=== PATIENT | female | born 1955 | race Caucasian/White ===

== ENCOUNTER 2016-06-02 20:03 | Inpatient (IN) | payer MEDICAID ==
[~2016-06-02] VITALS: Ht 160 cm; Wt 51.6 kg
[~2016-06-02 20:03] MED LIST: CHLO25 PO; EFFE75CA PO; LISI-363 PO; LISI20 PO; LORTA5 PO; LURA40 PO; OXCA300 PO; PRAZ1 PO; REME45TA PO; TRAZ300T2 PO; VENL75XR PO
[2016-06-02 20:05] VITALS: BP 149/87; PULSE 86; RESP 14; TEMP 98; O2SAT 98
[2016-06-02 20:13] VITALS: PULSE 84; RESP 16
[2016-06-02] MEDS ORDERED: NORC5TAB PO (20:18)
[2016-06-02] MEDS ORDERED: LISI-515 PO (20:18)
[2016-06-02] MEDS ORDERED: LURA40 PO (20:19)
[2016-06-02] MEDS ORDERED: VENL75TA PO (20:20)
[2016-06-02] MEDS ORDERED: TRAZ300T2 PO (20:20)
[2016-06-02] MEDS ORDERED: TRIL300T PO (20:21)
[2016-06-02] MEDS ORDERED: SODIUM CHLOR 0.9% 1000 ML INJ 1,000 ML IV ONE (20:21)
[2016-06-02] MEDS ORDERED: REME45TA PO (20:24)
[2016-06-02] MEDS ORDERED: PRAZ1 PO (20:26)
[2016-06-02] MEDS ORDERED: MORP1TAB24 PO (20:26)
[2016-06-02] MEDS ORDERED: SODIUM CHLORIDE 0.9% FLUSH 5 ML FLUSH IVF PRN (20:30)
--- NOTE | 2016-06-02 20:31 | PD ---
HPI Chief Complaint: Altered Mental Status Time Seen by Provider: 20:23 Travel History International Travel<30 days: No Contact w/Intl Traveler<30days: No Traveled to known affect area: No History of Present Illness HPI 60-year-old female brought in by son after being found obtunded. Patient's son states it's been taking pain medication for her ongoing left hip pain. 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 Patient is scheduled to have hip replacement repaired in [facility] in the next 2 weeks. Patient's son states he found the patient with decreased responsiveness in her home and brought her to the emergency department as he is concerned. Patient is arousable to voice, but is obviously obtunded. O2 sat without supplementation is high 80s. Patient is allergic to nickel, morphine, latex, and Cerebyx. PFSH Past Medical History Hx Anticoagulant Therapy: No Arthritis: Yes Autoimmune Disease: No Blood Disorders: No Bipolar Disorder: Yes Anxiety: Yes Depression: Yes Chemotherapy: No Cerebrovascular Accident: No Diminished Hearing: No Endocrine: No Gastrointestinal Disorders: Yes (gi bleed) GERD: Yes Glaucoma: No Genitourinary: No Hiatal Hernia: No Immune Disorder: No Implanted Vascular Access Dvce: Yes (PICC LINE) Musculoskeletal: Yes (SCIATIC NERVE PROBLEMS LEFT) Neurologic: No Reproductive: No Respiratory: No Immunizations Current: Yes (flu and pneumonia shot-2006.) Migraines: Yes Radiation Therapy: No Thyroid Disease: No Ulcer: Yes Menopausal: Yes : 1 Para: 1 Tubal Ligation: Yes Past Surgical History Abdominal Surgery: No AICD: No Appendectomy: No Arteriovenous Shunt: No Body Medical Devices: CULLEN IN LEFT THIGH, SCREWS IN HIP Cardiac Surgery: No Cholecystectomy: No Ear Surgery: No Endocrine Surgery: No Eye Surgery: No Genitourinary Surgery: No Gynecologic Surgery: No Hysterectomy: No Insulin Pump: No Joint Replacement: No Oral Surgery: No Pacemaker: No Thoracic Surgery: No Other Surgery: Yes Social History Alcohol Use: No Tobacco Use: Yes (2-3 CIGS PER DAY) Substance Use: Yes (oxy ) Allergies-Medications (Allergen,Severity, Reaction): Coded Allergies: Latex (Verified Allergy, Intermediate, Rash, 06/02/16) Cerebyx (Verified Adverse Reaction, Severe, TINNITIS, 06/02/16) Morphine (Verified Adverse Reaction, Intermediate, Dizzy, 06/02/16) Uncoded Allergies: NICKEL (Adverse Reaction, Severe, SWELLING, 02/02/16) Reported Meds & Prescriptions Reported Meds & Active Scripts Active Reported Morphine ER (Morphine Sulfate) 15 Mg Tab 15 Mg PO DAILY Minipress (Prazosin HCl) 1 Mg Cap 1 Mg PO DAILY Remeron (Mirtazapine) 45 Mg Tab 45 Mg PO HS Trileptal (Oxcarbazepine) 300 Mg Tab 300 Mg PO DAILY Trazodone (Trazodone HCl) 300 Mg Tab 300 Mg PO HS Effexor (Venlafaxine HCl) 75 Mg Tab 75 Mg PO DAILY Latuda (Lurasidone) 40 Mg Tab 40 Mg PO DAILY [place] (Hydrocodone-Acetaminophen) 5-325 mg Tab 1 Tab PO Q6H PRN Lisinopril 20 Mg Tab 20 Mg PO DAILY Review of Systems ROS Limitations: Intoxication, Altered Mental Status Except as stated in HPI: all other systems reviewed are Neg General / Constitutional: No: Fever Eyes: No: Visual changes HENT: No: Headaches Cardiovascular: No: Chest Pain or Discomfort Respiratory: No: Shortness of Breath Gastrointestinal: No: Abdominal Pain Genitourinary: No: Dysuria Musculoskeletal: No: Pain Skin: No Rash Neurologic: No: Weakness Psychiatric: No: Depression Endocrine: No: Polydipsia Hematologic/Lymphatic: No: Easy Bruising Physical Exam Exam Limitations: Intoxication, Altered Mental Status Narrative GENERAL: Patient is obtunded, but arousable with loud voice. SKIN: Warm and dry. Normal color. Normal turgor. HEAD: Atraumatic. Normocephalic. EYES: Pupils equal and round. No scleral icterus. No injection or drainage. ENT: No nasal bleeding or discharge. Mucous membranes pink and moist. Pharynx is intact. NECK: Trachea midline. No JVD. Supple and nontender. CARDIOVASCULAR: Regular rate and rhythm. No murmurs gallops or rubs. RESPIRATORY: No accessory muscle use. Clear to auscultation. Breath sounds equal bilaterally. GASTROINTESTINAL: Abdomen soft, non-tender, nondistended. Hepatic and splenic margins not palpable. MUSCULOSKELETAL: Extremities without clubbing, cyanosis, or edema. Patient's left leg is shortened approximately 3 inches and laterally rotated. This is consistent with her previous hip history. NEUROLOGICAL: Awake and alert. No obvious cranial nerve deficits. Motor grossly within normal limits. Five out of 5 muscle strength in the arms and legs. Normal speech. PSYCHIATRIC: Appropriate mood and affect; insight and judgment normal. Data Data Last Documented VS Vital Signs Date Time Temp Pulse Resp B/P Pulse Ox O2 Delivery O2 Flow Rate FiO2 06/02/16 22:04 73 16 160/85 98 Nasal Cannula 3 06/02/16 20:05 98.0 Orders Electrocardiogram (06/02/16 20:21) Alcohol (Ethanol) (06/02/16 20:21) Complete Blood Count With Diff (06/02/16 20:21) Comprehensive Metabolic Panel (06/02/16 20:21) Drug Screen, Random Urine (06/02/16 20:21) Salicylates (Aspirin) (06/02/16 20:21) Tylenol (Acetaminophen) (06/02/16 20:21) Urinalysis - C+S If Indicated (06/02/16 20:21) Chest, Single Ap (06/02/16 20:21) Blood Glucose (06/02/16 20:21) Iv Access Insert/Monitor (06/02/16 20:21) Cath For Specimen (06/02/16 20:21) Ecg Monitoring (06/02/16 20:21) Oximetry (06/02/16 20:21) Oxygen Administration (06/02/16 20:21) Sodium Chloride 0.9% Flush (Ns Flush) (06/02/16 20:30) Sodium Chlor 0.9% 1000 Ml Inj (Ns 1000 M (06/02/16 20:21) Naloxone Inj (Narcan Inj) (06/02/16 21:15) Urinary Catheter Insert/Apply (06/02/16 21:25) Ct Brain W/O Iv Contrast(Rout) (06/02/16 21:25) Ammonia (06/02/16 22:27) Labs Laboratory Tests Test 06/02/16 20:45 White Blood Count 4.9 TH/MM3 Red Blood Count 3.58 MIL/MM3 Hemoglobin 11.8 GM/DL Hematocrit 34.3 % Mean Corpuscular Volume 96.0 FL Mean Corpuscular Hemoglobin 33.0 PG Mean Corpuscular Hemoglobin 34.4 % Concent Red Cell Distribution Width 16.5 % Platelet Count 248 TH/MM3 Mean Platelet Volume 7.0 FL Neutrophils (%) (Auto) 69.2 % Lymphocytes (%) (Auto) 21.3 % Monocytes (%) (Auto) 7.6 % Eosinophils (%) (Auto) 1.8 % Basophils (%) (Auto) 0.1 % Neutrophils # (Auto) 3.4 TH/MM3 Lymphocytes # (Auto) 1.0 TH/MM3 Monocytes # (Auto) 0.4 TH/MM3 Eosinophils # (Auto) 0.1 TH/MM3 Basophils # (Auto) 0.0 TH/MM3 CBC Comment DIFF FINAL Differential Comment Urine Color YELLOW Urine Turbidity CLEAR Urine pH 6.5 Urine Specific [place] 1.014 Urine Protein NEG mg/dL Urine Glucose (UA) NEG mg/dL Urine Ketones NEG mg/dL Urine Occult Blood NEG Urine Nitrite NEG Urine Bilirubin NEG Urine Urobilinogen LESS THAN 2.0 MG/DL Urine Leukocyte Esterase NEG Urine WBC LESS THAN 1 /hpf Urine Squamous Epithelial <1 /hpf Cells Urine Hyaline Casts 1 /lpf Urine Mucus FEW /lpf Microscopic Urinalysis Comment CULT NOT INDICATED Sodium Level 123 MEQ/L Potassium Level 4.4 MEQ/L Chloride Level 86 MEQ/L Carbon Dioxide Level 28.5 MEQ/L Anion Gap 9 MEQ/L Blood Urea Nitrogen 9 MG/DL Creatinine 0.52 MG/DL Estimat Glomerular Filtration 121 ML/MIN Rate Random Glucose 73 MG/DL Calcium Level 8.5 MG/DL Total Bilirubin 0.2 MG/DL Aspartate Amino Transf 42 U/L (AST/SGOT) Alanine Aminotransferase 23 U/L (ALT/SGPT) Alkaline Phosphatase 81 U/L Total Protein 6.9 GM/DL Albumin 3.8 GM/DL Salicylates Level 5.0 MG/DL Urine Opiates Screen POS Acetaminophen Level LESS THAN 2.0 MCG/ML Urine Barbiturates Screen NEG Urine Amphetamines Screen NEG Urine Benzodiazepines Screen POS Urine Cocaine Screen NEG Urine Cannabinoids Screen NEG Ethyl Alcohol Level LESS THAN 3 MG/DL MDM Medical Decision Making Medical Screen Exam Complete: Yes Emergency Medical Condition: Yes Differential Diagnosis Prescribed medications overdose. Hyponatremia. Hypokalemia. Possibly postictal from seizure. Narrative Course Patient is placed on oxygen at 4 L via nasal cannula to maintain O2 sats above 92%. Labs ordered including CBC, CMP, urine drug screen, salicylate level, and acetaminophen level. Chest x-ray and EKG are ordered as well. Patient is discussed with Dr. Matias who goes to see the patient as well. Chest x-ray shows mild basilar parenchymal opacities per radiologist. EKG shows normal sinus rhythm without any acute changes. 2100 hrs. nursing staff report the patient's level of consciousness is decreased although oxygenation is maintained. Dr. Matias recommends 0.4 mg Narcan IV. Patient does become more alert after Narcan dosage. CBC is unremarkable. Chemistry shows a sodium 123, potassium 4.4, chloride of 86, random glucose is 73. Dr. Matias is aware of these numbers. Arevalo catheter is placed to ensure proper fluid input and output. Urinalysis is normal. Toxicology is positive for opiates, less than 2 acetaminophen level. An ethyl alcohol is less than 3. Salicylates are pending. Patient is recommended to be admitted due to her ongoing somnolence, and hyponatremia. 2300 hrs., call was placed to the hospitalist for admission. 2310 hrs. patient was discussed with Dr. Ridley, but due to the patient's hyponatremia and possible need for a Narcan drip she felt the patient should be admitted to the metalworking instructor. 2315 hrs. call was placed to the metalworking instructor. 2330 hrs. patient was discussed with Dr. Timmons who examined the patient for admission. Diagnosis Primary Impression: Hyponatremia syndrome Additional Impression: Altered mental status Qualified Code: R40.0 - Somnolence Admitting Information Admitting Physician Requests: Admit Condition: Stable Steve Berger Jun 02, 2016 20:31
--- NOTE | 2016-06-02 20:41 | RADRPT ---
EXAM DATE/TIME: 06/02/2016 20:19 [facility] COMPARISON: CHEST PA & LAT, February 04, 2016, 9:35. INDICATIONS : Syncope MEDICAL HISTORY : None. SURGICAL HISTORY : None. ENCOUNTER: Initial ACUITY: 1 day PAIN SCORE: 0/10 LOCATION: Bilateral chest FINDINGS: There is minimal bibasilar parenchymal opacity. No evidence of effusion. Cardiomediastinal contours a nd pulmonary vascularity appears satisfactory. CONCLUSION: Mild basilar parenchymal opacities Anjel Li MD on June 02, 2016 at 20:39 Board Certified Radiologist. This report was verified electronically.
--- NOTE | 2016-06-02 20:44 | PD ---
Physical Exam Narrative General: The patient is well-developed well-nourished female, drowsy on examination although arousable to voice. She quickly falls back asleep and is not providing any significant history. The patient's history is obtained from her son who is at the bedside. Head and Neck exam: Head is normocephalic atraumatic. Eyes: Pupils are equal round and reactive to light. Nose: Midline septum with pink mucous membranes Mouth: Dentition unremarkable. Moist mucus membranes. Posterior oropharynx is not erythematous. No tonsillar hypertrophy. Uvula midline. Airway patent. Neck: No palpable lymphadenopathy. No nuchal rigidity. No thyromegaly. Cardiovascular: Regular rate and rhythm without murmurs, gallops, or rubs. Lungs: Clear to auscultation bilaterally. No wheezes, rhonchi, or rales. Abdomen: Soft, without tenderness to palpation in all 4 quadrants of the abdomen. No guarding, rebound, or rigidity. Normal bowel sounds are audible. Extremities: No clubbing, cyanosis, or edema. 2+ pulses in all 4 extremities. Neurologic Exam: The patient is uncooperative with formal neurologic testing. The patient is drowsy although arousable to voice on examination. Spontaneously move all extremities. She has no evidence of facial asymmetry. She has intact sensation over all dermatomes. Skin Exam: No rash noted. Intact skin that is warm and dry. Data Data Last Documented VS Vital Signs Date Time Temp Pulse Resp B/P Pulse Ox O2 Delivery O2 Flow Rate FiO2 06/02/16 22:04 73 16 160/85 98 Nasal Cannula 3 06/02/16 20:05 98.0 Orders Electrocardiogram (06/02/16 20:21) Alcohol (Ethanol) (06/02/16 20:21) Complete Blood Count With Diff (06/02/16 20:21) Comprehensive Metabolic Panel (06/02/16 20:21) Drug Screen, Random Urine (06/02/16 20:21) Salicylates (Aspirin) (06/02/16 20:21) Tylenol (Acetaminophen) (06/02/16 20:21) Urinalysis - C+S If Indicated (06/02/16 20:21) Chest, Single Ap (06/02/16 20:21) Blood Glucose (06/02/16 20:21) Iv Access Insert/Monitor (06/02/16 20:21) Cath For Specimen (06/02/16 20:21) Ecg Monitoring (06/02/16 20:21) Oximetry (06/02/16 20:21) Oxygen Administration (06/02/16 20:21) Sodium Chloride 0.9% Flush (Ns Flush) (06/02/16 20:30) Sodium Chlor 0.9% 1000 Ml Inj (Ns 1000 M (06/02/16 20:21) Naloxone Inj (Narcan Inj) (06/02/16 21:15) Urinary Catheter Insert/Apply (06/02/16 21:25) Ct Brain W/O Iv Contrast(Rout) (06/02/16 21:25) Ammonia (06/02/16 22:27) Admit Order (Ed Use Only) (06/02/16 22:28) Labs Laboratory Tests Test 06/02/16 20:45 White Blood Count 4.9 TH/MM3 Red Blood Count 3.58 MIL/MM3 Hemoglobin 11.8 GM/DL Hematocrit 34.3 % Mean Corpuscular Volume 96.0 FL Mean Corpuscular Hemoglobin 33.0 PG Mean Corpuscular Hemoglobin 34.4 % Concent Red Cell Distribution Width 16.5 % Platelet Count 248 TH/MM3 Mean Platelet Volume 7.0 FL Neutrophils (%) (Auto) 69.2 % Lymphocytes (%) (Auto) 21.3 % Monocytes (%) (Auto) 7.6 % Eosinophils (%) (Auto) 1.8 % Basophils (%) (Auto) 0.1 % Neutrophils # (Auto) 3.4 TH/MM3 Lymphocytes # (Auto) 1.0 TH/MM3 Monocytes # (Auto) 0.4 TH/MM3 Eosinophils # (Auto) 0.1 TH/MM3 Basophils # (Auto) 0.0 TH/MM3 CBC Comment DIFF FINAL Differential Comment Urine Color YELLOW Urine Turbidity CLEAR Urine pH 6.5 Urine Specific [place] 1.014 Urine Protein NEG mg/dL Urine Glucose (UA) NEG mg/dL Urine Ketones NEG mg/dL Urine Occult Blood NEG Urine Nitrite NEG Urine Bilirubin NEG Urine Urobilinogen LESS THAN 2.0 MG/DL Urine Leukocyte Esterase NEG Urine WBC LESS THAN 1 /hpf Urine Squamous Epithelial <1 /hpf Cells Urine Hyaline Casts 1 /lpf Urine Mucus FEW /lpf Microscopic Urinalysis Comment CULT NOT INDICATED Urine Osmolality 410 MOSM/KG Urine Random Sodium 63 MEQ/L Sodium Level 123 MEQ/L Potassium Level 4.4 MEQ/L Chloride Level 86 MEQ/L Carbon Dioxide Level 28.5 MEQ/L Anion Gap 9 MEQ/L Blood Urea Nitrogen 9 MG/DL Creatinine 0.52 MG/DL Estimat Glomerular Filtration 121 ML/MIN Rate Random Glucose 73 MG/DL Uric Acid 4.1 MG/DL Calcium Level 8.5 MG/DL Total Bilirubin 0.2 MG/DL Aspartate Amino Transf 42 U/L (AST/SGOT) Alanine Aminotransferase 23 U/L (ALT/SGPT) Alkaline Phosphatase 81 U/L Total Protein 6.9 GM/DL Albumin 3.8 GM/DL Thyroid Stimulating Hormone 1.020 uIU/ML 3rd Gen Salicylates Level 5.0 MG/DL Urine Opiates Screen POS Acetaminophen Level LESS THAN 2.0 MCG/ML Urine Barbiturates Screen NEG Urine Amphetamines Screen NEG Urine Benzodiazepines Screen POS Urine Cocaine Screen NEG Urine Cannabinoids Screen NEG Ethyl Alcohol Level LESS THAN 3 MG/DL MDM Medical Record Reviewed: Yes Supervised Visit with WILL: Yes Interpretation(s) Last Impressions Chest X-Ray 06/02/162020 Signed Impressions: Service Date/Time: Thursday, June 02, 2016 20:19 - CONCLUSION: Mild basilar parenchymal opacities Anjel Li MD Narrative Course I, Dr. Matias, have reviewed the advance practice practitioner's documentation and am in agreement, met with the patient face to face, made the diagnosis, and the medical decision making was done by me. The patient was initially evaluated by Steve, please see his complete history and physical. *My assessment and Findings: The patient is a 60-year-old female who presents to [facility] emergency Department with a history of altered mentation. The patient was brought in by private vehicle by her son. The patient has a history of being on multiple sedatives including Xanax and pain medication with drowsiness in the past from her medications, however he reports today she's been sleeping more than usual and drowsier than usual. He reports that she has been increasingly anxious as in 2 days she is point had left hip surgery. The patient has a history of left hip replacement with infection previously. The patient had hardware removed and is unable to weight-bear on that left leg. The patient normally gets around with the use of a walker, versus wheelchair. The patient's son reports that recently she started drinking alcohol, probably 6 months ago and has been drinking anywhere from 2 glasses of wine to a bottle of wine daily. The patient is also on Xanax 2 mg by mouth 3 times a day. The patient additionally ran out of Lortab and had her pain medication regimen changed to a different pain pill containing morphine a few days ago. The patient's examination is remarkable for her level of sedation although she is arousable to voice. She attempts to answer questions, however she quickly falls back asleep. Laboratory studies and imaging was ordered. The patient's initial blood sugar is 108. The patient's laboratory studies were remarkable for a sodium of 123, CBC unremarkable, urinalysis screen positive for opiates and benzodiazepines, alcohol level negative. The patient will be admitted to the hospital for continued evaluation and treatment of altered mentation thought to be related to overmedication accompanied with hyponatremia. Diagnosis Primary Impression: Altered mental status Qualified Code: R40.0 - Somnolence Additional Impression: Hyponatremia syndrome Admitting Information Admitting Physician Requests: Admit Scripts Trazodone 300 Mg [id number] Mg PO HS #30 TAB Ref 0 Prov:Domenico Flor MD 06/03/16 Barb Matias MD Jun 02, 2016 20:44
[2016-06-02 20:56] VITALS: O2SAT 98
[2016-06-02 21:03] LABS: AUTOMATED NEUTROPHIL # 3.4 TH/MM3 (1.8-7.7); BASOPHIL % 0.1 % (0.0-2.0); EOSINOPHIL # 0.1 TH/MM3 (0-0.4); EOSINOPHIL % 1.8 % (0.0-4.0); HEMATOCRIT 34.3 % (35.0-46.0); HEMO FLAGS DIFF FINAL; LYMPH % 21.3 % (9.0-44.0); MEAN CORPUSCULAR HGB CONC 34.4 % (32.0-36.0); MONO % 7.6 % (0.0-8.0); NEUT % 69.2 % (16.0-70.0); PLATELET COUNT 248 TH/MM3 (150-450); RED BLOOD COUNT 3.58 MIL/MM3 (4.00-5.30); RED CELL DISTRIBUTION WIDTH 16.5 % (11.6-17.2); WHITE BLOOD COUNT 4.9 TH/MM3 (4.0-11.0)
[2016-06-02 21:08] LABS: BLOOD, URINE NEG (NEG); COMMENT (UR) CULT NOT INDICATED; CULTURE IF INDICATED CULT NOT INDICATED; GLUCOSE,URINE NEG (NEG); HYALINE CAST, URINE 1 /lpf (RARE); KETONE, URINE NEG (NEG); MUCUS URINE FEW /lpf (OCC); NITRITE,URINE NEG (NEG); PH, URINE 6.5 (5.0-8.5); SQUAMOUS EPITHELIAL CELL URINE <1 /hpf (0-5); URINE COLOR YELLOW (YELLW/STRAW)
[2016-06-02 21:13] LABS: AMPHETAMINE, URINE NEG (NEG); BARBITURATES, URINE NEG (NEG); COCAINE, URINE NEG (NEG)
[2016-06-02] MEDS ORDERED: NALOXONE HCL 0.4 MG/ML AMP IV PUSH PRN (21:15)
[2016-06-02 21:16] VITALS: BP 131/83; PULSE 73; RESP 16; O2SAT 100
[2016-06-02 21:17] LABS: ANION GAP 9 MEQ/L (5-15)
[2016-06-02 21:23] LABS: ACETAMINOPHEN LESS THAN 2.0 MCG/ML (10.0-30.0); ALKALINE PHOSPHATASE 81 U/L (45-117); ALT (GPT) 23 U/L (10-53); AST (GOT) 42 U/L (15-37); BICARBONATE 28.5 MEQ/L (21.0-32.0); BLOOD UREA NITROGEN 9 MG/DL (7-18); CHLORIDE 86 MEQ/L (98-107); GLOMERULAR FILTRATION RATE 121 ML/MIN (>89); POTASSIUM 4.4 MEQ/L (3.5-5.1); TOTAL BILIRUBIN ADULT 0.2 MG/DL (0.2-1.0)
[2016-06-02 21:24] LABS: SODIUM (NA) 123 MEQ/L (136-145)
--- NOTE | 2016-06-02 21:54 | RADRPT ---
EXAM DATE/TIME: 06/02/2016 21:45 [facility] COMPARISON: CT BRAIN W/O CONTRAST, February 08, 2016, 13:11. INDICATIONS : Altered mental status. Possible fall. RADIATION DOSE: 39.45 CTDIvol (mGy) MEDICAL HISTORY : Seizures. SURGICAL HISTORY : Tubal ligation. ENCOUNTER: Initial ACUITY: 1 day PAIN SCALE: 0/10 LOCATION: cranial TECHNIQUE: Multiple contiguous axial images were obtained of the head. Using automated exposure control and adj ustment of the mA and/or kV according to patient size, radiation dose was kept as low as reasonably a chievable to obtain optimal diagnostic quality images. FINDINGS: CEREBRUM: The ventricles are normal for age. No evidence of midline shift, mass lesion, hemorrhage or acute in farction. No extra-axial fluid collections are seen. POSTERIOR FOSSA: The cerebellum and brainstem are intact. The 4th ventricle is midline. The cerebellopontine angle i s unremarkable. EXTRACRANIAL: The visualized portion of the orbits is intact. SKULL: The calvaria is intact. No evidence of skull fracture. CONCLUSION: No acute disease. Donavan Gutierrez MD on June 02, 2016 at 21:51 Board Certified Radiologist. This report was verified electronically.
[2016-06-02 22:04] VITALS: BP 160/85; PULSE 73; RESP 16; O2SAT 98
[2016-06-02] MEDS ORDERED: THIAMINE INJ 100 MG in SODIUM CHLORIDE 0.9% INJ 100 ML IV ONE (23:00)
[2016-06-02 23:09] LABS: URIC ACID 4.1 MG/DL (2.6-6.0)
--- NOTE | 2016-06-02 23:13 | HHI.HP ---
HPI Service Critical Care Medicine Primary Care Physician Unknown Admission Diagnosis Hyponatremia/Obtunded Diagnosis: Travel History International Travel<30 Days: No Contact w/Intl Traveler <30 Da: No Traveled to Known Affected Are: No History of Present Illness 60 yo WF with PMH of bipolar disorder, GERD, hypertension, seizures, chronic pain with prior overdose, alcohol abuse who presented to [facility] after her son found her unresponsive when he went to her home to check on her. ED workup revealed negative head CT. She was lethargic with room air sats in high 80s so was placed on NC. She was given Narcan 0.4 mg IV and then became more alert, tremulous. There was no witness seizure activity. Her sodium was 123, which is a recurrent issue. Reportedly, she has history of ORIF to femur about 10 years ago and developed infected hardware that was removed about 6 months ago and antibiotic spacer was placed at [facility]. She has been off antibiotics for 2 months and tentative plan is for arthrocentesis at [facility] on Sunday 06/04 and then arthroplasty on 06/06. She has been afebrile. She has been under the care of pain management and was reportedly changed to morphine ER 15 mg daily about 3-4 days ago. Her son states "she got excessively sedated once before when she was on morphine so they had stopped it". She told her son she also took more Xanax than prescribed. Her son states that he did not believe that this was in an effort to harm herself. He states that in the past she has abused alcohol "as a way to treat her pain when she couldn't get pain meds". He states she has currently been drinking about 2 glasses wine/day. Her UDS is positive for opiates and benzos. Salicylate level and Tylenol level are normal and alcohol level is low. Arevalo has been placed in the ED due to urinary retention. Past Family Social History Allergies: Coded Allergies: Latex (Verified Allergy, Intermediate, Rash, 06/02/16) Cerebyx (Verified Adverse Reaction, Severe, TINNITIS, 06/02/16) Morphine (Verified Adverse Reaction, Intermediate, Dizzy, 06/02/16) Uncoded Allergies: NICKEL (Adverse Reaction, Severe, SWELLING, 02/02/16) Past Medical History Seizure disorder Hypertension Insomnia Bipolar disorder Left hip septic arthritis from prior ORIF GERD Prior overdose Recurrent hyponatremia Chronic pain followed by pain management Alcohol abuse Tobacco abuse Reportedly no known history of cirrhosis Past Surgical History ORIF left hip following a femur fracture. She underwent removal of hardware with antibiotics cement placement about 6 months ago at [facility] Reported Medications Assisted 1 mill grams by mouth daily Lisinopril 20 mg by mouth daily Trileptal 300 mg by mouth daily Remeron 45 mg by mouth daily at bedtime Trazodone 3 mill grams by mouth daily Effexor 75 mg by mouth daily LAtuda 40 mill grams by mouth daily Morphine ER if she milligrams by mouth daily Clinton 5/325 one tab by mouth every 6 hours when necessary pain Family History Patient's son is not clear on all of her family medical history. Social History She is not She lives with a roommate She abuses alcohol. Reportedly she is to drink about a bottle of wine per day to self medicate her pain. Reportedly she now drinks a couple glasses of wine per day She smokes half a pack of cigarettes per day for many years She has not worked in over 10 years Physical Exam Vital Signs Vital Signs Date Time Temp Pulse Resp B/P Pulse Ox O2 Delivery O2 Flow Rate FiO2 06/02/16 22:04 73 16 160/85 98 Nasal Cannula 3 06/02/16 21:16 73 16 131/83 100 Nasal Cannula 3 06/02/16 20:56 98 Nasal Cannula 3 06/02/16 20:56 98 Nasal Cannula 3 06/02/16 20:13 84 16 06/02/16 20:05 98.0 86 14 149/87 98 Physical Exam Pulse 70 blood pressure 161/81 sats 100% on 3 L nasal cannula GENERAL: Thin female who is laying in the ED gurfloyd. She is asleep but arouses to voice. SKIN: Warm and dry. HEAD: Atraumatic. Normocephalic. EYES: Pupils 5 mm and sluggishly reactive bilaterally. No scleral icterus. No injection or drainage. ENT: No nasal bleeding or discharge. Mucous membranes pink and moist. NECK: Trachea midline. No JVD. CARDIOVASCULAR: Regular rate and rhythm, sinus rhythm on the monitor. No murmurs rubs or gallops. RESPIRATORY: No accessory muscle use. Clear to auscultation. Breath sounds equal bilaterally. Sats 95% when decrease to 2 L nasal cannula. GASTROINTESTINAL: Abdomen soft, non-tender, nondistended. Bowel sounds present : Arevalo in place with light yellow urine output. MUSCULOSKELETAL: Extremities without clubbing, cyanosis, or edema. His deformity of her left hip with well-healed surgical scar. Left leg is shortened and externally rotated. NEUROLOGICAL: Sleeping when I approached her. Opens eyes to voice, makes eye contact after loud verbalization and sternal rub. Tells me her name, does not answer the remainder questions of orientation. Follows commands by squeezing hands bilaterally. There is no apparent focal deficit Laboratory Laboratory Tests Test 06/02/16 20:45 White Blood Count 4.9 Red Blood Count 3.58 Hemoglobin 11.8 Hematocrit 34.3 Mean Corpuscular Volume 96.0 Mean Corpuscular Hemoglobin 33.0 Mean Corpuscular Hemoglobin 34.4 Concent Red Cell Distribution Width 16.5 Platelet Count 248 Mean Platelet Volume 7.0 Neutrophils (%) (Auto) 69.2 Lymphocytes (%) (Auto) 21.3 Monocytes (%) (Auto) 7.6 Eosinophils (%) (Auto) 1.8 Basophils (%) (Auto) 0.1 Neutrophils # (Auto) 3.4 Lymphocytes # (Auto) 1.0 Monocytes # (Auto) 0.4 Eosinophils # (Auto) 0.1 Basophils # (Auto) 0.0 CBC Comment DIFF FINAL Differential Comment Urine Color YELLOW Urine Turbidity CLEAR Urine pH 6.5 Urine Specific Center 1.014 Urine Protein NEG Urine Glucose (UA) NEG Urine Ketones NEG Urine Occult Blood NEG Urine Nitrite NEG Urine Bilirubin NEG Urine Urobilinogen LESS THAN 2.0 Urine Leukocyte Esterase NEG Urine WBC LESS THAN 1 Urine Squamous Epithelial <1 Cells Urine Hyaline Casts 1 Urine Mucus FEW Microscopic Urinalysis Comment CULT NOT INDICATED Urine Random Sodium 63 Sodium Level 123 Potassium Level 4.4 Chloride Level 86 Carbon Dioxide Level 28.5 Anion Gap 9 Blood Urea Nitrogen 9 Creatinine 0.52 Estimat Glomerular Filtration 121 Rate Random Glucose 73 Calcium Level 8.5 Total Bilirubin 0.2 Aspartate Amino Transf 42 (AST/SGOT) Alanine Aminotransferase 23 (ALT/SGPT) Alkaline Phosphatase 81 Total Protein 6.9 Albumin 3.8 Salicylates Level 5.0 Urine Opiates Screen POS Acetaminophen Level LESS THAN 2.0 Urine Barbiturates Screen NEG Urine Amphetamines Screen NEG Urine Benzodiazepines Screen POS Urine Cocaine Screen NEG Urine Cannabinoids Screen NEG Ethyl Alcohol Level LESS THAN 3 Result Diagram: 06/02/16204406/02/162044 Assessment and Plan Assessment and Plan NEURO/PSYCH: Seizure disorder Bipolar disorder Acute encephalopathy, narcotic induced EtOH abuse CT brain acute abnormality Responded to Narcan 0.4 mg IV in the emergency department. She apparently was doing well for several hours but now is sleepy again, though does appear to be protecting airway. Will re-dose Narcan 0.2 mg IV and consider Narcan drip if needed. Check ammonia level Thiamine 100 mg IV daily. Monitor for evidence of alcohol withdrawal Patient's son states she missed her dose of Trileptal 06/02/16. Will give her dose when she is able to swallow. If she will miss more than one dose, consider NGT for drug administration however this did not appear necessary at this time. Hold sedative meds including morphine, remeron, trazodone. Hold effexor and latuda for now until able to take po. RESP: Nasal cannula wean as tolerated. She is currently protecting her airway. CV: Hypertension Hold lisinopril in view of hyponatremia. Consider alternative agent for hypertension given patient's recurrent hyponatremia. GI: Nothing by mouth for now. Regular diet when appropriate. Reportedly no prior history of cirrhosis FEN/RENAL: Recurrent hyponatremia Urinary retention Patient is on multiple medications which can cause hyponatremia including lisinopril, which is being held. She also is on multiple psychiatric medications which can cause drug induced SIADH including Remeron, trazodone, Effexor. She was also on all of these medications during prior episodes of hyponatremia 04/09 and 02/08. Interestingly during these prior admissions her sodium improved following fluid administration. She currently looks euvolemic. Received NS 1 L in the ED and will place on NS 84 ml/hr and repeat sodium. If sodium is going down and labs are consistent w/ SIADH, would change to fluid restriction. Send serum osm, urine osm, urine sodium, TSH, cortisol, uric acid level. She had urinary retention of 450 mL, secondary to medication effect. Arevalo has been placed. Monitor intake and output. Monitor electrolytes and replace as indicated per ICU elect light replacement protocol. ID: Monitor for evidence of infection. Chest x-ray has very minimal bibasilar infiltrates. She has no cough, no sputum production, no fever, no leukocytosis , so will observe off antibiotics for now. HEME: Monitor CBC ENDO: Euglycemic. Follow-up cortisol and TSH given hyponatremia. ORTHO: There are no acute ortho issues. When patient is medically appropriate for discharge, can followup with her orthopaedic physician, Dr. Chase, at [facility]. PROPH: Lovenox subcutaneous for DVT prophylaxis. Protonix 40 mg IV daily for stress ulcer prophylaxis. ACCESS: PIV providing adequate access at this time. I called patient's son, Kel and left a message at [phone] at [phone]. He called back and assisted with providing medical history. His questions were answered Level 3 Genevieve Timmons MD Jun 02, 2016 23:13
[2016-06-02] MEDS ORDERED: SODIUM CHLOR 0.9% 1000 ML INJ 1,000 ML IV SCH (23:20)
[2016-06-02 23:30] LABS: CORTISOL 7.3 MCG/DL
[2016-06-02] MEDS ORDERED: SODIUM CHLORIDE 0.9% FLUSH 5 ML FLUSH IV FLUSH PRN (23:30)
[2016-06-02] MEDS ORDERED: ONDANSETRON HCL 4 MG/2 ML VIAL IV PRN (23:30)
[2016-06-02] MEDS ORDERED: NALOXONE HCL 0.4 MG/ML AMP IV PUSH ONE (23:30)
[2016-06-02] MEDS ORDERED: MISCELLANEOUS NURSING INFORMATION XX SCH (23:30)
[2016-06-02] MEDS ORDERED: RESP: ALBUTEROL 2.5 MG/3 ML NEB (PRN) INH (23:30)
[2016-06-02] MEDS ORDERED: ENOXAPARIN SODIUM 40 MG/0.4 ML SYRINGE SQ SCH (23:30)
[2016-06-02] MEDS ORDERED: CHLORHEXIDINE GLUCONATE 2 % 1 PACK (2 CLOTHS) TOP PRN (23:30)
[2016-06-03] VITALS (13 sets, daily range): BP systolic 121–176; BP diastolic 73–79; PULSE 70–92; RESP 14–26; TEMP 97.8–98.6; O2SAT 95–100
[2016-06-03] MEDS ORDERED: OXcarbazepine 300 MG TAB PO ONE
[2016-06-03 03:36] LABS: AUTOMATED NEUTROPHIL # 3.2 TH/MM3 (1.8-7.7); BASOPHIL % 0.3 % (0.0-2.0); EOSINOPHIL # 0.1 TH/MM3 (0-0.4); EOSINOPHIL % 2.4 % (0.0-4.0); HEMATOCRIT 30.9 % (35.0-46.0); HEMO FLAGS DIFF FINAL; LYMPH % 20.4 % (9.0-44.0); MEAN CELL VOLUME 95.2 FL (80.0-100.0); MEAN CORPUSCULAR HEMOGLOBIN 32.5 PG (27.0-34.0); MEAN CORPUSCULAR HGB CONC 34.2 % (32.0-36.0); MONO % 10.8 % (0.0-8.0); NEUT % 66.1 % (16.0-70.0); PLATELET COUNT 232 TH/MM3 (150-450); RED BLOOD COUNT 3.25 MIL/MM3 (4.00-5.30); RED CELL DISTRIBUTION WIDTH 15.7 % (11.6-17.2); WHITE BLOOD COUNT 4.8 TH/MM3 (4.0-11.0)
[2016-06-03] MEDS ORDERED: CHLORHEXIDINE GLUCONATE 2 % 1 PACK (2 CLOTHS) TOP SCH (04:00)
[2016-06-03 04:25] LABS: ALKALINE PHOSPHATASE 66 U/L (45-117); ALT (GPT) 19 U/L (10-53); ANION GAP 5 MEQ/L (5-15); AST (GOT) 34 U/L (15-37); BICARBONATE 29.5 MEQ/L (21.0-32.0); BLOOD UREA NITROGEN 7 MG/DL (7-18); CHLORIDE 95 MEQ/L (98-107); GLOMERULAR FILTRATION RATE 163 ML/MIN (>89); POTASSIUM 3.9 MEQ/L (3.5-5.1); SODIUM (NA) 129 MEQ/L (136-145); TOTAL BILIRUBIN ADULT 0.2 MG/DL (0.2-1.0)
[2016-06-03] MEDS ORDERED: DEXTROSE 50% IN WATER 50 ML SYRINGE ONE (05:22)
[2016-06-03] MEDS ORDERED: COSYNTROPIN 0.25 MG VIAL IV PUSH ONE (05:30)
[2016-06-03] MEDS ORDERED: DEXT 5%-NACL 0.9% 1000 ML INJ 1,000 ML IV SCH (05:30)
[2016-06-03] MEDS ORDERED: DEXTROSE 50% IN WATER 50 ML VIAL(D50) IV PUSH ONE (05:30)
[2016-06-03] MEDS ORDERED: NALOXONE HCL 0.4 MG/ML AMP IV PUSH PRN (05:30)
[2016-06-03] MEDS ORDERED: MAGNESIUM SULFATE INJ 2 GM in SODIUM CHLORIDE 0.9% INJ 96 ML IV PRN (05:45)
[2016-06-03] MEDS ORDERED: SODIUM PHOSPHATE INJ 30 MMOL in SODIUM CHLOR 0.9% 250 ML INJ 240 ML IV PRN (05:45)
[2016-06-03] MEDS ORDERED: POTASSIUM PHOSPHATE MONOBASIC 500 MG TAB PO/TUBE PRN (05:45)
[2016-06-03] MEDS ORDERED: POTASSIUM CL 40 MEQ/30 ML LIQ UDC PO/TUBE PRN ×2 (05:45)
[2016-06-03] MEDS ORDERED: POTASSIUM CHLOR 20 MEQ PREMIX 100 ML IV PRN ×2 (05:45)
[2016-06-03] MEDS ORDERED: POTASSIUM PHOSPHATE MONOBASIC 500 MG TAB PO PRN (05:45)
[2016-06-03] MEDS ORDERED: MAGNESIUM OXIDE 400 MG TAB PO PRN (05:45)
[2016-06-03] MEDS ORDERED: POTASSIUM CHLOR 40 MEQ PREMIX 100 ML IV PRN ×2 (05:45)
[2016-06-03] MEDS ORDERED: MAGNESIUM SULFATE INJ 4 GM in SODIUM CHLORIDE 0.9% INJ 92 ML IV PRN (05:45)
[2016-06-03] MEDS ORDERED: POTASSIUM PHOSPHATE INJ 30 MMOL in SODIUM CHLOR 0.9% 250 ML INJ 250 ML IV PRN (05:45)
--- NOTE | 2016-06-03 08:28 | EKG ---
Date Performed: 06/02/2016 Time Performed: 20:39:33 PTAGE: 60 years EKG: Sinus rhythm NORMAL ECG PREVIOUS TRACING : 02/06/2016 05.45 No significant change from previous tracing noted. DOCTOR: Osvaldo Barahona Interpretating Date/Time 06/03/2016 08:27:10
[2016-06-03] MEDS ORDERED: DOCUSATE SODIUM 100 MG CAP PO SCH (09:00)
[2016-06-03] MEDS ORDERED: PANTOPRAZOLE SODIUM 40 MG VIAL IV SCH (09:00)
[2016-06-03] MEDS ORDERED: SODIUM CHLORIDE 0.9% FLUSH 5 ML FLUSH IV FLUSH SCH (09:00)
[2016-06-03] MEDS ORDERED: TRAZ300T2 PO (13:02)
--- NOTE | 2016-06-03 13:03 | HHI.DCPOC ---
Discharge Care Plan Diagnosis: (1) Hyponatremia syndrome (2) Alcohol abuse (3) Drug overdose, multiple drugs (4) Dislocation of internal left hip prosthesis (5) Left hip pain Goals to Promote Your Health * To prevent worsening of your condition and complications * To maintain your health at the optimal level Directions to Meet Your Goals Take your medications as prescribed Follow your dietary instruction Follow activity as directed Keep your appointments as scheduled Take your immunizations and boosters as scheduled If your symptoms worsen call your PCP, if no PCP go to Urgent Care Center or Emergency Room Smoking is Dangerous to Your Health. Avoid second hand smoke Call the 24-hour hour crisis hotline for domestic abuse at Domenico Flor MD Jun 03, 2016 13:03
--- NOTE | 2016-06-03 13:22 | HHI.PR ---
Subjective Remarks Patient seen in follow up for encephalopathy secondary to multi-substance overdose, hyponatremia. Patient is now awake, alert, and oriented. Her son is at bedside. Essentially the patient reported that she took too many of her pain medications for her left hip pain. She also has been drinking to help with her pain. They have an appointment tomorrow for preop regarding the hip replacement and they do not want to miss it. They are requesting discharge. Objective Vitals Vital Signs Date Time Temp Pulse Resp B/P Pulse Ox O2 Delivery O2 Flow Rate FiO2 06/03/16 10:00 80 06/03/16 09:03 100 Nasal Cannula 2.00 06/03/16 08:00 70 06/03/16 08:00 98.4 70 21 138/74 99 06/03/16 06:00 71 06/03/16 05:50 97.8 79 16 136/73 96 06/03/16 04:05 72 16 136/79 98 Nasal Cannula 2 06/03/16 02:17 72 16 146/79 98 Nasal Cannula 2 06/03/16 01:37 98.1 78 14 156/75 98 Nasal Cannula 2 06/03/16 00:33 79 16 176/78 95 Nasal Cannula 2 06/03/16 00:26 99 Nasal Cannula 2.00 06/02/16 22:04 73 16 160/85 98 Nasal Cannula 3 06/02/16 21:16 73 16 131/83 100 Nasal Cannula 3 06/02/16 20:56 98 Nasal Cannula 3 06/02/16 20:56 98 Nasal Cannula 3 06/02/16 20:13 84 16 06/02/16 20:05 98.0 86 14 149/87 98 I/O 06/02/16 06/02/16 06/02/16 06/03/16 06/03/16 06/03/16 07:00 15:00 23:00 07:00 15:00 23:00 Output Total 450 ml 850 ml Balance -450 ml -850 ml Output Urine Total 450 ml 850 ml Result Diagram: 06/03/1632006/03/16320 Imaging Last Impressions Head CT 06/02/162124 Signed Impressions: Service Date/Time: Thursday, June 02, 2016 21:45 - CONCLUSION: No acute disease. Donavan Guiterrez MD Chest X-Ray 06/02/162020 Signed Impressions: Service Date/Time: Thursday, June 02, 2016 20:19 - CONCLUSION: Mild basilar parenchymal opacities Anjel Li MD Objective Remarks GENERAL: Patient appears older than stated age. CARDIOVASCULAR: Normal rate and regular rhythm without murmurs, gallops, or rubs. RESPIRATORY: Good respiratory efforts. Breath sounds equal and clear to auscultation bilaterally. GASTROINTESTINAL: Abdomen soft, non-tender, non-distended. Normal active bowel sounds MUSCULOSKELETAL: Left hip is externally rotated, dislocated, not in the joint. NEURO: Alert & Oriented x4 to person, place, time, situation. PSYCH: Anxious A/P Assessment and Plan 60-year-old female with a medical history significant for seizure disorder, bipolar disorder, and alcohol abuser presented with acute encephalopathy secondary to combinations of narcotics, benzodiazepines, and alcohol abuse. The patient reports this was an attempt to help with her left hip pain. 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 She is scheduled to have a preop appointment tomorrow for hip replacement. Her mental status had markedly improved and the patient and her son are requesting discharge so they can make it to the appointment tomorrow. I reviewed her medication list with her and advised on multiple changes including discontinuing extended release morphine. She has not been taking Remeron. I advised her to not take it anymore. I also advised cutting the dose of trazodone from 300 mg to 150 mg daily. This patient seems to be on too many sedating medications. I do advise her to return to her psychiatrist so she can be weaned off some of these medications. - The patient was counseled extensively regarding alcohol abuse. - Regarding hyponatremia. It is likely hypovolemic Hyponatremia in an alcoholic patient. Sodium quickly improved with IVF. Will repeat BMP today and if >130, the patient can be discharged. Again she is advised to avoid alcohol and drink enough fluid to stay hydrated. Discharge in stable condition Activity: Regular as previous. Use wheelchair. Diet: Heart healthy Medications: See med rec Follow-up: With orthopedic surgery tomorrow as scheduled. Domenico Flor MD Jun 03, 2016 13:22
[2016-06-03 16:34] LABS: BICARBONATE 29.3 MEQ/L (21.0-32.0); POTASSIUM 3.9 MEQ/L (3.5-5.1)
[2016-09-03] MEDS ORDERED: CLON1 PO (08:43)
== END 2016-06-03 17:15 | disposition home or self-care (01) | DRG 92 ==
LOC: NEPE 20:03 → NEDA 22:30 → HIMN 06-03 05:40
PROVIDERS: ADMIT Family Medicine; ATTEND Family Medicine
PROC: 0T9B70Z Drainage of Bladder with Drainage Device, Via Natural or Artificial Opening (ICD-10-PCS; principal; 2016-06-02)
DX: G92 Toxic encephalopathy (principal); E87.1 Hypo-osmolality and hyponatremia; I10 Essential (primary) hypertension; F31.9 Bipolar disorder, unspecified; K21.9 Gastro-esophageal reflux disease without esophagitis; F10.10 Alcohol abuse, uncomplicated; Y90.0 Blood alcohol level of less than 20 mg/100 ml; G89.29 Other chronic pain; M25.552 Pain in left hip; R33.9 Retention of urine, unspecified; G47.00 Insomnia, unspecified; G40.909 Epilepsy, unspecified, not intractable, without status epilepticus; F17.210 Nicotine dependence, cigarettes, uncomplicated; M19.90 Unspecified osteoarthritis, unspecified site; Z91.040 Latex allergy status; T40.605A Adverse effect of unspecified narcotics, initial encounter; T42.4X5A Adverse effect of benzodiazepines, initial encounter
CPT/HCPCS: 51702; 70450; 71010; 80048; 80053; 80183; 80307; 80320; 80329; 81001; 82140; 82533; 83930; 83935; 84300; 84443; 84550; 85025; 87641; 93005; 96361; 96374; C9113; G0480; J0834; J1650; J2310; J2405; J3411; J7030; J7042

== ENCOUNTER 2016-08-14 16:35 | Emergency (ER) | payer MEDICAID ==
[~2016-08-14] VITALS: Ht 160 cm; Wt 47.0 kg
[~2016-08-14 16:35] MED LIST changes: -CHLO25 PO; -EFFE75CA PO; -LISI-363 PO; +LISI-515 PO; -LISI20 PO; -LORTA5 PO; +NORC5TAB PO; -OXCA300 PO; -REME45TA PO; +TRIL300T PO; +VENL75TA PO; -VENL75XR PO
[2016-08-14 16:38] VITALS: BP 92/64; PULSE 101; RESP 16; TEMP 98.9; O2SAT 98
--- NOTE | 2016-08-14 18:27 | PD ---
HPI Chief Complaint: Bleeding Time Seen by Provider: 18:07 Travel History International Travel<30 days: No Contact w/Intl Traveler<30days: No Traveled to known affect area: No History of Present Illness HPI 61-year-old female presents with bleeding from her left leg wound that has occurred since she had a tube removed 3 days ago in [place]. She states originally she was they are with a hip replacement and femur fracture repair. She states she tried to call them but did not get a call back so she came here. She denies any other concurrent complaints. She states she was on Coumadin. She states she lives here but elected to go up there as she heard they were good at procedures. Her original procedure was one month ago. She started bleeding last night. PFSH Past Medical History Hx Anticoagulant Therapy: Yes (STOPPED HERSELF YESTERDAY) Arthritis: Yes Autoimmune Disease: No Blood Disorders: No Bipolar Disorder: Yes Anxiety: Yes Depression: Yes Chemotherapy: No Cerebrovascular Accident: No Diabetes: No Diminished Hearing: No Endocrine: No Gastrointestinal Disorders: Yes (gi bleed) GERD: Yes Glaucoma: No Genitourinary: No Hiatal Hernia: No Immune Disorder: No Implanted Vascular Access Dvce: Yes (PICC LINE) Musculoskeletal: Yes (SCIATIC NERVE PROBLEMS LEFT) Neurologic: No Reproductive: No Respiratory: No Immunizations Current: Yes (flu and pneumonia shot-2006.) Migraines: Yes Radiation Therapy: No Thyroid Disease: No Ulcer: Yes ?: Not Menopausal: Yes : 1 Para: 1 Tubal Ligation: Yes Past Surgical History Abdominal Surgery: No AICD: No Appendectomy: No Arteriovenous Shunt: No Body Medical Devices: CULLEN IN LEFT THIGH, SCREWS IN HIP Cardiac Surgery: No Cholecystectomy: No Ear Surgery: No Endocrine Surgery: No Eye Surgery: No Genitourinary Surgery: No Gynecologic Surgery: No Hysterectomy: No Insulin Pump: No Joint Replacement: No Oral Surgery: No Pacemaker: No Thoracic Surgery: No Other Surgery: Yes Social History Alcohol Use: No Tobacco Use: Yes (2-3 CIGS PER DAY) Substance Use: Yes (oxy ) Allergies-Medications (Allergen,Severity, Reaction): Coded Allergies: Latex (Verified Allergy, Intermediate, Rash, 08/14/16) Cerebyx (Verified Adverse Reaction, Severe, TINNITIS, 08/14/16) Morphine (Verified Adverse Reaction, Intermediate, Dizzy, 08/14/16) Uncoded Allergies: NICKEL (Adverse Reaction, Severe, SWELLING, 02/02/16) Reported Meds & Prescriptions Reported Meds & Active Scripts Active Trazodone (Trazodone HCl) 300 Mg Tab 150 Mg PO HS Reported Coumadin (Warfarin) 1 Mg Tab 1 Mg PO DAILY Omeprazole 20 Mg Tab 20 Mg PO DAILY Remeron (Mirtazapine) 15 Mg Tab 7.5 Mg PO HS Trileptal (Oxcarbazepine) 300 Mg Tab 300 Mg PO DAILY Latuda (Lurasidone) 40 Mg Tab 40 Mg PO DAILY Review of Systems Except as stated in HPI: all other systems reviewed are Neg Physical Exam Narrative GENERAL: Well-nourished, well-developed patient. SKIN: Incision is well healing to left mid lateral upper leg without current active draining small amount of swelling to that area underlying noted HEAD: Normocephalic and atraumatic. EYES: No injection or drainage. ENT: No nasal drainage noted. NECK: Supple, trachea midline. CARDIOVASCULAR: Regular rate and rhythm RESPIRATORY: No increased effort. No accessory muscle use. EXTREMITIES: Mild pain over her incision site, banded shows moderate amount of blood noted NEUROLOGICAL: Awake and alert. Motor and sensory grossly within normal limits. Normal speech. Data Data Last Documented VS Vital Signs Date Time Temp Pulse Resp B/P Pulse Ox O2 Delivery O2 Flow Rate FiO2 08/14/16 22:19 98.3 98 102/63 98 Room Air 08/14/16 18:30 15 Orders Femur (Ap & Lat/2vws) (08/14/16 18:12) Complete Blood Count With Diff (08/14/16 18:12) Basic Metabolic Panel (Bmp) (08/14/16 18:12) Act Partial Throm Time (Ptt) (08/14/16 18:12) Prothrombin Time / Inr (Pt) (08/14/16 18:12) Iv Access Insert/Monitor (08/14/16 18:12) Ecg Monitoring (08/14/16 18:12) Oximetry (08/14/16 18:12) Orthostatic Vital Signs (08/14/16 20:41) Labs Laboratory Tests Test 08/14/16 08/14/16 19:45 20:55 Prothrombin Time 11.6 SEC Prothromb Time International 1.0 RATIO Ratio Activated Partial 32.7 SEC Thromboplast Time Sodium Level 135 MEQ/L Potassium Level 4.3 MEQ/L Chloride Level 102 MEQ/L Carbon Dioxide Level 22.9 MEQ/L Anion Gap 10 MEQ/L Blood Urea Nitrogen 9 MG/DL Creatinine 0.60 MG/DL Estimat Glomerular Filtration 102 ML/MIN Rate Random Glucose 86 MG/DL Calcium Level 8.7 MG/DL White Blood Count 7.1 TH/MM3 Red Blood Count 2.62 MIL/MM3 Hemoglobin 7.4 GM/DL Hematocrit 22.0 % Mean Corpuscular Volume 83.7 FL Mean Corpuscular Hemoglobin 28.0 PG Mean Corpuscular Hemoglobin 33.5 % Concent Red Cell Distribution Width 17.8 % Platelet Count 556 TH/MM3 Mean Platelet Volume 6.0 FL Neutrophils (%) (Auto) 58.1 % Lymphocytes (%) (Auto) 22.7 % Monocytes (%) (Auto) 10.4 % Eosinophils (%) (Auto) 8.5 % Basophils (%) (Auto) 0.3 % Neutrophils # (Auto) 4.2 TH/MM3 Lymphocytes # (Auto) 1.6 TH/MM3 Monocytes # (Auto) 0.7 TH/MM3 Eosinophils # (Auto) 0.6 TH/MM3 Basophils # (Auto) 0.0 TH/MM3 CBC Comment DIFF FINAL Differential Comment MDM Medical Decision Making Medical Screen Exam Complete: Yes Emergency Medical Condition: Yes Medical Record Reviewed: Yes (past history confirm) Differential Diagnosis Hematoma, seroma, fracture... Narrative Course Will check blood work, x-ray and monitor bleeding Physician Communication Physician Communication dr machuca given bedside report and transfer of patient Kayla Rodriguez MD Aug 14, 2016 18:27
[2016-08-14] MEDS ORDERED: REME15TA PO (18:29)
[2016-08-14] MEDS ORDERED: OMEP20TA PO (18:29)
[2016-08-14] MEDS ORDERED: COUM1TAB PO (18:29)
[2016-08-14 18:30] VITALS: BP 123/59; PULSE 89; RESP 15; O2SAT 97
--- NOTE | 2016-08-14 19:32 | RADHPO ---
EXAM DATE/TIME: 08/14/2016 18:28 [place] COMPARISON: FEMUR LEFT (AP & LAT/2VWS), February 02, 2016, 15:03. INDICATIONS : Left leg bleeding status post left hip replacement. MEDICAL HISTORY : Arthritis. Osteoporosis. SURGICAL HISTORY : Total hip replacement, left. ORIF femur, left. ENCOUNTER: Initial ACUITY: 1 day PAIN SCORE: 7/10 LOCATION: Left middle femur FINDINGS: Total hip arthroplasty is seen on the left and there are hypertrophic changes and displaced bony frag ments probably postsurgical change. In the lateral portion of the thigh there is an area of lucency m easuring 3.9 cm in size with multiple other areas of lucency surrounding it may be gas bubbles in the middle of soft tissue swelling indeterminant and nonspecific in regards to infectious etiologies. Al ternatively these could be postsurgical change if the patient's surgery was recent. CONCLUSION: Intact total hip arthroplasty with lucencies in the soft tissues as above could be postsurgical, hdz kaylin infectious process is not excluded. Clovis Forte MD on August 14, 2016 at 19:28 Board Certified Radiologist. This report was verified electronically.
[2016-08-14 20:00] LABS: POTASSIUM 4.3 MEQ/L (3.5-5.1)
[2016-08-14 20:03] LABS: BICARBONATE 22.9 MEQ/L (21.0-32.0)
[2016-08-14 20:05] LABS: APTT (PATIENT) 32.7 SEC (24.3-30.1); PROTHROMBIN TIME - PATIENT 11.6 SEC (9.8-11.6)
--- NOTE | 2016-08-14 20:20 | PD ---
Physical Exam Date Seen by Provider: Aug 14, 2016 Time Seen by Provider: 19:15 Narrative Except in transfer of care from Dr. Rodriguez GENERAL: Thin well-developed well-nourished female in no acute distress no respiratory distress SKIN: Warm and dry. HEAD: Normocephalic. EYES: No scleral icterus. No injection or drainage. NECK: Supple, trachea midline. No JVD or lymphadenopathy. CARDIOVASCULAR: Regular rate and rhythm without murmurs, gallops, or rubs. RESPIRATORY: Breath sounds equal bilaterally. No accessory muscle use. GASTROINTESTINAL: Abdomen soft, non-tender, nondistended. MUSCULOSKELETAL: No cyanosis, or edema. Left lateral thigh healing incision site consistent with previous left femur/hip replacement with new sutures in place to the distal incision site no active oozing at this time however there is evidence on bed pad of previous oozing since that time she is arrived to now a small amount of serosanguineous fluid. BACK: Nontender without obvious deformity. No CVA tenderness. Data Data Last Documented VS Vital Signs Date Time Temp Pulse Resp B/P Pulse Ox O2 Delivery O2 Flow Rate FiO2 08/14/16 21:16 79 110/60 94 109/74 08/14/16 19:35 Room Air 08/14/16 18:30 15 97 08/14/16 16:38 98.9 Orders Femur (Ap & Lat/2vws) (08/14/16 18:12) Complete Blood Count With Diff (08/14/16 18:12) Basic Metabolic Panel (Bmp) (08/14/16 18:12) Act Partial Throm Time (Ptt) (08/14/16 18:12) Prothrombin Time / Inr (Pt) (08/14/16 18:12) Iv Access Insert/Monitor (08/14/16 18:12) Ecg Monitoring (08/14/16 18:12) Oximetry (08/14/16 18:12) Orthostatic Vital Signs (08/14/16 20:41) Labs Laboratory Tests Test 08/14/16 08/14/16 19:45 20:55 Prothrombin Time 11.6 SEC Prothromb Time International 1.0 RATIO Ratio Activated Partial 32.7 SEC Thromboplast Time Sodium Level 135 MEQ/L Potassium Level 4.3 MEQ/L Chloride Level 102 MEQ/L Carbon Dioxide Level 22.9 MEQ/L Anion Gap 10 MEQ/L Blood Urea Nitrogen 9 MG/DL Creatinine 0.60 MG/DL Estimat Glomerular Filtration 102 ML/MIN Rate Random Glucose 86 MG/DL Calcium Level 8.7 MG/DL White Blood Count 7.1 TH/MM3 Red Blood Count 2.62 MIL/MM3 Hemoglobin 7.4 GM/DL Hematocrit 22.0 % Mean Corpuscular Volume 83.7 FL Mean Corpuscular Hemoglobin 28.0 PG Mean Corpuscular Hemoglobin 33.5 % Concent Red Cell Distribution Width 17.8 % Platelet Count 556 TH/MM3 Mean Platelet Volume 6.0 FL Neutrophils (%) (Auto) 58.1 % Lymphocytes (%) (Auto) 22.7 % Monocytes (%) (Auto) 10.4 % Eosinophils (%) (Auto) 8.5 % Basophils (%) (Auto) 0.3 % Neutrophils # (Auto) 4.2 TH/MM3 Lymphocytes # (Auto) 1.6 TH/MM3 Monocytes # (Auto) 0.7 TH/MM3 Eosinophils # (Auto) 0.6 TH/MM3 Basophils # (Auto) 0.0 TH/MM3 CBC Comment DIFF FINAL Differential Comment [facility] Medical Record Reviewed: Yes Supervised Visit with WILL: No Interpretation(s) CBC & BMP Diagram 08/14/16 19:45 08/14/16 20:55 Vital Signs Date Time Temp Pulse Resp B/P Pulse Ox O2 Delivery O2 Flow Rate FiO2 08/14/16 21:16 79 110/60 94 109/74 08/14/16 21:04 79 110/60 08/14/16 19:35 Room Air 08/14/16 18:30 89 15 123/59 97 Room Air 08/14/16 16:38 98.9 101 16 92/64 98 Differential Diagnosis please refer to Dr Rodriguez's dictation --seroma hematoma abscess Narrative Course accepted in transfer of care from Dr Rodriguez Basic metabolic panel mild hyponatremia of 134; INR subtherapeutic at 1; multiple redraw CBC we collected; no further drainage from left lateral thigh postoperative site without evidence of redness induration increased warmth purulent drainage or tenderness to palpation. Orthostatic measurements performed patient asymptomatic CBC resulted normal white cell count with normal range automated differential however patient does show evidence of anemia hemoglobin 7.4. Patient states she 's been told that she is anemic since her surgery because she did have blood loss did require transfusions due to issues with bleeding from her drain site over several days while she was in rehabilitation as noted requiring blood transfusions. Patient has remained somewhat anemic since that time but does not know her new postop hemoglobin baseline; does not report generalized weakness fatigue shortness of breath or ongoing blood loss only noting some pink tinged to red tinged bloody drainage from the left lateral leg incision site where 6 days ago they removed the drain identified that there was still some residual Lucille drain left inside the wound therefore opened her wound 3 days ago remove the residual Lucille drain and resutured the distal end of the post procedure incision site closed. Patient has subsequently had increased activity with increased weightbearing to the left lower extremity since the wound was reassessed 3 days ago and since noting her increased activity has subsequently noticed the pain to red tinged drainage from the wound site without any purulent drainage any fever or any chills any redness any swelling from the site; site does not look consistent with postop wound infection. Patient notes she feels clinically improved and is desirous of being discharged to home is aware that she will need close follow-up with her surgeon and is aware that she needs to return should she have any recurrence of the bleeding from the postsurgical site which is no longer bruising or bleeding. Diagnosis Primary Impression: Draining postoperative wound Qualified Code: T81.89XA - Draining postoperative wound, initial encounter Additional Impression: Anemia Qualified Code: D50.8 - Other iron deficiency anemia Referrals: Orthopedist 1 day Patient Instructions: General Instructions Additional Instruction: Elevate left lower extremity; limit weightbearing use walker at all times Apply sterile clean dressing to left thigh twice daily as needed; wear Demian wrap to support postoperative site when ambulatory--- do not sleep with Demian wrap in place Follow-up with your orthopedist times one day call office in a.m. for one day follow-up Return immediately to the emergency department for pain fever vomiting increased bleeding or any concerns Monitor temperature every 4 hours with thermometer take as needed acetaminophen for fever 100.4F or greater Disposition: 01 DISCHARGE HOME Condition: Stable Marybeth Wood MD Aug 14, 2016 20:19
[2016-08-14 21:03] LABS: AUTOMATED NEUTROPHIL # 4.2 TH/MM3 (1.8-7.7); BASOPHIL % 0.3 % (0.0-2.0); EOSINOPHIL # 0.6 TH/MM3 (0-0.4); EOSINOPHIL % 8.5 % (0.0-4.0); HEMO FLAGS DIFF FINAL; LYMPH % 22.7 % (9.0-44.0); LYMPHOCYTE # 1.6 TH/MM3 (1.0-4.8); MEAN CELL VOLUME 83.7 FL (80.0-100.0); MEAN CORPUSCULAR HGB CONC 33.5 % (32.0-36.0); MONO % 10.4 % (0.0-8.0); NEUT % 58.1 % (16.0-70.0); PLATELET COUNT 556 TH/MM3 (150-450); RED BLOOD COUNT 2.62 MIL/MM3 (4.00-5.30); RED CELL DISTRIBUTION WIDTH 17.8 % (11.6-17.2); WHITE BLOOD COUNT 7.1 TH/MM3 (4.0-11.0)
[2016-08-14 21:04] VITALS: BP 110/60
[2016-08-14 21:16] VITALS: BP_SYST 109; BP_SYST 110; BP_DIAS 60; BP_DIAS 74
[2016-08-14 22:19] VITALS: BP 102/63; PULSE 98; TEMP 98.3; O2SAT 98
[2016-09-03] MEDS ORDERED: CLON1 PO (08:43)
== END 2016-08-14 22:35 | disposition home or self-care (01) ==
LOC: PHED 16:35
DX: M96.830 Postprocedural hemorrhage of a musculoskeletal structure following a musculoskeletal system procedure (principal); K21.9 Gastro-esophageal reflux disease without esophagitis; F17.210 Nicotine dependence, cigarettes, uncomplicated; E87.1 Hypo-osmolality and hyponatremia; R79.1 Abnormal coagulation profile; D64.9 Anemia, unspecified; Z79.01 Long term (current) use of anticoagulants
CPT/HCPCS: 73552; 80048; 85025; 85610; 85730; 99283

== ENCOUNTER 2016-08-25 15:16 | Inpatient (IN) | payer MEDICAID ==
[~2016-08-25] VITALS: Ht 160 cm; Wt 49.5 kg
[2016-08-25] VITALS (8 sets, daily range): BP systolic 90–169; BP diastolic 51–91; PULSE 77–100; RESP 18–20; TEMP 98.1–98.2; O2SAT 98–100
[~2016-08-25 15:16] MED LIST changes: +COUM1TAB PO; -LISI-515 PO; -NORC5TAB PO; +OMEP20TA PO; -PRAZ1 PO; +REME15TA PO; -VENL75TA PO
[2016-08-25] MEDS ORDERED: XANA2TAB2 PO (15:35)
[2016-08-25] MEDS ORDERED: SODIUM CHLORIDE 0.9% FLUSH 10 ML FLUSH IVF PRN (15:45)
[2016-08-25 16:12] LABS: AUTOMATED NEUTROPHIL # 7.5 TH/MM3 (1.8-7.7); BASOPHIL # 0.1 TH/MM3 (0-0.2); BASOPHIL % 0.9 % (0.0-2.0); EOSINOPHIL # 0.1 TH/MM3 (0-0.4); EOSINOPHIL % 1.2 % (0.0-4.0); HEMATOCRIT 26.8 % (35.0-46.0); HEMO FLAGS DIFF FINAL; LYMPHOCYTE # 1.6 TH/MM3 (1.0-4.8); MEAN CELL VOLUME 89.2 FL (80.0-100.0); MEAN CORPUSCULAR HEMOGLOBIN 27.7 PG (27.0-34.0); MONO % 8.1 % (0.0-8.0); NEUT % 73.8 % (16.0-70.0); PLATELET COUNT 652 TH/MM3 (150-450); RED CELL DISTRIBUTION WIDTH 20.3 % (11.6-17.2); WHITE BLOOD COUNT 10.2 TH/MM3 (4.0-11.0)
[2016-08-25 16:19] LABS: AMPHETAMINE, URINE NEG (NEG); BARBITURATES, URINE NEG (NEG); COCAINE, URINE NEG (NEG)
[2016-08-25 16:21] LABS: BLOOD, URINE NEG (NEG); COMMENT (UR) CULT NOT INDICATED; CULTURE IF INDICATED CULT NOT INDICATED; GLUCOSE,URINE NEG (NEG); HYALINE CAST, URINE 1 /lpf (RARE); KETONE, URINE NEG (NEG); MUCUS URINE FEW /lpf (OCC); NITRITE,URINE NEG (NEG); PH, URINE 5.5 (5.0-8.5); URINE COLOR YELLOW (YELLW/STRAW)
[2016-08-25 16:29] LABS: APTT (PATIENT) 32.1 SEC (24.3-30.1); PROTHROMBIN TIME - PATIENT 11.5 SEC (9.8-11.6)
--- NOTE | 2016-08-25 16:34 | PD ---
HPI Chief Complaint: Psychiatric Symptoms Time Seen by Provider: 15:37 Travel History International Travel<30 days: No Contact w/Intl Traveler<30days: No Traveled to known affect area: No History of Present Illness HPI This 61-year-old woman who presents to the emergency department under a Moses act for suicidal ideation and overdose. She has a history of chronic pain, bipolar disorder, previous overdoses. She reportedly sent several messages out the family they were suicidal in nature. Sister went to go check on her and called the ambulance. Patient endorses that she took about 10 Tylenol tablets at 11 AM. He is unclear if this is true or not. She also reported taking vodka , and Xanax. Family at the bedside to talk to her about noon and she sounded sober at that point. Family is concerned because a report that she has done this multiple times in the past, and they're worried that she will continue to do it and that her psychiatric condition is never fully stabilized especially because she only take her medicines for short period of time and then will stop again. History Past Medical History Narrative Medical Seizure Hypertension Insomnia Bipolar disorder GERD Alcohol abuse Tobacco abuse Chronic pain Recurrent hyponatremia Left hip infection status post ORIF Menopausal: Yes : 1 Para: 1 Social History Alcohol Use: Yes (OCC) Tobacco Use: Yes (1 PPD) Allergies-Medications (Allergen,Severity, Reaction): Coded Allergies: Latex (Verified Allergy, Intermediate, Rash, 08/25/16) Cerebyx (Verified Adverse Reaction, Severe, TINNITIS, 08/25/16) Morphine (Verified Adverse Reaction, Intermediate, Dizzy, 08/25/16) Uncoded Allergies: NICKEL (Adverse Reaction, Severe, SWELLING, 02/02/16) Reported Meds & Prescriptions Reported Meds & Active Scripts Active Trazodone (Trazodone HCl) 300 Mg Tab 150 Mg PO HS Reported Xanax (Alprazolam) 2 Mg Tab 2 Mg PO Q6HR PRN Omeprazole 20 Mg Tab 20 Mg PO DAILY Remeron (Mirtazapine) 15 Mg Tab 7.5 Mg PO HS Trileptal (Oxcarbazepine) 300 Mg Tab 300 Mg PO DAILY Latuda (Lurasidone) 40 Mg Tab 40 Mg PO DAILY Review of Systems Except as stated in HPI: all other systems reviewed are Neg Physical Exam Narrative GENERAL: Well-appearing 61 year-old woman, sluggishly responsive, no acute distress. SKIN: Focused skin assessment warm/dry. HEAD: Atraumatic. Normocephalic. EYES: Pupils equal and round. No scleral icterus. No injection or drainage. ENT: No nasal bleeding or discharge. Mucous membranes pink and moist. NECK: Trachea midline. No JVD. CARDIOVASCULAR: Regular rate and rhythm. No murmur appreciated. RESPIRATORY: No accessory muscle use. Clear to auscultation. Breath sounds equal bilaterally. GASTROINTESTINAL: Abdomen soft, non-tender, nondistended. Hepatic and splenic margins not palpable. MUSCULOSKELETAL: No obvious deformities. No edema. NEUROLOGICAL: Sluggishly responsive. No focal deficits. [place] to stimuli. PSYCHIATRIC: Sad, difficult to discern because of mental status. Data Data Last Documented VS Vital Signs Date Time Temp Pulse Resp B/P Pulse Ox O2 Delivery O2 Flow Rate FiO2 08/25/16 16:17 100 20 90/54 98 Room Air 08/25/16 15:29 98.1 Orders Electrocardiogram (08/25/16 15:38) Complete Blood Count With Diff (08/25/16 15:38) Comprehensive Metabolic Panel (08/25/16 15:38) Prothrombin Time / Inr (Pt) (08/25/16 15:38) Act Partial Throm Time (Ptt) (08/25/16 15:38) Urinalysis - C+S If Indicated (08/25/16 15:38) Chest, Single Ap (08/25/16 15:38) Blood Glucose (08/25/16 15:38) Iv Access Insert/Monitor (08/25/16 15:38) Cath For Specimen (08/25/16 15:38) Ecg Monitoring (08/25/16 15:38) Oximetry (08/25/16 15:38) Sodium Chloride 0.9% Flush (Ns Flush) (08/25/16 15:45) Drug Screen, Random Urine (08/25/16 15:38) Alcohol (Ethanol) (08/25/16 15:38) Salicylates (Aspirin) (08/25/16 15:38) Tylenol (Acetaminophen) (08/25/16 15:38) Acetylcysteine Inj (Acetadote Inj) (08/25/16 17:00) Acetylcysteine Inj (Acetadote Inj) (08/25/16 18:00) Acetylcysteine Inj (Acetadote Inj) (08/25/16 22:00) Call Poison Control (08/25/16 16:51) Sodium Chlor 0.9% 1000 Ml Inj (Ns 1000 M (08/25/16 17:30) Ct Brain W/O Iv Contrast(Rout) (08/25/16 ) Lactic Acid (08/25/16 17:22) Arterial Blood Gas (Abg) (08/25/16 ) Ct Abd/Pel W/O Iv Contrast (08/25/16 ) Thiamine Inj (Thiamine Inj) (08/25/16 17:30) Blood Glucose (08/25/16 17:23) Admit Order (Ed Use Only) (08/25/16 ) Labs Laboratory Tests Test 08/25/16 16:00 White Blood Count 10.2 TH/MM3 Red Blood Count 3.00 MIL/MM3 Hemoglobin 8.3 GM/DL Hematocrit 26.8 % Mean Corpuscular Volume 89.2 FL Mean Corpuscular Hemoglobin 27.7 PG Mean Corpuscular Hemoglobin 31.0 % Concent Red Cell Distribution Width 20.3 % Platelet Count 652 TH/MM3 Mean Platelet Volume 6.7 FL Neutrophils (%) (Auto) 73.8 % Lymphocytes (%) (Auto) 16.0 % Monocytes (%) (Auto) 8.1 % Eosinophils (%) (Auto) 1.2 % Basophils (%) (Auto) 0.9 % Neutrophils # (Auto) 7.5 TH/MM3 Lymphocytes # (Auto) 1.6 TH/MM3 Monocytes # (Auto) 0.8 TH/MM3 Eosinophils # (Auto) 0.1 TH/MM3 Basophils # (Auto) 0.1 TH/MM3 CBC Comment DIFF FINAL Differential Comment Prothrombin Time 11.5 SEC Prothromb Time International 1.0 RATIO Ratio Activated Partial 32.1 SEC Thromboplast Time Urine Color YELLOW Urine Turbidity CLEAR Urine pH 5.5 Urine Specific [place] 1.021 Urine Protein NEG mg/dL Urine Glucose (UA) NEG mg/dL Urine Ketones NEG mg/dL Urine Occult Blood NEG Urine Nitrite NEG Urine Bilirubin NEG Urine Urobilinogen LESS THAN 2.0 MG/DL Urine Leukocyte Esterase NEG Urine WBC LESS THAN 1 /hpf Urine Hyaline Casts 1 /lpf Urine Mucus FEW /lpf Microscopic Urinalysis Comment CULT NOT INDICATED Sodium Level 131 MEQ/L Potassium Level 3.6 MEQ/L Chloride Level 101 MEQ/L Carbon Dioxide Level 13.6 MEQ/L Anion Gap 16 MEQ/L Blood Urea Nitrogen 5 MG/DL Creatinine 0.50 MG/DL Estimat Glomerular Filtration 126 ML/MIN Rate Random Glucose 94 MG/DL Calcium Level 8.4 MG/DL Total Bilirubin 0.3 MG/DL Aspartate Amino Transf 82 U/L (AST/SGOT) Alanine Aminotransferase 61 U/L (ALT/SGPT) Alkaline Phosphatase 139 U/L Total Protein 6.1 GM/DL Albumin 2.5 GM/DL Salicylates Level 3.1 MG/DL Urine Opiates Screen NEG Acetaminophen Level 344.9 MCG/ML Urine Barbiturates Screen NEG Urine Amphetamines Screen NEG Urine Benzodiazepines Screen POS Urine Cocaine Screen NEG Urine Cannabinoids Screen NEG Ethyl Alcohol Level 83 MG/DL MDM Medical Decision Making Medical Screen Exam Complete: Yes Emergency Medical Condition: Yes Interpretation(s) LABS: CBC remarkable for mild anemia, elevated platelet count CMP remarkable for elevated AST ALT and alkaline phosphatase, hypoalbuminemia, anion gap is 16 ABG 7.39/25/97/15, base excess -9.2 UA unremarkable Urine drug screen positive for benzodiazepines Acetaminophen 345 Alcohol 83 Chest x-ray: Negative Differential Diagnosis Overdose, intoxication, suicidality, other Narrative Course Medical decision making INITIAL: 61-year-old woman who presents to the emergency department under a Moses act for reported overdose on Tylenol vodka Xanax, and for threatening SI. History of the same. We'll check labs, reassess. Likely admission. FINAL: 61 year-old woman, status post overdose acetaminophen and benzos and alcohol. Acetaminophen is very high. Acetylcysteine was started. Patient also has a 9 gap acidosis of unclear etiology. I spoke with Dr. Kline in the ICU, we will except patient for admission. Request CT head, CT abdomen, ABG, IV fluids, lactate. These were ordered. Critical Care Narrative Aggregate critical care time was 25 minutes. Time to perform other separately billable procedures was not included in the critical care time. My time did not include minutes spent treating any other patients simultaneously or on activities that did not directly contribute to the patient's treatment. The services I provided to this patient were to treat and/or prevent clinically significant deterioration that could result in: , liver failure, increased morbidity, unrecognized coingestions, other. I provided critical care services requiring my management, as noted below: Chart data review, documentation time, medication orders and management, vital sign assessments/reviewing monitor data, ordering and reviewing lab tests, ordering and interpreting/reviewing x-rays and diagnostic studies, care of the patient and discussion of the patient with the admitting physicians. Diagnosis Primary Impression: Drug overdose, multiple drugs Kenneth Reid MD Aug 25, 2016 16:34
[2016-08-25 16:36] LABS: ALT (GPT) 61 U/L (10-53); ANION GAP 16 MEQ/L (5-15); AST (GOT) 82 U/L (15-37); BICARBONATE 13.6 MEQ/L (21.0-32.0); BLOOD UREA NITROGEN 5 MG/DL (7-18); CHLORIDE 101 MEQ/L (98-107); GLOMERULAR FILTRATION RATE 126 ML/MIN (>89); POTASSIUM 3.6 MEQ/L (3.5-5.1); SODIUM (NA) 131 MEQ/L (136-145)
[2016-08-25 16:46] LABS: ALKALINE PHOSPHATASE 139 U/L (45-117); TOTAL BILIRUBIN ADULT 0.3 MG/DL (0.2-1.0)
[2016-08-25 16:48] LABS: ACETAMINOPHEN 344.9 MCG/ML (10.0-30.0)
--- NOTE | 2016-08-25 16:49 | RADRPT ---
EXAM DATE/TIME: 08/25/2016 15:40 [facility] COMPARISON: CHEST SINGLE AP, June 02, 2016, 20:19. INDICATIONS : Syncope. MEDICAL HISTORY : None. SURGICAL HISTORY : None. ENCOUNTER: Initial ACUITY: 1 day PAIN SCORE: 0/10 LOCATION: Bilateral Chest FINDINGS: A single view of the chest demonstrates the lungs to be symmetrically aerated without evidence of mas s, infiltrate or effusion. The cardiomediastinal contours are unremarkable. Osseous structures are intact. CONCLUSION: No acute disease. Kulwant Jaramillo MD on August 25, 2016 at 16:47 Board Certified Radiologist. This report was verified electronically.
[2016-08-25] MEDS ORDERED: ACETYLCYSTEINE INJ 10,500 MG in DEXTROSE 5% IN WATER INJ 200 ML IV SCH ×2 (17:00)
[2016-08-25] MEDS ORDERED: THIAMINE INJ 100 MG in SODIUM CHLORIDE 0.9% INJ 100 ML IV ONE (17:30)
[2016-08-25] MEDS ORDERED: SODIUM CHLOR 0.9% 1000 ML INJ 1,000 ML IV ONE (17:30)
[2016-08-25 17:37] LABS: BLOOD GAS BASE EXCESS -9.2 mmol/L (-2-2); BLOOD GAS CARBOXYHEMOGLOBIN 2.3 % (0-4); BLOOD GAS HCO3 15 mmol/L (22-26); BLOOD GAS METHEMOGLOBIN 1.5 % (0-2); BLOOD GAS O2 HGB SATURATION 94 % (90-100); BLOOD GAS OXYGEN CONTENT 10.6 Vol % (12.0-20.0); BLOOD GAS PCO2 25 mmHg (38-42); BLOOD GAS PO2 97 mmHG (61-120); BLOOD GAS TOTAL HGB 7.9 G/DL (12.0-16.0); TEMP CORR TO 98.6
[2016-08-25 17:38] LABS: CRITICAL VALUE YES; DRAW SITE LT RADIAL; FIO2 21 %; NUMBER OF ARTERIAL PUNCTURES 1; ULNAR PULSE PRESENT
[2016-08-25 17:39] LABS: STAT YES
[2016-08-25] MEDS ORDERED: ACETYLCYSTEINE INJ 3,500 MG in DEXTROSE 5% IN WATE 500 ML INJ 500 ML IV SCH ×2 (18:00)
[2016-08-25] MEDS ORDERED: RESP: ALBUTEROL 2.5 MG/IPRATROPIUM 0.5 MG NEB (PRN) INH (20:30)
[2016-08-25] MEDS ORDERED: SODIUM CHLORIDE 0.9% FLUSH 10 ML FLUSH PRN (20:30)
[2016-08-25] MEDS ORDERED: CHLORHEXIDINE GLUCONATE 2 % 1 PACK (2 CLOTHS) TOP PRN (20:30)
[2016-08-25] MEDS ORDERED: MISCELLANEOUS NURSING INFORMATION XX SCH (20:30)
[2016-08-25] MEDS: SODIUM CHLOR 0.9% 1000 ML INJ 1,000 ML IV SCH (21:29)
[2016-08-25] MEDS: SODIUM CHLORIDE 0.9% FLUSH 10 ML FLUSH SCH (21:29)
--- NOTE | 2016-08-25 21:36 | HHI.HP ---
HPI Service Critical Care Medicine Primary Care Physician No Primary Care Physician Admission Diagnosis Tylenol overdose, suicidality Diagnosis: Travel History International Travel<30 Days: No Contact w/Intl Traveler <30 Da: No Traveled to Known Affected Are: No History of Present Illness 61-year-old woman presents to the emergency department under a Moses act for suicidal ideation and overdose. She has a history of chronic pain, bipolar disorder, previous overdoses. She reportedly sent several messages out the family they were suicidal in nature. Sister went to go check on her and called the ambulance. She took about 10 Tylenol tablets at 11 AM. During my examination patient was confused saying that she didn't take anything. However her Tylenol level was above 300. She is admitted to ICU with a Tylenol overdose. Poison center was contacted by ER physicians. Review of Systems ROS Unable to obtain patient is confused Past Family Social History Allergies: Coded Allergies: Latex (Verified Allergy, Intermediate, Rash, 08/25/16) Cerebyx (Verified Adverse Reaction, Severe, TINNITIS, 08/25/16) Morphine (Verified Adverse Reaction, Intermediate, Dizzy, 08/25/16) Uncoded Allergies: NICKEL (Adverse Reaction, Severe, SWELLING, 02/02/16) Past Medical History Seizure Hypertension Insomnia Bipolar disorder GERD Alcohol abuse Tobacco abuse Chronic pain Recurrent hyponatremia Left hip infection status post ORIF Past Surgical History Left hip ORIF Reported Medications Reported Meds & Active Scripts Active Trazodone (Trazodone HCl) 300 Mg Tab 150 Mg PO HS Reported Xanax (Alprazolam) 2 Mg Tab 2 Mg PO Q6HR PRN Omeprazole 20 Mg Tab 20 Mg PO DAILY Remeron (Mirtazapine) 15 Mg Tab 7.5 Mg PO HS Trileptal (Oxcarbazepine) 300 Mg Tab 300 Mg PO DAILY Latuda (Lurasidone) 40 Mg Tab 40 Mg PO DAILY Active Ordered Medications Current Medications Medications (Trade) Dose Ordered Sig/Rula Route PRN Reason Start Time Stop Time Status Last Admin Dose Admin Sodium Chloride 2 ml 2 ml UNSCH PRN IVF FLUSH AFTER USING IV ACCESS 08/25/16 15:45 Acetylcysteine 3500 mg/Dextrose 517.5 ml @ 125 mls/hr ONCE IV 08/25/16 18:00 08/25/16 21:59 08/25/16 18:42 Acetylcysteine 7000 mg/Dextrose 1,035 ml @ 62.5 mls/hr ONCE IV 08/25/16 22:00 08/26/16 13:59 Sodium Chloride (NS 1000 ml Inj) 1,000 ml @ 84 mls/hr [id number] IV 08/25/16 20:22 08/25/16 21:29 Sodium Chloride (NS Flush) 2 ml UNSCH PRN .XX FLUSH AFTER USING IV ACCESS 08/25/16 20:30 Sodium Chloride (NS Flush) 2 ml BID .XX 08/25/16 21:00 08/25/16 21:29 Morphine Sulfate (Morphine Inj) 2 mg Q2H PRN IV PAIN SCALE 6 TO 10 08/25/16 20:30 Pantoprazole Sodium (Protonix Inj) 40 mg DAILY IV 08/26/16 09:00 Lorazepam (Ativan Inj) 2 mg Q4H PRN IV Agitation/Sedation 08/25/16 20:30 Ondansetron HCl (Zofran Inj) 4 mg Q6H PRN IV NAUSEA OR VOMITING 08/25/16 20:30 Metoclopramide HCl (Reglan Inj) 10 mg Q6H PRN IV NAUSEA OR VOMITING 08/25/16 20:30 Miscellaneous Information 1 [id number] 08/25/16 20:30 Chlorhexidine Gluconate (Chlorhexidine 2% Cloth) 3 pack Taper DAILY@04 TOP 08/26/16 04:00 08/22/17 03:59 Chlorhexidine Gluconate (Chlorhexidine 2% Cloth) 3 pack UNSCH PRN TOP HYGIENIC CARE 08/25/16 20:30 Family History noncontributory Social History Smokes Drinks Uses Pain meds Oxy and Xanax Physical Exam Vital Signs Vital Signs Date Time Temp Pulse Resp B/P Pulse Ox O2 Delivery O2 Flow Rate FiO2 08/25/16 18:59 98.1 91 18 99/62 99 Room Air 08/25/16 18:58 99 Room Air 08/25/16 17:49 95 20 95/51 98 Room Air 08/25/16 16:17 100 20 90/54 98 Room Air 08/25/16 15:29 98.1 100 20 97/51 100 Physical Exam GENERAL: Well-nourished, well-developed patient. SKIN: Warm and dry. HEAD: Normocephalic. EYES: No scleral icterus. No injection or drainage. NECK: Supple, trachea midline. No JVD or lymphadenopathy. CARDIOVASCULAR: Regular rate and rhythm without murmurs, gallops, or rubs. RESPIRATORY: Breath sounds equal bilaterally. No accessory muscle use. GASTROINTESTINAL: Abdomen soft, non-tender, nondistended. MUSCULOSKELETAL: No cyanosis, or edema. BACK: Nontender without obvious deformity. No CVA tenderness. EXTREMITIES: no clubbing cyanosis or edema Laboratory Laboratory Tests Test 08/25/16 08/25/16 08/25/16 16:00 17:30 17:35 White Blood Count 10.2 Red Blood Count 3.00 Hemoglobin 8.3 Hematocrit 26.8 Mean Corpuscular Volume 89.2 Mean Corpuscular Hemoglobin 27.7 Mean Corpuscular Hemoglobin 31.0 Concent Red Cell Distribution Width 20.3 Platelet Count 652 Mean Platelet Volume 6.7 Neutrophils (%) (Auto) 73.8 Lymphocytes (%) (Auto) 16.0 Monocytes (%) (Auto) 8.1 Eosinophils (%) (Auto) 1.2 Basophils (%) (Auto) 0.9 Neutrophils # (Auto) 7.5 Lymphocytes # (Auto) 1.6 Monocytes # (Auto) 0.8 Eosinophils # (Auto) 0.1 Basophils # (Auto) 0.1 CBC Comment DIFF FINAL Differential Comment Prothrombin Time 11.5 Prothromb Time International 1.0 Ratio Activated Partial 32.1 Thromboplast Time Urine Color YELLOW Urine Turbidity CLEAR Urine pH 5.5 Urine Specific [place] 1.021 Urine Protein NEG Urine Glucose (UA) NEG Urine Ketones NEG Urine Occult Blood NEG Urine Nitrite NEG Urine Bilirubin NEG Urine Urobilinogen LESS THAN 2.0 Urine Leukocyte Esterase NEG Urine WBC LESS THAN 1 Urine Hyaline Casts 1 Urine Mucus FEW Microscopic Urinalysis Comment CULT NOT INDICATED Sodium Level 131 Potassium Level 3.6 Chloride Level 101 Carbon Dioxide Level 13.6 Anion Gap 16 Blood Urea Nitrogen 5 Creatinine 0.50 Estimat Glomerular Filtration 126 Rate Random Glucose 94 Calcium Level 8.4 Total Bilirubin 0.3 Aspartate Amino Transf 82 (AST/SGOT) Alanine Aminotransferase 61 (ALT/SGPT) Alkaline Phosphatase 139 Total Creatine Kinase 24 Total Protein 6.1 Albumin 2.5 Salicylates Level 3.1 Urine Opiates Screen NEG Acetaminophen Level 344.9 Urine Barbiturates Screen NEG Urine Amphetamines Screen NEG Urine Benzodiazepines Screen POS Urine Cocaine Screen NEG Urine Cannabinoids Screen NEG Ethyl Alcohol Level 83 Blood Gas Puncture Site LT RADIAL Blood Gas Patient Temperature 98.6 Blood Gas HCO3 15 Blood Gas Base Excess -9.2 Blood Gas Oxygen Saturation 94 Arterial Blood pH 7.39 Arterial Blood Partial 25 Pressure CO2 Arterial Blood Partial 97 Pressure O2 Arterial Blood Oxygen Content 10.6 Arterial Blood 2.3 Carboxyhemoglobin Arterial Blood Methemoglobin 1.5 Blood Gas Hemoglobin 7.9 Blood Gas Inspired Oxygen 21 Lactic Acid Level 5.9 Result Diagram: 08/25/16 1600 08/25/16 1600 Imaging Last 24 hours Impressions Chest X-Ray 08/25/16 1538 Signed Impressions: Service Date/Time: Thursday, August 25, 2016 15:40 - CONCLUSION: No acute disease. Kulwant Jaramillo MD Assessment and Plan Problem List: (1) Drug overdose, multiple drugs ICD Code: T50.901A Status: Acute (2) Altered mental status ICD Code: R41.82 Status: Acute Assessment and Plan Tylenol overdose - Acetylcysteine infusion - Frequent labs - Poison center recommendations appreciated Seizure - Trileptal Hypertension - Currently normotensive - Hydralazine when necessary to keep SBP less than 150 Bipolar disorder - Psych consult - Resume trazodone home dose GERD - Omeprazole Alcohol abuse - CIWA protocol Tobacco abuse - Nicotine patch when necessary for signs of withdrawal - Cessation counseling provided DVT GI prophylaxis - Early aggressive mobilization teds SCDs - Omeprazole Critical Care: The total critical care time was 35 minutes. Time to perform other separately billable procedures was not included in the critical care time. Rigo Carter MD Aug 25, 2016 21:36
[2016-08-25] MEDS ORDERED: ACETYLCYSTEINE INJ 7,000 MG in DEXTROSE 5% IN WATE 1000ML INJ 1,000 ML IV SCH ×2 (22:00)
[2016-08-25] MEDS: LORazepam 2 MG/ML VIAL IV PRN (22:58)
--- NOTE | 2016-08-25 23:20 | RADRPT ---
EXAM DATE/TIME: 08/25/2016 22:09 [facility] COMPARISON: CT BRAIN W/O CONTRAST, June 02, 2016, 21:45. INDICATIONS : Altered mental status. RADIATION DOSE: 63.21 CTDIvol (mGy) MEDICAL HISTORY : Seizures. Cardiovascular disease Liver disease. SURGICAL HISTORY : None. ENCOUNTER: Initial ACUITY: 1 day PAIN SCALE: 0/10 LOCATION: cranial TECHNIQUE: Multiple contiguous axial images were obtained of the head. Using automated exposure control and adj ustment of the mA and/or kV according to patient size, radiation dose was kept as low as reasonably a chievable to obtain optimal diagnostic quality images. FINDINGS: CEREBRUM: The ventricles are normal for age. No evidence of midline shift, mass lesion, hemorrhage or acute in farction. No extra-axial fluid collections are seen. POSTERIOR FOSSA: The cerebellum and brainstem are intact. The 4th ventricle is midline. The cerebellopontine angle i s unremarkable. EXTRACRANIAL: The visualized portion of the orbits is intact. Partial visualization of the left maxillary sinus ayana ws complete opacification. SKULL: The calvaria is intact. No evidence of skull fracture. CONCLUSION: 1. No acute intracranial abnormality. 2. Chronic left maxillary sinus disease. Mason Salcedo Jr., MD on August 25, 2016 at 23:18 Board Certified Radiologist. This report was verified electronically.
--- NOTE | 2016-08-25 23:25 | RADRPT ---
EXAM DATE/TIME: 08/25/2016 22:12 [place] COMPARISON: No previous studies available for comparison. INDICATIONS : Diffuse abdominal pain. ORAL CONTRAST: No oral contrast ingested. RADIATION DOSE: 4.93 CTDIvol (mGy) MEDICAL HISTORY : Seizures. Cardiovascular disease Liver disease. SURGICAL HISTORY : Left hip replacement. ENCOUNTER: Initial ACUITY: 1 day PAIN SCALE: 8/10 LOCATION: Bilateral abdomen TECHNIQUE: Volumetric scanning of the abdomen and pelvis was performed. Using automated exposure control and ad justment of the mA and/or kV according to patient size, radiation dose was kept as low as reasonably achievable to obtain optimal diagnostic quality images. FINDINGS: Breathing motion artifact degrades the exam. LOWER LUNGS: The visualized lower lungs are clear. LIVER: Homogeneous density without lesion. There is no dilation of the biliary tree. No calcified gallston es. SPLEEN: Normal size without lesion. PANCREAS: Within normal limits. KIDNEYS: Normal in size and shape. There is no mass, stone, or hydronephrosis. ADRENAL GLANDS: Within normal limits. VASCULAR: There is no aortic aneurysm. BOWEL/MESENTERY: The stomach, small bowel, and colon demonstrate no acute abnormality. There is no free intraperitone al air or fluid. ABDOMINAL WALL: Within normal limits. RETROPERITONEUM: There is no lymphadenopathy. BLADDER: No wall thickening or mass. REPRODUCTIVE: Within normal limits. INGUINAL: There is no lymphadenopathy or hernia. MUSCULOSKELETAL: There is a left hip prosthesis. A large joint effusion is noted. Myositis ossificans is seen. CONCLUSION: 1. Examination is limited by the lack of oral and IV contrast as well as breathing motion artifact. 2. No acute intra-abdominal abnormality. 3. Large joint effusion associated with a left hip prosthesis. There is myositis ossificans also obse rved involving the left hip. Mason Salcedo Jr., MD on August 25, 2016 at 23:19 Board Certified Radiologist. This report was verified electronically.
[2016-08-26] VITALS (9 sets, daily range): BP systolic 122–176; BP diastolic 75–89; PULSE 71–144; RESP 20–25; TEMP 97.9–100.2; O2SAT 98–100
[2016-08-26] MEDS: LORazepam 2 MG/ML VIAL IV PRN ×5 (03:30→23:58)
[2016-08-26] MEDS: CHLORHEXIDINE GLUCONATE 2 % 1 PACK (2 CLOTHS) TOP SCH (04:00)
[2016-08-26 04:29] LABS: AUTOMATED NEUTROPHIL # 5.8 TH/MM3 (1.8-7.7); BASOPHIL # 0.1 TH/MM3 (0-0.2); BASOPHIL % 0.8 % (0.0-2.0); EOSINOPHIL % 0.6 % (0.0-4.0); HEMATOCRIT 26.6 % (35.0-46.0); HEMO FLAGS DIFF FINAL; LYMPH % 17.4 % (9.0-44.0); LYMPHOCYTE # 1.4 TH/MM3 (1.0-4.8); MEAN CELL VOLUME 85.5 FL (80.0-100.0); MEAN CORPUSCULAR HEMOGLOBIN 28.3 PG (27.0-34.0); MEAN CORPUSCULAR HGB CONC 33.1 % (32.0-36.0); NEUT % 75.2 % (16.0-70.0); PLATELET COUNT 665 TH/MM3 (150-450); RED BLOOD COUNT 3.12 MIL/MM3 (4.00-5.30); RED CELL DISTRIBUTION WIDTH 19.8 % (11.6-17.2); WHITE BLOOD COUNT 7.8 TH/MM3 (4.0-11.0)
[2016-08-26 04:57] LABS: ALKALINE PHOSPHATASE 125 U/L (45-117); ALT (GPT) 48 U/L (10-53); ANION GAP 13 MEQ/L (5-15); AST (GOT) 40 U/L (15-37); BICARBONATE 20.7 MEQ/L (21.0-32.0); BLOOD UREA NITROGEN 5 MG/DL (7-18); CHLORIDE 100 MEQ/L (98-107); GLOMERULAR FILTRATION RATE 110 ML/MIN (>89); MAGNESIUM 1.5 MG/DL (1.5-2.5); POTASSIUM 3.1 MEQ/L (3.5-5.1); SODIUM (NA) 134 MEQ/L (136-145); TOTAL BILIRUBIN ADULT 0.3 MG/DL (0.2-1.0)
[2016-08-26] MEDS: MORPHINE SULFATE 4 MG/ML INJ IV PRN ×5 (08:05→23:59)
[2016-08-26] MEDS: SODIUM CHLOR 0.9% 1000 ML INJ 1,000 ML IV SCH ×2 (08:07→20:54)
[2016-08-26] MEDS: SODIUM CHLORIDE 0.9% FLUSH 10 ML FLUSH SCH ×2 (08:07→20:55)
[2016-08-26] MEDS ORDERED: PANTOPRAZOLE SODIUM 40 MG VIAL IV SCH (09:00)
[2016-08-26] MEDS ORDERED: POTASSIUM CHLOR 40 MEQ PREMIX 100 ML IV PRN ×2 (09:15)
[2016-08-26] MEDS ORDERED: SODIUM PHOSPHATE INJ 30 MMOL in SODIUM CHLOR 0.9% 250 ML INJ 240 ML IV PRN (09:15)
[2016-08-26] MEDS ORDERED: POTASSIUM PHOSPHATE INJ 30 MMOL in SODIUM CHLOR 0.9% 250 ML INJ 250 ML IV PRN (09:15)
[2016-08-26] MEDS ORDERED: POTASSIUM PHOSPHATE MONOBASIC 500 MG TAB PO PRN (09:15)
[2016-08-26] MEDS ORDERED: MAGNESIUM SULFATE INJ 4 GM in SODIUM CHLORIDE 0.9% INJ 92 ML IV PRN (09:15)
[2016-08-26] MEDS ORDERED: MAGNESIUM SULFATE INJ 2 GM in SODIUM CHLORIDE 0.9% INJ 96 ML IV PRN (09:15)
[2016-08-26] MEDS ORDERED: POTASSIUM CHLOR 20 MEQ PREMIX 100 ML IV PRN ×2 (09:15)
[2016-08-26] MEDS ORDERED: POTASSIUM PHOSPHATE MONOBASIC 500 MG TAB PO/TUBE PRN (09:15)
[2016-08-26] MEDS ORDERED: MAGNESIUM OXIDE 400 MG TAB PO PRN (09:15)
--- NOTE | 2016-08-26 09:30 | HHI.CCPN ---
Subjective Remarks/Hospital Course 61-year-old woman presents to the emergency department under a Moses act for suicidal ideation and overdose. She has a history of chronic pain, bipolar disorder, previous overdoses. She reportedly sent several messages out the family they were suicidal in nature. Sister went to go check on her and called the ambulance. She took about 10 Tylenol tablets at 11 AM. During my examination patient was confused saying that she didn't take anything. However her Tylenol level was above 300. She is admitted to ICU with a Tylenol overdose. Poison center was contacted by ER physicians. 08/26 Patient is lying in bed in NAD on room air oxygen.Afebrile. On Mucomyst drip per protocol for Tylenol tox. Objective Vital Signs Date Time Temp Pulse Resp B/P Pulse Ox O2 Delivery O2 Flow Rate FiO2 08/26/16 06:00 92 08/26/16 04:00 98.3 20 169/84 100 08/25/16 21:57 Room Air Result Diagram: 08/26/16 0415 08/26/16 0415 Other Results Laboratory Tests Test 08/25/16 08/25/16 08/25/16 08/25/16 16:00 17:30 17:35 22:30 White Blood Count 10.2 TH/MM3 Red Blood Count 3.00 MIL/MM3 Hemoglobin 8.3 GM/DL Hematocrit 26.8 % Mean Corpuscular Volume 89.2 FL Mean Corpuscular Hemoglobin 27.7 PG Mean Corpuscular Hemoglobin 31.0 % Concent Red Cell Distribution Width 20.3 % Platelet Count 652 TH/MM3 Mean Platelet Volume 6.7 FL Neutrophils (%) (Auto) 73.8 % Lymphocytes (%) (Auto) 16.0 % Monocytes (%) (Auto) 8.1 % Eosinophils (%) (Auto) 1.2 % Basophils (%) (Auto) 0.9 % Neutrophils # (Auto) 7.5 TH/MM3 Lymphocytes # (Auto) 1.6 TH/MM3 Monocytes # (Auto) 0.8 TH/MM3 Eosinophils # (Auto) 0.1 TH/MM3 Basophils # (Auto) 0.1 TH/MM3 CBC Comment DIFF FINAL Differential Comment Prothrombin Time 11.5 SEC Prothromb Time International 1.0 RATIO Ratio Activated Partial 32.1 SEC Thromboplast Time Urine Color YELLOW Urine Turbidity CLEAR Urine pH 5.5 Urine Specific [place] 1.021 Urine Protein NEG mg/dL Urine Glucose (UA) NEG mg/dL Urine Ketones NEG mg/dL Urine Occult Blood NEG Urine Nitrite NEG Urine Bilirubin NEG Urine Urobilinogen LESS THAN 2.0 MG/DL Urine Leukocyte Esterase NEG Urine WBC LESS THAN 1 /hpf Urine Hyaline Casts 1 /lpf Urine Mucus FEW /lpf Microscopic Urinalysis Comment CULT NOT INDICATED Sodium Level 131 MEQ/L Potassium Level 3.6 MEQ/L Chloride Level 101 MEQ/L Carbon Dioxide Level 13.6 MEQ/L Anion Gap 16 MEQ/L Blood Urea Nitrogen 5 MG/DL Creatinine 0.50 MG/DL Estimat Glomerular Filtration 126 ML/MIN Rate Random Glucose 94 MG/DL Calcium Level 8.4 MG/DL Total Bilirubin 0.3 MG/DL Aspartate Amino Transf 82 U/L (AST/SGOT) Alanine Aminotransferase 61 U/L (ALT/SGPT) Alkaline Phosphatase 139 U/L Total Creatine Kinase 24 U/L Total Protein 6.1 GM/DL Albumin 2.5 GM/DL Salicylates Level 3.1 MG/DL Urine Opiates Screen NEG Acetaminophen Level 344.9 MCG/ML Urine Barbiturates Screen NEG Urine Amphetamines Screen NEG Urine Benzodiazepines Screen POS Urine Cocaine Screen NEG Urine Cannabinoids Screen NEG Ethyl Alcohol Level 83 MG/DL Blood Gas Puncture Site LT RADIAL Blood Gas Patient Temperature 98.6 Blood Gas HCO3 15 mmol/L Blood Gas Base Excess -9.2 mmol/L Blood Gas Oxygen Saturation 94 % Arterial Blood pH 7.39 Arterial Blood Partial 25 mmHg Pressure CO2 Arterial Blood Partial 97 mmHG Pressure O2 Arterial Blood Oxygen Content 10.6 Vol % Arterial Blood 2.3 % Carboxyhemoglobin Arterial Blood Methemoglobin 1.5 % Blood Gas Hemoglobin 7.9 G/DL Blood Gas Inspired Oxygen 21 % Lactic Acid Level 5.9 mmol/L Nasal Screen MRSA (PCR) NEGATIVE Test 08/26/16 04:15 White Blood Count 7.8 TH/MM3 Red Blood Count 3.12 MIL/MM3 Hemoglobin 8.8 GM/DL Hematocrit 26.6 % Mean Corpuscular Volume 85.5 FL Mean Corpuscular Hemoglobin 28.3 PG Mean Corpuscular Hemoglobin 33.1 % Concent Red Cell Distribution Width 19.8 % Platelet Count 665 TH/MM3 Mean Platelet Volume 6.4 FL Neutrophils (%) (Auto) 75.2 % Lymphocytes (%) (Auto) 17.4 % Monocytes (%) (Auto) 6.0 % Eosinophils (%) (Auto) 0.6 % Basophils (%) (Auto) 0.8 % Neutrophils # (Auto) 5.8 TH/MM3 Lymphocytes # (Auto) 1.4 TH/MM3 Monocytes # (Auto) 0.5 TH/MM3 Eosinophils # (Auto) 0.0 TH/MM3 Basophils # (Auto) 0.1 TH/MM3 CBC Comment DIFF FINAL Differential Comment Sodium Level 134 MEQ/L Potassium Level 3.1 MEQ/L Chloride Level 100 MEQ/L Carbon Dioxide Level 20.7 MEQ/L Anion Gap 13 MEQ/L Blood Urea Nitrogen 5 MG/DL Creatinine 0.56 MG/DL Estimat Glomerular Filtration 110 ML/MIN Rate Random Glucose 92 MG/DL Lactic Acid Level 1.4 mmol/L Calcium Level 8.1 MG/DL Phosphorus Level 2.9 MG/DL Magnesium Level 1.5 MG/DL Total Bilirubin 0.3 MG/DL Aspartate Amino Transf 40 U/L (AST/SGOT) Alanine Aminotransferase 48 U/L (ALT/SGPT) Alkaline Phosphatase 125 U/L Total Protein 5.7 GM/DL Albumin 2.3 GM/DL Imaging Last Impressions Chest X-Ray 08/25/16 1538 Signed Impressions: Service Date/Time: Thursday, August 25, 2016 15:40 - CONCLUSION: No acute disease. Kulwant Jaramillo MD Head CT 08/25/16 0000 Signed Impressions: Service Date/Time: Thursday, August 25, 2016 22:09 - CONCLUSION: 1. No acute intracranial abnormality. 2. Chronic left maxillary sinus disease. Mason Salcedo Jr., MD Abdomen/Pelvis CT 08/25/16 0000 Signed Impressions: Service Date/Time: Thursday, August 25, 2016 22:12 - CONCLUSION: 1. Examination is limited by the lack of oral and IV contrast as well as breathing motion artifact. 2. No acute intra-abdominal abnormality. 3. Large joint effusion associated with a left hip prosthesis. 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 Mason Salcedo Jr., MD Objective Remarks GENERAL: Patient is lying in bed in NAD SKIN: Warm and dry. HEAD: Normocephalic. EYES: No scleral icterus. No injection or drainage. NECK: Supple, trachea midline. No JVD or lymphadenopathy. CARDIOVASCULAR: Regular rate and rhythm without murmurs, gallops, or rubs. RESPIRATORY: Breath sounds equal bilaterally. No accessory muscle use. GASTROINTESTINAL: Abdomen soft, non-tender, nondistended. MUSCULOSKELETAL: No cyanosis, or edema. BACK: Nontender without obvious deformity. No CVA tenderness. Neuro: Awake and alert A/P Problem List: (1) Drug overdose, multiple drugs ICD Code: T50.901A Status: Acute (2) Altered mental status ICD Code: R41.82 Status: Acute Assessment and Plan Tylenol overdose Lactic acidemia- resolved Elevated LFT's..trending down Drug overdose/ suicidal ideation Hypokalemia/hyponatremia Elevated LFT''s... trending down ETOH abuse Anemia Hx Seizure Hypertension Bipolar disorder GERD Tobacco abuse Large joint effusion associated with left hip prosthesis Neuro: Awake and alert. CT brain : No acute findings Place on Thiamine/MVI and Folic acid. Monitor for signs of DT's Psych consulted Pulm: Oxygen PRN keep sat >92% CV: Monitor HR and BP keep MAP>65mmHg Lactic acid resolved- 1.4 from 5.9 on arrival : Monitor renal function, place on electrolytes replacement perootocl. Will need K, replacement today, continue with NS@84ml/hr GI: On PO diet continue with Mucomyst drip per protocol. Monitor Tylenol level, LFT;s( trending down) and coags ID: Monitor for signs of infections ( Fever, WBC) culture if spikes fever, CXR in ED negative for acute disease Heme: Monitor CBC, coags Endo: SSI if needed for glycemic control Consult Ortho for Large joint effusion associated with left hip prosthesis GI prophylaxis- place on Protonix 40mg daily DVT prophylaxis- SCD's Will sign off and transfer care to [facility] Level 3 You Cordova MD Aug 26, 2016 09:30
[2016-08-26 10:28] LABS: APTT (PATIENT) 27.5 SEC (24.3-30.1); INTERNATIONAL NORMALIZED RATIO 1.1 RATIO; PROTHROMBIN TIME - PATIENT 12.2 SEC (9.8-11.6)
--- NOTE | 2016-08-26 10:29 | EKG ---
Date Performed: 08/26/2016 Time Performed: 09:59:43 PTAGE: 61 years EKG: Sinus rhythm NORMAL ECG PREVIOUS TRACING : 08/26/2016 07.10 DOCTOR: Josef Dumont Interpretating Date/Time 08/26/2016 10:28:55
--- NOTE | 2016-08-26 10:30 | EKG ---
Date Performed: 08/26/2016 Time Performed: 07:10:13 PTAGE: 61 years EKG: Sinus rhythm WITH MARKED SINUS ARRHYTHMIA BORDERLINE ECG PREVIOUS TRACING : 08/25/2016 17.06 DOCTOR: Josef Dumont Interpretating Date/Time 08/26/2016 10:29:27
--- NOTE | 2016-08-26 10:39 | EKG ---
Date Performed: 08/25/2016 Time Performed: 17:06:19 PTAGE: 61 years EKG: Sinus rhythm NORMAL ECG WARNING: DATA QUALITY MAY AFFECT INTERPRETATION NO PREVIOUS TRACING DOCTOR: Josef Dumont Interpretating Date/Time 08/26/2016 10:36:36
[2016-08-26] MEDS: LURASIDONE 40 MG TAB PO SCH (11:29)
[2016-08-26] MEDS: OXcarbazepine 300 MG TAB PO SCH (11:30)
--- NOTE | 2016-08-26 13:03 | PD.CONS ---
Provisional Diagnosis Admission Date Aug 25, 2016 at 17:29 [place] I. Substance induced mood disorder, bipolar disorder, depressed type, alcohol use disorder [place] II. Unspecified personality disorder [place] III. Overdose with acetaminophen [place] IV. Multiple suicidal attempts [place] V. 40 History of Present Illness Service Psychiatry Consult Requested By Primary Care Physician No Primary Care Physician HPI The patient is a 61-year-old woman, domicile with significant other in [place], unemployed, with significant psychiatric history of bipolar disorder, alcohol use disorder, multiple suicide attempts, numerous hospitalizations, last hospitalization was here in [place] in 2016 under the care of Dr. Donovan due to SI, documentation was reviewed, and active outpatient psychiatric care with primary psychiatrist, she is on Latuda 40 mg, Trileptal 300 mg, Effexor 225, Remeron 45, trazodone 300 mg, who presents to the emergency department under a Moses act for suicidal ideation and overdose. She has a history of chronic pain, bipolar disorder, previous overdoses. She reportedly sent several messages out the family they were suicidal in nature. Sister went to go check on her and called the ambulance. Patient endorses that she took about 10 Tylenol tablets at 11 AM. Patient also took Xanax and Vodka. She was consulted to psychiatry to assess suicidal intention of recent overdose. On psychotic evaluation patient is irritable, oppositional and resistant. She says that she has been abandoned in the ICU and her pain is undertreated. Patient had a recent re-intervention in left femoral fracture to extract out surgical material and she claims that she has been on pain. Patient is very focused in this pain and getting medications. Patient seems to be very labile, mood dysregulation, with frequent mood swings, episodes of tears and agitation. She says that she has been very stressed due to her pain. She states her doctor sent her home without sufficient pain medication "so I had to treat my pain in my way with alcohol and medications for anxiety". She says that she did not overdose intentionally, she just took medication for her pain. In many occasions during the evaluation patient states that "if I have to live like this I preferred to ". She says that she has been on the other kind of stress with her significant other, but she declined to speak about this now. At this moment the patient denies suicidal and homicidal ideation, she denies visual and auditory hallucinations. Patient is fully oriented 3. She reports occasional use of alcohol, "but increased amount in the last days due to pain", she denies the use of illegal drugs. Review of Systems Constitutional: DENIES: Diaphoretic episodes, Fatigue, Fever, Weight gain, Weight loss, Chills, Dizziness, Change in appetite, Night Sweats Endocrine: DENIES: Abnorml menstrual pattern, Heat/cold intolerance, Polydipsia , Polyuria, Polyphagia Eyes: DENIES: Blurred vision, Diplopia, Eye inflammation, Eye pain, Vision loss , Photosensitivity, Double Vision Ears, nose, mouth, throat: DENIES: Tinnitus, Hearing loss, Vertigo, Nasal discharge, Oral lesions, Throat pain, Hoarseness, Ear Pain, Running Nose, Epistaxis, Sinus Pain, Toothache, Odynophagia Respiratory: DENIES: Apneas, Cough, Snoring, Wheezing, Hemoptysis, Sputum production, Shortness of breath Cardiovascular: DENIES: Chest pain, Palpitations, Syncope, Dyspnea on Exertion , PND, Lower Extremity Edema, Orthopnea, Claudication Gastrointestinal: DENIES: Abdominal pain, Black stools, Bloody stools, Constipation, Diarrhea, Nausea, Vomiting, Difficulty Swallowing, Anorexia Musculoskeletal: COMPLAINS OF: Joint pain, Back pain Immunologic/allergic: DENIES: Eczema, Urticaria Neurologic: DENIES: Abnormal gait, Headache, Localized weakness, Paresthesias, Seizures, Speech Problems, Tremor, Poor Balance Psychiatric: DENIES: Anxiety, Confusion, Mood changes, Depression, Hallucinations, Agitation, Suicidal Ideation, Homicidal Ideation, Delusions Past Family Social History Coded Allergies: Latex (Verified Allergy, Intermediate, Rash, 08/25/16) Cerebyx (Verified Adverse Reaction, Severe, TINNITIS, 08/25/16) Morphine (Verified Adverse Reaction, Intermediate, Dizzy, 08/25/16) Uncoded Allergies: NICKEL (Adverse Reaction, Severe, SWELLING, 02/02/16) Active Scripts Trazodone 300 Mg [id number] Mg PO HS #30 TAB Ref 0 Prov:Domenico Flor MD 06/03/16 Reported Medications Alprazolam (Xanax)2 Mg Tab2 Mg PO Q6HR PRN (ANXIETY) Ref 0 08/25/16 Omeprazole 20 Mg Tab20 Mg PO DAILY #30 TAB Ref 0 08/14/16 Mirtazapine (Remeron)15 Mg Tab7.5 Mg PO HS #15 TAB Ref 0 08/14/16 Oxcarbazepine (Trileptal)300 Mg Bjb004 Mg PO DAILY #30 TAB Ref 0 06/02/16 Lurasidone (Latuda)40 Mg Tab40 Mg PO DAILY #30 TAB Ref 0 06/02/16 Discontinued Reported Medications Warfarin (Coumadin)1 Mg Tab1 Mg PO DAILY #30 TAB Ref 0 08/14/16 Current Medications Medications (Trade) Dose Ordered Sig/Rula Route Start Time Stop Time Status Last Admin Sodium Chloride 2 ml 2 ml UNSCH PRN IVF 08/25/16 15:45 Acetylcysteine 7000 mg/Dextrose 1,035 ml @ 62.5 mls/hr ONCE IV 08/25/16 22:00 08/26/16 13:59 08/26/16 00:00 (NS 1000 ml Inj) 1,000 ml @ 84 mls/hr [id number] IV 08/25/16 20:22 08/26/16 08:07 (NS Flush) 2 ml UNSCH PRN .XX 08/25/16 20:30 (NS Flush) 2 ml BID .XX 08/25/16 21:00 08/26/16 08:07 (Morphine Inj) 2 mg Q2H PRN IV 08/25/16 20:30 08/26/16 11:30 (Protonix Inj) 40 mg DAILY IV 08/26/16 09:00 08/26/16 08:07 (Ativan Inj) 2 mg Q4H PRN IV 08/25/16 20:30 08/26/16 08:06 (Zofran Inj) 4 mg Q6H PRN IV 08/25/16 20:30 (Reglan Inj) 10 mg Q6H PRN IV 08/25/16 20:30 Miscellaneous Information 1 [id number] XX 08/25/16 20:30 (Chlorhexidine 2% Cloth) 3 pack Taper DAILY@04 TOP 08/26/16 04:00 08/22/17 03:59 08/26/16 04:00 (Chlorhexidine 2% Cloth) 3 pack UNSCH PRN TOP 08/25/16 20:30 (Latuda) 40 mg DAILY PO 08/26/16 09:00 08/26/16 11:29 (Remeron) 7.5 mg HS PO 08/26/16 21:00 (Trileptal) 300 mg DAILY PO 08/26/16 09:00 08/26/16 11:30 Trazodone HCl 150 mg 150 mg HS PO 08/26/16 21:00 Potassium Chloride 100 ml @ 50 mls/hr Q2H PRN IV 08/26/16 09:15 Potassium Chloride 100 ml @ 50 mls/hr Q2H PRN IV 08/26/16 09:15 08/26/16 11:30 Potassium Chloride 100 ml @ 25 mls/hr UNSCH PRN IV 08/26/16 09:15 Potassium Chloride 100 ml @ 50 mls/hr Q2H PRN IV 08/26/16 09:15 (Magnesium Sulfate Inj/NS Inj) 100 ml @ 50 mls/hr UNSCH PRN IV 08/26/16 09:15 Magnesium Oxide 800 mg 800 mg UNSCH PRN PO 08/26/16 09:15 (Magnesium Sulfate Inj/NS Inj) 100 ml @ 50 mls/hr UNSCH PRN IV 08/26/16 09:15 Potassium Phosphate 2000 mg 2,000 mg Q4H PRN PO 08/26/16 09:15 (Sodium Phosphate Inj/NS 250 ml Inj) 250 ml @ 42 mls/hr UNSCH PRN IV 08/26/16 09:15 Potassium Phosphate 2000 mg 2,000 mg UNSCH PRN PO/TUBE 08/26/16 09:15 (Potassium Phosphate Inj/NS 250 ml Inj) 260 ml @ 42 mls/hr UNSCH PRN IV 08/26/16 09:15 (Vitamin B1) 100 mg DAILY PO 08/26/16 10:00 (Theragran) 1 tab DAILY PO 08/26/16 10:00 (Folate) 1 mg DAILY PO 08/26/16 10:00 Family History Her sister is bipolar Social History Patient was born and raised in [place], she has been living in [place] for 20 years, she lives with significant other, she is unemployed, her highest level of education is GED Patient's Strengths (min. 2) Family support Physical Exam On physical examination, patient is agitated, but no psychomotor retardation, no EPS, no tremors, no stiffness present Vital Signs Vital Signs Date Time Temp Pulse Resp B/P Pulse Ox O2 Delivery O2 Flow Rate FiO2 08/26/16 06:00 92 08/26/16 04:00 98.3 20 169/84 100 08/25/16 21:57 Room Air Lab Results WBCs 7.8, Hgb 8.8, HCT 26.6, NA 134, K3.1, BUN 5, creatinine 0.5, AST 40, AST 48 ,, toxicology is positive for benzodiazepines, acetaminophen level 349, BAL 83 Mental Status Examination Appearance woman, [facility], age appearing, good hygiene, she is resistant , oppositional, irritable, poorly cooperative Speech: Unremarkable Orientation: x3 Memory: Unremarkable Thought Process: Logical Thought Content: Unremarkable Hallucination Type: None Attention and Concentration: Good Previous Suicide Attempts: Yes Homicidal Ideation: No Previous Homicide Attempts: No Insight: Poor Affect: Irritable Mood: Angry Motor Activity: Normal gait Assessment & Plan Problem List: (1) Bipolar affective disorder, depressed Assessment & Plan: On psychiatric evaluation today patient is irritable, somewhat resistant and oppositional, focused on pain and pain medication. She reports being very stressed due to level of pain which she claims has been undertreated. Patient refused to elaborate and talk about the circumstances of recent overdose with medication and alcohol. On the evaluation patient seems to be behavioral/mood dysregulation, with several episodes of crying spells, lability and hostility. Is documented the family is very preoccupied due to multiple overdoses in the last months. Even though patient denies suicidal ideation at this moment her recent overdose was dangerous enough and make the patient clearly qualified for involuntary psychiatric admission for stabilization and safety. Patient can be transferred to psychiatry once medically stable. Agree with continuing Latuda 40 mg, Remeron 7.5 mg, trazodone 150 mg and CIWA protocol. Brief supportive psychotherapy provided. Collateral information still pending. Consult appreciated. ICD Code: F31.30 Assessment & Plan Estimated LOS: days Problem Qualifiers (1) Bipolar affective disorder, depressed: Jacob Urena MD Aug 26, 2016 13:03
[2016-08-26] MEDS: THIAMINE HCL 100 MG TAB PO SCH (13:27)
[2016-08-26] MEDS: MULTIVITAMIN TAB PO SCH (13:27)
[2016-08-26] MEDS: FOLIC ACID 1 MG TAB PO SCH (13:27)
[2016-08-26 17:06] LABS: ALKALINE PHOSPHATASE 126 U/L (45-117); TOTAL BILIRUBIN ADULT 0.3 MG/DL (0.2-1.0)
[2016-08-26 17:09] LABS: ACETAMINOPHEN LESS THAN 2.0 MCG/ML (10.0-30.0); ALT (GPT) 41 U/L (10-53); AST (GOT) 50 U/L (15-37); INDIRECT BILIRUBIN 0.2 MG/DL (0.0-0.8)
[2016-08-26] MEDS: METOCLOPRAMIDE HCL 10 MG/2 ML VIAL IV PRN (17:48)
[2016-08-26] MEDS: ONDANSETRON HCL 4 MG/2 ML VIAL IV PRN ×2 (17:48→23:58)
[2016-08-26] MEDS: MIRTAZAPINE 15 MG TAB PO SCH (20:55)
[2016-08-26] MEDS: traZODone HCL 100 MG TAB PO SCH (20:55)
[2016-08-27] VITALS (8 sets, daily range): BP systolic 102–158; BP diastolic 57–78; PULSE 78–128; RESP 26–28; TEMP 98.8–100.2; O2SAT 97–98
[2016-08-27] MEDS: CHLORHEXIDINE GLUCONATE 2 % 1 PACK (2 CLOTHS) TOP SCH (04:00)
[2016-08-27] MEDS: LORazepam 2 MG/ML VIAL IV PRN ×3 (04:50→16:54)
[2016-08-27] MEDS: MORPHINE SULFATE 4 MG/ML INJ IV PRN ×4 (04:51→22:35)
[2016-08-27] MEDS: METOCLOPRAMIDE HCL 10 MG/2 ML VIAL IV PRN (04:51)
[2016-08-27 04:58] LABS: AUTOMATED NEUTROPHIL # 4.8 TH/MM3 (1.8-7.7); BASOPHIL % 0.5 % (0.0-2.0); EOSINOPHIL % 0.3 % (0.0-4.0); HEMATOCRIT 22.6 % (35.0-46.0); HEMO FLAGS DIFF FINAL; LYMPH % 17.4 % (9.0-44.0); LYMPHOCYTE # 1.2 TH/MM3 (1.0-4.8); MEAN CELL VOLUME 84.6 FL (80.0-100.0); MEAN CORPUSCULAR HEMOGLOBIN 28.2 PG (27.0-34.0); MEAN CORPUSCULAR HGB CONC 33.3 % (32.0-36.0); MONO % 10.4 % (0.0-8.0); NEUT % 71.4 % (16.0-70.0); PLATELET COUNT 606 TH/MM3 (150-450); RED BLOOD COUNT 2.67 MIL/MM3 (4.00-5.30); WHITE BLOOD COUNT 6.7 TH/MM3 (4.0-11.0)
[2016-08-27 05:09] LABS: INTERNATIONAL NORMALIZED RATIO 1.1 RATIO
[2016-08-27 05:28] LABS: ALKALINE PHOSPHATASE 118 U/L (45-117); ALT (GPT) 29 U/L (10-53); ANION GAP 10 MEQ/L (5-15); AST (GOT) 9 U/L (15-37); BICARBONATE 22.6 MEQ/L (21.0-32.0); BLOOD UREA NITROGEN 3 MG/DL (7-18); CHLORIDE 109 MEQ/L (98-107); GLOMERULAR FILTRATION RATE 142 ML/MIN (>89); MAGNESIUM 1.5 MG/DL (1.5-2.5); POTASSIUM 3.9 MEQ/L (3.5-5.1); SODIUM (NA) 142 MEQ/L (136-145); TOTAL BILIRUBIN ADULT 0.4 MG/DL (0.2-1.0)
[2016-08-27] MEDS ORDERED: LORazepam 2 MG/ML VIAL IV PUSH PRN ×3 (06:00)
[2016-08-27] MEDS ORDERED: BISACODYL 10 MG SUPP RECTAL PRN (06:00)
[2016-08-27] MEDS ORDERED: FLUMAZENIL 0.5 MG/5 ML VIAL IV PUSH PRN (06:00)
[2016-08-27] MEDS ORDERED: HALOPERIDOL LACTATE 5 MG/ML AMP IM PRN (06:00)
[2016-08-27] MEDS ORDERED: MAGNESIUM HYDROXIDE SUSP 30 ML CUP PO PRN (06:00)
[2016-08-27] MEDS ORDERED: LORazepam 1 MG TAB PO PRN (06:00)
--- NOTE | 2016-08-27 07:16 | PD.ORT.PN ---
Subjective Subjective Remarks Fidelia is a 61-year-old female who has had complex revision left total hip arthroplasty done at [facility]. She was seen there one week ago. She has a history of infected left total hip arthroplasty. She presented to [place] for complaints of left thigh pain. No recent injuries. Objective Vitals Vital Signs Date Time Temp Pulse Resp B/P Pulse Ox O2 Delivery O2 Flow Rate FiO2 08/27/16 06:00 94 08/27/16 04:00 78 28 102/57 97 08/27/16 04:00 78 08/27/16 02:00 87 08/27/16 00:00 100.2 117 27 158/74 98 08/27/16 00:00 117 08/26/16 22:00 115 08/26/16 20:00 144 08/26/16 20:00 100.2 130 25 146/79 99 08/26/16 16:00 98.5 121 24 98 08/26/16 12:00 98.1 102 24 122/75 98 08/26/16 08:00 97.9 84 24 153/89 100 I/O 08/26/16 08/26/16 08/26/16 08/27/16 08/27/16 08/27/16 07:00 15:00 23:00 07:00 15:00 23:00 Intake Total 1125 ml 3270 ml 480 ml Balance 1125 ml 3270 ml 480 ml Intake Oral 0 ml 1200 ml 480 ml IV Total 1125 ml 2070 ml # Voids 2 17 4 # Bowel Movements 0 0 Result Diagram: 08/27/16 0439 08/27/16 0432 Other Results Laboratory Tests Test 08/26/16 08/27/16 10:06 04:32 Prothrombin Time 12.2 SEC 12.0 SEC (9.8-11.6) (9.8-11.6) Prothromb Time International 1.1 RATIO 1.1 RATIO Ratio Objective Remarks Examination of left leg reveals mild swelling around the lateral thigh. The proximal incision is completely healed. There is a distal incision that still has sutures in place. She has minimal pain with gentle hip or knee motion. There is no warmth or erythema. There is no drainage present. 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
[2016-08-27 07:17] LABS: TRANSFERRIN IRON PROFILE 165 MG/DL (200-360)
[2016-08-27 07:19] LABS: FERRITIN 84 NG/ML (8-252)
[2016-08-27] MEDS: SODIUM CHLORIDE 0.9% FLUSH 10 ML FLUSH SCH ×2 (09:00→20:11)
--- NOTE | 2016-08-27 10:53 | EKG ---
Date Performed: 08/26/2016 Time Performed: 13:56:33 PTAGE: 61 years EKG: SINUS TACHYCARDIA Compared to previous tracing, the patient is now tachycardic. ABNORMAL [facility] ECG PREVIOUS TRACING : 08/26/2016 09.59 DOCTOR: Shivani Fernandes Interpretating Date/Time 08/27/2016 10:52:11
--- NOTE | 2016-08-27 10:53 | EKG ---
Date Performed: 08/26/2016 Time Performed: 20:04:45 PTAGE: 61 years EKG: SINUS TACHYCARDIA WITH SHORT TX INTERVAL Significant baseline artifact occluding accurate i nterpretation. Likely no significant change. ABNORMAL RHYTHM ECG PREVIOUS TRACING : 08/26/2016 13.56 DOCTOR: Shivani Fernandes Interpretating Date/Time 08/27/2016 10:52:59
--- NOTE | 2016-08-27 11:20 | HHI.PR ---
Subjective Remarks Consulted by critical care medicine for medical management and transfer care. Chart reviewed. Patient complaining of left hip pain history of surgery complicated by infection 2 months ago. Discussed with RN in case management. Per orthopedic notes, recommending transfer to [facility] where patient had surgery. Spoke with Dr. Caballero on-call orthopedic surgeon for patient's orthopedist Dr. Chase, he recommends outpatient follow-up in the absence of sepsis or infection. I have requested for a return call from Dr. Suero our orthopedic surgeon. Discussed with psychiatry who has accepted patient in med psych when medically cleared. He recommends to continue Moses act if patient will be transferred to [facility] Objective Vitals Vital Signs Date Time Temp Pulse Resp B/P Pulse Ox O2 Delivery O2 Flow Rate FiO2 08/27/16 07:36 98.8 08/27/16 06:00 94 08/27/16 04:00 78 28 102/57 97 08/27/16 04:00 78 08/27/16 02:00 87 08/27/16 00:00 100.2 117 27 158/74 98 08/27/16 00:00 117 08/26/16 22:00 115 08/26/16 20:00 144 08/26/16 20:00 100.2 130 25 146/79 99 08/26/16 16:00 98.5 121 24 98 08/26/16 12:00 98.1 102 24 122/75 98 08/26/16 11:35 16 I/O 08/26/16 08/26/16 08/26/16 08/27/16 08/27/16 08/27/16 07:00 15:00 23:00 07:00 15:00 23:00 Intake Total 1125 ml 3270 ml 480 ml Balance 1125 ml 3270 ml 480 ml Intake Oral 0 ml 1200 ml 480 ml IV Total 1125 ml 2070 ml # Voids 2 17 4 # Bowel Movements 0 0 Result Diagram: 08/27/16 0439 08/27/16 0432 Imaging Last Impressions Chest X-Ray 08/25/16 1538 Signed Impressions: Service Date/Time: Thursday, August 25, 2016 15:40 - CONCLUSION: No acute disease. Kulwant Jaramillo MD Head CT 08/25/16 0000 Signed Impressions: Service Date/Time: Thursday, August 25, 2016 22:09 - CONCLUSION: 1. No acute intracranial abnormality. 2. Chronic left maxillary sinus disease. Mason Salcedo Jr., MD Abdomen/Pelvis CT 08/25/16 0000 Signed Impressions: Service Date/Time: Thursday, August 25, 2016 22:12 - CONCLUSION: 1. Examination is limited by the lack of oral and IV contrast as well as breathing motion artifact. 2. No acute intra-abdominal abnormality. 3. Large joint effusion associated with a left hip prosthesis. 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 Mason Salcedo Jr., MD Objective Remarks GENERAL: Patient is lying in bed in NAD SKIN: Warm and dry. HEAD: Normocephalic. EYES: No scleral icterus. No injection or drainage. NECK: Supple, trachea midline. No JVD or lymphadenopathy. CARDIOVASCULAR: Regular rate and rhythm without murmurs, gallops, or rubs. RESPIRATORY: Breath sounds equal bilaterally. No accessory muscle use. GASTROINTESTINAL: Abdomen soft, non-tender, nondistended. MUSCULOSKELETAL: No cyanosis, or edema. Tender left hip with well-healed surgical incision proximally. Distally patient still has sutures with no signs of infection BACK: Nontender without obvious deformity. No CVA tenderness. Neuro: Awake and alert Procedures Non- A/P Problem List: (1) Drug overdose, multiple drugs ICD Code: T50.901A Status: Acute (2) Left hip pain ICD Code: M25.552 Status: Acute Assessment and Plan Tylenol overdose with abnormal liver function tests. Patient received Mucomyst per protocol. This is resolved she's hemodynamically stable Lactic acidemia- resolved Drug overdose/ suicidal ideation history of bipolar disorder. Per psychiatry, patient to be transferred to med psych when medically clear Hypokalemia/hyponatremia. Replace as needed ETOH abuse. Counseled. Continue CIWA Anemia hemoglobin 7.5 with no gross bleeding. She is symptomatic complaining of dizziness. We'll transfuse 2 units of packed RBC. Check Hemoccult Hx Seizure. Stable continue Trileptal and seizure precautions Hypertension. Stable GERD. Continue PPI Tobacco abuse. Counseled Large joint effusion associated with left hip prosthesis. No evidence of infection. Discussed with orthopedic surgery Dr. Federico hernández for patient' s orthopedic surgeon Dr. Chase , patient recommended to follow-up outpatient. Effusion could be related to surgery. Patient's sister states patient on Bactrim but not on med list. RN to follow up with patient's pharmacy is [facility] DVT prophylaxis with SCD and early ambulation Discharge Planning Discharge to med psych Charli Krause MD Aug 27, 2016 11:20
[2016-08-27] MEDS ORDERED: NALOXONE HCL 0.4 MG/ML AMP IV PRN (11:30)
[2016-08-27] MEDS: MULTIVITAMIN TAB PO SCH (11:34)
[2016-08-27] MEDS: THIAMINE HCL 100 MG TAB PO SCH (11:34)
[2016-08-27] MEDS: DOCUSATE SODIUM 50 MG/SENNA 8.6 MG TAB PO SCH ×2 (11:34→20:11)
[2016-08-27] MEDS: FOLIC ACID 1 MG TAB PO SCH (11:34)
[2016-08-27] MEDS: ONDANSETRON HCL 4 MG/2 ML VIAL IV PRN ×2 (11:34→20:33)
[2016-08-27] MEDS: LURASIDONE 40 MG TAB PO SCH (11:40)
[2016-08-27] MEDS: OXcarbazepine 300 MG TAB PO SCH (11:40)
[2016-08-27] MEDS: PANTOPRAZOLE SOD 20 MG DELAYED RELEASE TAB PO SCH (11:40)
[2016-08-27] MEDS: SODIUM CHLOR 0.9% 1000 ML INJ 1,000 ML IV SCH (11:40)
--- NOTE | 2016-08-27 13:02 | MB ---
cc: OMAR DIEZ DATE OF CONSULTATION: 08/26/2016 REASON FOR CONSULTATION Left leg pain and swelling. HISTORY OF PRESENT ILLNESS Fidelia is a 61-year-old female who presented to the emergency room under Moses Act for possible suicidal ideation and possible overdose. She has a history of chronic pain disorder and bipolar disorder. She has a very complex history regarding her left hip. She had initial left hip replacement done many years ago. She subsequently developed an infection. She was taken to [facility] in [place], [place]. She underwent removal of her prosthesis with placement of antibiotic spacer. She later underwent a complex left total hip revision with a proximal femur replacement. She describes an additional infection that occurred earlier this year. She states that she seen in [place] last week. She still has sutures in the inferior portion of her incision. She is currently awake in the intensive care unit. She complains of some left leg pain and swelling. Pain is currently tolerable. She has had no warmth, erythema or drainage. PAST MEDICAL HISTORY ALLERGIES 1. MORPHINE. 2. LASIX. ILLNESSES 1. Seizure disorder. 2. Hypertension. 3. Insomnia. 4. Bipolar disorder. 5. Reflux. 6. History of alcohol and tobacco abuse. SURGERIES 1. Left hip ORIF. 2. Left hip replacement. 3. Revision left hip replacement. MEDICATIONS 1. Trazodone. 2. Xanax. 3. Omeprazole. 4. Trileptal. 5. Latuda. FAMILY HISTORY Noncontributory. SOCIAL HISTORY The patient smokes cigarettes and drinks alcohol. She is on OxyContin and Xanax. REVIEW OF SYSTEMS The patient denies headache, visual changes, neck pain, chest pain, shortness of breath, abdominal pain, nausea, vomiting or recent weight loss. She complains of some left leg pain and swelling. PHYSICAL EXAMINATION GENERAL: The patient is a thin 61-year-old female who is awake and alert. She is thin but appears well-developed, well-nourished. VITAL SIGNS: Temperature 98.8, pulse 74, respirations 28, blood pressure 102/57. O2 sat is 97% on room air. HEAD: The patient is normocephalic. Pupils are equal. NECK: Soft, nontender. Trachea is midline. ABDOMEN: Soft, nontender, nondistended. EXTREMITIES: Examination of bilateral upper extremities reveals no pain with shoulder, elbow or wrist motion. She has intact sensation in all fingers. She has good cap refill in all fingers. Radial pulses are palpable. Sensation is intact in all fingers bilaterally. Examination of right leg reveals no significant pain with hip, knee or ankle motion. Skin is intact. Dorsalis pedis pulse is palpable. Sensation is intact. Examination of left leg reveals a well-healed surgical incision over the proximal hip. She also has a four-inch incision over the distal thigh with sutures in place. There is no erythema or drainage. There is some swelling of the distal thigh. There is no fluctuance. There is no warmth or erythema. She has minimal pain with very gentle hip, knee or ankle motion. Sensation is intact in the left foot. X-RAYS X-rays and CT scan of left thigh were reviewed. X-rays reveal a complex left hip revision in place. Components appear to be in good position. CT scan of the left thigh was reviewed. CT scan reveals post-surgical changes from revision total hip arthroplasty. There may be an area of fluid along the lateral thigh. IMPRESSION 1. Recent suicidal ideation. 2. Complex left revision hip replacement with history of infection. 3. Alcohol and tobacco dependence. PLAN The treatment options were discussed with the patient. At this point I do not see any konstantin evidence of infection. The patient does have a very complicated history regarding her hip. When she is medically stable and cleared by psychiatry she would likely benefit from returning to [facility] in [place]. She has a very complicated history regarding her left hip and would best be served by following up with the same physician who performed her recent surgeries. There is a possibility that she has a recurrent infection, although clinically she does not have signs or symptoms of infection. The patient is in agreement with this plan. All questions were answered. MD AMIE Calixto/ADRIANA /12:37 PM /12:46 PM LAURIE
[2016-08-27] MEDS ORDERED: THERTAB15 PO (15:29)
[2016-08-27] MEDS ORDERED: OXYC-392 PO (15:29)
[2016-08-27] MEDS ORDERED: VITA100T2 PO (15:29)
[2016-08-27] MEDS ORDERED: FOLI1TAB4 PO (15:29)
--- NOTE | 2016-08-27 15:29 | HHI.DCPOC ---
Discharge Care Plan Diagnosis: (1) Left hip pain (2) Drug overdose, multiple drugs Your Health Problems Are: Difficulty with ADL Exercise Tolerance Goals to Promote Your Health * To prevent worsening of your condition and complications * To maintain your health at the optimal level Directions to Meet Your Goals Take your medications as prescribed Follow your dietary instruction Follow activity as directed Keep your appointments as scheduled Take your immunizations and boosters as scheduled If your symptoms worsen call your PCP, if no PCP go to Urgent Care Center or Emergency Room Smoking is Dangerous to Your Health. Avoid second hand smoke Call the 24-hour hour crisis hotline for domestic abuse at Charli Krause MD Aug 27, 2016 15:29
[2016-08-27] MEDS: LORazepam 2 MG/ML VIAL IV PUSH PRN (17:34)
[2016-08-27] MEDS: LORazepam 2 MG TAB PO PRN (20:10)
[2016-08-27] MEDS: traZODone HCL 100 MG TAB PO SCH (20:11)
[2016-08-27] MEDS: MIRTAZAPINE 15 MG TAB PO SCH (20:11)
[2016-08-27 20:48] LABS: MAGNESIUM 1.7 MG/DL (1.5-2.5)
[2016-08-28] VITALS (18 sets, daily range): BP systolic 82–125; BP diastolic 50–75; PULSE 89–125; RESP 20–28; TEMP 98.6–99.6; O2SAT 98
[2016-08-28] MEDS: MORPHINE SULFATE 4 MG/ML INJ IV PRN ×6 (01:10→23:51)
[2016-08-28] MEDS: LORazepam 2 MG/ML VIAL IV PRN ×2 (03:16→08:26)
[2016-08-28] MEDS: LORazepam 2 MG/ML VIAL IV PUSH PRN ×3 (03:17→21:16)
[2016-08-28] MEDS: CHLORHEXIDINE GLUCONATE 2 % 1 PACK (2 CLOTHS) TOP SCH ×2 (04:00→23:51)
[2016-08-28 05:38] LABS: AUTOMATED NEUTROPHIL # 4.4 TH/MM3 (1.8-7.7); BASOPHIL % 0.5 % (0.0-2.0); EOSINOPHIL # 0.1 TH/MM3 (0-0.4); EOSINOPHIL % 1.3 % (0.0-4.0); HEMATOCRIT 21.7 % (35.0-46.0); HEMO FLAGS DIFF FINAL; LYMPH % 21.8 % (9.0-44.0); LYMPHOCYTE # 1.5 TH/MM3 (1.0-4.8); MEAN CELL VOLUME 85.9 FL (80.0-100.0); MEAN CORPUSCULAR HEMOGLOBIN 28.1 PG (27.0-34.0); MEAN CORPUSCULAR HGB CONC 32.7 % (32.0-36.0); MONO % 10.6 % (0.0-8.0); NEUT % 65.8 % (16.0-70.0); PLATELET COUNT 574 TH/MM3 (150-450); RED BLOOD COUNT 2.53 MIL/MM3 (4.00-5.30); RED CELL DISTRIBUTION WIDTH 19.3 % (11.6-17.2); WHITE BLOOD COUNT 6.7 TH/MM3 (4.0-11.0)
[2016-08-28 06:02] LABS: BICARBONATE 23.8 MEQ/L (21.0-32.0); MAGNESIUM 1.6 MG/DL (1.5-2.5); POTASSIUM 3.7 MEQ/L (3.5-5.1)
[2016-08-28] MEDS ORDERED: SODIUM CHLOR 0.9% 250 ML INJ 250 ML IV ONE (06:15)
[2016-08-28] MEDS ORDERED: FUROSEMIDE 20 MG/2 ML VIAL IV ONE ×2 (06:15→16:00)
[2016-08-28] MEDS: DOCUSATE SODIUM 50 MG/SENNA 8.6 MG TAB PO SCH ×2 (08:26→21:00)
[2016-08-28] MEDS: FOLIC ACID 1 MG TAB PO SCH (08:26)
[2016-08-28] MEDS: MULTIVITAMIN TAB PO SCH (08:26)
[2016-08-28] MEDS: THIAMINE HCL 100 MG TAB PO SCH (08:26)
[2016-08-28] MEDS: PANTOPRAZOLE SOD 20 MG DELAYED RELEASE TAB PO SCH (08:26)
[2016-08-28] MEDS: LURASIDONE 40 MG TAB PO SCH (08:27)
[2016-08-28] MEDS: SODIUM CHLORIDE 0.9% FLUSH 10 ML FLUSH SCH ×2 (08:30→21:00)
[2016-08-28] MEDS: OXcarbazepine 300 MG TAB PO SCH (09:00)
--- NOTE | 2016-08-28 10:44 | HHI.PR ---
Subjective Remarks Follow-up anemia and left thigh pain. No gross bleeding agrees with blood transfusion which I forgot to order yesterday. Discussed with orthopedic PA, follow-up with pt's outpatient Objective Vitals Vital Signs Date Time Temp Pulse Resp B/P Pulse Ox O2 Delivery O2 Flow Rate FiO2 08/28/16 10:00 100 08/28/16 08:00 102 08/28/16 08:00 98.6 102 20 82/50 08/28/16 06:00 93 08/28/16 04:00 89 08/28/16 04:00 98.8 89 20 114/56 08/28/16 02:00 89 08/28/16 00:00 98.9 113 28 121/63 08/28/16 00:00 113 08/27/16 22:00 115 08/27/16 20:00 98.9 128 26 140/78 08/27/16 20:00 128 I/O 08/27/16 08/27/16 08/27/16 08/28/16 08/28/16 08/28/16 07:00 15:00 23:00 07:00 15:00 23:00 Intake Total 480 ml 1680 ml 480 ml 360 ml Output Total 800 ml Balance 480 ml 1680 ml 480 ml -440 ml Intake Oral 480 ml 1680 ml 480 ml 360 ml Output Urine Total 800 ml # Voids 4 9 4 2 Result Diagram: 08/28/16 0418 08/28/16 0418 Imaging Last Impressions Chest X-Ray 08/25/16 1538 Signed Impressions: Service Date/Time: Thursday, August 25, 2016 15:40 - CONCLUSION: No acute disease. Kulwant Jaramillo MD Head CT 08/25/16 0000 Signed Impressions: Service Date/Time: Thursday, August 25, 2016 22:09 - CONCLUSION: 1. No acute intracranial abnormality. 2. Chronic left maxillary sinus disease. Mason Salcedo Jr., MD Abdomen/Pelvis CT 08/25/16 0000 Signed Impressions: Service Date/Time: Thursday, August 25, 2016 22:12 - CONCLUSION: 1. Examination is limited by the lack of oral and IV contrast as well as breathing motion artifact. 2. No acute intra-abdominal abnormality. 3. Large joint effusion associated with a left hip prosthesis. 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 Mason Salcedo Jr., MD Objective Remarks GENERAL: Patient is lying in bed in NAD SKIN: Warm and dry. HEAD: Normocephalic. EYES: No scleral icterus. No injection or drainage. NECK: Supple, trachea midline. No JVD or lymphadenopathy. CARDIOVASCULAR: Regular rate and rhythm without murmurs, gallops, or rubs. RESPIRATORY: Breath sounds equal bilaterally. No accessory muscle use. GASTROINTESTINAL: Abdomen soft, non-tender, nondistended. MUSCULOSKELETAL: No cyanosis, or edema. Tender left hip with well-healed surgical incision proximally. Distally patient still has sutures with no signs of infection BACK: Nontender without obvious deformity. No CVA tenderness. Neuro: Awake and alert. Nonfocal Procedures None A/P Problem List: (1) Drug overdose, multiple drugs ICD Code: T50.901A Status: Acute (2) Left hip pain ICD Code: M25.552 Status: Acute Assessment and Plan Tylenol overdose with abnormal liver function tests. Patient received Mucomyst per protocol. This is resolved she's hemodynamically stable Lactic acidemia- resolved Drug overdose/ suicidal ideation history of bipolar disorder. Per psychiatry, patient to be transferred to med [facility] when medically clear Hypokalemia/hyponatremia. Replace as needed ETOH abuse. Counseled. Continue CIWA Anemia hemoglobin 7.1 with no gross bleeding. She is symptomatic complaining of dizziness. We'll transfuse 2 units of packed RBC. Check Hemoccult Hx Seizure. Stable continue Trileptal and seizure precautions Hypertension. Stable GERD. Continue PPI Tobacco abuse. Counseled Large joint effusion associated with left hip prosthesis. No evidence of infection. Discussed with orthopedic surgery Dr. Federico hernández for patient' s orthopedic surgeon Dr. Chase , patient recommended to follow-up outpatient. Effusion could be related to surgery. Confirmed with patient's orthopedic surgeon, continue Bactrim DS 2 tablets twice a day DVT prophylaxis with SCD and early ambulation Discharge Planning Discharge to med [facility] when bed available Charli Krause MD Aug 28, 2016 10:44
[2016-08-28] MEDS ORDERED: BACT800T5 PO (11:16)
[2016-08-28] MEDS: LORazepam 2 MG TAB PO PRN ×3 (11:45→18:41)
[2016-08-28] MEDS: SULFAMETHOXAZOLE-TRIMETHOPRIM DS 800-160 MG TAB PO SCH ×2 (12:03→23:50)
--- NOTE | 2016-08-28 14:36 | HHI.DS ---
Discharge Summary Admission Date Aug 25, 2016 at 17:29 Discharge Date: Aug 29, 2016 Admitting Diagnosis Tylenol overdose, suicidality (1) Drug overdose, multiple drugs ICD Code: T50.901A Diagnosis: Principal (2) Left hip pain ICD Code: M25.552 Diagnosis: Principal Procedures None Brief History - From Admission 61-year-old woman presents to the emergency department under a Moses act for suicidal ideation and overdose. She has a history of chronic pain, bipolar disorder, previous overdoses. She reportedly sent several messages out the family they were suicidal in nature. Sister went to go check on her and called the ambulance. She took about 10 Tylenol tablets at 11 AM. During my examination patient was confused saying that she didn't take anything. However her Tylenol level was above 300. She is admitted to ICU with a Tylenol overdose. Poison center was contacted by ER physicians. CBC/BMP: 08/28/16 0418 08/28/16 0418 Significant Findings Laboratory Tests Test 08/25/16 08/25/16 08/25/16 08/26/16 16:00 17:30 17:35 04:15 Red Blood Count 3.00 MIL/MM3 3.12 MIL/MM3 (4.00-5.30) (4.00-5.30) Hemoglobin 8.3 GM/DL 8.8 GM/DL (11.6-15.3) (11.6-15.3) Hematocrit 26.8 % 26.6 % (35.0-46.0) (35.0-46.0) Mean Corpuscular Hemoglobin 31.0 % Concent (32.0-36.0) Red Cell Distribution Width 20.3 % 19.8 % (11.6-17.2) (11.6-17.2) Platelet Count 652 TH/MM3 665 TH/MM3 (150-450) (150-450) Mean Platelet Volume 6.7 FL 6.4 FL (7.0-11.0) (7.0-11.0) Neutrophils (%) (Auto) 73.8 % 75.2 % (16.0-70.0) (16.0-70.0) Monocytes (%) (Auto) 8.1 % (0.0-8.0) Activated Partial 32.1 SEC Thromboplast Time (24.3-30.1) Urine Mucus FEW /lpf (OCC) Sodium Level 131 MEQ/L 134 MEQ/L (136-145) (136-145) Carbon Dioxide Level 13.6 MEQ/L 20.7 MEQ/L (21.0-32.0) (21.0-32.0) Anion Gap 16 MEQ/L (5-15) Blood Urea Nitrogen 5 MG/DL (7-18) 5 MG/DL (7-18) Calcium Level 8.4 MG/DL 8.1 MG/DL (8.5-10.1) (8.5-10.1) Aspartate Amino Transf 82 U/L (15-37) 40 U/L (15-37) (AST/SGOT) Alanine Aminotransferase 61 U/L (10-53) (ALT/SGPT) Alkaline Phosphatase 139 U/L 125 U/L (45-117) (45-117) Total Creatine Kinase 24 U/L (26-192) Total Protein 6.1 GM/DL 5.7 GM/DL (6.4-8.2) (6.4-8.2) Albumin 2.5 GM/DL 2.3 GM/DL (3.4-5.0) (3.4-5.0) Acetaminophen Level 344.9 MCG/ML (10.0-30.0) Urine Benzodiazepines Screen POS (NEG) Ethyl Alcohol Level 83 MG/DL (0-5) Blood Gas HCO3 15 mmol/L (22-26) Blood Gas Base Excess -9.2 mmol/L (-2-2) Arterial Blood Partial 25 mmHg (38-42) Pressure CO2 Arterial Blood Oxygen Content 10.6 Vol % (12.0-20.0) Blood Gas Hemoglobin 7.9 G/DL (12.0-16.0) Lactic Acid Level 5.9 mmol/L (0.4-2.0) Potassium Level 3.1 MEQ/L (3.5-5.1) Test 08/26/16 08/26/16 08/27/16 08/27/16 10:06 15:50 04:32 04:39 Prothrombin Time 12.2 SEC 12.0 SEC (9.8-11.6) (9.8-11.6) Acetaminophen Level 8.0 MCG/ML LESS THAN 2.0 (10.0-30.0) MCG/ML (10.0-30.0) Aspartate Amino Transf 50 U/L (15-37) 9 U/L (15-37) (AST/SGOT) Alkaline Phosphatase 126 U/L 118 U/L (45-117) (45-117) Total Protein 6.3 GM/DL 5.7 GM/DL (6.4-8.2) (6.4-8.2) Albumin 1.9 GM/DL 2.2 GM/DL (3.4-5.0) (3.4-5.0) Chloride Level 109 MEQ/L (98-107) Blood Urea Nitrogen 3 MG/DL (7-18) Creatinine 0.45 MG/DL (0.50-1.00) Phosphorus Level 2.4 MG/DL (2.5-4.9) Iron Level 10 MCG/DL (50-170) Total Iron Binding Capacity 231 MCG/DL (250-450) Percent Iron Saturation 4.3 % (20-50) Red Blood Count 2.67 MIL/MM3 (4.00-5.30) Hemoglobin 7.5 GM/DL (11.6-15.3) Hematocrit 22.6 % (35.0-46.0) Red Cell Distribution Width 20.0 % (11.6-17.2) Platelet Count 606 TH/MM3 (150-450) Mean Platelet Volume 6.4 FL (7.0-11.0) Neutrophils (%) (Auto) 71.4 % (16.0-70.0) Monocytes (%) (Auto) 10.4 % (0.0-8.0) Test 08/28/16 04:18 Red Blood Count 2.53 MIL/MM3 (4.00-5.30) Hemoglobin 7.1 GM/DL (11.6-15.3) Hematocrit 21.7 % (35.0-46.0) Red Cell Distribution Width 19.3 % (11.6-17.2) Platelet Count 574 TH/MM3 (150-450) Mean Platelet Volume 6.7 FL (7.0-11.0) Monocytes (%) (Auto) 10.6 % (0.0-8.0) Creatinine 0.49 MG/DL (0.50-1.00) Imaging Last Impressions Chest X-Ray 08/25/16 1538 Signed Impressions: Service Date/Time: Thursday, August 25, 2016 15:40 - CONCLUSION: No acute disease. Kulwant Jaramillo MD Head CT 08/25/16 0000 Signed Impressions: Service Date/Time: Thursday, August 25, 2016 22:09 - CONCLUSION: 1. No acute intracranial abnormality. 2. Chronic left maxillary sinus disease. Mason Salcedo Jr., MD Abdomen/Pelvis CT 08/25/16 0000 Signed Impressions: Service Date/Time: Thursday, August 25, 2016 22:12 - CONCLUSION: 1. Examination is limited by the lack of oral and IV contrast as well as breathing motion artifact. 2. No acute intra-abdominal abnormality. 3. Large joint effusion associated with a left hip prosthesis. 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 Mason Salcedo Jr., MD PE at Discharge GENERAL: Patient is lying in bed in NAD SKIN: Warm and dry. HEAD: Normocephalic. EYES: No scleral icterus. No injection or drainage. NECK: Supple, trachea midline. No JVD or lymphadenopathy. CARDIOVASCULAR: Regular rate and rhythm without murmurs, gallops, or rubs. RESPIRATORY: Breath sounds equal bilaterally. No accessory muscle use. GASTROINTESTINAL: Abdomen soft, non-tender, nondistended. MUSCULOSKELETAL: No cyanosis, or edema. Tender left hip with well-healed surgical incision proximally. Distally patient still has sutures with no signs of infection BACK: Nontender without obvious deformity. No CVA tenderness. Neuro: Awake and alert. Nonfocal Hospital Course Tylenol overdose with abnormal liver function tests. Patient received Mucomyst per protocol. This is resolved she's hemodynamically stable Lactic acidemia- resolved Drug overdose/ suicidal ideation history of bipolar disorder. Per psychiatry, patient May be transferred to regular psych Hypokalemia/hyponatremia. Replace as needed ETOH abuse. Counseled. Status post CIWA Anemia hemoglobin 7.1 with no gross bleeding. She is symptomatic complaining of dizziness. Improved status post transfusion of packed RBC. Check Hemoccult Hx Seizure. Stable continue Trileptal and seizure precautions Hypertension. Stable GERD. Continue PPI Tobacco abuse. Counseled Large joint effusion associated with left hip prosthesis. No evidence of infection. Discussed with orthopedic surgery Dr. Caballero covering for patient' s orthopedic surgeon Dr. Chase , patient recommended to follow-up outpatient. Effusion could be related to surgery. Confirmed with patient's orthopedic surgeon, continue Bactrim DS 2 tablets twice a day DVT prophylaxis with SCD and early ambulation Pt Condition on Discharge: Stable Discharge Disposition: Disc to Psych Care Fac Discharge Time: > 30 minutes Discharge Instructions DIET: Follow Instructions for: Heart Healthy Diet Activities you can perform: Regular-No Restrictions Activities to Avoid: Driving Follow up Referrals: Orthopedics - 1 Week PCP Follow-up - 1 Week New Medications: Sulfamethoxazole-Trimethoprim (Bactrim DS) 800-160 Mg Tab 2 TAB PO BID Infection #20 Ref 0 TAB Folic Acid (Folate) 1 Mg Tab 1 MG PO DAILY Alcohol Detox #30 TAB Multiple Vitamin (Thera/Beta-Carotene) 1 Tab Tab 1 TAB PO DAILY Alcohol Detox #30 TAB Oxycodone (Oxycodone) 5 Mg Tab 5 MG PO Q4H PRN PAIN SCALE 3 TO 5 #20 TAB Thiamine (Vitamin B-1) 100 Mg Tab 100 MG PO DAILY Alcohol Detox #30 TAB Continued Medications: Alprazolam (Xanax) 2 Mg Tab 2 MG PO Q6HR PRN ANXIETY Ref 0 TAB Lurasidone (Latuda) 40 Mg Tab 40 MG PO DAILY #30 Ref 0 TAB Mirtazapine (Remeron) 15 Mg Tab 7.5 MG PO HS Depression Control #15 Ref 0 TAB Omeprazole (Omeprazole) 20 Mg Tab 20 MG PO DAILY #30 Ref 0 TAB Oxcarbazepine (Trileptal) 300 Mg Tab 300 MG PO DAILY Seizure Control #30 Ref 0 TAB Trazodone (Trazodone) 300 Mg Tab 150 MG PO HS Control Depression #30 Ref 0 TAB Charli Krause MD Aug 28, 2016 14:36
[2016-08-28] MEDS: MIRTAZAPINE 15 MG TAB PO SCH (21:00)
[2016-08-28] MEDS: traZODone HCL 100 MG TAB PO SCH (21:00)
[2016-08-28] MEDS: ONDANSETRON HCL 4 MG/2 ML VIAL IV PRN (23:55)
[2016-08-29] VITALS: BP 106/60; PULSE 104; RESP 20; TEMP 99.2; O2SAT 96
[2016-08-29] MEDS: LORazepam 2 MG/ML VIAL IV PUSH PRN ×3 (01:58→09:35)
[2016-08-29 02:00] VITALS: PULSE 98
[2016-08-29 04:00] VITALS: BP 95/56; PULSE 77; RESP 21; TEMP 99; O2SAT 98
[2016-08-29 05:40] LABS: AUTOMATED NEUTROPHIL # 5.5 TH/MM3 (1.8-7.7); BASOPHIL % 0.5 % (0.0-2.0); EOSINOPHIL # 0.2 TH/MM3 (0-0.4); EOSINOPHIL % 2.2 % (0.0-4.0); HEMATOCRIT 30.8 % (35.0-46.0); HEMO FLAGS DIFF FINAL; LYMPH % 15.5 % (9.0-44.0); LYMPHOCYTE # 1.2 TH/MM3 (1.0-4.8); MEAN CORPUSCULAR HEMOGLOBIN 29.2 PG (27.0-34.0); MEAN CORPUSCULAR HGB CONC 34.8 % (32.0-36.0); MONO % 13.7 % (0.0-8.0); NEUT % 68.1 % (16.0-70.0); PLATELET COUNT 551 TH/MM3 (150-450); RED BLOOD COUNT 3.66 MIL/MM3 (4.00-5.30); RED CELL DISTRIBUTION WIDTH 16.9 % (11.6-17.2)
[2016-08-29 05:59] LABS: BICARBONATE 24.3 MEQ/L (21.0-32.0); MAGNESIUM 1.7 MG/DL (1.5-2.5); POTASSIUM 4.6 MEQ/L (3.5-5.1)
[2016-08-29 06:18] VITALS: PULSE 80
[2016-08-29 08:00] VITALS: BP 110/65; PULSE 103; PULSE 94; RESP 27; TEMP 98.7; O2SAT 96
[2016-08-29] MEDS: MULTIVITAMIN TAB PO SCH (09:32)
[2016-08-29] MEDS: FOLIC ACID 1 MG TAB PO SCH (09:32)
[2016-08-29] MEDS: PANTOPRAZOLE SOD 20 MG DELAYED RELEASE TAB PO SCH (09:32)
[2016-08-29] MEDS: LURASIDONE 40 MG TAB PO SCH (09:32)
[2016-08-29] MEDS: DOCUSATE SODIUM 50 MG/SENNA 8.6 MG TAB PO SCH (09:32)
[2016-08-29] MEDS: OXcarbazepine 300 MG TAB PO SCH (09:32)
[2016-08-29] MEDS: THIAMINE HCL 100 MG TAB PO SCH (09:32)
[2016-08-29] MEDS: SODIUM CHLORIDE 0.9% FLUSH 10 ML FLUSH SCH (09:33)
[2016-08-29] MEDS: MORPHINE SULFATE 4 MG/ML INJ IV PRN (09:41)
--- NOTE | 2016-08-29 09:54 | HHI.PR ---
Subjective Remarks Follow-up anemia. Tolerated blood transfusion hemoglobin improved. Discussed with psychiatry, patient may transfer to regular psychiatry floor instead of med psych. Discussed with RN Objective Vitals Vital Signs Date Time Temp Pulse Resp B/P Pulse Ox O2 Delivery O2 Flow Rate FiO2 08/29/16 06:18 80 08/29/16 04:00 77 08/29/16 04:00 99.0 77 21 95/56 98 08/29/16 02:00 98 08/29/16 00:00 104 08/29/16 00:00 99.2 104 20 106/60 96 08/28/16 22:00 120 08/28/16 20:00 113 08/28/16 20:00 99.1 113 22 125/75 98 08/28/16 18:00 125 08/28/16 17:45 99.2 114 106/72 08/28/16 16:00 110 08/28/16 16:00 99.4 115 28 112/62 08/28/16 15:30 99.0 109 24 108/63 08/28/16 14:00 102 08/28/16 14:00 99.0 106 24 112/56 08/28/16 13:30 99.2 104 24 110/56 08/28/16 13:00 99.0 106 24 115/58 08/28/16 12:45 99.2 101 24 104/58 08/28/16 12:29 99.6 08/28/16 12:00 102 08/28/16 12:00 98.7 120 115/56 08/28/16 10:00 100 I/O 08/28/16 08/28/16 08/28/16 08/29/16 08/29/16 08/29/16 07:00 15:00 23:00 07:00 15:00 23:00 Intake Total 480 ml 1480 ml 605 ml 105 ml Output Total 1400 ml 1350 ml 600 ml Balance 480 ml 80 ml -745 ml -495 ml Intake Oral 480 ml 1230 ml 200 ml 100 ml IV Total 155 ml 5 ml Packed Cells 250 ml 250 ml Output Urine Total 1400 ml 1350 ml 600 ml # Voids 4 4 3 3 Result Diagram: 08/29/16 0506 08/29/16 0506 Objective Remarks GENERAL: Patient is lying in bed in NAD SKIN: Warm and dry. HEAD: Normocephalic. EYES: No scleral icterus. No injection or drainage. NECK: Supple, trachea midline. No JVD or lymphadenopathy. CARDIOVASCULAR: Regular rate and rhythm without murmurs, gallops, or rubs. RESPIRATORY: Breath sounds equal bilaterally. No accessory muscle use. GASTROINTESTINAL: Abdomen soft, non-tender, nondistended. MUSCULOSKELETAL: No cyanosis, or edema. Tender left hip with well-healed surgical incision proximally. Distally patient still has sutures with no signs of infection BACK: Nontender without obvious deformity. No CVA tenderness. Neuro: Awake and alert. Nonfocal Procedures None A/P Problem List: (1) Drug overdose, multiple drugs ICD Code: T50.901A Status: Acute (2) Left hip pain ICD Code: M25.552 Status: Acute Assessment and Plan Tylenol overdose with abnormal liver function tests. Patient received Mucomyst per protocol. This is resolved she's hemodynamically stable Lactic acidemia- resolved Drug overdose/ suicidal ideation history of bipolar disorder. Per psychiatry, patient May be transferred to regular psych Hypokalemia/hyponatremia. Replace as needed ETOH abuse. Counseled. Status post CIWA Anemia hemoglobin 7.1 with no gross bleeding. She is symptomatic complaining of dizziness. Improved status post transfusion of packed RBC. Check Hemoccult Hx Seizure. Stable continue Trileptal and seizure precautions Hypertension. Stable GERD. Continue PPI Tobacco abuse. Counseled Large joint effusion associated with left hip prosthesis. No evidence of infection. Discussed with orthopedic surgery Dr. Caballero covering for patient' s orthopedic surgeon Dr. Chase , patient recommended to follow-up outpatient. Effusion could be related to surgery. Confirmed with patient's orthopedic surgeon, continue Bactrim DS 2 tablets twice a day DVT prophylaxis with SCD and early ambulation Charli Krause MD Aug 29, 2016 09:54
[2016-08-29] MEDS: LORazepam 2 MG TAB PO PRN (11:45)
[2016-08-29] MEDS: SULFAMETHOXAZOLE-TRIMETHOPRIM DS 800-160 MG TAB PO SCH (11:45)
[2016-08-29 12:00] VITALS: BP 110/79; PULSE 104; PULSE 97; RESP 22; TEMP 98.1; O2SAT 96
[2016-09-03] MEDS ORDERED: CLON1 PO (08:43)
== END 2016-08-29 12:40 | DRG 918 ==
LOC: NEPC 15:16 → NEDA 17:29 → HIMN 22:20
PROVIDERS: ADMIT Internal Medicine; ATTEND Internal Medicine
PROC: 30233N1 Transfusion of Nonautologous Red Blood Cells into Peripheral Vein, Percutaneous Approach (ICD-10-PCS; principal; 2016-08-28)
DX: T39.1X2A Poisoning by 4-Aminophenol derivatives, intentional self-harm, initial encounter (principal); E87.2 Acidosis; E87.1 Hypo-osmolality and hyponatremia; I10 Essential (primary) hypertension; F31.9 Bipolar disorder, unspecified; G47.00 Insomnia, unspecified; K21.9 Gastro-esophageal reflux disease without esophagitis; F10.10 Alcohol abuse, uncomplicated; G40.909 Epilepsy, unspecified, not intractable, without status epilepticus; F17.210 Nicotine dependence, cigarettes, uncomplicated; E87.6 Hypokalemia; D64.9 Anemia, unspecified; G89.29 Other chronic pain; M25.552 Pain in left hip; Z96.642 Presence of left artificial hip joint; M25.452 Effusion, left hip; R42 Dizziness and giddiness
CPT/HCPCS: 36430; 36600; 70450; 71010; 74176; 76937; 80048; 80053; 80076; 80307; 81001; 82550; 82728; 82805; 83540; 83550; 83605; 83735; 84100; 85025; 85610; 85730; 86850; 86900; 86901; 86920; 87641; 93005; 96374; C9113; J0132; J1630; J1940; J2060; J2270; J2405; J2765; J3411; J3480; J7030; J7050; J7060; J7070; P9016; P9612

== ENCOUNTER 2016-08-29 13:20 | Inpatient (IN) | payer MEDICAID ==
[~2016-08-29] VITALS: Ht 162.6 cm; Wt 48.2 kg
[2016-08-29 12:45] VITALS: BP 86/60; PULSE 84; RESP 18; TEMP 97.2; O2SAT 96
[~2016-08-29 13:20] MED LIST changes: +BACT800T5 PO; -COUM1TAB PO; +FOLI1TAB4 PO; +OXYC-392 PO; +THERTAB15 PO; +VITA100T2 PO; +XANA2TAB2 PO
[2016-08-29] MEDS ORDERED: ALUMINUM/MAGNESIUM/SIMETH 30 ML CUP PO PRN (15:30)
[2016-08-29] MEDS ORDERED: MAGNESIUM HYDROXIDE SUSP 30 ML CUP PO PRN (15:30)
[2016-08-29] MEDS ORDERED: LORazepam 2 MG/ML VIAL IM PRN ×2 (15:30)
[2016-08-29] MEDS ORDERED: LORazepam 0.5 MG TAB PO PRN (15:30)
[2016-08-29] MEDS: NICOTINE 21 MG/24 HR PATCH T-DERMAL SCH (17:09)
[2016-08-29] MEDS: LORazepam 1 MG TAB PO PRN ×2 (17:10→23:10)
[2016-08-29] MEDS: ACETAMINOPHEN 325 MG TAB PO PRN ×2 (17:11→22:01)
[2016-08-29 19:20] VITALS: BP 106/64; PULSE 106; RESP 20; TEMP 97.6; O2SAT 98
[2016-08-29] MEDS ORDERED: REMOVE OLD NICODERM (NICOTINE) PATCH T-DERMAL SCH (21:00)
[2016-08-30] MEDS: LORazepam 1 MG TAB PO PRN ×2 (05:41→14:35)
[2016-08-30 06:22] VITALS: BP 126/61; PULSE 90; RESP 17; TEMP 97.4; O2SAT 98
[2016-08-30] MEDS: NICOTINE 21 MG/24 HR PATCH T-DERMAL SCH (08:29)
[2016-08-30] MEDS: OXcarbazepine 300 MG TAB PO SCH (09:00)
[2016-08-30] MEDS: PANTOPRAZOLE SOD 20 MG DELAYED RELEASE TAB PO SCH (09:00)
[2016-08-30] MEDS: FOLIC ACID 1 MG TAB PO SCH (09:00)
[2016-08-30] MEDS: THIAMINE HCL 100 MG TAB PO SCH (09:00)
[2016-08-30] MEDS: SULFAMETHOXAZOLE-TRIMETHOPRIM DS 800-160 MG TAB PO SCH ×2 (09:00→20:37)
[2016-08-30 11:36] LABS: HDL CHOLESTEROL 47.8 MG/DL (40.0-60.0)
[2016-08-30 11:39] LABS: ANION GAP 10 MEQ/L (5-15); BICARBONATE 21.7 MEQ/L (21.0-32.0); BLOOD UREA NITROGEN 13 MG/DL (7-18); CHLORIDE 97 MEQ/L (98-107); GLOMERULAR FILTRATION RATE 81 ML/MIN (>89); LDL CHOLESTEROL 44 MG/DL (0-99); SODIUM (NA) 129 MEQ/L (136-145)
[2016-08-30 11:48] LABS: POTASSIUM 5.3 MEQ/L (3.5-5.1)
[2016-08-30] MEDS: DOCUSATE SODIUM 50 MG/SENNA 8.6 MG TAB PO SCH ×2 (15:00→21:00)
--- NOTE | 2016-08-30 15:01 | PD.CONS ---
HPI Service [facility] Consult Requested By Dr. Urena Reason for Consult Medical management Primary Care Physician No Primary Care Physician Diagnoses: History of Present Illness This is a 61-year-old female who presented to the emergency department under a Moses act for suicidal ideation and overdose. She has a history of chronic pain , bipolar disorder, previous overdoses. She reportedly sent several messages out the family they were suicidal in nature. She overdosed on Tylenol level and received Mucomyst per protocol and stabilized in the ICU with a Tylenol overdose. She has been transferred to psychiatry. Consultation has been requested by her attending for medical management. At this time her only complaint is left thigh pain where she had surgery Review of Systems Constitutional: DENIES: Diaphoretic episodes, Fatigue, Fever, Weight gain, Weight loss, Chills, Dizziness, Change in appetite, Night Sweats Endocrine: DENIES: Heat/cold intolerance, Polydipsia, Polyuria, Polyphagia Eyes: DENIES: Blurred vision, Diplopia, Vision loss, Photosensitivity Ears, nose, mouth, throat: DENIES: Tinnitus, Vertigo, Throat pain, Hoarseness, Epistaxis, Odynophagia Respiratory: DENIES: Cough, Wheezing, Hemoptysis, Sputum production, Shortness of breath Cardiovascular: DENIES: Chest pain, Palpitations, Syncope, Dyspnea on Exertion , PND, Lower Extremity Edema, Orthopnea, Claudication Gastrointestinal: DENIES: Abdominal pain, Black stools, Bloody stools, Constipation, Diarrhea, Nausea, Vomiting, Difficulty Swallowing, Anorexia Genitourinary: DENIES: Urinary frequency, Urinary incontinence, Urgency, Hematuria, Dysuria, Nocturia, Vaginal discharge Musculoskeletal: COMPLAINS OF: Joint pain, Muscle aches Integumentary: DENIES: Rash Neurologic: DENIES: Headache, Localized weakness, Seizures, Tremor, Poor Balance Psychiatric: COMPLAINS OF: Depression, Suicidal Ideation, DENIES: Anxiety, Confusion, Hallucinations, Agitation, Homicidal Ideation, Delusions Past Family Social History Allergies: Coded Allergies: Latex (Verified Allergy, Intermediate, Rash, 08/25/16) Cerebyx (Verified Adverse Reaction, Severe, TINNITIS, 08/25/16) Morphine (Verified Adverse Reaction, Intermediate, Dizzy, 08/25/16) Uncoded Allergies: NICKEL (Adverse Reaction, Severe, SWELLING, 02/02/16) Past Medical History Seizure, hypertension, insomnia, bipolar disorder, GERD, alcohol and tobacco abuse, chronic pain, recurrent hyponatremia and left hip infection status post ORIF on Bactrim for chronic suppressive therapy Past Surgical History As previously mentioned Reported Medications Sulfamethoxazole-Trimethoprim (Bactrim DS) 800-160 Mg Tab 2 TAB PO BID Infection #20 Ref 0 TAB Folic Acid (Folate) 1 Mg Tab 1 MG PO DAILY Alcohol Detox #30 TAB Multiple Vitamin (Thera/Beta-Carotene) 1 Tab Tab 1 TAB PO DAILY Alcohol Detox #30 TAB Oxycodone (Oxycodone) 5 Mg Tab 5 MG PO Q4H PRN PAIN SCALE 3 TO 5 #20 TAB Thiamine (Vitamin B-1) 100 Mg Tab 100 MG PO DAILY Alcohol Detox #30 TAB Alprazolam (Xanax) 2 Mg Tab 2 MG PO Q6HR PRN ANXIETY Ref 0 TAB Lurasidone (Latuda) 40 Mg Tab 40 MG PO DAILY #30 Ref 0 TAB Mirtazapine (Remeron) 15 Mg Tab 7.5 MG PO HS Depression Control #15 Ref 0 TAB Omeprazole (Omeprazole) 20 Mg Tab 20 MG PO DAILY #30 Ref 0 TAB Oxcarbazepine (Trileptal) 300 Mg Tab 300 MG PO DAILY Seizure Control #30 Ref 0 TAB Trazodone (Trazodone) 300 Mg Tab 150 MG PO HS Control Depression #30 Ref 0 TAB Family History Diabetes mellitus Social History She smokes and drinks Physical Exam Vital Signs Vital Signs Date Time Temp Pulse Resp B/P Pulse Ox O2 Delivery O2 Flow Rate FiO2 08/30/16 06:22 97.4 90 17 126/61 98 08/29/16 19:20 97.6 106 20 106/64 98 Physical Exam GENERAL: This is a well-nourished, well-developed patient, in no apparent distress. SKIN: No rashes, ecchymoses or lesions. Cool and dry. HEAD: Atraumatic. Normocephalic. No temporal or scalp tenderness. EYES: Pupils equal round and reactive. Extraocular motions intact. No scleral icterus. No injection or drainage. ENT: Nose without bleeding, purulent drainage or septal hematoma. Throat without erythema, tonsillar hypertrophy or exudate. Uvula midline. Airway patent. NECK: Trachea midline. No JVD or lymphadenopathy. Supple, nontender, no meningeal signs. CARDIOVASCULAR: Regular rate and rhythm without murmurs, gallops, or rubs. RESPIRATORY: Clear to auscultation. Breath sounds equal bilaterally. No wheezes , rales, or rhonchi. GASTROINTESTINAL: Abdomen soft, non-tender, nondistended. No guarding. MUSCULOSKELETAL: Extremities without clubbing, cyanosis, or edema. No calf tenderness. Negative Homans sign bilaterally. Left thigh with repaired wound distal portion still with shaw no signs of infection. It is swollen. NEUROLOGICAL: Awake and alert. Cranial nerves II through XII intact. Motor and sensory grossly within normal limits. Five out of 5 muscle strength in all muscle groups. Normal speech. Laboratory Laboratory Tests Test 08/30/16 11:05 Sodium Level 129 Potassium Level 5.3 Chloride Level 97 Carbon Dioxide Level 21.7 Anion Gap 10 Blood Urea Nitrogen 13 Creatinine 0.73 Estimat Glomerular Filtration 81 Rate Random Glucose 116 Calcium Level 9.5 Triglycerides Level 118 Cholesterol Level 115 LDL Cholesterol 44 HDL Cholesterol 47.8 Cholesterol/HDL Ratio 2.40 Result Diagram: 08/30/16 1105 Assessment and Plan Assessment and Plan Status post Tylenol overdose with abnormal liver function tests. Patient received Mucomyst per protocol. This is resolved she's hemodynamically stable Bipolar disorder. Per psychiatry Mild chronic hyponatremia sodium 129. Asymptomatic. Repeat BMP in the morning Hyperkalemia with slight hemolysis. Repeat BMP in the morning Hyperglycemia glucose 116. A1c pending ETOH abuse. Counseled. Status post CIWA Anemia hemoglobin 7.1 with no gross bleeding. She was symptomatic complaint of dizziness. Improved status post transfusion of packed RBC. Check Hemoccult Hx Seizure. Stable continue Trileptal and seizure precautions Hypertension. Stable GERD. Continue PPI Tobacco abuse. Counseled Large joint effusion associated with left hip prosthesis. No evidence of infection. Discussed with orthopedic surgery Dr. Caballero covering for patient' s orthopedic surgeon Dr. Chase , patient recommended to follow-up outpatient. Effusion could be related to surgery. Confirmed with patient's orthopedic surgeon, continue Bactrim DS 2 tablets twice a day. Patient was evaluated by Dr. Price DVT prophylaxis with SCD and early ambulation Discussed Condition With pt Charli Krause MD Aug 30, 2016 15:01
[2016-08-30] MEDS ORDERED: MAGNESIUM HYDROXIDE SUSP 30 ML CUP PO PRN (16:00)
[2016-08-30] MEDS ORDERED: ALUMINUM/MAGNESIUM/SIMETH 30 ML CUP PO PRN (16:00)
[2016-08-30] MEDS ORDERED: ACETAMINOPHEN 325 MG TAB PO PRN (16:00)
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
[2016-08-30 16:32] LABS: HEMOGLOBIN A1b 0.8 %; HEMOGLOBIN F 0.8 %; HEMOGLOBIN LA1C 2.2 %; HEMOGLOBIN P3 3.7 %
[2016-08-30 19:08] VITALS: BP 113/56; PULSE 99; RESP 16; TEMP 97.4; O2SAT 96
[2016-08-30] MEDS: clonazePAM 1 MG TAB PO PRN (20:37)
[2016-08-30] MEDS: MIRTAZAPINE 15 MG TAB PO SCH (20:37)
[2016-08-30] MEDS: traZODone HCL 100 MG TAB PO SCH (20:37)
[2016-08-30] MEDS: REMOVE OLD NICODERM (NICOTINE) PATCH T-DERMAL SCH (21:00)
[2016-08-31] MEDS: clonazePAM 1 MG TAB PO PRN ×3 (05:15→21:33)
[2016-08-31 06:05] VITALS: BP 97/58; PULSE 86; RESP 18; TEMP 98.7; O2SAT 94
[2016-08-31] MEDS: SULFAMETHOXAZOLE-TRIMETHOPRIM DS 800-160 MG TAB PO SCH ×2 (09:16→21:33)
[2016-08-31] MEDS: DOCUSATE SODIUM 50 MG/SENNA 8.6 MG TAB PO SCH ×2 (09:16→21:33)
[2016-08-31] MEDS: MULTIVITAMIN TAB PO SCH (09:16)
[2016-08-31] MEDS: NICOTINE 21 MG/24 HR PATCH T-DERMAL SCH (09:16)
[2016-08-31] MEDS: OXcarbazepine 300 MG TAB PO SCH (09:16)
[2016-08-31] MEDS: THIAMINE HCL 100 MG TAB PO SCH (09:16)
[2016-08-31] MEDS: LURASIDONE 40 MG TAB PO SCH (09:16)
[2016-08-31] MEDS: FOLIC ACID 1 MG TAB PO SCH (09:16)
[2016-08-31] MEDS: PANTOPRAZOLE SOD 20 MG DELAYED RELEASE TAB PO SCH (09:16)
[2016-08-31 10:42] VITALS: BP 102/63
--- NOTE | 2016-08-31 12:07 | HHI.PYPN ---
Subjective Remarks Patient was seen and case discussed with nursing. Patient remains perseverant on pain medication. Nursing says that she watches the clock for benzodiazepines. Blood pressures have been low. We will get blood pressures every 6 hours and take vitals with parameters before giving any pain medications or benzodiazepines. Patient describes left hip pain and we will starts given her ordered Tylenol and Lidoderm patch. She minimizes her reasons for admission. She is alert and oriented 2. Mood is irritable. Denies Suicidal ideation intent or plan Objective Alert: Yes [place]: Person, Place, Date, Situation Mood: Anxious, Oppositional Affect: Blunted Memory Intact: Comment (intact) Hallucinations: Other Delusions: No (denies) Delusion Type: Other (denies) Suicidal: Ideation (denies) Homicidal: Ideation (denies) Insight/Judgment Poor Vitals/IOs Vital Signs Date Time Temp Pulse Resp B/P Pulse Ox O2 Delivery O2 Flow Rate FiO2 08/31/16 10:42 102/63 08/31/16 06:05 98.7 86 18 94 Intake and Output 08/30/16 08/30/16 08/31/16 08:00 16:00 00:00 Intake Total 480 ml Balance 480 ml Assessment & Plan Problem List: (1) Bipolar affective disorder, depressed ICD Code: F31.30 (2) Alcohol abuse ICD Code: F10.10 Assessment & Plan Continue current treatment plan Justification for Cont. Inpt. Patient will decompensate in a less restrictive setting. Request HC Surrog/Guard Advoc?: No Problem Qualifiers (1) Bipolar affective disorder, depressed: Qualified Code: F31.4 - Bipolar disorder, current episode depressed, severe, without psychotic features Clark Cao DO Aug 31, 2016 12:07
[2016-08-31] MEDS: LIDOCAINE HCL 5% PATCH T-DERMAL SCH (13:12)
[2016-08-31 14:15] VITALS: BP 114/73
[2016-08-31 16:45] VITALS: BP 125/78
[2016-08-31 18:00] VITALS: BP 125/78; PULSE 87; TEMP 98.6; O2SAT 95
[2016-08-31] MEDS: REMOVE OLD LIDOCAINE PATCH T-DERMAL SCH (21:00)
[2016-08-31] MEDS: REMOVE OLD NICODERM (NICOTINE) PATCH T-DERMAL SCH (21:00)
[2016-08-31 21:05] LABS: BICARBONATE 23.8 MEQ/L (21.0-32.0); POTASSIUM 4.4 MEQ/L (3.5-5.1)
[2016-08-31] MEDS: MIRTAZAPINE 15 MG TAB PO SCH (21:33)
[2016-08-31] MEDS: traZODone HCL 100 MG TAB PO SCH (21:33)
[2016-09-01 06:12] VITALS: BP 119/70; PULSE 88; RESP 16; TEMP 98.1; O2SAT 97
[2016-09-01 08:21] LABS: AUTOMATED NEUTROPHIL # 5.3 TH/MM3 (1.8-7.7); BASOPHIL % 0.4 % (0.0-2.0); EOSINOPHIL # 0.1 TH/MM3 (0-0.4); EOSINOPHIL % 1.1 % (0.0-4.0); HEMATOCRIT 33.4 % (35.0-46.0); HEMO FLAGS DIFF FINAL; LYMPH % 15.9 % (9.0-44.0); LYMPHOCYTE # 1.3 TH/MM3 (1.0-4.8); MEAN CELL VOLUME 85.6 FL (80.0-100.0); MEAN CORPUSCULAR HGB CONC 32.7 % (32.0-36.0); MONO % 15.9 % (0.0-8.0); NEUT % 66.7 % (16.0-70.0); PLATELET COUNT 587 TH/MM3 (150-450); RED CELL DISTRIBUTION WIDTH 16.4 % (11.6-17.2); WHITE BLOOD COUNT 7.9 TH/MM3 (4.0-11.0)
[2016-09-01 08:38] LABS: BICARBONATE 23.9 MEQ/L (21.0-32.0); POTASSIUM 4.5 MEQ/L (3.5-5.1)
[2016-09-01] MEDS: LIDOCAINE HCL 5% PATCH T-DERMAL SCH (09:00)
[2016-09-01] MEDS: FOLIC ACID 1 MG TAB PO SCH (09:00)
[2016-09-01] MEDS: MULTIVITAMIN TAB PO SCH (09:00)
[2016-09-01] MEDS: SULFAMETHOXAZOLE-TRIMETHOPRIM DS 800-160 MG TAB PO SCH ×2 (09:00→21:22)
[2016-09-01] MEDS: PANTOPRAZOLE SOD 20 MG DELAYED RELEASE TAB PO SCH (09:00)
[2016-09-01] MEDS: LURASIDONE 40 MG TAB PO SCH (09:00)
[2016-09-01] MEDS: THIAMINE HCL 100 MG TAB PO SCH (09:00)
[2016-09-01] MEDS: OXcarbazepine 300 MG TAB PO SCH (09:00)
[2016-09-01] MEDS: NICOTINE 21 MG/24 HR PATCH T-DERMAL SCH (09:00)
[2016-09-01] MEDS: DOCUSATE SODIUM 50 MG/SENNA 8.6 MG TAB PO SCH ×2 (09:00→21:22)
--- NOTE | 2016-09-01 11:54 | HHI.PR ---
Subjective Remarks Says she has pain in her hip and requesting more pain meds. She is however per records refusing pain meds. No n/v/d/c. Patient is in bed at this time, says she ate and is taking a nap. No fever or chills. No headache. Objective Vitals Vital Signs Date Time Temp Pulse Resp B/P Pulse Ox O2 Delivery O2 Flow Rate FiO2 09/01/16 06:12 98.1 88 16 119/70 97 08/31/16 18:00 98.6 87 125/78 95 08/31/16 16:45 125/78 08/31/16 14:15 114/73 I/O 08/31/16 08/31/16 08/31/16 09/01/16 09/01/16 09/01/16 07:00 15:00 23:00 07:00 15:00 23:00 Intake Total 120 ml 960 ml Balance 120 ml 960 ml Intake Oral 120 ml 960 ml # Voids 2 2 Result Diagram: 09/01/1672909/01/16729 Objective Remarks GENERAL: This is a well-nourished, well-developed patient, in no apparent distress. SKIN: No rashes, ecchymoses or lesions. Cool and dry. HEAD: Atraumatic. Normocephalic. No temporal or scalp tenderness. EYES: Pupils equal round and reactive. Extraocular motions intact. No scleral icterus. No injection or drainage. ENT: Nose without bleeding, purulent drainage or septal hematoma. Throat without erythema, tonsillar hypertrophy or exudate. Uvula midline. Airway patent. NECK: Trachea midline. No JVD or lymphadenopathy. Supple, nontender, no meningeal signs. CARDIOVASCULAR: Regular rate and rhythm without murmurs, gallops, or rubs. RESPIRATORY: Clear to auscultation. Breath sounds equal bilaterally. No wheezes , rales, or rhonchi. GASTROINTESTINAL: Abdomen soft, non-tender, nondistended. No guarding. MUSCULOSKELETAL: Extremities without clubbing, cyanosis, or edema. No calf tenderness. Negative Homans sign bilaterally. Left thigh with repaired wound distal portion still with shaw no signs of infection. It is swollen. NEUROLOGICAL: Awake and alert. Cranial nerves II through XII intact. Motor and sensory grossly within normal limits. Five out of 5 muscle strength in all muscle groups. Normal speech. A/P Assessment and Plan Status post Tylenol overdose with abnormal liver function tests. Patient received Mucomyst per protocol. This is resolved she's hemodynamically stable Bipolar disorder. Per psychiatry Mild chronic hyponatremia sodium 129. Asymptomatic. Repeat BMP in the morning. Improving. DUSTY. Cr slightly elevated at 1.04. GFR 54 (on 08/31). Improved. Encouraged PO hydration. Monitor kidney indices Hyperkalemia with slight hemolysis. Repeat BMP in the morning Hyperglycemia glucose 116. A1c pending ETOH abuse. Counseled. Status post CIWA Anemia hemoglobin 7.1 with no gross bleeding. She was symptomatic complaint of dizziness. Improved status post transfusion of packed RBC. Check Hemoccult Hx Seizure. Stable continue Trileptal and seizure precautions Hypertension. Stable GERD. Continue PPI Tobacco abuse. Counseled Large joint effusion associated with left hip prosthesis. No evidence of infection. Discussed with orthopedic surgery Dr. Caballero covering for patient' s orthopedic surgeon Dr. Chase , patient recommended to follow-up outpatient. Effusion could be related to surgery. Confirmed with patient's orthopedic surgeon, continue Bactrim DS 2 tablets twice a day. Patient was evaluated by Dr. Price DVT prophylaxis with SCD and early ambulation Discussed Condition With patient, nurse Monitor BMP in 2-3 days, if normal will sign off Anai Montgomery MD Sep 01, 2016 11:54
[2016-09-01] MEDS: clonazePAM 1 MG TAB PO PRN ×2 (12:41→21:23)
--- NOTE | 2016-09-01 18:04 | HHI.PYPN ---
Subjective Remarks Patient was seen and case discussed with nursing. Patient is pleasant and cooperative with exam. Mood is "good." She social with other patients here. Continues to ask for Klonopin and pain medications regularly. Feels a benefit from Lidoderm patch. Denies suicidal ideation intent or plan Objective Alert: Yes [place]: Person, Place, Date, Situation Mood: Calm Affect: Restricted Memory Intact: Comment (intact) Hallucinations: Other Delusions: No (denies) Delusion Type: Other (denies) Suicidal: Ideation (denies) Homicidal: Ideation (denies) Insight/Judgment Denies Labs Test 08/31/16 09/01/16 20:00 07:30 Sodium Level 125 MEQ/L 128 MEQ/L Potassium Level 4.4 MEQ/L 4.5 MEQ/L Chloride Level 92 MEQ/L 95 MEQ/L Carbon Dioxide Level 23.8 MEQ/L 23.9 MEQ/L Anion Gap 9 MEQ/L 9 MEQ/L Blood Urea Nitrogen 15 MG/DL 13 MG/DL Creatinine 1.04 MG/DL 0.79 MG/DL Estimat Glomerular Filtration 54 ML/MIN 74 ML/MIN Rate Random Glucose 88 MG/DL 86 MG/DL Calcium Level 9.0 MG/DL 9.2 MG/DL White Blood Count 7.9 TH/MM3 Red Blood Count 3.90 MIL/MM3 Hemoglobin 10.9 GM/DL Hematocrit 33.4 % Mean Corpuscular Volume 85.6 FL Mean Corpuscular Hemoglobin 28.0 PG Mean Corpuscular Hemoglobin 32.7 % Concent Red Cell Distribution Width 16.4 % Platelet Count 587 TH/MM3 Mean Platelet Volume 7.0 FL Neutrophils (%) (Auto) 66.7 % Lymphocytes (%) (Auto) 15.9 % Monocytes (%) (Auto) 15.9 % Eosinophils (%) (Auto) 1.1 % Basophils (%) (Auto) 0.4 % Neutrophils # (Auto) 5.3 TH/MM3 Lymphocytes # (Auto) 1.3 TH/MM3 Monocytes # (Auto) 1.3 TH/MM3 Eosinophils # (Auto) 0.1 TH/MM3 Basophils # (Auto) 0.0 TH/MM3 CBC Comment DIFF FINAL Differential Comment Vitals/IOs Vital Signs Date Time Temp Pulse Resp B/P Pulse Ox O2 Delivery O2 Flow Rate FiO2 09/01/16 06:12 98.1 88 16 119/70 97 Intake and Output 4/8/17 4/8/17 4/9/17 08:00 16:00 00:00 Intake Total 120 ml 960 ml Balance 120 ml 960 ml Assessment & Plan Problem List: (1) Bipolar affective disorder, depressed ICD Code: F31.30 (2) Alcohol abuse ICD Code: F10.10 Assessment & Plan Continue current treatment plan Justification for Cont. Inpt. Patient will decompensate in a less restrictive setting Request HC Surrog/Guard Advoc?: No Problem Qualifiers (1) Bipolar affective disorder, depressed: Qualified Code: F31.4 - Bipolar disorder, current episode depressed, severe, without psychotic features Clark Cao DO Sep 01, 2016 18:04
[2016-09-01 19:47] VITALS: BP 112/73; PULSE 110; TEMP 98.7; O2SAT 99
[2016-09-01] MEDS: REMOVE OLD LIDOCAINE PATCH T-DERMAL SCH (21:00)
[2016-09-01] MEDS: REMOVE OLD NICODERM (NICOTINE) PATCH T-DERMAL SCH (21:00)
[2016-09-01] MEDS: traZODone HCL 100 MG TAB PO SCH (21:23)
[2016-09-01] MEDS: MIRTAZAPINE 15 MG TAB PO SCH (21:23)
[2016-09-02 06:11] VITALS: BP 112/66; PULSE 60; RESP 18; TEMP 97.9; O2SAT 96
[2016-09-02] MEDS: THIAMINE HCL 100 MG TAB PO SCH (09:00)
[2016-09-02] MEDS: LIDOCAINE HCL 5% PATCH T-DERMAL SCH (09:12)
[2016-09-02] MEDS: NICOTINE 21 MG/24 HR PATCH T-DERMAL SCH (09:12)
[2016-09-02] MEDS: clonazePAM 1 MG TAB PO PRN (09:12)
[2016-09-02] MEDS: FOLIC ACID 1 MG TAB PO SCH (09:12)
[2016-09-02] MEDS: LURASIDONE 40 MG TAB PO SCH (09:13)
[2016-09-02] MEDS: OXcarbazepine 300 MG TAB PO SCH (09:13)
[2016-09-02] MEDS: DOCUSATE SODIUM 50 MG/SENNA 8.6 MG TAB PO SCH (09:13)
[2016-09-02] MEDS: SULFAMETHOXAZOLE-TRIMETHOPRIM DS 800-160 MG TAB PO SCH (09:13)
[2016-09-02] MEDS: PANTOPRAZOLE SOD 20 MG DELAYED RELEASE TAB PO SCH (09:13)
[2016-09-02] MEDS: MULTIVITAMIN TAB PO SCH (09:13)
[2016-09-02] MEDS ORDERED: OXCA300T PO (14:29)
[2016-09-02] MEDS ORDERED: PANT20 PO (14:29)
[2016-09-02] MEDS ORDERED: TRAZ300T2 PO (14:29)
[2016-09-02] MEDS ORDERED: THERTAB15 PO (14:29)
[2016-09-02] MEDS ORDERED: BACT800T5 PO (14:29)
[2016-09-02] MEDS ORDERED: VITA100T2 PO (14:29)
[2016-09-02] MEDS ORDERED: LURA40 PO (14:29)
[2016-09-02] MEDS ORDERED: FOLI1TAB4 PO (14:29)
[2016-09-02] MEDS ORDERED: REME45TA PO (14:29)
[2016-09-02] MEDS ORDERED: LIDO5DIS35 T-DERMAL (14:29)
[2016-09-02] MEDS ORDERED: SENN1TAB PO (14:29)
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
[2016-09-03] MEDS ORDERED: CLON1 PO (08:43)
== END 2016-09-02 17:10 | disposition home or self-care (01) | DRG 885 ==
LOC: H260 13:20 → H250 15:34 → H260 16:22 → H250 20:09 → H260 08-31 20:59
PROVIDERS: ADMIT Psychiatry & Neurology Psychiatry; ATTEND Psychiatry & Neurology Psychiatry
DX: F31.4 Bipolar disorder, current episode depressed, severe, without psychotic features (principal); N17.9 Acute kidney failure, unspecified; E87.1 Hypo-osmolality and hyponatremia; E87.5 Hyperkalemia; I10 Essential (primary) hypertension; F10.10 Alcohol abuse, uncomplicated; G89.21 Chronic pain due to trauma; Z91.5 Personal history of self-harm; Z88.5 Allergy status to narcotic agent; Z88.8 Allergy status to other drugs, medicaments and biological substances; Z91.040 Latex allergy status; M79.652 Pain in left thigh; K21.9 Gastro-esophageal reflux disease without esophagitis; F17.200 Nicotine dependence, unspecified, uncomplicated; G47.00 Insomnia, unspecified; R73.9 Hyperglycemia, unspecified; R42 Dizziness and giddiness; M25.452 Effusion, left hip; T39.1X2D Poisoning by 4-Aminophenol derivatives, intentional self-harm, subsequent encounter
CPT/HCPCS: 80048; 80061; 83036; 85025

== ENCOUNTER 2016-09-07 16:17 | Emergency (ER) | payer MEDICAID ==
[~2016-09-07] VITALS: Ht 160 cm; Wt 46.5 kg
[~2016-09-07 16:17] MED LIST changes: +CLON1 PO; +LIDO5DIS35 T-DERMAL; -OMEP20TA PO; +OXCA300T PO; +PANT20 PO; -REME15TA PO; +REME45TA PO; +SENN1TAB PO; -TRIL300T PO; -XANA2TAB2 PO
[2016-09-07 16:21] VITALS: BP 106/64; PULSE 75; RESP 15; TEMP 98.3; O2SAT 99
--- NOTE | 2016-09-07 17:00 | PD ---
HPI Chief Complaint: Wound/Suture/Staple Re-Check Time Seen by Provider: 16:45 Travel History International Travel<30 days: No Contact w/Intl Traveler<30days: No Traveled to known affect area: No History of Present Illness HPI The patient is a 61-year-old female who presents emergency department for evaluation of sutures. The patient had sutures placed by her surgeon in [place] on the lateral aspect of her left leg. The patient has an appointment on September 13 of the sutures removed. Patient was inquired whether she could have the sutures removed early. However, she does not state that the surgeon center and to have the sutures removed, she has an appointment on the . She complains of mild itching along the sutures, but denies any drainage , redness, or significant pain. PFSH Past Medical History Hx Anticoagulant Therapy: Yes (STOPPED HERSELF YESTERDAY) Arthritis: Yes Autoimmune Disease: No Blood Disorders: No Bipolar Disorder: Yes Anxiety: Yes Depression: Yes Cancer: No Cardiovascular Problems: No Chemotherapy: No Cerebrovascular Accident: No Diabetes: No Diminished Hearing: No Endocrine: No Gastrointestinal Disorders: No (gi bleed) GERD: Yes Glaucoma: No Genitourinary: No Headaches: No Hiatal Hernia: No Immune Disorder: No Neurologic: No Psychiatric: Yes (Bipolar dosorder) Reproductive: No Respiratory: No Immunizations Current: Yes (flu and pneumonia shot-2006.) Migraines: Yes Radiation Therapy: No Seizures: Yes Thyroid Disease: No Ulcer: Yes ?: Not Menopausal: Yes : 1 Para: 1 Tubal Ligation: Yes Past Surgical History Abdominal Surgery: No AICD: No Appendectomy: No Arteriovenous Shunt: No Body Medical Devices: CULLEN IN LEFT THIGH, SCREWS IN HIP Cardiac Surgery: No Cholecystectomy: No Ear Surgery: No Endocrine Surgery: No Eye Surgery: No Genitourinary Surgery: No Gynecologic Surgery: No Hysterectomy: No Insulin Pump: No Joint Replacement: No Neurologic Surgery: No Oral Surgery: No Pacemaker: No Thoracic Surgery: No Other Surgery: Yes (multiple surgeries on left hip) Social History Alcohol Use: Yes (OCC) Tobacco Use: Yes (1 PPD) Substance Use: No Allergies-Medications (Allergen,Severity, Reaction): Coded Allergies: Latex (Verified Allergy, Intermediate, Rash, 09/07/16) Cerebyx (Verified Adverse Reaction, Severe, TINNITIS, 09/07/16) Morphine (Verified Adverse Reaction, Intermediate, Dizzy, 09/07/16) Uncoded Allergies: NICKEL (Adverse Reaction, Severe, SWELLING, 02/02/16) Reported Meds & Prescriptions Reported Meds & Active Scripts Active Klonopin (Clonazepam) 1 Mg Tab 1 Mg PO TID PRN Trazodone (Trazodone HCl) 300 Mg Tab 300 Mg PO HS Senna Plus 8.6-50 mg (Sennosides-Docusate Sodium) 1 Tab Tab 2 Tab PO 2 BID Protonix (Pantoprazole Sodium) 20 Mg Tab 20 Mg PO DAILY Oxcarbazepine 300 Mg Tab 300 Mg PO DAILY Remeron (Mirtazapine) 45 Mg Tab 45 Mg PO HS Latuda (Lurasidone) 40 Mg Tab 40 Mg PO DAILY Lidoderm Patch 12 HR (Lidocaine) 5% Patch 1 Patch T-DERMAL DAILY Bactrim DS (Sulfamethoxazole-Trimethoprim) 800-160 Mg Tab 2 Tab PO BID Vitamin B-1 (Thiamine HCl) 100 Mg Tab 100 Mg PO DAILY Oxycodone (Oxycodone HCl) 5 Mg Tab 5 Mg PO Q4H PRN Thera/Beta-Carotene (Multiple Vitamin) 1 Tab Tab 1 Tab PO DAILY Folate (Folic Acid) 1 Mg Tab 1 Mg PO DAILY Review of Systems Musculoskeletal: No: Pain Skin: Positive Itching, Positive Other (as noted in history present in), No Rash Neurologic: No: Paresthesia, Sensory Disturbance Physical Exam Narrative GENERAL: Awake, alert, 61-year-old female who appears her stated age and is in no acute respiratory distress. SKIN: Focused skin assessment warm/dry. HEAD: Atraumatic. Normocephalic. MUSCULOSKELETAL: Patient has a surgical incision on the lateral aspect of the left leg. Part of the scar has no sutures, however, the inferior aspect does have sutures in place. There is no dehiscence, erythema, or drainage. No palpable fluctuance. NEUROLOGICAL: Awake and alert. No obvious cranial nerve deficits. Motor grossly within normal limits. Normal speech. PSYCHIATRIC: Appropriate mood and affect; insight and judgment normal. Data Data Last Documented VS Vital Signs Date Time Temp Pulse Resp B/P Pulse Ox O2 Delivery O2 Flow Rate FiO2 09/07/16 16:21 98.3 75 15 106/64 99 MDM Medical Decision Making Medical Screen Exam Complete: Yes Emergency Medical Condition: Yes Medical Record Reviewed: Yes Differential Diagnosis Differential diagnoses includes suture removal, wound evaluation, dehiscence, infection, abscess. Narrative Course The patient had surgery performed in the left lower extremity and has an appointment on September 13 have her sutures removed. I advised patient that I would not remove the sutures, that her surgeon would remove them as scheduled on the to avoid any dehiscence or postoperative complications. The patient stable for outpatient follow-up. Diagnosis Primary Impression: Visit for wound check Patient Instructions: General Instructions Additional Instructions: Follow-up with your surgeon on September 13 as scheduled. Clean with soap and water , apply Polysporin. Return for any erythema or drainage. Med/Other Pt SpecificInfo: No Change to Meds Disposition: 01 DISCHARGE HOME Condition: Stable Enrique Mckeon MD Sep 07, 2016 17:00
== END 2016-09-07 17:26 | disposition home or self-care (01) ==
LOC: PHED 16:17
DX: Z48.89 Encounter for other specified surgical aftercare (principal); Z87.39 Personal history of other diseases of the musculoskeletal system and connective tissue; Z86.59 Personal history of other mental and behavioral disorders; Z87.19 Personal history of other diseases of the digestive system; Z86.69 Personal history of other diseases of the nervous system and sense organs; F17.200 Nicotine dependence, unspecified, uncomplicated
CPT/HCPCS: 99282

== ENCOUNTER 2016-11-18 10:38 | Emergency (ER) | payer MEDICAID ==
[~2016-11-18] VITALS: Ht 160 cm; Wt 50.0 kg
[2016-11-18 10:40] VITALS: BP 93/84; PULSE 87; RESP 18; TEMP 98.3; O2SAT 96
[2016-11-18] MEDS ORDERED: SODIUM CHLORIDE 0.9% FLUSH 10 ML FLUSH IV FLUSH PRN (11:15)
--- NOTE | 2016-11-18 11:19 | PD ---
HPI Chief Complaint: Wound/Suture/Staple Re-Check Time Seen by Provider: 11:14 Travel History International Travel<30 days: No Contact w/Intl Traveler<30days: No Traveled to known affect area: No History of Present Illness HPI Patient is a 7-year-old female presents emergency Department with bleeding from her left lower extremity wound. According to EMS the patient has been bleeding for the past few days and decided to come in today because her apparently is no longer able to take care of her at home. Patient states she has been followed by Dr. Chase, had a hip replacement for an unknown reason was complicated by her MRSA infection had repeat operation she states a few days ago. History is limited by the patient's somnolence. She really is unable to provide further history. Review of her records shows that she did indeed have a total hip replacement sometime in August of this year and has had questionable follow-up. Patient does have a PICC line in place and states she has been giving herself antibiotics. PFSH Past Medical History Hx Anticoagulant Therapy: Yes (STOPPED HERSELF YESTERDAY) Arthritis: Yes Autoimmune Disease: No Blood Disorders: No Bipolar Disorder: Yes Anxiety: Yes Depression: Yes Cancer: No Cardiovascular Problems: No Chemotherapy: No Cerebrovascular Accident: No Diabetes: No Diminished Hearing: No Endocrine: No GERD: Yes Glaucoma: No Genitourinary: No Headaches: No Hiatal Hernia: No Immune Disorder: No Neurologic: No Psychiatric: Yes (Bipolar dosorder) Reproductive: No Respiratory: No Immunizations Current: Yes (flu and pneumonia shot-2006.) Migraines: Yes Radiation Therapy: No Seizures: Yes Thyroid Disease: No Ulcer: Yes Tetanus Vaccination: < 5 Years Influenza Vaccination: Yes ?: Not Menopausal: Yes : 1 Para: 1 Tubal Ligation: Yes Past Surgical History Abdominal Surgery: No AICD: No Appendectomy: No Arteriovenous Shunt: No Body Medical Devices: CULLEN IN LEFT THIGH, SCREWS IN HIP Cardiac Surgery: No Cholecystectomy: No Ear Surgery: No Endocrine Surgery: No Eye Surgery: No Genitourinary Surgery: No Gynecologic Surgery: No Hysterectomy: No Insulin Pump: No Joint Replacement: No Neurologic Surgery: No Oral Surgery: No Pacemaker: No Thoracic Surgery: No Other Surgery: Yes (multiple surgeries on left hip) Social History Alcohol Use: Yes (OCC) Tobacco Use: Yes (1 PPD) Substance Use: No Allergies-Medications (Allergen,Severity, Reaction): Coded Allergies: Latex (Verified Allergy, Intermediate, Rash, 11/18/16) Cerebyx (Verified Adverse Reaction, Severe, TINNITIS, 11/18/16) Morphine (Verified Adverse Reaction, Intermediate, Dizzy, 11/18/16) Uncoded Allergies: NICKEL (Adverse Reaction, Severe, SWELLING, 02/02/16) Reported Meds & Prescriptions Reported Meds & Active Scripts Active Trazodone (Trazodone HCl) 300 Mg Tab 300 Mg PO HS Oxcarbazepine 300 Mg Tab 300 Mg PO DAILY Remeron (Mirtazapine) 45 Mg Tab 45 Mg PO HS Latuda (Lurasidone) 40 Mg Tab 40 Mg PO DAILY Oxycodone (Oxycodone HCl) 5 Mg Tab 5 Mg PO Q4H PRN Reported Alprazolam 2 Mg Tab 2 Mg PO Q8H PRN Hydrochlorothiazide 25 Mg Tab 25 Mg PO DAILY Fluconazole 150 Mg Tab 150 Mg PO ONCE Alendronate (Alendronate Sodium) 70 Mg Tab 70 Mg PO Q7D Ditropan (Oxybutynin Chloride) 5 Mg Tab 5 Mg PO Q12HR Flexeril (Cyclobenzaprine HCl) 10 Mg Tab 10 Mg PO TID Effexor (Venlafaxine HCl) 75 Mg Tab 150 Mg PO Q12H Gabapentin 300 Mg Cap 300 Mg PO HS Folic Acid 800 Mcg Tab 1 Mg PO DAILY Review of Systems ROS Limitations: Altered Mental Status Physical Exam Narrative GENERAL: Well-developed, thin in no obvious distress P SKIN: Focused skin assessment warm/dry. HEAD: Atraumatic. Normocephalic. EYES: Pupils equal and round. No scleral icterus. No injection or drainage. ENT: No nasal bleeding or discharge. Mucous membranes pink and moist. NECK: Trachea midline. No JVD. CARDIOVASCULAR: Regular rate and rhythm. No murmur appreciated. RESPIRATORY: No accessory muscle use. Clear to auscultation. Breath sounds equal bilaterally. GASTROINTESTINAL: Abdomen soft, non-tender, nondistended. Hepatic and splenic margins not palpable. MUSCULOSKELETAL: No obvious deformities. No clubbing. No cyanosis. No edema. There is a wound running nearly the length of her left femur on the lateral aspect, the wound is clean and dry stitches are in place appears fairly fresh. See no surrounding cellulitis or abscess. There is some minimal discharge which is serosanguineous. Right-sided PICC line brachial artery is clean dry and intact. No antibiotics are currently running. Patient does have continuous infusion of cefepime at the bedside unclear how long he has not been running 4. NEUROLOGICAL: Alert and awake and oriented, somnolent. Follows commands in all 4 extremity's. PSYCHIATRIC: Somnolent unable to evaluate further. Data Data Last Documented VS Vital Signs Date Time Temp Pulse Resp B/P Pulse Ox O2 Delivery O2 Flow Rate FiO2 11/18/16 13:45 74 18 104/64 99 Room Air 11/18/16 10:40 98.3 Orders Complete Blood Count With Diff (11/18/16 11:14) Comprehensive Metabolic Panel (11/18/16 11:14) Urinalysis - C+S If Indicated (11/18/16 11:14) Iv Access Insert/Monitor (11/18/16 11:14) Ecg Monitoring (11/18/16 11:14) Oximetry (11/18/16 11:14) Sodium Chloride 0.9% Flush (Ns Flush) (11/18/16 11:15) Electrocardiogram (11/18/16 11:14) Bedside Glucose ESTUARDO.AC&HS (11/18/16 11:14) Ct Brain W/O Iv Contrast(Rout) (11/18/16 ) Tylenol (Acetaminophen) (11/18/16 11:19) Chest, Single Ap (11/18/16 ) Vascular Access Team Consult/P PRN (11/18/16 12:48) Salicylates (Aspirin) (11/18/16 12:48) Drug Screen, Random Urine (11/18/16 12:48) Cath For Specimen (11/18/16 12:48) Thyroid Stimulating Hormone (11/18/16 11:14) Humerus (Min 2vws) (11/18/16 ) Acetaminophen (Tylenol) (11/18/16 16:15) Labs Laboratory Tests Test 11/18/16 11/18/16 13:00 13:15 White Blood Count 7.9 TH/MM3 Red Blood Count 3.77 MIL/MM3 Hemoglobin 10.7 GM/DL Hematocrit 32.8 % Mean Corpuscular Volume 87.1 FL Mean Corpuscular Hemoglobin 28.5 PG Mean Corpuscular Hemoglobin 32.7 % Concent Red Cell Distribution Width 16.7 % Platelet Count 512 TH/MM3 Mean Platelet Volume 7.2 FL Neutrophils (%) (Auto) 72.4 % Lymphocytes (%) (Auto) 13.6 % Monocytes (%) (Auto) 7.8 % Eosinophils (%) (Auto) 3.7 % Basophils (%) (Auto) 2.5 % Neutrophils # (Auto) 5.7 TH/MM3 Lymphocytes # (Auto) 1.1 TH/MM3 Monocytes # (Auto) 0.6 TH/MM3 Eosinophils # (Auto) 0.3 TH/MM3 Basophils # (Auto) 0.2 TH/MM3 CBC Comment DIFF FINAL Differential Comment Sodium Level 135 MEQ/L Potassium Level 3.2 MEQ/L Chloride Level 99 MEQ/L Carbon Dioxide Level 26.0 MEQ/L Anion Gap 10 MEQ/L Blood Urea Nitrogen 16 MG/DL Creatinine 1.00 MG/DL Estimat Glomerular Filtration 57 ML/MIN Rate Random Glucose 80 MG/DL Calcium Level 8.7 MG/DL Total Bilirubin 0.2 MG/DL Aspartate Amino Transf 15 U/L (AST/SGOT) Alanine Aminotransferase 11 U/L (ALT/SGPT) Alkaline Phosphatase 110 U/L Total Protein 6.8 GM/DL Albumin 2.7 GM/DL Thyroid Stimulating Hormone 2.400 uIU/ML 3rd Gen Salicylates Level 2.1 MG/DL Acetaminophen Level LESS THAN 2.0 MCG/ML Urine Collection Type CATH Urine Color STRAW Urine Turbidity CLEAR Urine pH 5.5 Urine Specific [place] 1.011 Urine Protein TRACE mg/dL Urine Glucose (UA) NEG mg/dL Urine Ketones NEG mg/dL Urine Occult Blood NEG Urine Nitrite NEG Urine Bilirubin NEG Urine Leukocyte Esterase NEG Urine Squamous Epithelial 0-5 /hpf Cells Urine Transitional Epithelial 0-5 /hpf Cells Urine Amorphous Sediment FEW Microscopic Urinalysis Comment CATH-CULT NOT IND Urine Collection Time 1315 Urine Opiates Screen NEG Urine Barbiturates Screen NEG Urine Amphetamines Screen NEG Urine Benzodiazepines Screen POS Urine Cocaine Screen NEG Urine Cannabinoids Screen NEG [facility] Medical Decision Making Medical Screen Exam Complete: Yes Emergency Medical Condition: Yes Interpretation(s) EKG shows normal sinus rhythm normal axis normal R-wave progression. No concerning ST segment changes. Intervals within normal limits. This is a normal EKG. Differential Diagnosis Opiate intoxication, benzodiazepine intoxication, Tylenol toxicity, poor social circumstance. Narrative Course Patient roomed in ED, she appears to be under the influence of substance likely benzodiazepine and or opiates. She remained in the ER for 6 hours undergoing altered mental status workup and gradually her mental status returned. She states that she would like to go home and continue her cefepime infusions at home and follow up with her physicians in [place]. However, per EMS, part of the reason for them calling EMS is that her is concerned that he cant take care of her at home. She has significant script for benzodiazepines and opiates and i discussed she needs to consider weaning off these medicines. Her picc line is very difficult to flush and has an extreme angle at which it enters the brachial artery according to radiographs. PICC line team was consulted but the patient wants to follow up with her phycisians. At reassesment she is clinically sober and understands the treatment course and need to follow up and get her medicines. SHe states that her repeat exploration was only a few days ago at [facility]. Ultimately patient called several family members and found one willing to take her home and continue to help her with care. She was discharged to home with strict instructions to call her surgeon in the morning. Diagnosis Primary Impression: Infection of femur Additional Impression: Benzodiazepine abuse Additional Instructions: Follow-up with your surgeon in [place] tomorrow. Also recommend you call the interventional radiology Department for consideration of replacement of her PICC line. Take your IV antibiotics as prescribed. If you have any problems with this discharge instructions feel free to return to the emergency department. Disposition: 01 DISCHARGE HOME Condition: Stable Donavan Quijano MD Nov 18, 2016 11:19
[2016-11-18] MEDS ORDERED: CYCL1TAB29 PO (11:26)
[2016-11-18] MEDS ORDERED: FOLI800T PO (11:26)
[2016-11-18] MEDS ORDERED: ALEN1TAB48 PO (11:26)
[2016-11-18] MEDS ORDERED: VENL75TA PO (11:26)
[2016-11-18] MEDS ORDERED: FLUC150T PO (11:26)
[2016-11-18] MEDS ORDERED: ALPR2TAB3 PO (11:26)
[2016-11-18] MEDS ORDERED: OXYB5TAB10 PO (11:26)
[2016-11-18] MEDS ORDERED: HYDR25TA5 PO (11:26)
[2016-11-18] MEDS ORDERED: GABA300C5 PO (11:26)
[2016-11-18 11:45] VITALS: BP 98/59; PULSE 76; RESP 18; O2SAT 98
--- NOTE | 2016-11-18 11:48 | RADRPT ---
EXAM DATE/TIME: 11/18/2016 11:26 [facility] COMPARISON: CT BRAIN W/O CONTRAST, August 25, 2016, 22:09. INDICATIONS : Weakness, change in mental status. Prior history of seizures. RADIATION DOSE: 66.36 CTDIvol (mGy) MEDICAL HISTORY : Seizures. Bipolar SURGICAL HISTORY : None. ENCOUNTER: Initial ACUITY: 1 day PAIN SCALE: 0/10 LOCATION: cranial TECHNIQUE: Multiple contiguous axial images were obtained of the head. Using automated exposure control and adj ustment of the mA and/or kV according to patient size, radiation dose was kept as low as reasonably a chievable to obtain optimal diagnostic quality images. DICOM format image data is available electro nically for review and comparison. FINDINGS: CEREBRUM: The ventricles are normal for age. No evidence of midline shift, mass lesion, hemorrhage or acute in farction. No extra-axial fluid collections are seen. POSTERIOR FOSSA: The cerebellum and brainstem are intact. The 4th ventricle is midline. The cerebellopontine angle i s unremarkable. EXTRACRANIAL: There is stable opacification of the left maxillary sinus. SKULL: The calvaria is intact. No evidence of skull fracture. CONCLUSION: Stable brain with no acute intracranial findings Anjel Li MD on November 18, 2016 at 11:43 Board Certified Radiologist. This report was verified electronically.
[2016-11-18 12:13] VITALS: O2SAT 95
[2016-11-18 12:15] VITALS: BP 96/61; PULSE 70; RESP 18; O2SAT 99
[2016-11-18 13:11] LABS: AUTOMATED NEUTROPHIL # 5.7 TH/MM3 (1.8-7.7); BASOPHIL # 0.2 TH/MM3 (0-0.2); BASOPHIL % 2.5 % (0.0-2.0); EOSINOPHIL # 0.3 TH/MM3 (0-0.4); EOSINOPHIL % 3.7 % (0.0-4.0); HEMATOCRIT 32.8 % (35.0-46.0); HEMO FLAGS DIFF FINAL; LYMPH % 13.6 % (9.0-44.0); LYMPHOCYTE # 1.1 TH/MM3 (1.0-4.8); MEAN CELL VOLUME 87.1 FL (80.0-100.0); MEAN CORPUSCULAR HEMOGLOBIN 28.5 PG (27.0-34.0); MEAN CORPUSCULAR HGB CONC 32.7 % (32.0-36.0); MONO % 7.8 % (0.0-8.0); NEUT % 72.4 % (16.0-70.0); PLATELET COUNT 512 TH/MM3 (150-450); RED BLOOD COUNT 3.77 MIL/MM3 (4.00-5.30); RED CELL DISTRIBUTION WIDTH 16.7 % (11.6-17.2); WHITE BLOOD COUNT 7.9 TH/MM3 (4.0-11.0)
[2016-11-18 13:26] LABS: BLOOD, URINE NEG (NEG); GLUCOSE,URINE NEG (NEG); KETONE, URINE NEG (NEG); NITRITE,URINE NEG (NEG); PH, URINE 5.5 (5.0-8.5)
[2016-11-18 13:31] LABS: AMPHETAMINE, URINE NEG (NEG); BARBITURATES, URINE NEG (NEG)
[2016-11-18 13:32] LABS: COCAINE, URINE NEG (NEG)
[2016-11-18 13:33] LABS: CHLORIDE 99 MEQ/L (98-107); POTASSIUM 3.2 MEQ/L (3.5-5.1); SODIUM (NA) 135 MEQ/L (136-145)
[2016-11-18 13:37] LABS: ANION GAP 10 MEQ/L (5-15); BLOOD UREA NITROGEN 16 MG/DL (7-18)
[2016-11-18 13:40] LABS: ALT (GPT) 11 U/L (10-53); AST (GOT) 15 U/L (15-37); GLOMERULAR FILTRATION RATE 57 ML/MIN (>89)
[2016-11-18 13:42] LABS: METHOD OF COLLECTION CATH
[2016-11-18 13:42] LABS: TOTAL BILIRUBIN ADULT 0.2 MG/DL (0.2-1.0)
[2016-11-18 13:43] LABS: COMMENT (UR) CATH-CULT NOT IND; CULTURE IF INDICATED CATH CULTURE NOT IND; SQUAMOUS EPITHELIAL CELL URINE 0-5 /hpf (0-5); URINE COLOR STRAW (YELLW/STRAW)
[2016-11-18 13:43] LABS: ALKALINE PHOSPHATASE 110 U/L (45-117)
[2016-11-18 13:44] LABS: COMMENT2 (UR) MUCOUS PRESENT; TRANSITIONAL EPI CELLS, URINE 0-5 /hpf
[2016-11-18 13:45] VITALS: BP 104/64; PULSE 74; RESP 18; O2SAT 99
--- NOTE | 2016-11-18 13:45 | RADRPT ---
EXAM DATE/TIME: 11/18/2016 12:52 [facility] COMPARISON: CHEST SINGLE AP, August 25, 2016, 15:40. INDICATIONS : Confirm PICC line placement MEDICAL HISTORY : None. SURGICAL HISTORY : None. ENCOUNTER: Initial ACUITY: 1 day PAIN SCORE: Non-responsive. LOCATION: Bilateral chest FINDINGS: PICC line is in good position. Lungs are clear. The heart and pulmonary vascularity are normal. The portion of the bony skeleton visualized is unremarkable. CONCLUSION: PICC line in good position.. Jose G Craft MD FACR on November 18, 2016 at 13:42 Board Certified Radiologist. This report was verified electronically.
--- NOTE | 2016-11-18 14:42 | RADRPT ---
EXAM DATE/TIME: 11/18/2016 14:12 [facility] COMPARISON: No previous studies available for comparison. INDICATIONS : Picc line placement MEDICAL HISTORY : None. SURGICAL HISTORY : None. ENCOUNTER: Initial ACUITY: 1 day PAIN SCORE: 0/10 LOCATION: Right upper extremity FINDINGS: PICC line is very redundant and there is an acute angle. These are usually poorly functioning. CONCLUSION: PICC line as described above. Jose G Craft MD FACR on November 18, 2016 at 14:36 Board Certified Radiologist. This report was verified electronically.
[2016-11-18] MEDS ORDERED: ACETAMINOPHEN 500 MG CPLT PO ONE (16:15)
--- NOTE | 2016-11-19 07:35 | EKG ---
Date Performed: 11/18/2016 Time Performed: 11:22:53 PTAGE: 61 years EKG: Sinus rhythm NORMAL ECG PREVIOUS TRACING : 08/26/2016 20.04 DOCTOR: Natanael Okeefe Interpretating Date/Time 11/19/2016 07:34:48
== END 2016-11-18 17:27 | disposition home or self-care (01) ==
LOC: PHED 10:38
DX: T81.4XXA Infection following a procedure, initial encounter (principal); L08.9 Local infection of the skin and subcutaneous tissue, unspecified; Y83.8 Other surgical procedures as the cause of abnormal reaction of the patient, or of later complication, without mention of misadventure at the time of the procedure; Z79.01 Long term (current) use of anticoagulants; F19.10 Other psychoactive substance abuse, uncomplicated; F17.210 Nicotine dependence, cigarettes, uncomplicated
CPT/HCPCS: 70450; 71010; 73060; 80053; 80307; 81001; 84443; 85025; 93005; 99285; P9612

== ENCOUNTER 2016-12-29 08:57 | Inpatient (IN) | payer MEDICAID, OTHER ==
[~2016-12-29] VITALS: Ht 160 cm; Wt 66.5 kg
[~2016-12-29 08:57] MED LIST changes: +ALEN1TAB48 PO; +ALPR2TAB3 PO; -BACT800T5 PO; -CLON1 PO; +CYCL1TAB29 PO; +FLUC150T PO; -FOLI1TAB4 PO; +FOLI800T PO; +GABA300C5 PO; +HYDR25TA5 PO; -LIDO5DIS35 T-DERMAL; +OXYB5TAB10 PO; -PANT20 PO; -SENN1TAB PO; -THERTAB15 PO; +VENL75TA PO; -VITA100T2 PO
[2016-12-29 09:14] VITALS: BP 120/69; PULSE 78; RESP 18; TEMP 98.2; O2SAT 97
[2016-12-29] MEDS ORDERED: ACTIVATED CHARCOAL LIQUID 25 GM/120 ML BTL PO/NG ONE (09:45)
[2016-12-29 09:52] LABS: AUTOMATED NEUTROPHIL # 5.4 TH/MM3 (1.8-7.7); BASOPHIL % 0.2 % (0.0-2.0); EOSINOPHIL # 0.1 TH/MM3 (0-0.4); HEMATOCRIT 28.7 % (35.0-46.0); HEMO FLAGS DIFF FINAL; LYMPH % 13.5 % (9.0-44.0); LYMPHOCYTE # 0.9 TH/MM3 (1.0-4.8); MEAN CELL VOLUME 89.2 FL (80.0-100.0); MEAN CORPUSCULAR HGB CONC 33.7 % (32.0-36.0); MONO % 7.3 % (0.0-8.0); PLATELET COUNT 380 TH/MM3 (150-450); RED BLOOD COUNT 3.22 MIL/MM3 (4.00-5.30); RED CELL DISTRIBUTION WIDTH 15.9 % (11.6-17.2); WHITE BLOOD COUNT 6.9 TH/MM3 (4.0-11.0)
[2016-12-29 10:11] LABS: ANION GAP 12 MEQ/L (5-15); AST (GOT) 18 U/L (15-37); BICARBONATE 24.1 MEQ/L (21.0-32.0); BLOOD UREA NITROGEN 10 MG/DL (7-18); CHLORIDE 92 MEQ/L (98-107); GLOMERULAR FILTRATION RATE 106 ML/MIN (>89); POTASSIUM 3.6 MEQ/L (3.5-5.1); SODIUM (NA) 128 MEQ/L (136-145)
[2016-12-29 10:12] LABS: ALT (GPT) 12 U/L (10-53)
[2016-12-29 10:15] LABS: ALKALINE PHOSPHATASE 119 U/L (45-117); TOTAL BILIRUBIN ADULT 0.3 MG/DL (0.2-1.0)
[2016-12-29] MEDS ORDERED: HALOPERIDOL LACTATE 5 MG/ML AMP IV ONE (10:30)
[2016-12-29 10:54] LABS: AMPHETAMINE, URINE NEG (NEG); BARBITURATES, URINE NEG (NEG); COCAINE, URINE NEG (NEG)
--- NOTE | 2016-12-29 13:16 | PD ---
HPI Chief Complaint: Psychiatric Symptoms Time Seen by Provider: 09:04 Travel History International Travel<30 days: No Contact w/Intl Traveler<30days: No Traveled to known affect area: No History of Present Illness HPI This is a 61-year-old female who presents to the emergency department reportedly having drink alcohol and overdosed on Xanax. There evidently was an empty bottle of 120 tablets of Xanax at her house. EMS thinks that she overdosed on them. The patient doesn't provide very good history. She is screaming that she needs pain medicine and she acknowledges that she drank alcohol but she denies any Xanax use and she says she needs Xanax. She seems intoxicated. PFSH Past Medical History Hx Anticoagulant Therapy: Yes (STOPPED HERSELF YESTERDAY) Arthritis: Yes Autoimmune Disease: No Blood Disorders: No Bipolar Disorder: Yes Anxiety: Yes Depression: Yes Cancer: No Cardiovascular Problems: No Chemotherapy: No Cerebrovascular Accident: No Diabetes: No Diminished Hearing: No Endocrine: No GERD: Yes Glaucoma: No Genitourinary: No Headaches: No Hiatal Hernia: No Immune Disorder: No Neurologic: No Psychiatric: Yes (Bipolar dosorder) Reproductive: No Respiratory: No Immunizations Current: Yes (flu and pneumonia shot-2006.) Migraines: Yes Radiation Therapy: No Seizures: Yes Thyroid Disease: No Ulcer: Yes ?: Not Menopausal: Yes : 1 Para: 1 Tubal Ligation: Yes Past Surgical History Abdominal Surgery: No AICD: No Appendectomy: No Arteriovenous Shunt: No Body Medical Devices: CULLEN IN LEFT THIGH, SCREWS IN HIP Cardiac Surgery: No Cholecystectomy: No Ear Surgery: No Endocrine Surgery: No Eye Surgery: No Genitourinary Surgery: No Gynecologic Surgery: No Hysterectomy: No Insulin Pump: No Joint Replacement: No Neurologic Surgery: No Oral Surgery: No Pacemaker: No Thoracic Surgery: No Other Surgery: Yes (multiple surgeries on left hip) Social History Alcohol Use: Yes (OCC) Tobacco Use: Yes (1 PPD) Substance Use: No Allergies-Medications (Allergen,Severity, Reaction): Coded Allergies: Latex (Verified Allergy, Intermediate, Rash, 11/18/16) Cerebyx (Verified Adverse Reaction, Severe, TINNITIS, 11/18/16) Morphine (Verified Adverse Reaction, Intermediate, Dizzy, 11/18/16) Uncoded Allergies: NICKEL (Adverse Reaction, Severe, SWELLING, 02/02/16) Reported Meds & Prescriptions Reported Meds & Active Scripts Active Trazodone (Trazodone HCl) 300 Mg Tab 300 Mg PO HS Oxcarbazepine 300 Mg Tab 300 Mg PO DAILY Remeron (Mirtazapine) 45 Mg Tab 45 Mg PO HS Latuda (Lurasidone) 40 Mg Tab 40 Mg PO DAILY Oxycodone (Oxycodone HCl) 5 Mg Tab 5 Mg PO Q4H PRN Reported Alprazolam 2 Mg Tab 2 Mg PO Q8H PRN Hydrochlorothiazide 25 Mg Tab 25 Mg PO DAILY Fluconazole 150 Mg Tab 150 Mg PO ONCE Alendronate (Alendronate Sodium) 70 Mg Tab 70 Mg PO Q7D Ditropan (Oxybutynin Chloride) 5 Mg Tab 5 Mg PO Q12HR Flexeril (Cyclobenzaprine HCl) 10 Mg Tab 10 Mg PO TID Effexor (Venlafaxine HCl) 75 Mg Tab 150 Mg PO Q12H Gabapentin 300 Mg Cap 300 Mg PO HS Folic Acid 800 Mcg Tab 1 Mg PO DAILY Review of Systems ROS Limitations: Intoxication Physical Exam Narrative GENERAL: Thin, chronically unwell-appearing SKIN: Focused skin assessment warm and dry. HEAD: Atraumatic. Normocephalic. EYES: Pupils equal and round. No injection or drainage. ENT: Moist mucous membranes NECK: Trachea midline. CARDIOVASCULAR: Regular rate and rhythm. No murmur appreciated. RESPIRATORY: Clear to auscultation. Breath sounds equal bilaterally. GASTROINTESTINAL: Abdomen soft, non-tender, nondistended. MUSCULOSKELETAL: No obvious deformities. NEUROLOGICAL: Awake and alert. No obvious cranial nerve deficits. Moving all extremities. PSYCHIATRIC: Agitated, poor insight and judgment Data Data Last Documented VS Vital Signs Date Time Temp Pulse Resp B/P Pulse Ox O2 Delivery O2 Flow Rate FiO2 12/29/16 10:47 18 12/29/16 09:14 98.2 78 120/69 97 Orders Complete Blood Count With Diff (12/29/16 09:04) Comprehensive Metabolic Panel (12/29/16 09:04) Alcohol (Ethanol) (12/29/16 09:04) Drug Screen, Random Urine (12/29/16 09:04) Electrocardiogram (12/29/16 ) Tylenol (Acetaminophen) (12/29/16 09:32) Salicylates (Aspirin) (12/29/16 09:32) Charcoal Activated Liq (Actidose-Aqua Li (12/29/16 09:45) Restraints Non-Violent ESTUARDO.Q3H (12/29/16 10:25) Haloperidol Inj (Haldol Inj) (12/29/16 10:30) Psych Screen (12/29/16 10:52) Labs Laboratory Tests Test 12/29/16 12/29/16 12/29/16 09:35 09:57 10:37 White Blood Count 6.9 TH/MM3 Red Blood Count 3.22 MIL/MM3 Hemoglobin 9.7 GM/DL Hematocrit 28.7 % Mean Corpuscular Volume 89.2 FL Mean Corpuscular Hemoglobin 30.0 PG Mean Corpuscular Hemoglobin 33.7 % Concent Red Cell Distribution Width 15.9 % Platelet Count 380 TH/MM3 Mean Platelet Volume 6.5 FL Neutrophils (%) (Auto) 78.0 % Lymphocytes (%) (Auto) 13.5 % Monocytes (%) (Auto) 7.3 % Eosinophils (%) (Auto) 1.0 % Basophils (%) (Auto) 0.2 % Neutrophils # (Auto) 5.4 TH/MM3 Lymphocytes # (Auto) 0.9 TH/MM3 Monocytes # (Auto) 0.5 TH/MM3 Eosinophils # (Auto) 0.1 TH/MM3 Basophils # (Auto) 0.0 TH/MM3 CBC Comment DIFF FINAL Differential Comment Sodium Level 128 MEQ/L Potassium Level 3.6 MEQ/L Chloride Level 92 MEQ/L Carbon Dioxide Level 24.1 MEQ/L Anion Gap 12 MEQ/L Blood Urea Nitrogen 10 MG/DL Creatinine 0.58 MG/DL Estimat Glomerular Filtration 106 ML/MIN Rate Random Glucose 91 MG/DL Calcium Level 8.9 MG/DL Total Bilirubin 0.3 MG/DL Aspartate Amino Transf 18 U/L (AST/SGOT) Alanine Aminotransferase 12 U/L (ALT/SGPT) Alkaline Phosphatase 119 U/L Total Protein 7.2 GM/DL Albumin 2.8 GM/DL Ethyl Alcohol Level 120 MG/DL Salicylates Level 3.8 MG/DL Acetaminophen Level LESS THAN 2.0 MCG/ML Urine Opiates Screen NEG Urine Barbiturates Screen NEG Urine Amphetamines Screen NEG Urine Benzodiazepines Screen POS Urine Cocaine Screen NEG Urine Cannabinoids Screen NEG MDM Medical Decision Making Medical Screen Exam Complete: Yes Emergency Medical Condition: Yes Interpretation(s) Afebrile, no tachycardia, normotensive Mild anemia Mild hyponatremia Salicylate negative Acetaminophen negative Urine drug screen is positive for benzos Alcohol is 120 Differential Diagnosis Benzodiazepine overdose, alcohol intoxication, depression, bipolar disorder Narrative Course This is a 61-year-old female who presents to the emergency department with a suspected benzodiazepine overdose as well as alcohol intoxication. Patient is quite disorganized and doesn't provide much history. She appears intoxicated. She became very agitated and required IV Haldol and restraints to prevent her from pulling out her IVs. She is placed on a monitor and an IV was established. Labs are obtained which are reassuring. EKG demonstrated normal intervals. Urine drug screen was positive for benzodiazepines. Alcohol level is 120. Patient has history of multiple drug overdoses in the past. Given this I think it's very reasonable for her to see psychiatry she seems to have impaired insight and judgment. Judy Alonso MD Dec 29, 2016 13:16
[2016-12-29 13:39] VITALS: BP 131/71; PULSE 75; RESP 18; O2SAT 100
--- NOTE | 2016-12-29 14:05 | HHI.HP ---
Provisional Diagnosis Admission Date 12/29/2016 [place] I. 1. Bipolar disorder, depressed 2. Polysubstance abuse 3. Delirium due to intoxication with his substance [place] II. Deferred Certification of Person's Competence To Provide Express and Informed Consent I have personally examined Fidelia Escobedo , a person being served at [facility] on, Dec 29, 2016 13:46. Express and informed consent means consent voluntarily given in writing, by a competent person, after sufficient explanation and disclosure of the subject matter involved to enable the person to make a knowing and willful decision without any element of force, fraud, deceit, duress, or other form of constraint or coercion. This person is 18 years of age or older, is not now known to be incompetent to consent to treatment with a guardian advocate, and does not have a health care surrogate or proxy currently making medical treatment decisions. I have found this person to be one of the following: [] Competent to provide express and informed consent, as defined above, for voluntary admission to this facility and is competent to provide express and informed consent for treatment. He/she has the consistent capacity to make well reasoned, willful, and knowing decisions concerning his or her medical or mental health treatment. The person fully and consistently understands the purpose of the admission for examination/placement and is fully capable of personally exercising all rights assured [place] [x] Incompetent to provide express and informed consent to voluntary admission, and this is incompetent to provide express and informed consent to treatment. The person must be transferred to involuntary status and a petition for a guardian advocate filed with the Circuit Court. [] Refusing to provide express and informed consent to voluntary admission but is competent to provide express and informed consent for treatment. The person must be discharged or transferred to involuntary status. Form shall be completed within 24 hours of a person's arrival at the receiving facility and filed in the clinical record of each person: 1. Admitted on a voluntary basis 2. Permitted to provide express and informed consent to his/her own treatment 3. Allowed to transfer from involuntary to voluntary status 4. Prior to permitting a person to consent to his or her own treatment after having been previously found incompetent to consent to treatment. History of Present Illness Capacity: Lacks Capacity HPI Ms. Escobedo is a 61-year-old female with a history of bipolar disorder and alcohol use disorder who presented to the ED under a Moses act alleging that she overdosed on 120 tablets of Xanax and told the officer that she wanted to end her life. Reviewing the electronic medical record, I note that the patient was admitted in August of this year under Dr. Donovan after threatening suicide. Patient seen and examined. Chart reviewed. On my examination today, the patient is presently delirious, I suspect secondary to intoxication with benzodiazepines. See full mental status testing below. She denies making a suicidal overdose. She denies suicidal ideation now but seems decidedly unreliable to contract for safety. Thought process is tangential. She denies audiovisual hallucinations but appears a little internally preoccupied. No konstantin delusions. Psychiatric interview is fairly limited because of her current mental state. Spoke with patient's friend, Felipe Polanco, listed on [employer]. He reports that Fidelia called him up to the apartment because she said that she had lost her Xanax. Felipe helped her look, and subsequently found a recently filled, empty bottle of Xanax. When confronted by Felipe, she admitted to him that she made a suicidal overdose. He also notes that she has significant substance use issues. Unable to obtain any meaningful past psychiatric history, family history, chem dep history, or social history from this patient because of her degree of delirium at present. Review of Systems ROS Limitations: Poor Historian Except as stated in HPI: all other systems reviewed are Neg Past Psych History Psychological trauma history No reported trauma history to me Violence risk - others (6 mos) Indeterminate Violence risk - self (6 mos) Elevated Substance Abuse History Drugs/Alcohol past 12 months Patient unable to provide. Alcohol level CXX. Toxicology positive for benzodiazepines. Past Family Social History Coded Allergies: Latex (Verified Allergy, Intermediate, Rash, 11/18/16) Cerebyx (Verified Adverse Reaction, Severe, TINNITIS, 11/18/16) Morphine (Verified Adverse Reaction, Intermediate, Dizzy, 11/18/16) Uncoded Allergies: NICKEL (Adverse Reaction, Severe, SWELLING, 02/02/16) Past Medical History See electronic medical record Active Scripts Trazodone 300 Mg [id number] Mg PO HS #30 TAB Ref 0 Prov:Anjel Donovan MD 09/02/16 Oxcarbazepine 300 Mg Whf667 Mg PO DAILY #30 TAB Ref 0 Prov:Anjel Donovan MD 09/02/16 Mirtazapine (Remeron)45 Mg Tab45 Mg PO HS #30 TAB Ref 0 Prov:Anjel Donovan MD 09/02/16 Lurasidone (Latuda)40 Mg Tab40 Mg PO DAILY #30 TAB Ref 0 Prov:Anjel Donovan MD 09/02/16 Oxycodone 5 Mg Tab5 Mg PO Q4H PRN (PAIN SCALE 3 TO 5) #20 TAB Prov:Charli Krause MD 08/27/16 Reported Medications Alprazolam 2 Mg Tab2 Mg PO Q8H PRN (ANXIETY) 11/18/16 Hydrochlorothiazide 25 Mg Tab25 Mg PO DAILY #30 TAB Ref 0 11/18/16 Fluconazole 150 Mg Wcy689 Mg PO ONCE #1 TAB Ref 0 11/18/16 Alendronate 70 Mg Tab70 Mg PO Q7D #4 TAB Ref 0 11/18/16 Oxybutynin (Ditropan)5 Mg Tab5 Mg PO Q12HR #60 TAB Ref 0 11/18/16 Cyclobenzaprine (Flexeril)10 Mg Tab10 Mg PO TID #90 TAB Ref 0 11/18/16 Venlafaxine (Effexor)75 Mg Axp457 Mg PO Q12H #120 TAB Ref 0 11/18/16 Gabapentin 300 Mg Ieg228 Mg PO HS #30 CAP Ref 0 11/18/16 Folic Acid 800 Mcg Tab1 Mg PO DAILY Ref 0 11/18/16 Family History Unable to obtain Social History Unable to obtain Patient's Strengths (min. 2) In monitored setting. Verbally fluent. Physical Exam Physical exam completed by ED provider. On my examination today, the patient appears to be in no acute physical distress. Speech somewhat slurred. No signs of withdrawal noted. Labs and vitals reviewed: Vital Signs Vital Signs Date Time Temp Pulse Resp B/P Pulse Ox O2 Delivery O2 Flow Rate FiO2 12/29/16 13:39 75 18 131/71 100 Room Air 12/29/16 09:14 98.2 Lab Results Laboratory Tests Test 12/29/16 12/29/16 12/29/16 09:35 09:57 10:37 White Blood Count 6.9 TH/MM3 Red Blood Count 3.22 MIL/MM3 Hemoglobin 9.7 GM/DL Hematocrit 28.7 % Mean Corpuscular Volume 89.2 FL Mean Corpuscular Hemoglobin 30.0 PG Mean Corpuscular Hemoglobin 33.7 % Concent Red Cell Distribution Width 15.9 % Platelet Count 380 TH/MM3 Mean Platelet Volume 6.5 FL Neutrophils (%) (Auto) 78.0 % Lymphocytes (%) (Auto) 13.5 % Monocytes (%) (Auto) 7.3 % Eosinophils (%) (Auto) 1.0 % Basophils (%) (Auto) 0.2 % Neutrophils # (Auto) 5.4 TH/MM3 Lymphocytes # (Auto) 0.9 TH/MM3 Monocytes # (Auto) 0.5 TH/MM3 Eosinophils # (Auto) 0.1 TH/MM3 Basophils # (Auto) 0.0 TH/MM3 CBC Comment DIFF FINAL Differential Comment Sodium Level 128 MEQ/L Potassium Level 3.6 MEQ/L Chloride Level 92 MEQ/L Carbon Dioxide Level 24.1 MEQ/L Anion Gap 12 MEQ/L Blood Urea Nitrogen 10 MG/DL Creatinine 0.58 MG/DL Estimat Glomerular Filtration 106 ML/MIN Rate Random Glucose 91 MG/DL Calcium Level 8.9 MG/DL Total Bilirubin 0.3 MG/DL Aspartate Amino Transf 18 U/L (AST/SGOT) Alanine Aminotransferase 12 U/L (ALT/SGPT) Alkaline Phosphatase 119 U/L Total Protein 7.2 GM/DL Albumin 2.8 GM/DL Ethyl Alcohol Level 120 MG/DL Salicylates Level 3.8 MG/DL Acetaminophen Level LESS THAN 2.0 MCG/ML Urine Opiates Screen NEG Urine Barbiturates Screen NEG Urine Amphetamines Screen NEG Urine Benzodiazepines Screen POS Urine Cocaine Screen NEG Urine Cannabinoids Screen NEG Mental Status Examination Registration 3 out of 3, recall 0 out of 3 at 3 minutes. Oriented to person only. Unable to spell world backwards. Speech: Other (rambling, incoherent at times) Orientation: Person Memory: Impaired (describe) Thought Process: Tangential Thought Content: Other (no delusions) Hallucination Type: None (appear somewhat internally stimulated but denies AVH) Attention and Concentration: Easily Distracted Suicidal Ideation: No (unreliable contract for safety) Previous Suicide Attempts: Yes Homicidal Ideation: No Previous Homicide Attempts: No Insight: Poor Judgment: Poor Affect: Irritable Mood: Other (dysphoric) Assessment & Plan Problem List: (1) Bipolar affective disorder, depressed ICD Code: F31.30 (2) Polysubstance abuse ICD Code: F19.10 (3) Substance intoxication delirium ICD Code: F19.921 Assessment & Plan This is a 61-year-old female with psychiatric history as detailed above who presents under a Moses act following a probable benzodiazepine overdose. On my examination today, the patient presents as fairly delirious, I suspect as a consequence of her overdose. Collateral from patient's friend indicates that this was a suicidal overdose, and the patient has a history of suicide attempts in the past. I believe it is the most prudent course of action at this juncture to admit the patient to the medical psychiatric unit for further observation and stabilization. Admit inpatient. Involuntary status. I have completed first opinion. Consult for second opinion. Request healthcare surrogate and guardian advocate. Consult to the hospitalist. Given her delirious state, I will hold her scheduled psychotropics acutely. CIWA with Ativan for the management of any benzodiazepine withdrawal. Seizure and fall precautions. PT eval. Vitals every shift. Counselor to see. Disposition planning. Estimated length of stay : 7-9 days. Discharge Planning Pending psychiatric stabilization Request HC Surrog/Guard Advoc?: Yes Problem Qualifiers (1) Bipolar affective disorder, depressed: Qualified Code: F31.30 - Bipolar affective disorder, current episode depressed , current episode severity unspecified Aden Khan MD Dec 29, 2016 14:05
[2016-12-29] MEDS ORDERED: BENZTROPINE MESYLATE 1 MG TAB PO PRN (14:15)
[2016-12-29] MEDS ORDERED: LORazepam 2 MG TAB PO PRN (14:15)
[2016-12-29] MEDS ORDERED: ACETAMINOPHEN 325 MG TAB PO PRN (14:15)
[2016-12-29] MEDS ORDERED: ALUMINUM/MAGNESIUM/SIMETH 30 ML CUP PO PRN (14:15)
[2016-12-29] MEDS ORDERED: BENZTROPINE MESYLATE 2 MG/2 ML VIAL IM PRN (14:15)
[2016-12-29] MEDS ORDERED: MAGNESIUM HYDROXIDE SUSP 30 ML CUP PO PRN (14:15)
[2016-12-29] MEDS ORDERED: FLUMAZENIL 0.5 MG/5 ML VIAL IV PUSH PRN (14:15)
[2016-12-29] MEDS: LORazepam 2 MG/ML VIAL IV PUSH PRN ×4 (14:24→23:37)
[2016-12-29 15:18] VITALS: BP 156/87; PULSE 77; RESP 22; TEMP 98; O2SAT 99
--- NOTE | 2016-12-29 17:25 | EKG ---
Date Performed: 12/29/2016 Time Performed: 09:24:24 PTAGE: 61 years EKG: Sinus rhythm NORMAL ECG Since PREVIOUS TRACING , no significant change noted PREVIOUS TRACIN11/18/2016 11.22 DOCTOR: Ashish Wright Interpretating Date/Time 12/29/2016 17:24:17
[2016-12-29] MEDS ORDERED: SODIUM CHLOR 0.9% 1000 ML INJ 1,000 ML IV SCH (17:30)
--- NOTE | 2016-12-29 17:37 | PD.CONS ---
[facility] By [facility] Lugo Reason for Consult Assistance in management of medical condition patient with Xanax overdose Primary Care Physician Unknown Diagnoses: History of Present Illness Written by Shannon Rosas, acting as scribe for Dr. Montgomery on 12/29/16 at 17: 23. This is a 61 year-old female patient with past medical history which includes EtOH abuse with EtOH related seizures, hypertension, insomnia, bipolar disorder , GERD, tobacco abuse, chronic pain and recurrent hyponatremia. Patient is currently inpatient psychiatric center after she has combined EtOH with approximately 120 Xanax. Patient has artery been given activated charcoal. We' ve been consulted for assistance with medical management. Patient is currently a poor historian and appears intoxicated and unreliable. Information gathered from patient as well as prior computerized charting. Patient is complaining of left knee pain unable to quantify pain. Patient reports she fell 4 days ago and since then she the left knee has been swollen and painful. There is no open skin. Patient multiple times as requested Xanax as well as pain medication throughout the interview. Patient denies shortness of breath chest pain fevers chills cough congestion. Review of Systems ROS Limitations: Clinical Condition, Poor Historian Except as stated in HPI: all other systems reviewed are Neg Past Family Social History Allergies: Coded Allergies: Latex (Verified Allergy, Intermediate, Rash, 11/18/16) Cerebyx (Verified Adverse Reaction, Severe, TINNITIS, 11/18/16) Morphine (Verified Adverse Reaction, Intermediate, Dizzy, 11/18/16) Uncoded Allergies: NICKEL (Adverse Reaction, Severe, SWELLING, 02/02/16) Past Medical History EtOH abuse with EtOH related seizures, hypertension, insomnia, bipolar disorder , GERD, tobacco abuse, chronic pain and recurrent hyponatremia. Past Surgical History Left hip ORIF with revisions Reported Medications Trazodone (Trazodone HCl) 300 Mg Tab 300 Mg PO HS Oxcarbazepine 300 Mg Tab 300 Mg PO DAILY Remeron (Mirtazapine) 45 Mg Tab 45 Mg PO HS Latuda (Lurasidone) 40 Mg Tab 40 Mg PO DAILY Oxycodone (Oxycodone HCl) 5 Mg Tab 5 Mg PO Q4H PRN Alprazolam 2 Mg Tab 2 Mg PO Q8H PRN Hydrochlorothiazide 25 Mg Tab 25 Mg PO DAILY Fluconazole 150 Mg Tab 150 Mg PO ONCE Alendronate (Alendronate Sodium) 70 Mg Tab 70 Mg PO Q7D Ditropan (Oxybutynin Chloride) 5 Mg Tab 5 Mg PO Q12HR Flexeril (Cyclobenzaprine HCl) 10 Mg Tab 10 Mg PO TID Effexor (Venlafaxine HCl) 75 Mg Tab 150 Mg PO Q12H Gabapentin 300 Mg Cap 300 Mg PO HS Folic Acid 800 Mcg Tab 1 Mg PO DAILY Active Ordered Medications Current Medications Medications (Trade) Dose Ordered Sig/Rula Route Start Time Stop Time Status Last Admin (Benadryl) 50 mg HS PRN PO 12/29/16 14:15 (Tylenol) 650 mg Q4H PRN PO 12/29/16 14:15 (Milk Of Magnesia Liq) 30 ml DAILY PRN PO 12/29/16 14:15 (Mag-Al Plus Susp Liq) 30 ml Q6H PRN PO 12/29/16 14:15 (Habitrol 21 Mg Patch.24 Hr) 1 patch DAILY T-DERMAL 12/30/16 09:00 (Atarax) 50 mg Q6H PRN PO 12/29/16 14:15 (Cogentin) 1 mg Q12H PRN PO 12/29/16 14:15 (Cogentin Inj) 1 mg Q12H PRN IM 12/29/16 14:15 (Romazicon Inj) 0.2 mg Q1M PRN IV PUSH 12/29/16 14:15 (Ativan) 1 mg Q4H PRN PO 12/29/16 14:15 (Ativan Inj) 1 mg Q4H PRN IV PUSH 12/29/16 14:15 12/29/16 14:24 (Ativan) 2 mg Q2H PRN PO 12/29/16 14:15 (Ativan Inj) 2 mg Q2H PRN IV PUSH 12/29/16 14:15 (Ativan Inj) 2 mg Q1H PRN IV PUSH 12/29/16 14:15 (Ativan Inj) 2 mg Q15M PRN IV PUSH 12/29/16 14:15 Miscellaneous Information 1 DAILY T-DERMAL 12/30/16 09:00 Family History Father had an WI at age 70 Mother has dementia kidney disease and hypertension Social History Lives with her mother Patient reports she smokes between 5 and 10 cigarettes a day since she was 46 years old Patient reports she drinks alcohol approximately 3 days a week when she does drink she drinks one to 2 glasses of wine Physical Exam Vital Signs Vital Signs Date Time Temp Pulse Resp B/P Pulse Ox O2 Delivery O2 Flow Rate FiO2 12/29/16 15:18 98.0 77 22 156/87 99 12/29/16 13:39 75 18 131/71 100 Room Air 12/29/16 10:47 18 12/29/16 09:14 98.2 78 18 120/69 97 Physical Exam GENERAL: This is a malnourished appears intoxicated but in no acute distress SKIN: No rashes, ecchymoses or lesions. Cool and dry. Rash home or surface right hand HEAD: Atraumatic. Normocephalic. No temporal or scalp tenderness. Healing ecchymotic areas right side of face EYES: Extraocular motions intact. No scleral icterus. No injection or drainage. ENT: Nose without bleeding, purulent drainage or septal hematoma. Throat without erythema, tonsillar hypertrophy or exudate. Uvula midline. Airway patent. Oral mucosa dry NECK: Trachea midline. No JVD or lymphadenopathy. Supple, nontender, no meningeal signs. CARDIOVASCULAR: Regular rate and rhythm without murmurs, gallops, or rubs. RESPIRATORY: Clear to auscultation. Breath sounds equal bilaterally. No wheezes , rales, or rhonchi. GASTROINTESTINAL: Abdomen soft, non-tender, nondistended. MUSCULOSKELETAL: Extremities without clubbing, cyanosis, or edema. No joint tenderness, effusion, or edema noted. No calf tenderness. Negative Homans sign bilaterally. NEUROLOGICAL: Awake and alert. No focal deficits appreciated Motor and sensory grossly within normal limits. 4 out of 5 muscle strength upper extremities 3-4 out of 5 lower extremities. Slurred speech Laboratory Laboratory Tests Test 12/29/16 12/29/16 12/29/16 09:35 09:57 10:37 White Blood Count 6.9 Red Blood Count 3.22 Hemoglobin 9.7 Hematocrit 28.7 Mean Corpuscular Volume 89.2 Mean Corpuscular Hemoglobin 30.0 Mean Corpuscular Hemoglobin 33.7 Concent Red Cell Distribution Width 15.9 Platelet Count 380 Mean Platelet Volume 6.5 Neutrophils (%) (Auto) 78.0 Lymphocytes (%) (Auto) 13.5 Monocytes (%) (Auto) 7.3 Eosinophils (%) (Auto) 1.0 Basophils (%) (Auto) 0.2 Neutrophils # (Auto) 5.4 Lymphocytes # (Auto) 0.9 Monocytes # (Auto) 0.5 Eosinophils # (Auto) 0.1 Basophils # (Auto) 0.0 CBC Comment DIFF FINAL Differential Comment Sodium Level 128 Potassium Level 3.6 Chloride Level 92 Carbon Dioxide Level 24.1 Anion Gap 12 Blood Urea Nitrogen 10 Creatinine 0.58 Estimat Glomerular Filtration 106 Rate Random Glucose 91 Calcium Level 8.9 Total Bilirubin 0.3 Aspartate Amino Transf 18 (AST/SGOT) Alanine Aminotransferase 12 (ALT/SGPT) Alkaline Phosphatase 119 Total Protein 7.2 Albumin 2.8 Ethyl Alcohol Level 120 Salicylates Level 3.8 Acetaminophen Level LESS THAN 2.0 Urine Opiates Screen NEG Urine Barbiturates Screen NEG Urine Amphetamines Screen NEG Urine Benzodiazepines Screen POS Urine Cocaine Screen NEG Urine Cannabinoids Screen NEG Result Diagram: 12/29/16 0935 12/29/16 0935 Assessment and Plan Problem List: (1) Alcohol abuse ICD Code: F10.10 Status: Acute (2) Benzodiazepine abuse ICD Code: F13.10 Status: Acute (3) Polysubstance abuse ICD Code: F19.10 Status: Acute (4) Hyponatremia ICD Code: E87.1 Status: Acute Assessment and Plan This is a 61 year-old female patient with past medical history which includes EtOH abuse with EtOH related seizures, hypertension, insomnia, bipolar disorder , GERD, tobacco abuse, chronic pain and recurrent hyponatremia. Patient is currently inpatient psychiatric center after she has combined EtOH with approximately 120 Xanax. Patient has artery been given activated charcoal. We' ve been consulted for assistance with medical management. Patient is currently a poor historian and appears intoxicated and unreliable. Information gathered from patient as well as prior computerized charting. Patient is complaining of left knee pain unable to quantify pain. Patient reports she fell 4 days ago and since then she the left knee has been swollen and painful. There is no open skin. Patient multiple times as requested Xanax as well as pain medication throughout the interview. Bipolar affective disorder, depressed Management per psychiatric team. Polysubstance abuse Patient counseled encouraged to abstain EtOH abuse Benzodiazepine overdose Patient has received activated charcoal emergency department CIWA protocol, thiamine and folic acid supplementation Seizure precautions Chronic pain Painful and edematous left knee X-ray ordered Request to obtain records from [facility] patient reports she had CT scan of left knee done 4 days ago at [facility] Tylenol as needed for pain 1-5 with ibuprofen as needed for pain 6-10 Hyponatremia- may be chronic due to patient's EtOH abuse Dehydration Hold oxybutynin Normal saline at 84 cc/h Recheck BMP at midnight and 6 AM History of hypertension monitor blood pressure trend Clonidine as needed for hypertension Recheck CBC, CMP in a.m. DVT prophylaxis patient is ambulatory and low risk Discussed with patient and nursing This note was transcribed by ALESSIO Felix. I, Dr. Anai Montgomery personally performed the history, physical exam, and medical decision making; and confirmed the accuracy of the information in the transcribed note. Authenticated by Dr. Anai Montgomery on 12/29/16 at 17:23. Shannon Rosas Dec 29, 2016 17:37 Anai Montgomery MD Dec 29, 2016 18:45
[2016-12-29] MEDS ORDERED: cloNIDine HCL 0.1 MG TAB PO PRN (18:15)
[2016-12-29 18:39] VITALS: BP_SYST 159; BP_SYST 167; BP_DIAS 74; BP_DIAS 79; PULSE 71; RESP 15; RESP 18; TEMP 98.2; TEMP 98.5; O2SAT 94; O2SAT 96
[2016-12-29] MEDS: hydrOXYzine HCL 50 MG TAB PO PRN (22:29)
[2016-12-30 00:07] LABS: BICARBONATE 23.9 MEQ/L (21.0-32.0); POTASSIUM 3.9 MEQ/L (3.5-5.1)
[2016-12-30] MEDS: LORazepam 2 MG/ML VIAL IV PUSH PRN ×9 (02:11→23:48)
[2016-12-30 06:26] VITALS: BP 136/63; PULSE 63; RESP 16; TEMP 97.6; O2SAT 96
[2016-12-30] MEDS: FOLIC ACID 1 MG TAB PO SCH (07:29)
[2016-12-30] MEDS: THIAMINE HCL 100 MG TAB PO SCH (07:29)
[2016-12-30] MEDS: NICOTINE 21 MG/24 HR PATCH T-DERMAL SCH (07:38)
[2016-12-30] MEDS: hydrOXYzine HCL 50 MG TAB PO PRN ×3 (07:40→21:12)
[2016-12-30] MEDS: REMOVE OLD PATCH T-DERMAL SCH (07:41)
--- NOTE | 2016-12-30 08:52 | HHI.PYPN ---
Subjective Remarks Patient seen today for psychiatric reevaluation follow with nurse in charge Caesar. Patient is fully awake, alert, visibly confused, very restless. Patient states that she has a broken knee, and a broken back and she needs to be on medication for pain. Patient also is complaining of anxiety and depression and is persistently requesting Xanax. In most of the conversation patient says mostly focuses in drug seeking. Patient does not seem to have any insight, comments or reflections about her recent suicidal attempt. She keeps saying that she takes medication as prescribed and she never takes alcohol, even though his BAL of initial hospitalization was 120. Patient is partially oriented in time and place, With episodic confusion, she seems to be anxious and restless. Compliant with medications, no significant side effects. Other than anxiety and restlessness, bilateral signs are stable, she doesn't have visible shakiness or other prominent objective symptoms of withdrawal. Review of Systems Musculoskeletal: COMPLAINS OF: Back pain Psychiatric: COMPLAINS OF: Anxiety Objective Alert: Yes [place]: Person, Place Mood: Anxious Affect: Restricted Memory Intact: Comment (no formally assessed ) Hallucinations: Other (no at this moment) Delusions: No Delusion Type: Other (not elicited) Suicidal: Ideation (no SI) Homicidal: Ideation (no HI) Insight/Judgment Very poor Labs Test 12/29/16 12/29/16 12/29/16 12/29/16 09:35 09:57 10:37 23:29 White Blood Count 6.9 TH/MM3 Red Blood Count 3.22 MIL/MM3 Hemoglobin 9.7 GM/DL Hematocrit 28.7 % Mean Corpuscular Volume 89.2 FL Mean Corpuscular Hemoglobin 30.0 PG Mean Corpuscular Hemoglobin 33.7 % Concent Red Cell Distribution Width 15.9 % Platelet Count 380 TH/MM3 Mean Platelet Volume 6.5 FL Neutrophils (%) (Auto) 78.0 % Lymphocytes (%) (Auto) 13.5 % Monocytes (%) (Auto) 7.3 % Eosinophils (%) (Auto) 1.0 % Basophils (%) (Auto) 0.2 % Neutrophils # (Auto) 5.4 TH/MM3 Lymphocytes # (Auto) 0.9 TH/MM3 Monocytes # (Auto) 0.5 TH/MM3 Eosinophils # (Auto) 0.1 TH/MM3 Basophils # (Auto) 0.0 TH/MM3 CBC Comment DIFF FINAL Differential Comment Sodium Level 128 MEQ/L 126 MEQ/L Potassium Level 3.6 MEQ/L 3.9 MEQ/L Chloride Level 92 MEQ/L 92 MEQ/L Carbon Dioxide Level 24.1 MEQ/L 23.9 MEQ/L Anion Gap 12 MEQ/L 10 MEQ/L Blood Urea Nitrogen 10 MG/DL 11 MG/DL Creatinine 0.58 MG/DL 0.57 MG/DL Estimat Glomerular Filtration 106 ML/MIN 108 ML/MIN Rate Random Glucose 91 MG/DL 100 MG/DL Calcium Level 8.9 MG/DL 8.4 MG/DL Total Bilirubin 0.3 MG/DL Aspartate Amino Transf 18 U/L (AST/SGOT) Alanine Aminotransferase 12 U/L (ALT/SGPT) Alkaline Phosphatase 119 U/L Total Protein 7.2 GM/DL Albumin 2.8 GM/DL Ethyl Alcohol Level 120 MG/DL Salicylates Level 3.8 MG/DL Acetaminophen Level LESS THAN 2.0 MCG/ML Urine Opiates Screen NEG Urine Barbiturates Screen NEG Urine Amphetamines Screen NEG Urine Benzodiazepines Screen POS Urine Cocaine Screen NEG Urine Cannabinoids Screen NEG Vitals/IOs Vital Signs Date Time Temp Pulse Resp B/P Pulse Ox O2 Delivery O2 Flow Rate FiO2 12/30/16 06:26 97.6 63 16 136/63 96 12/29/16 13:39 Room Air Intake and Output 12/29/16 12/29/16 12/29/16 07:59 15:59 23:59 Intake Total 600 ml Balance 600 ml Assessment & Plan Problem List: (1) Bipolar affective disorder, depressed Assessment & Plan: Patient with a recent very lethal suicidal attempt by overdosing with over 100 pills of Xanax. On psychiatric evaluation today patient remains confused, kind of disorganized, mostly focus in obtaining Xanax and opiates. Unable to elaborate or reflect about her recent suicidal attempt. She is at very high risk of withdrawal/seizures. We'll continue monitoring closely Withdrawal, with CIWA. Will restart Latuda 40, Effexor 150, Remeron 45 for depression and mood stabilization. Add gabapentin 200 mg twice a day to help with pain and anxiety. ICD Code: F31.30 (2) Polysubstance abuse ICD Code: F19.10 (3) Substance intoxication delirium ICD Code: F19.921 Assessment & Plan Estimated LOS: days Justification for Cont. Inpt. Patient has a very high risk of suicidality admits to continue psychiatric hospitalization for stabilization. Request HC Surrog/Guard Advoc?: Yes Problem Qualifiers (1) Bipolar affective disorder, depressed: Qualified Code: F31.30 - Bipolar affective disorder, current episode depressed , current episode severity unspecified Jacob Urena MD Dec 30, 2016 08:52
--- NOTE | 2016-12-30 10:32 | RADRPT ---
EXAM DATE/TIME: 12/30/2016 09:51 [place] COMPARISON: No previous studies available for comparison. INDICATIONS : Left knee pain. MEDICAL HISTORY : Arthritis. Smoker. SURGICAL HISTORY : ORIF of the left femur with hardware placement. ENCOUNTER: Initial ACUITY: 1 day PAIN SCORE: 10/10 LOCATION: Left knee. FINDINGS: Four view examination of the left knee demonstrates a transverse nondisplaced fracture through the up per one third of the patella. There is a joint effusion. Distal femur and proximal tibia and fibula are intact. Significant decreased bone density is noted. CONCLUSION: 1. Nondisplaced transverse fracture through the upper one third of the patella. 2. Decreased bone density. 3. Moderate joint effusion. 4. Otherwise intact left knee. Alexi Schafer MD on December 30, 2016 at 10:29 Board Certified Radiologist. This report was verified electronically.
--- NOTE | 2016-12-30 11:30 | HHI.PR ---
Subjective Remarks Patient in bed, says she has left knee pain. No fever or chills. Swelling the same as yesterday. Denies chest pain or sob. Eating well. Objective Vitals Vital Signs Date Time Temp Pulse Resp B/P Pulse Ox O2 Delivery O2 Flow Rate FiO2 12/30/16 06:26 97.6 63 16 136/63 96 12/29/16 18:39 98.2 71 18 159/79 94 12/29/16 15:18 98.0 77 22 156/87 99 12/29/16 13:39 75 18 131/71 100 Room Air I/O 12/29/16 12/29/16 12/29/16 12/30/16 12/30/16 12/30/16 07:00 15:00 23:00 07:00 15:00 23:00 Intake Total 600 ml 360 ml Balance 600 ml 360 ml Intake Oral 600 ml 360 ml # Voids 2 3 Result Diagram: 12/29/16 0935 12/29/16 2329 Imaging Last Impressions Knee X-Ray 12/30/16 0000 Signed Impressions: Service Date/Time: Friday, December 30, 2016 09:51 - CONCLUSION: 1. Nondisplaced transverse fracture through the upper one third of the patella. 2. Decreased bone density. 3. Moderate joint effusion. 4. Otherwise intact left knee. Alexi Schafer MD Objective Remarks GENERAL: This is a malnourished appears intoxicated but in no acute distress SKIN: No rashes, ecchymoses or lesions. Cool and dry. Rash home or surface right hand CARDIOVASCULAR: Regular rate and rhythm without murmurs, gallops, or rubs. RESPIRATORY: Clear to auscultation. Breath sounds equal bilaterally. No wheezes , rales, or rhonchi. GASTROINTESTINAL: Abdomen soft, non-tender, nondistended. MUSCULOSKELETAL: Extremities without clubbing, cyanosis, or edema. No joint tenderness, effusion, or edema noted. No calf tenderness. Negative Homans sign bilaterally. NEUROLOGICAL: Awake and alert. No focal deficits appreciated Motor and sensory grossly within normal limits. 4 out of 5 muscle strength upper extremities 3-4 out of 5 lower extremities. Slurred speech A/P Problem List: (1) Alcohol abuse ICD Code: F10.10 Status: Acute (2) Benzodiazepine abuse ICD Code: F13.10 Status: Acute (3) Polysubstance abuse ICD Code: F19.10 Status: Acute (4) Hyponatremia ICD Code: E87.1 Status: Acute Assessment and Plan This is a 61 year-old female patient with past medical history which includes EtOH abuse with EtOH related seizures, hypertension, insomnia, bipolar disorder , GERD, tobacco abuse, chronic pain and recurrent hyponatremia. Patient is currently inpatient psychiatric center after she has combined EtOH with approximately 120 Xanax. Patient has artery been given activated charcoal. We' ve been consulted for assistance with medical management. Patient is currently a poor historian and appears intoxicated and unreliable. Information gathered from patient as well as prior computerized charting. Patient is complaining of left knee pain unable to quantify pain. Patient reports she fell 4 days ago and since then she the left knee has been swollen and painful. There is no open skin. Patient multiple times as requested Xanax as well as pain medication throughout the interview. Bipolar affective disorder, depressed - Management per psychiatric team. Polysubstance abuse - Patient counseled encouraged to abstain EtOH abuse Benzodiazepine overdose Patient has received activated charcoal emergency department CIWA protocol, thiamine and folic acid supplementation Seizure precautions Chronic pain Painful and edematous left knee Nondisplaced transverse fracture upper third of patella with moderate joint effusion and decreased bone density X-ray reviewed: Nondisplaced transverse fracture through the upper one third of the patella. Decreased bone density. 3. Moderate joint effusion. 4. Otherwise intact left knee. Request to obtain records from [facility] patient reports she had CT scan of left knee done 4 days ago at [facility] Tylenol as needed for pain 1-5 with ibuprofen as needed for pain 6-10 Consult ortho for evaluation Hyponatremia- may be chronic due to patient's EtOH abuse Dehydration Hold oxybutynin Normal saline at 84 cc/h Recheck BMP . Monitor Na trend, watch for fast correction History of hypertension monitor blood pressure trend- Clonidine as needed for hypertension Recheck CBC, CMP in a.m. DVT prophylaxis patient is ambulatory and low risk Discussed with patient and nurse Anai Montgomery MD Dec 30, 2016 11:30
[2016-12-30] MEDS: VENLAFAXINE HCL 75 MG TAB PO SCH ×2 (11:54→21:11)
[2016-12-30] MEDS: LURASIDONE 40 MG TAB PO SCH (11:54)
[2016-12-30] MEDS: GABAPENTIN 300 MG CAP PO SCH ×3 (11:54→18:17)
[2016-12-30 13:15] LABS: AUTOMATED NEUTROPHIL # 7.1 TH/MM3 (1.8-7.7); BASOPHIL % 0.3 % (0.0-2.0); EOSINOPHIL % 0.4 % (0.0-4.0); HEMATOCRIT 28.7 % (35.0-46.0); HEMO FLAGS DIFF FINAL; LYMPH % 9.7 % (9.0-44.0); LYMPHOCYTE # 0.8 TH/MM3 (1.0-4.8); MEAN CELL VOLUME 87.5 FL (80.0-100.0); MEAN CORPUSCULAR HEMOGLOBIN 30.2 PG (27.0-34.0); MEAN CORPUSCULAR HGB CONC 34.5 % (32.0-36.0); MONO % 5.8 % (0.0-8.0); NEUT % 83.8 % (16.0-70.0); PLATELET COUNT 392 TH/MM3 (150-450); RED BLOOD COUNT 3.28 MIL/MM3 (4.00-5.30); RED CELL DISTRIBUTION WIDTH 15.5 % (11.6-17.2); WHITE BLOOD COUNT 8.5 TH/MM3 (4.0-11.0)
[2016-12-30 13:33] LABS: ANION GAP 10 MEQ/L (5-15); AST (GOT) 29 U/L (15-37); BICARBONATE 24.8 MEQ/L (21.0-32.0); BLOOD UREA NITROGEN 10 MG/DL (7-18); CHLORIDE 93 MEQ/L (98-107); GLOMERULAR FILTRATION RATE 104 ML/MIN (>89); POTASSIUM 3.6 MEQ/L (3.5-5.1); SODIUM (NA) 128 MEQ/L (136-145)
[2016-12-30 13:35] LABS: ALT (GPT) 16 U/L (10-53)
[2016-12-30 13:37] LABS: ALKALINE PHOSPHATASE 116 U/L (45-117); LDL CHOLESTEROL 56 MG/DL (0-99); TOTAL BILIRUBIN ADULT 0.2 MG/DL (0.2-1.0)
[2016-12-30] MEDS: IBUPROFEN 400 MG TAB PO PRN ×2 (14:58→21:14)
[2016-12-30 16:00] VITALS: BP 165/84; PULSE 65; RESP 16; TEMP 97.8; O2SAT 99
[2016-12-30 17:02] LABS: HEMOGLOBIN A1a 1.1 %; HEMOGLOBIN A1b 1.6 %; HEMOGLOBIN Ao 85.3 %; HEMOGLOBIN LA1C 2.5 %; HEMOGLOBIN P3 5.2 %
[2016-12-30] MEDS: diphenhydrAMINE HCL 50 MG CAP PO PRN (21:11)
[2016-12-30] MEDS: MIRTAZAPINE 15 MG TAB PO SCH (21:11)
[2016-12-31] MEDS: LORazepam 2 MG/ML VIAL IV PUSH PRN ×2 (02:34→06:10)
[2016-12-31 05:13] VITALS: BP 148/92; PULSE 56; RESP 16; TEMP 97.3; O2SAT 95
[2016-12-31] MEDS: REMOVE OLD PATCH T-DERMAL SCH (09:00)
--- NOTE | 2016-12-31 09:51 | HHI.PR ---
Subjective Remarks In bed and says she has knee pain, but able to ambulate with a walker. No fever or chills. No nausea, vomiting, diarrhea or constipation. Asking for more pain medications and anxiety medications. Objective Vitals Vital Signs Date Time Temp Pulse Resp B/P Pulse Ox O2 Delivery O2 Flow Rate FiO2 12/31/16 05:13 97.3 56 16 148/92 95 12/30/16 22:14 17 12/30/16 16:00 97.8 65 16 165/84 99 I/O 12/30/16 12/30/16 12/30/16 12/31/16 12/31/16 12/31/16 07:00 15:00 23:00 07:00 15:00 23:00 Intake Total 360 ml 360 ml 1184 ml 720 ml Balance 360 ml 360 ml 1184 ml 720 ml Intake Oral 360 ml 360 ml 560 ml 720 ml IV Total 624 ml # Voids 3 3 2 5 # Bowel Movements 1 Result Diagram: 12/30/16 1150 12/30/16 1150 Imaging Last Impressions Knee X-Ray 12/30/16 0000 Signed Impressions: Service Date/Time: Friday, December 30, 2016 09:51 - CONCLUSION: 1. Nondisplaced transverse fracture through the upper one third of the patella. 2. Decreased bone density. 3. Moderate joint effusion. 4. Otherwise intact left knee. Alexi Schafer MD Objective Remarks GENERAL: This is a malnourished appears intoxicated but in no acute distress SKIN: No rashes, ecchymoses or lesions. Cool and dry. Rash home or surface right hand CARDIOVASCULAR: Regular rate and rhythm without murmurs, gallops, or rubs. RESPIRATORY: Clear to auscultation. Breath sounds equal bilaterally. No wheezes , rales, or rhonchi. GASTROINTESTINAL: Abdomen soft, non-tender, nondistended. MUSCULOSKELETAL: Extremities without clubbing, cyanosis, or edema. No joint tenderness, effusion, or edema noted. No calf tenderness. Negative Homans sign bilaterally. NEUROLOGICAL: Awake and alert. No focal deficits appreciated Motor and sensory grossly within normal limits. 4 out of 5 muscle strength upper extremities 3-4 out of 5 lower extremities. Slurred speech A/P Problem List: (1) Alcohol abuse ICD Code: F10.10 Status: Acute (2) Benzodiazepine abuse ICD Code: F13.10 Status: Acute (3) Polysubstance abuse ICD Code: F19.10 Status: Acute (4) Hyponatremia ICD Code: E87.1 Status: Acute Assessment and Plan This is a 61 year-old female patient with past medical history which includes EtOH abuse with EtOH related seizures, hypertension, insomnia, bipolar disorder , GERD, tobacco abuse, chronic pain and recurrent hyponatremia. Patient is currently inpatient psychiatric center after she has combined EtOH with approximately 120 Xanax. Patient has artery been given activated charcoal. We' ve been consulted for assistance with medical management. Patient is currently a poor historian and appears intoxicated and unreliable. Information gathered from patient as well as prior computerized charting. Patient is complaining of left knee pain unable to quantify pain. Patient reports she fell 4 days ago and since then she the left knee has been swollen and painful. There is no open skin. Patient multiple times as requested Xanax as well as pain medication throughout the interview. Bipolar affective disorder, depressed - Management per psychiatric team. Polysubstance abuse - Patient counseled encouraged to abstain EtOH abuse Benzodiazepine overdose Patient has received activated charcoal emergency department CIWA protocol, thiamine and folic acid supplementation Seizure precautions Chronic pain Painful and edematous left knee Nondisplaced transverse fracture upper third of patella with moderate joint effusion and decreased bone density X-ray reviewed: Nondisplaced transverse fracture through the upper one third of the patella. Decreased bone density. 3. Moderate joint effusion. 4. Otherwise intact left knee. Request to obtain records from [facility] patient reports she had CT scan of left knee done 4 days ago at [facility] Tylenol as needed for pain 1-5 with ibuprofen as needed for pain 6-10 Consult ortho for evaluation Hyponatremia- may be chronic due to patient's EtOH abuse Dehydration Hold oxybutynin Normal saline at 84 cc/h Recheck BMP . Monitor Na trend, watch for fast correction History of hypertension monitor blood pressure trend- Clonidine as needed for hypertension Recheck CBC, CMP in a.m. DVT prophylaxis patient is ambulatory and low risk Discussed with patient and nurse Anai Montgomery MD Dec 31, 2016 09:51
[2016-12-31] MEDS: NICOTINE 21 MG/24 HR PATCH T-DERMAL SCH ×2 (09:59→10:00)
[2016-12-31] MEDS: THIAMINE HCL 100 MG TAB PO SCH (10:00)
[2016-12-31] MEDS: GABAPENTIN 300 MG CAP PO SCH ×3 (10:00→18:39)
[2016-12-31] MEDS: LURASIDONE 40 MG TAB PO SCH (10:00)
[2016-12-31] MEDS: FOLIC ACID 1 MG TAB PO SCH (10:00)
[2016-12-31] MEDS: VENLAFAXINE HCL 75 MG TAB PO SCH (10:00)
--- NOTE | 2016-12-31 11:27 | HHI.PYPN ---
Subjective Remarks Patient seen today for psychiatric reevaluation along with ME and nurse in charge, patient seems to have a brighter affect today, but still endorsed symptoms of depression, suicidal thoughts, anhedonia, generalized pessimism. Patient says that her mood today is 5/10, compared with yesterday 3/10, but still feeling quite depressed. She is oriented 3, compliant with medications, no significant side effects. Review of Systems Other No somatic complaints Objective Alert: Yes [place]: Person, Place Mood: Anxious Affect: Restricted Memory Intact: Comment (no formally assessed ) Hallucinations: Other (no at this moment) Delusions: No Delusion Type: Other (not elicited) Suicidal: Ideation (no SI) Homicidal: Ideation (no HI) Insight/Judgment Poor Labs Test 12/30/16 12/30/16 11:50 16:57 White Blood Count 8.5 TH/MM3 Red Blood Count 3.28 MIL/MM3 Hemoglobin 9.9 GM/DL Hematocrit 28.7 % Mean Corpuscular Volume 87.5 FL Mean Corpuscular Hemoglobin 30.2 PG Mean Corpuscular Hemoglobin 34.5 % Concent Red Cell Distribution Width 15.5 % Platelet Count 392 TH/MM3 Mean Platelet Volume 7.4 FL Neutrophils (%) (Auto) 83.8 % Lymphocytes (%) (Auto) 9.7 % Monocytes (%) (Auto) 5.8 % Eosinophils (%) (Auto) 0.4 % Basophils (%) (Auto) 0.3 % Neutrophils # (Auto) 7.1 TH/MM3 Lymphocytes # (Auto) 0.8 TH/MM3 Monocytes # (Auto) 0.5 TH/MM3 Eosinophils # (Auto) 0.0 TH/MM3 Basophils # (Auto) 0.0 TH/MM3 CBC Comment DIFF FINAL Differential Comment Sodium Level 128 MEQ/L Potassium Level 3.6 MEQ/L Chloride Level 93 MEQ/L Carbon Dioxide Level 24.8 MEQ/L Anion Gap 10 MEQ/L Blood Urea Nitrogen 10 MG/DL Creatinine 0.59 MG/DL Estimat Glomerular Filtration 104 ML/MIN Rate Random Glucose 87 MG/DL Hemoglobin A1c 5.0 % Calcium Level 9.1 MG/DL Total Bilirubin 0.2 MG/DL Aspartate Amino Transf 29 U/L (AST/SGOT) Alanine Aminotransferase 16 U/L (ALT/SGPT) Alkaline Phosphatase 116 U/L Total Protein 6.9 GM/DL Albumin 2.9 GM/DL Triglycerides Level 160 MG/DL Cholesterol Level 132 MG/DL LDL Cholesterol 56 MG/DL HDL Cholesterol 44.0 MG/DL Cholesterol/HDL Ratio 3.00 RATIO Nasal Screen MRSA (PCR) MRSA NOT DETECTED Vitals/IOs Vital Signs Date Time Temp Pulse Resp B/P Pulse Ox O2 Delivery O2 Flow Rate FiO2 12/31/16 05:13 97.3 56 16 148/92 95 12/29/16 13:39 Room Air Intake and Output 12/30/16 12/30/16 12/31/16 08:00 16:00 00:00 Intake Total 360 ml 360 ml 1184 ml Balance 360 ml 360 ml 1184 ml Assessment & Plan Problem List: (1) Bipolar affective disorder, depressed Assessment & Plan: Will increase Effexor to 225 mg twice a day. Extensive support, motivation and psychoeducation provided, no withdrawal symptoms present. ICD Code: F31.30 (2) Polysubstance abuse ICD Code: F19.10 (3) Substance intoxication delirium ICD Code: F19.921 Assessment & Plan Estimated LOS: days Justification for Cont. Inpt. Patient has an increased risk of suicidality at a lower level of care. Request HC Surrog/Guard Advoc?: Yes Problem Qualifiers (1) Bipolar affective disorder, depressed: Qualified Code: F31.30 - Bipolar affective disorder, current episode depressed , current episode severity unspecified Jacob Urena MD Dec 31, 2016 11:26
--- NOTE | 2016-12-31 12:39 | MB ---
cc: MURPHY CHURCHILL M.D. DATE OF CONSULTATION: 12/30/2016 REASON FOR CONSULTATION Request to evaluate left patella fracture. HISTORY OF PRESENT ILLNESS Fidelia la is a 61-year-old female who has had complex revision surgery hip replacement on her left lower extremity, who is admitted to the [facility] on 12/29/2016 following overdose on Xanax. The patient does have psychiatric diagnoses. She sustained an injury to her left lower extremity when she fell directly on the knee and had pain. She was found to have a patella fracture and consultation was placed with the undersigned. PAST MEDICAL HISTORY The patient's past medical history is significant for: 1. Polysubstance abuse. 2. Bipolar disorder. PAST SURGICAL HISTORY Her past surgical history is significant for complex revision left hip replacement. MEDICATION Her regular medications are reviewed, significant list maintained in the chart. Please see attached. ALLERGIES Allergies reported to LATEX, CELEBREX, MORPHINE AND NICKEL. PHYSICAL EXAMINATION The patient is lethargic. She has a knee brace in place, from prior discussion with nursing staff, the brace is removed. She does have some swelling and tenderness about the patella, flexed the knee about 45 degrees, the extensor mechanism appears intact. There is no varus-valgus instability. The hip motion is good. The ankle motion is good. Her distal pulses are 2+. Her distal motor, sensory, neurologic examination intact. Her skin is intact with the exception of some swelling and very mild heat about the anterior aspect of the left knee. IMAGING STUDIES X-rays were reviewed which show patella fracture with acceptable alignment. ASSESSMENT Left patella fracture, comminuted but acceptably aligned. MEDICAL DECISION MAKING Her case was discussed, the options of treatment were discussed. The recommendation is knee immobilizer at all times. The patient is allowed to ambulate with knee immobilizer in place and as long as she has assistance and has a walker. She should follow up in the office in 3-4 weeks for reevaluation and repeat x-rays. All of her questions were answered. All the nursing staff questions were answered. MD ADRIEL Rob/RAJAN /10:42 PM /12:26 PM
[2016-12-31] MEDS: hydrOXYzine HCL 50 MG TAB PO PRN ×2 (13:58→20:48)
[2016-12-31] MEDS: LORazepam 1 MG TAB PO PRN (16:49)
[2016-12-31] MEDS: IBUPROFEN 400 MG TAB PO PRN (16:49)
[2016-12-31 17:29] VITALS: BP 107/86; PULSE 66; RESP 17; TEMP 98; O2SAT 99
[2016-12-31] MEDS: MIRTAZAPINE 15 MG TAB PO SCH (20:48)
[2016-12-31] MEDS: diphenhydrAMINE HCL 50 MG CAP PO PRN (20:48)
[2017-01-01] MEDS: IBUPROFEN 400 MG TAB PO PRN ×3 (00:54→19:53)
[2017-01-01] MEDS: hydrOXYzine HCL 50 MG TAB PO PRN ×2 (03:46→10:29)
[2017-01-01 05:42] VITALS: BP 149/82; PULSE 77; RESP 18; TEMP 97.5; O2SAT 99
[2017-01-01] MEDS: NICOTINE 21 MG/24 HR PATCH T-DERMAL SCH (09:00)
[2017-01-01] MEDS: REMOVE OLD PATCH T-DERMAL SCH (09:00)
--- NOTE | 2017-01-01 09:19 | HHI.PR ---
Subjective Remarks Patient in nad. Left knee swelling improving. There is no erythema. No /v/d/c. No fever or chills. Pain is controlled. Objective Vitals Vital Signs Date Time Temp Pulse Resp B/P Pulse Ox O2 Delivery O2 Flow Rate FiO2 01/01/17 05:42 97.5 77 18 149/82 99 12/31/16 17:29 98.0 66 17 107/86 99 I/O 12/31/16 12/31/16 12/31/16 01/01/17 01/01/17 01/01/17 06:59 14:59 22:59 06:59 14:59 22:59 Intake Total 720 ml 1200 ml 840 ml 360 ml 240 ml Balance 720 ml 1200 ml 840 ml 360 ml 240 ml Intake Oral 720 ml 1200 ml 840 ml 360 ml 240 ml # Voids 5 3 5 4 # Bowel Movements 1 1 Result Diagram: 12/30/16 1150 12/30/16 1150 Imaging Last Impressions Knee X-Ray 12/30/16 0000 Signed Impressions: Service Date/Time: Friday, December 30, 2016 09:51 - CONCLUSION: 1. Nondisplaced transverse fracture through the upper one third of the patella. 2. Decreased bone density. 3. Moderate joint effusion. 4. Otherwise intact left knee. Alexi Schafer MD Objective Remarks GENERAL: This is a malnourished appears intoxicated but in no acute distress SKIN: No rashes, ecchymoses or lesions. Cool and dry. Rash home or surface right hand CARDIOVASCULAR: Regular rate and rhythm without murmurs, gallops, or rubs. RESPIRATORY: Clear to auscultation. Breath sounds equal bilaterally. No wheezes , rales, or rhonchi. GASTROINTESTINAL: Abdomen soft, non-tender, nondistended. MUSCULOSKELETAL: Extremities without clubbing, cyanosis, or edema. No joint tenderness, effusion, or edema noted. No calf tenderness. Negative Homans sign bilaterally. NEUROLOGICAL: Awake and alert. No focal deficits appreciated Motor and sensory grossly within normal limits. 4 out of 5 muscle strength upper extremities 3-4 out of 5 lower extremities. Slurred speech A/P Problem List: (1) Alcohol abuse ICD Code: F10.10 Status: Acute (2) Benzodiazepine abuse ICD Code: F13.10 Status: Acute (3) Polysubstance abuse ICD Code: F19.10 Status: Acute (4) Hyponatremia ICD Code: E87.1 Status: Acute Assessment and Plan This is a 61 year-old female patient with past medical history which includes EtOH abuse with EtOH related seizures, hypertension, insomnia, bipolar disorder , GERD, tobacco abuse, chronic pain and recurrent hyponatremia. Patient is currently inpatient psychiatric center after she has combined EtOH with approximately 120 Xanax. Patient has artery been given activated charcoal. We' ve been consulted for assistance with medical management. Patient is currently a poor historian and appears intoxicated and unreliable. Information gathered from patient as well as prior computerized charting. Patient is complaining of left knee pain unable to quantify pain. Patient reports she fell 4 days ago and since then she the left knee has been swollen and painful. There is no open skin. Patient multiple times as requested Xanax as well as pain medication throughout the interview. Bipolar affective disorder, depressed - Management per psychiatric team. Polysubstance abuse - Patient counseled encouraged to abstain EtOH abuse Benzodiazepine overdose Patient has received activated charcoal emergency department CIWA protocol, thiamine and folic acid supplementation Seizure precautions Chronic pain Painful and edematous left knee Nondisplaced transverse fracture upper third of patella with moderate joint effusion and decreased bone density X-ray reviewed: Nondisplaced transverse fracture through the upper one third of the patella. Decreased bone density. 3. Moderate joint effusion. 4. Otherwise intact left knee. Request to obtain records from [facility] patient reports she had CT scan of left knee done 4 days ago at [facility] Tylenol as needed for pain 1-5 with ibuprofen as needed for pain 6-10 Consult ortho for evaluation Hyponatremia- may be chronic due to patient's EtOH abuse Dehydration Hold oxybutynin Normal saline at 84 cc/h Recheck BMP . Monitor Na trend, watch for fast correction History of hypertension monitor blood pressure trend- Clonidine as needed for hypertension Recheck CBC, CMP in a.m. DVT prophylaxis patient is ambulatory and low risk Discussed with patient and nurse Anai Montgomery MD Jan 01, 2017 09:19
--- NOTE | 2017-01-01 09:26 | HHI.PYPN ---
Subjective Remarks Patient seen for psychiatric reevaluation along with TRISTA Thibodeaux, patient endorses mild to moderate symptoms of depression, difficulty sleeping at night, constant craving of benzodiazepines and pain medication. Patient has been in pain due to her patella fracture, but she says that the patient is under control with the gabapentin. Patient seems to be committed to avoiding narcotics. During the evaluation patient is tearful, fragile, she seems to be very vulnerable, at times a little disorganized and confused, she took a long time to think about about suicidality. Patient is oriented in place, partially oriented in time, her concentration is impaired. She has been compliant with medications, no agitation, no aggressive behavior. No significant side effects. He was seen yesterday by orthopedic team, recommendations appreciated. Collateral information from her son was obtained yesterday by health and social care teacher, her son has expressed much concern about the well-being of his mother, he says that if his mother is discharged at this moment she will more likely commit suicide. Review of Systems Musculoskeletal: COMPLAINS OF: Joint pain Psychiatric: COMPLAINS OF: Anxiety, Depression, Suicidal Ideation Objective Alert: Yes [place]: Person, Place (partially) Mood: Anxious, Depressed Affect: Restricted Memory Intact: Comment (no formally assessed ) Hallucinations: Other (no at this moment) Delusions: No Delusion Type: Other (not elicited) Suicidal: Ideation (ambivalent suicidal ideation, no plan) Homicidal: Ideation (no HI) Insight/Judgment Poor Vitals/IOs Vital Signs Date Time Temp Pulse Resp B/P Pulse Ox O2 Delivery O2 Flow Rate FiO2 01/01/17 05:42 97.5 77 18 149/82 99 12/29/16 13:39 Room Air Intake and Output 12/31/16 12/31/16 12/31/16 07:59 15:59 23:59 Intake Total 720 ml 1440 ml 600 ml Balance 720 ml 1440 ml 600 ml Assessment & Plan Problem List: (1) Bipolar affective disorder, depressed Assessment & Plan: Patient continues to show symptomatology of depression, ambivalent suicidal ideation. Patient has a robust History of previous suicidal attempts, she has tried to commit suicide multiple times this year. Family members are not comfortable with discharging her back home alone. She definitely needs to continue psychiatric hospitalization for stabilization. Extensive support, motivation and psychoeducation provided. ICD Code: F31.30 (2) Polysubstance abuse ICD Code: F19.10 (3) Substance intoxication delirium ICD Code: F19.921 Assessment & Plan Estimated LOS: days Justification for Cont. Inpt. Patient continues to show symptoms pathology of depression, ambivalent suicidal ideation, no plan, needs continue psychiatric hospitalization for stabilization. Request HC Surrog/Guard Advoc?: Yes Problem Qualifiers (1) Bipolar affective disorder, depressed: Qualified Code: F31.30 - Bipolar affective disorder, current episode depressed , current episode severity unspecified Jacob Urena MD Jan 01, 2017 09:26
[2017-01-01] MEDS: VENLAFAXINE HCL XR 75 MG CAP PO SCH (09:59)
[2017-01-01] MEDS: GABAPENTIN 300 MG CAP PO SCH ×3 (09:59→17:06)
[2017-01-01] MEDS: THIAMINE HCL 100 MG TAB PO SCH (09:59)
[2017-01-01] MEDS: FOLIC ACID 1 MG TAB PO SCH (09:59)
[2017-01-01] MEDS: LURASIDONE 40 MG TAB PO SCH (09:59)
[2017-01-01 11:10] VITALS: BP 181/85
--- NOTE | 2017-01-01 11:21 | PD.TTN ---
Present for Treatment Team Treatment Team Staff: Provider, Nurse, Psych Therapist, Occupational Therapist Patient Problems 1. Discharge planning 2. Medication compliance 3. Knowledge deficit 4. Lack of coping skills Progress Toward Goals Provider Input: Per Dr. Urena, patient continues to have impairment with short term memory, and there is concern she is at risk for self harm; patient will require placement verse d/c to mother's home. Nurse Input: Tawnya, RN states patient is somewhat compliant with meals, she is eating meals; however family is calling with concern with patient returning to her mother's home. Psych Therapist Input: Counselor will offer patient placement option, fax packages with patient's consent to [facility] and encourage patient to concern a treatment program. Occupational Therapist Input: ANDRA Black, patient has attended limited to no groups due to an injured knee. Morelia Page [facility] Jan 01, 2017 11:21
[2017-01-01 14:30] VITALS: BP 197/92
[2017-01-01] MEDS: LORazepam 1 MG TAB PO PRN ×2 (15:25→21:54)
[2017-01-01 15:39] VITALS: BP 206/114; PULSE 110; RESP 20; O2SAT 100
[2017-01-01 15:40] VITALS: BP 193/95; PULSE 112; O2SAT 100
[2017-01-01] MEDS: LORazepam 2 MG TAB PO SCH (17:06)
[2017-01-01 18:11] VITALS: BP 174/83; PULSE 86; RESP 17; TEMP 98.7
[2017-01-01] MEDS: MIRTAZAPINE 15 MG TAB PO SCH (21:54)
[2017-01-01] MEDS: diphenhydrAMINE HCL 50 MG CAP PO PRN (21:54)
[2017-01-02] MEDS: LORazepam 2 MG TAB PO SCH ×2 (01:28→09:21)
[2017-01-02] MEDS: IBUPROFEN 400 MG TAB PO PRN ×2 (05:13→11:51)
[2017-01-02 05:35] VITALS: BP 123/76; PULSE 95; RESP 16; TEMP 97.6; O2SAT 100
[2017-01-02] MEDS ORDERED: LURA40 PO (08:28)
[2017-01-02] MEDS ORDERED: NEUR300C PO (08:28)
[2017-01-02] MEDS ORDERED: MIRTA15 PO (08:28)
[2017-01-02] MEDS ORDERED: OXCA300T PO (08:28)
[2017-01-02] MEDS ORDERED: VENL75XR PO (08:28)
[2017-01-02] MEDS ORDERED: OXcarbazepine 300 MG TAB PO SCH (09:00)
[2017-01-02] MEDS: REMOVE OLD PATCH T-DERMAL SCH (09:00)
--- NOTE | 2017-01-02 09:09 | HHI.DS ---
Psychiatry Discharge Summary Inpatient Psychiatric care?: Yes Advance Directive: No Reason Not Provided: Due to Patient Condition Mental Health AdvanceDirective: No Health Care Proxy: Yes Admission Admission Date Dec 29, 2016 at 13:43 Admission Diagnosis: (1) Bipolar affective disorder, depressed ICD Code: F31.30 (2) Benzodiazepine abuse ICD Code: F13.10 Brief History Ms. Escobedo is a 61-year-old female with a history of bipolar disorder and alcohol use disorder who presented to the ED under a [place] act alleging that she overdosed on 120 tablets of Xanax and told the officer that she wanted to end her life. Reviewing the electronic medical record, I note that the patient was admitted in August of this year under Dr. Donovan after threatening suicide. Patient seen and examined. Chart reviewed. On my examination today, the patient is presently delirious, I suspect secondary to intoxication with benzodiazepines. See full mental status testing below. She denies making a suicidal overdose. She denies suicidal ideation now but seems decidedly unreliable to contract for safety. Thought process is tangential. She denies audiovisual hallucinations but appears a little internally preoccupied. No konstantin delusions. Psychiatric interview is fairly limited because of her current mental state. Spoke with patient's friend, Felipe Polanco, listed on [employer] Act. He reports that Fidelia called him up to the apartment because she said that she had lost her Xanax. Felipe helped her look, and subsequently found a recently filled, empty bottle of Xanax. When confronted by Felipe, she admitted to him that she made a suicidal overdose. He also notes that she has significant substance use issues. Unable to obtain any meaningful past psychiatric history, family history, chem dep history, or social history from this patient because of her degree of delirium at present. Tobacco Use In Past 30 Days: Cognitive Impairment Alcohol Use: 4 or More Times Per Week Hospital Course Patient was admitted in the med psych unit after an overdose with benzodiazepines. Appropriate safety measures were taken, psychosocial and psychiatric assessment were done. At the beginning of the hospitalization patient was very confused, psychotic, with pronounced perceptual disturbances, tremors, autonomic instability due to benzodiazepine withdrawal. Patient was treated with CIWA protocol, scheduled Ativan that was titrated down as the patient could tolerate. Her medications for bipolar depression was reinitiated. Gabapentin 300 mg 3 times a day was added for pain and also for mood and benzo withdrawal. Patient was seen by the department of orthopedics and medicine for patellar fracture and underlying medical conditions, recommendations were followed. Patient showed a good and appropriate response to medications and psychotherapy. At the moment of the evaluation patient doesn 't present any acute or significant symptomatology of depression, anxiety psychosis or spencer. Results Blood Pressure 123 / 76 Vital Signs Date Time Temp Pulse Resp B/P Pulse Ox O2 Delivery O2 Flow Rate FiO2 01/02/17 05:35 97.6 95 16 123/76 100 12/29/16 13:39 Room Air Laboratory Tests Test 12/30/16 11:50 Red Blood Count 3.28 MIL/MM3 (4.00-5.30) Hemoglobin 9.9 GM/DL (11.6-15.3) Hematocrit 28.7 % (35.0-46.0) Neutrophils (%) (Auto) 83.8 % (16.0-70.0) Lymphocytes # (Auto) 0.8 TH/MM3 (1.0-4.8) Sodium Level 128 MEQ/L (136-145) Chloride Level 93 MEQ/L (98-107) Albumin 2.9 GM/DL (3.4-5.0) Triglycerides Level 160 MG/DL (42-150) Laboratory Results Test 12/30/16 11:50 Hemoglobin A1c 5.0 % (4.3-6.0) Triglycerides Level 160 MG/DL (42-150) Cholesterol Level 132 MG/DL (120-200) LDL Cholesterol 56 MG/DL (0-99) HDL Cholesterol 44.0 MG/DL (40.0-60.0) Summary of Procedures No procedures done Imaging Last Impressions Knee X-Ray 12/30/16 0000 Signed Impressions: Service Date/Time: Friday, December 30, 2016 09:51 - CONCLUSION: 1. Nondisplaced transverse fracture through the upper one third of the patella. 2. Decreased bone density. 3. Moderate joint effusion. 4. Otherwise intact left knee. Alexi Schafer MD Pending results at discharge: No Medications # of Antipsychotic meds at D/C: 1 Approp Antipsych med options 1 - Minimum of three failed multiple trials of monotherapy. 2 - Documented plan to taper to monotherapy due to previous use of multiple meds OR cross-taper in progress at D/C. 3 - Documentation of augmentation of Clozapine. 4 - Justification other than those listed in allowable values 1-3, document here : Discharge Discharge Date: Jan 02, 2017 Discharge Diagnosis: (1) Bipolar affective disorder, depressed ICD Code: F31.30 Mental Status Exam at Disch woman, age appearing, good hygiene, calm and cooperative. Her speech is slow and low tone. Affect is appropriate, mood dysthymic. Thought process is logical, coherent and relevant, thought content is devoid of suicidal and homicidal ideation, paranoia, no delusions. Insight, impulse control, judgment are fair. Cognition is improved. Pt Condition on Discharge: Stable Discharge Disposition: Discharge Home Discharge Instructions Diet Instructions: As Tolerated, No Restrictions, Heart Healthy Diet Scheduled Appointment: [facility] Appointment Date: Jan 06, 2017 Appointment Time: 03:15apm Discharge Time > 30 minutes Discharge/Advance Care Plan Health Problems: (1) Bipolar affective disorder, depressed (2) Polysubstance abuse (3) Substance intoxication delirium Goals to promote your health * To prevent worsening of your condition and complications * To maintain your health at the optimal level Directions to meet your goals Take your medications as prescribed Follow your dietary instruction Follow activity as directed Keep your appointments as scheduled Take your immunizations and boosters as scheduled If your symptoms worsen call your PCP, if no PCP go to Urgent Care Center or Emergency Room For 24/7 questions related to your inpatient stay or results of tests pending at discharge, please contact Dr. Jacob Urena at Smoking is Dangerous to Your Health. Avoid second hand smoking Problem Qualifiers (1) Bipolar affective disorder, depressed: Qualified Code: F31.30 - Bipolar affective disorder, current episode depressed , current episode severity unspecified Jacob Urena MD Jan 02, 2017 09:09
[2017-01-02] MEDS: LURASIDONE 40 MG TAB PO SCH (09:20)
[2017-01-02] MEDS: NICOTINE 21 MG/24 HR PATCH T-DERMAL SCH (09:20)
[2017-01-02] MEDS: FOLIC ACID 1 MG TAB PO SCH (09:20)
[2017-01-02] MEDS: VENLAFAXINE HCL XR 75 MG CAP PO SCH (09:21)
[2017-01-02] MEDS: THIAMINE HCL 100 MG TAB PO SCH (09:21)
[2017-01-02] MEDS: GABAPENTIN 300 MG CAP PO SCH ×2 (09:21→13:34)
[2017-01-02 12:52] VITALS: RESP 18
--- NOTE | 2017-01-02 14:23 | HHI.PR ---
Subjective Remarks The patient is lying in bed since she was able to ambulate with a walker. Left knee pain is better controlled, swelling also is getting down. No fever or chills. No nausea, vomiting, diarrhea or constipation. Eating well. Objective Vitals Vital Signs Date Time Temp Pulse Resp B/P Pulse Ox O2 Delivery O2 Flow Rate FiO2 01/02/17 12:52 18 01/02/17 05:35 97.6 95 16 123/76 100 01/01/17 18:11 98.7 86 17 174/83 01/01/17 15:40 112 193/95 100 01/01/17 15:39 110 20 206/114 100 01/01/17 14:30 197/92 I/O 01/01/17 01/01/17 01/01/17 01/02/17 01/02/17 01/02/17 07:00 15:00 23:00 07:00 15:00 23:00 Intake Total 360 ml 1200 ml 1080 ml 360 ml 1200 ml Balance 360 ml 1200 ml 1080 ml 360 ml 1200 ml Intake Oral 360 ml 1200 ml 1080 ml 360 ml 1200 ml # Voids 4 4 3 Result Diagram: 12/30/16 1150 12/30/16 1150 Objective Remarks GENERAL: This is a malnourished appears intoxicated but in no acute distress SKIN: No rashes, ecchymoses or lesions. Cool and dry. Rash home or surface right hand CARDIOVASCULAR: Regular rate and rhythm without murmurs, gallops, or rubs. RESPIRATORY: Clear to auscultation. Breath sounds equal bilaterally. No wheezes , rales, or rhonchi. GASTROINTESTINAL: Abdomen soft, non-tender, nondistended. MUSCULOSKELETAL: Extremities without clubbing, cyanosis, or edema. No joint tenderness, effusion, or edema noted. No calf tenderness. Negative Homans sign bilaterally. NEUROLOGICAL: Awake and alert. No focal deficits appreciated Motor and sensory grossly within normal limits. 4 out of 5 muscle strength upper extremities 3-4 out of 5 lower extremities. Slurred speech A/P Problem List: (1) Alcohol abuse ICD Code: F10.10 Status: Acute (2) Benzodiazepine abuse ICD Code: F13.10 Status: Acute (3) Polysubstance abuse ICD Code: F19.10 Status: Acute (4) Hyponatremia ICD Code: E87.1 Status: Acute Assessment and Plan This is a 61 year-old female patient with past medical history which includes EtOH abuse with EtOH related seizures, hypertension, insomnia, bipolar disorder , GERD, tobacco abuse, chronic pain and recurrent hyponatremia. Patient is currently inpatient psychiatric center after she has combined EtOH with approximately 120 Xanax. Patient has artery been given activated charcoal. We' ve been consulted for assistance with medical management. Patient is currently a poor historian and appears intoxicated and unreliable. Information gathered from patient as well as prior computerized charting. Patient is complaining of left knee pain unable to quantify pain. Patient reports she fell 4 days ago and since then she the left knee has been swollen and painful. There is no open skin. Patient multiple times as requested Xanax as well as pain medication throughout the interview. Bipolar affective disorder, depressed - Management per psychiatric team. Polysubstance abuse - Patient counseled encouraged to abstain EtOH abuse Benzodiazepine overdose Patient has received activated charcoal emergency department CIWA protocol, thiamine and folic acid supplementation Seizure precautions Chronic pain Painful and edematous left knee Nondisplaced transverse fracture upper third of patella with moderate joint effusion and decreased bone density X-ray reviewed: Nondisplaced transverse fracture through the upper one third of the patella. Decreased bone density. 3. Moderate joint effusion. 4. Otherwise intact left knee. Request to obtain records from [facility] patient reports she had CT scan of left knee done 4 days ago at [facility] Tylenol as needed for pain 1-5 with ibuprofen as needed for pain 6-10 Consult ortho for evaluation Hyponatremia- may be chronic due to patient's EtOH abuse Dehydration Hold oxybutynin Normal saline at 84 cc/h Recheck BMP . Monitor Na trend, watch for fast correction History of hypertension monitor blood pressure trend- Clonidine as needed for hypertension Recheck CBC, CMP in a.m. DVT prophylaxis patient is ambulatory and low risk Discussed with patient and nurse Anai Montgomery MD Jan 02, 2017 14:23
== END 2017-01-02 14:10 | disposition home or self-care (01) | DRG 885 ==
LOC: NEPE 08:57 → NEDA 13:43 → H4EA 15:00
PROVIDERS: ADMIT Psychiatry & Neurology Psychiatry; ATTEND Psychiatry & Neurology Psychiatry
DX: F31.30 Bipolar disorder, current episode depressed, mild or moderate severity, unspecified (principal); F10.121 Alcohol abuse with intoxication delirium; R45.851 Suicidal ideations; S82.045A Nondisplaced comminuted fracture of left patella, initial encounter for closed fracture; D64.9 Anemia, unspecified; I10 Essential (primary) hypertension; E87.1 Hypo-osmolality and hyponatremia; F13.239 Sedative, hypnotic or anxiolytic dependence with withdrawal, unspecified; T42.4X2A Poisoning by benzodiazepines, intentional self-harm, initial encounter; F17.210 Nicotine dependence, cigarettes, uncomplicated; F41.9 Anxiety disorder, unspecified; K21.9 Gastro-esophageal reflux disease without esophagitis; Y90.6 Blood alcohol level of 120-199 mg/100 ml; W19.XXXA Unspecified fall, initial encounter; G89.29 Other chronic pain; E86.0 Dehydration; Z96.642 Presence of left artificial hip joint; Z91.5 Personal history of self-harm
CPT/HCPCS: 73564; 76937; 80048; 80053; 80061; 80307; 83036; 85025; 87641; 93005; 96374; J1630; J2060; J7030; L1830; Q0163

== ENCOUNTER 2017-01-09 23:17 | Inpatient (IN) | payer MEDICAID, OTHER ==
[~2017-01-09] VITALS: Ht 160 cm; Wt 45.4 kg
[~2017-01-09 23:17] MED LIST changes: +MIRTA15 PO; +NEUR300C PO; +VENL75XR PO
[2017-01-09 23:21] VITALS: BP 135/97; PULSE 102; RESP 25; TEMP 99.7; O2SAT 97
[2017-01-09] MEDS ORDERED: SODIUM CHLOR 0.9% 1000 ML INJ 1,000 ML IV SCH (23:47)
--- NOTE | 2017-01-09 23:47 | PD ---
HPI Chief Complaint: Altered Mental Status Time Seen by Provider: 23:46 Travel History International Travel<30 days: No Contact w/Intl Traveler<30days: No Traveled to known affect area: No History of Present Illness HPI 61-year-old female was brought to the emergency room by EMS after she was found altered mental status in her house. Patient was seen her baseline mental status 2 days ago by family. Patient is by herself. She has significant psych history and is on multiple psych medications. As per the family to the paramedics patient has a habit of abusing her prescribed medications. She was nonverbal, jaw clenched and tight shut and frequent tremors and fasciculation on her face and rest of the body. She was tachycardic upon arrival. Her blood glucose was 108 as per paramedics. Rectal temp was 100F. Patient is unable to give any meaningful history given her condition. Patient is on extensive amount of psych medications. PFSH Past Medical History Narrative Medical List of her past medical, surgical, social and family history is reviewed from the nursing note. Hx Anticoagulant Therapy: Yes (STOPPED HERSELF YESTERDAY) Arthritis: Yes Autoimmune Disease: No Blood Disorders: No Bipolar Disorder: Yes Anxiety: Yes Depression: Yes Cancer: No Cardiovascular Problems: No Chemotherapy: No Cerebrovascular Accident: No Diabetes: No Diminished Hearing: No Endocrine: No GERD: Yes Glaucoma: No Genitourinary: No Headaches: No Hiatal Hernia: No Immune Disorder: No Neurologic: No Psychiatric: Yes (Bipolar dosorder) Reproductive: No Respiratory: No Immunizations Current: Yes (flu and pneumonia shot-2006.) Migraines: Yes Radiation Therapy: No Seizures: Yes Thyroid Disease: No Ulcer: Yes ?: Not Menopausal: Yes : 1 Para: 1 Tubal Ligation: Yes Past Surgical History Abdominal Surgery: No AICD: No Appendectomy: No Arteriovenous Shunt: No Body Medical Devices: CULLEN IN LEFT THIGH, SCREWS IN HIP Cardiac Surgery: No Cholecystectomy: No Ear Surgery: No Endocrine Surgery: No Eye Surgery: No Genitourinary Surgery: No Gynecologic Surgery: No Hysterectomy: No Insulin Pump: No Joint Replacement: No Neurologic Surgery: No Oral Surgery: No Pacemaker: No Thoracic Surgery: No Other Surgery: Yes (multiple surgeries on left hip) Social History Alcohol Use: Yes (OCC) Tobacco Use: Yes (1 PPD) Substance Use: No Allergies-Medications (Allergen,Severity, Reaction): Coded Allergies: latex (Unverified Allergy, Intermediate, Rash, 01/07/17) fosphenytoin (Unverified Adverse Reaction, Severe, TINNITIS, 01/07/17) morphine (Unverified Adverse Reaction, Intermediate, Dizzy, 01/07/17) Uncoded Allergies: NICKEL (Adverse Reaction, Severe, SWELLING, 02/02/16) Comments List of her allergies reviewed from the nursing note. Reported Meds & Prescriptions Reported Meds & Active Scripts Active Latuda (Lurasidone) 40 Mg Tab 40 Mg PO DAILY Effexor XR 24 HR (Venlafaxine HCl) 75 Mg Cap 225 Mg PO DAILY Oxcarbazepine 300 Mg Tab 300 Mg PO DAILY Mirtazapine 15 Mg Tab 45 Mg PO HS Neurontin (Gabapentin) 300 Mg Cap 300 Mg PO TID Trazodone (Trazodone HCl) 300 Mg Tab 300 Mg PO HS Oxcarbazepine 300 Mg Tab 300 Mg PO DAILY Reported Hydrochlorothiazide 25 Mg Tab 25 Mg PO DAILY Fluconazole 150 Mg Tab 150 Mg PO ONCE Alendronate (Alendronate Sodium) 70 Mg Tab 70 Mg PO Q7D Ditropan (Oxybutynin Chloride) 5 Mg Tab 5 Mg PO Q12HR Effexor (Venlafaxine HCl) 75 Mg Tab 150 Mg PO Q12H Gabapentin 300 Mg Cap 300 Mg PO HS Folic Acid 800 Mcg Tab 1 Mg PO DAILY Narrative Medication List of her home medications reviewed from the nursing note. Review of Systems Except as stated in HPI: all other systems reviewed are Neg Physical Exam Narrative GENERAL: Altered mental status, emaciated, nonverbal, significant distress SKIN: Focused skin assessment warm/dry. Skin tenting HEAD: Atraumatic. Normocephalic. EYES: Pupils equal and round. No scleral icterus. No injection or drainage. ENT: No nasal bleeding or discharge. Mucous membranes pink and moist. NECK: Trachea midline. No JVD. CARDIOVASCULAR: Regular rate and rhythm. No murmur appreciated. RESPIRATORY: No accessory muscle use. Clear to auscultation. Breath sounds equal bilaterally. GASTROINTESTINAL: Abdomen soft, non-tender, nondistended. Hepatic and splenic margins not palpable. MUSCULOSKELETAL: No obvious deformities. No clubbing. No cyanosis. No edema. NEUROLOGICAL: Awake but jaws tightly clenched and nonverbal. Extremities rigid. Hyperreflexia on bilateral patellar reflex PSYCHIATRIC: Unable to assess Data Data Last Documented VS Vital Signs Date Time Temp Pulse Resp B/P (MAP) Pulse Ox O2 Delivery O2 Flow Rate FiO2 01/10/17 00:29 124 18 151/87 (108) 96 Room Air 01/10/17 00:17 100.0 Orders Orders Electrocardiogram (01/09/17 23:47) Ammonia (01/09/17 23:47) Complete Blood Count With Diff (01/09/17 23:47) Comprehensive Metabolic Panel (01/09/17 23:47) Creatine Kinase (Cpk) (01/09/17 23:47) Prothrombin Time / Inr (Pt) (01/09/17 23:47) Troponin I (01/09/17 23:47) Thyroid Stimulating Hormone (01/09/17 23:47) Urinalysis - C+S If Indicated (01/09/17 23:47) Lactic Acid Sepsis Protocol (01/09/17 23:47) Blood Culture (01/09/17 23:47) Chest, Single Ap (01/09/17 23:47) Ct Brain W/O Iv Contrast(Rout) (01/09/17 23:47) Blood Glucose (01/09/17 23:47) Ecg Monitoring (01/09/17 23:47) Iv Access Insert/Monitor (01/09/17 23:47) Oximetry (01/09/17 23:47) Sodium Chloride 0.9% Flush (Ns Flush) (01/10/17 00:00) Sodium Chlor 0.9% 1000 Ml Inj (Ns 1000 M (01/09/17 23:47) Drug Screen, Random Urine (01/09/17 23:47) Alcohol (Ethanol) (01/09/17 23:47) Tylenol (Acetaminophen) (01/09/17 23:47) Salicylates (Aspirin) (01/09/17 23:47) Sodium Chlor 0.9% 1000 Ml Inj (Ns 1000 M (01/10/17 00:00) Magnesium (Mg) (01/09/17 23:47) Lorazepam Inj (Ativan Inj) (01/10/17 00:00) Sodium Chlor 0.9% 1000 Ml Inj (Ns 1000 M (01/10/17 00:00) Urine Culture (01/10/17 00:00) Ceftriaxone Inj (Rocephin Inj) (01/10/17 00:45) Lorazepam Inj (Ativan Inj) (01/10/17 00:45) Cyproheptadine Liq (Periactin Liq) (01/10/17 00:45) Admit Order (Ed Use Only) (01/10/17 01:13) Labs Laboratory Tests Test 01/10/17 00:00 White Blood Count 14.2 TH/MM3 Red Blood Count 3.70 MIL/MM3 Hemoglobin 11.1 GM/DL Hematocrit 33.6 % Mean Corpuscular Volume 90.7 FL Mean Corpuscular Hemoglobin 29.9 PG Mean Corpuscular Hemoglobin Concent 33.0 % Red Cell Distribution Width 15.4 % Platelet Count 615 TH/MM3 Mean Platelet Volume 7.2 FL Neutrophils (%) (Auto) 81.0 % Lymphocytes (%) (Auto) 10.2 % Monocytes (%) (Auto) 8.3 % Eosinophils (%) (Auto) 0.1 % Basophils (%) (Auto) 0.4 % Neutrophils # (Auto) 11.5 TH/MM3 Lymphocytes # (Auto) 1.4 TH/MM3 Monocytes # (Auto) 1.2 TH/MM3 Eosinophils # (Auto) 0.0 TH/MM3 Basophils # (Auto) 0.1 TH/MM3 CBC Comment DIFF FINAL Differential Comment Prothrombin Time 11.1 SEC Prothromb Time International Ratio 1.0 RATIO Urine Color YELLOW Urine Turbidity HAZY Urine pH 6.0 Urine Specific Toyah 1.031 Urine Protein 30 mg/dL Urine Glucose (UA) NEG mg/dL Urine Ketones NEG mg/dL Urine Occult Blood NEG Urine Nitrite NEG Urine Bilirubin NEG Urine Urobilinogen 2.0 MG/DL Urine Leukocyte Esterase MOD Urine RBC 3 /hpf Urine WBC 7 /hpf Urine Squamous Epithelial Cells 3 /hpf Urine Bacteria RARE /hpf Urine Mucus FEW /lpf Microscopic Urinalysis Comment CATH-CULTURE IND Blood Urea Nitrogen 35 MG/DL Creatinine 0.82 MG/DL Random Glucose 112 MG/DL Total Protein 7.7 GM/DL Albumin 3.4 GM/DL Calcium Level 9.3 MG/DL Magnesium Level 1.9 MG/DL Alkaline Phosphatase 127 U/L Aspartate Amino Transf (AST/SGOT) 70 U/L Alanine Aminotransferase (ALT/SGPT) 67 U/L Total Bilirubin 0.2 MG/DL Sodium Level 141 MEQ/L Potassium Level 3.8 MEQ/L Chloride Level 108 MEQ/L Carbon Dioxide Level 25.3 MEQ/L Anion Gap 8 MEQ/L Estimat Glomerular Filtration Rate 71 ML/MIN Lactic Acid Level 0.9 mmol/L Ammonia 12 MCMOL/L Total Creatine Kinase 19 U/L Troponin I LESS THAN 0.02 NG/ML Thyroid Stimulating Hormone 3rd Gen 1.660 uIU/ML Salicylates Level LESS THAN 1.7 MG/DL Urine Opiates Screen NEG Acetaminophen Level LESS THAN 2.0 MCG/ML Urine Barbiturates Screen NEG Urine Amphetamines Screen NEG Urine Benzodiazepines Screen NEG Urine Cocaine Screen NEG Urine Cannabinoids Screen NEG Ethyl Alcohol Level LESS THAN 3 MG/DL MDM Medical Decision Making Medical Screen Exam Complete: Yes Emergency Medical Condition: Yes Medical Record Reviewed: Yes Interpretation(s) Twelve-lead EKG was reviewed by me. Normal sinus rhythm, normal axis, tachycardia, nonspecific ST-T wave changes. Heart rate of 102 bpm. Differential Diagnosis Serotonin syndrome, meningitis, sepsis Narrative Course 12:55 AM patient was given IV 1 mg Ativan upon arrival along with 2 L of IV fluid bolus. After which patient started to open her eyes and try to sit up. Jaw was still clenched. I've ordered 2 more milligrams of IV Ativan. Blood test result shows leukocytosis, thrombocytosis and slightly elevated LFTs. UA suggestive of UTI. Patient is given 1 g of IV Rocephin. I have ordered a third liter of IV fluid bolus as well. After 2 more milligrams of IV Ativan patient is now sitting up and talking and she asked for some sandwich. Patient in my opinion has serotonin syndrome which is significantly improved after giving the benzodiazepine. She is on significant amount of psych medications including Effexor, trazodone and Wellbutrin all of which currently to serotonin syndrome. I've admitted the patient to the ICU. She has a Arevalo catheter and so far made less than 50 ML of urine. Please refer to my procedure note for IV insertion. Her chest x-ray and CT scan was within normal limits. Critical Care Narrative Aggregate critical care time was 45 minutes. Time to perform other separately billable procedures was not included in the critical care time. My time did not include minutes spent treating any other patients simultaneously or on activities that did not directly contribute to the patient's treatment. The services I provided to this patient were to treat and/or prevent clinically significant deterioration that could result in: Severe dehydration, serotonin syndrome, 3 L IV fluid bolus for fluid resuscitation I provided critical care services requiring my management, as noted below: Chart data review, documentation time, medication orders and management, vital sign assessments/reviewing monitor data, ordering and reviewing lab tests, ordering and interpreting/reviewing x-rays and diagnostic studies, care of the patient and discussion of the patient with the admitting physicians. Procedures Procedure Narrative Emergency department US guided peripheral IV was performed with patient consent. Linear probe was used in the transverse views of the peripheral vein to assist with vascular access. Right EJ and right upper extremity IV was inserted by me. Patient tolerated the procedure well. EKG Prior to Arrival: No Physician Communication Physician Communication Dr. Timmons Diagnosis Primary Impression: Serotonin syndrome Additional Impressions: Altered mental status Dehydration UTI (urinary tract infection) Qualified Codes: N39.0 - Urinary tract infection, site not specified Admitting Information Admitting Physician Requests: Admit Scripts Alprazolam (Alprazolam) 2 Mg Tab 2 MG PO Q8H Y for ANXIETY, #10 TAB Prov: Freddy Connell MD 01/13/17 Cristel Ugalde MD Jan 09, 2017 23:47
[2017-01-10] VITALS (26 sets, daily range): BP systolic 118–151; BP diastolic 62–87; PULSE 75–124; RESP 16–35; TEMP 98–100; O2SAT 96–100
[2017-01-10] MEDS ORDERED: SODIUM CHLORIDE 0.9% FLUSH 5 ML FLUSH IV FLUSH PRN
[2017-01-10] MEDS ORDERED: SODIUM CHLOR 0.9% 1000 ML INJ 1,000 ML IV ONE ×2
[2017-01-10 00:13] LABS: BACTERIA, URINE RARE /hpf; BLOOD, URINE NEG (NEG); GLUCOSE,URINE NEG (NEG); KETONE, URINE NEG (NEG); MUCUS URINE FEW /lpf (OCC); NITRITE,URINE NEG (NEG); SQUAMOUS EPITHELIAL CELL URINE 3 /hpf (0-5); URINE COLOR YELLOW (YELLW/STRAW)
[2017-01-10 00:14] LABS: COMMENT (UR) CATH-CULTURE IND; CULTURE IF INDICATED CATH CULTURE IND
[2017-01-10 00:15] LABS: AUTOMATED NEUTROPHIL # 11.5 TH/MM3 (1.8-7.7); BASOPHIL # 0.1 TH/MM3 (0-0.2); BASOPHIL % 0.4 % (0.0-2.0); EOSINOPHIL % 0.1 % (0.0-4.0); HEMATOCRIT 33.6 % (35.0-46.0); HEMO FLAGS DIFF FINAL; LYMPH % 10.2 % (9.0-44.0); LYMPHOCYTE # 1.4 TH/MM3 (1.0-4.8); MEAN CELL VOLUME 90.7 FL (80.0-100.0); MEAN CORPUSCULAR HEMOGLOBIN 29.9 PG (27.0-34.0); MONO % 8.3 % (0.0-8.0); PLATELET COUNT 615 TH/MM3 (150-450); RED CELL DISTRIBUTION WIDTH 15.4 % (11.6-17.2); WHITE BLOOD COUNT 14.2 TH/MM3 (4.0-11.0)
[2017-01-10 00:22] LABS: PROTHROMBIN TIME - PATIENT 11.1 SEC (9.8-11.6)
[2017-01-10 00:30] LABS: ALT (GPT) 67 U/L (10-53); ANION GAP 8 MEQ/L (5-15); AST (GOT) 70 U/L (15-37); BICARBONATE 25.3 MEQ/L (21.0-32.0); BLOOD UREA NITROGEN 35 MG/DL (7-18); CHLORIDE 108 MEQ/L (98-107); GLOMERULAR FILTRATION RATE 71 ML/MIN (>89); MAGNESIUM 1.9 MG/DL (1.5-2.5); POTASSIUM 3.8 MEQ/L (3.5-5.1); SODIUM (NA) 141 MEQ/L (136-145)
[2017-01-10 00:31] LABS: ALCOHOL LESS THAN 3 MG/DL (0-5)
[2017-01-10 00:39] LABS: ALKALINE PHOSPHATASE 127 U/L (45-117); TOTAL BILIRUBIN ADULT 0.2 MG/DL (0.2-1.0)
[2017-01-10 00:41] LABS: CREATINE KINASE 19 U/L (26-192)
[2017-01-10 00:42] LABS: ACETAMINOPHEN LESS THAN 2.0 MCG/ML (10.0-30.0)
[2017-01-10] MEDS ORDERED: LORazepam 2 MG/ML VIAL IV PUSH ONE ×2 (00:45)
[2017-01-10] MEDS ORDERED: CYPROHEPTADINE HCL SYRUP 2 MG/5 ML PO ONE (00:45)
[2017-01-10] MEDS ORDERED: cefTRIAXone INJ 1,000 MG in SODIUM CHLORIDE 0.9% INJ 100 ML IV ONE (00:45)
--- NOTE | 2017-01-10 00:46 | RADRPT ---
EXAM DATE/TIME: 01/10/2017 00:07 [facility] COMPARISON: CHEST SINGLE AP, November 18, 2016, 12:52. INDICATIONS : Altered mental status with facial twitching. MEDICAL HISTORY : Gastroesophageal reflux disease. Gastrointestinal bleed. SURGICAL HISTORY : Tubal ligation. ENCOUNTER: Initial ACUITY: 1 day PAIN SCORE: Non-responsive. LOCATION: Bilateral chest FINDINGS: A single view of the chest demonstrates the lungs to be symmetrically aerated without evidence of mas s, infiltrate or effusion. The cardiomediastinal contours are unremarkable. There appears to be an o ld fracture deformity of the proximal right humerus. Osseous structures are otherwise intact. CONCLUSION: No acute cardiopulmonary process. Vernon Siegel MD on January 10, 2017 at 0:35 Board Certified Radiologist. This report was verified electronically.
--- NOTE | 2017-01-10 00:48 | RADRPT ---
EXAM DATE/TIME: 01/10/2017 00:11 [facility] COMPARISON: CT BRAIN W/O CONTRAST, November 18, 2016, 11:26. INDICATIONS : Alered mental status. RADIATION DOSE: 56.35 CTDIvol (mGy) MEDICAL HISTORY : Seizures. Gastroesophageal reflux disease. SURGICAL HISTORY : Tubal ligation. ENCOUNTER: Initial ACUITY: 1 day PAIN SCALE: Non-responsive LOCATION: cranial TECHNIQUE: Multiple contiguous axial images were obtained of the head. Using automated exposure control and adj ustment of the mA and/or kV according to patient size, radiation dose was kept as low as reasonably a chievable to obtain optimal diagnostic quality images. DICOM format image data is available electro nically for review and comparison. FINDINGS: CEREBRUM: The ventricles are normal for age. No evidence of midline shift, mass lesion, hemorrhage or acute in farction. No extra-axial fluid collections are seen. POSTERIOR FOSSA: The cerebellum and brainstem are intact. The 4th ventricle is midline. The cerebellopontine angle i s unremarkable. EXTRACRANIAL: The visualized portion of the orbits is intact. Stable opacification of the left maxillary antrum. SKULL: The calvaria is intact. No evidence of skull fracture. CONCLUSION: 1. Chronic left maxillary antral sinusitis. 2. Otherwise negative. No acute intracranial process to explain current clinical symptoms Vernon Siegel MD on January 10, 2017 at 0:44 Board Certified Radiologist. This report was verified electronically.
[2017-01-10] MEDS ORDERED: CHLORHEXIDINE GLUCONATE 2 % 1 PACK (2 CLOTHS) TOP PRN (01:30)
[2017-01-10] MEDS ORDERED: SENNOSIDES 8.6 MG TAB PO PRN (01:30)
[2017-01-10] MEDS ORDERED: LACTULOSE SYRUP 20 GM/30 ML CUP PO PRN (01:30)
[2017-01-10] MEDS ORDERED: MISCELLANEOUS NURSING INFORMATION XX SCH (01:30)
[2017-01-10] MEDS ORDERED: MAGNESIUM HYDROXIDE SUSP 30 ML CUP PO PRN (01:30)
[2017-01-10] MEDS ORDERED: BISACODYL 10 MG SUPP RECTAL PRN (01:30)
[2017-01-10] MEDS ORDERED: SODIUM CHLORIDE 0.9% FLUSH 10 ML FLUSH IV FLUSH PRN (01:30)
--- NOTE | 2017-01-10 01:42 | HHI.HP ---
[facility] Service Critical Care Medicine Primary Care Physician Unknown Admission Diagnosis altered mental status, serotonin syndrome, dehydration Diagnosis: (1) Serotonin syndrome (2) Altered mental status (3) UTI (urinary tract infection) (4) Dehydration Travel History International Travel<30 Days: No Contact w/Intl Traveler <30 Da: No Traveled to Known Affected Are: No History of Present Illness History is limited because patient has altered mental status. She has not accompanied by anyone in the emergency department. 61 year-old female with past medical history of bipolar disorder, chronic pain, polysubstance abuse who presents to [facility] emergency department when she was found altered at home. She was reportedly last seen at baseline mental status 2 days ago. She has recently been hospitalized in [facility] following benzodiazepine overdose. She was discharged 01/02/17. She presented to [facility] via [facility]. She is well-known to [facility] due to history of abusing prescribed medications. Upon presentation she was nonverbal. Her jaw was clenched and she had tremor and fasciculations. She was tachycardic. Rectal Temperature was 100.0. Reportedly she was flushed but not diaphoretic. Her blood glucose is 108. She was suspected to have serotonin syndrome. She improved after Ativan 3 mg IV and became became less tremulous, more alert. She was given 3 L normal saline bolus. She was initially oliguric but subsequently had 400 of urine output after the boluses. She is on multiple serotonergic drugs (Latuda, Effexor, Remeron, Oxycarbezepmine). Several hours after her initial evaluation, her son called and states that her benzos were discontinued during her last psych admission and she has been overmedicating herself with her other serotonergic meds. She denies headache, neck pain, chest pain, shortness of breath. She states she has chronic back/hip pain and has had left knee pain after recent patellar fx. Review of Systems Respiratory: COMPLAINS OF: Cough Psychiatric: COMPLAINS OF: Confusion Past Family Social History Allergies: Coded Allergies: latex (Unverified Allergy, Intermediate, Rash, 01/07/17) fosphenytoin (Unverified Adverse Reaction, Severe, TINNITIS, 01/07/17) morphine (Unverified Adverse Reaction, Intermediate, Dizzy, 01/07/17) Uncoded Allergies: NICKEL (Adverse Reaction, Severe, SWELLING, 02/02/16) Past Medical History Bipolar disorder Seizure disorder Chronic pain h/o benzo overdose Recent L patellar fracture, evaluated by Dr. Clifton Hansen 12/31/16. Supposed to be wearing a knee immobilizer but was not wearing it upon arrival. Past Surgical History History limited due to patient's mental status. 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 Gaviria 10/11/09) ORIF left femoral neck fracture with IM darron Reported Medications Oxycarbazepine 300 milligrams by mouth daily Effexor 25 mg by mouth daily Remeron 45 mill grams by mouth daily at bedtime Latuda 40 mEq by mouth daily Neurontin 300 mg po 3 times a day Family History Patient states her mother is still living at age 85 Patient states her father's from lung cancer at age 76 Social History Patient states she had a history of heavy alcohol use several years ago when she found out her was cheating on her. She states now she drinks wine occasionally 1-2 drinks at a time. Denies illicit drug use. She is states she "started smoking later in life" she states she currently smokes about 5 cigarettes per day Patient states she lives with a male roommate and they "take care of each other " Physical Exam Vital Signs Vital Signs Date Time Temp Pulse Resp B/P Pulse Ox O2 Delivery O2 Flow Rate FiO2 01/10/17 01:30 100 16 127/77 100 Room Air 01/10/17 00:29 124 18 151/87 96 Room Air 01/10/17 00:18 18 97 Room Air 01/10/17 00:17 100.0 108 18 127/62 97 Room Air 01/09/17 23:28 102 22 98 Room Air 01/09/17 23:21 99.7 102 25 135/97 97 Physical Exam GENERAL: Well-nourished, well-developed patient who is confused, tremulous, laying in ED stretcher. SKIN: Warm and dry, no diaphoresis noted. HEAD: Atraumatic. Normocephalic. EYES: Pupils 5 mm, round, reactive to 3mm bilaterally. No scleral icterus. No injection or drainage. ENT: No nasal bleeding or discharge. Mucous membranes dry. She is repeatedly removing and replacing her upper dentures. NECK: Trachea midline. No JVD. No meningismus CARDIOVASCULAR: Tachycardic, sinus tach on the monitor with rate 102-105.. No murmurs rubs or gallops. RESPIRATORY: Mildly tachypneic with No accessory muscle use. Clear to auscultation. Breath sounds equal bilaterally. On room air GASTROINTESTINAL: Abdomen soft, non-tender, nondistended. Scar at navel from prior piercing. Bowel sounds present. MUSCULOSKELETAL: Extremities without clubbing, cyanosis, or edema.. NEUROLOGICAL: Awake, anxious appearing, tremulous. Speech is tangential during questioning. Oriented to year, hospital. Answered president correctly after multiple guesses. No obvious cranial nerve deficits. No nystagmus noted though does not fully cooperate with EOM. Moving all extremities spontaneously without focal deficit. Did follow commands by squeezing hands bilaterally and moving feet bilaterally. Deep tendon reflexes are 3+ patellar and Achilles bilaterally. Positive ankle clonus bilaterally. No asterixis. Laboratory Laboratory Tests Test 01/10/17 00:00 White Blood Count 14.2 Red Blood Count 3.70 Hemoglobin 11.1 Hematocrit 33.6 Mean Corpuscular Volume 90.7 Mean Corpuscular Hemoglobin 29.9 Mean Corpuscular Hemoglobin 33.0 Concent Red Cell Distribution Width 15.4 Platelet Count 615 Mean Platelet Volume 7.2 Neutrophils (%) (Auto) 81.0 Lymphocytes (%) (Auto) 10.2 Monocytes (%) (Auto) 8.3 Eosinophils (%) (Auto) 0.1 Basophils (%) (Auto) 0.4 Neutrophils # (Auto) 11.5 Lymphocytes # (Auto) 1.4 Monocytes # (Auto) 1.2 Eosinophils # (Auto) 0.0 Basophils # (Auto) 0.1 CBC Comment DIFF FINAL Differential Comment Prothrombin Time 11.1 Prothromb Time International 1.0 Ratio Urine Color YELLOW Urine Turbidity HAZY Urine pH 6.0 Urine Specific [place] 1.031 Urine Protein 30 Urine Glucose (UA) NEG Urine Ketones NEG Urine Occult Blood NEG Urine Nitrite NEG Urine Bilirubin NEG Urine Urobilinogen 2.0 Urine Leukocyte Esterase MOD Urine RBC 3 Urine WBC 7 Urine Squamous Epithelial 3 Cells Urine Bacteria RARE Urine Mucus FEW Microscopic Urinalysis Comment CATH-CULTURE IND Sodium Level 141 Potassium Level 3.8 Chloride Level 108 Carbon Dioxide Level 25.3 Anion Gap 8 Blood Urea Nitrogen 35 Creatinine 0.82 Estimat Glomerular Filtration 71 Rate Random Glucose 112 Calcium Level 9.3 Magnesium Level 1.9 Total Bilirubin 0.2 Aspartate Amino Transf 70 (AST/SGOT) Alanine Aminotransferase 67 (ALT/SGPT) Alkaline Phosphatase 127 Ammonia 12 Total Creatine Kinase 19 Troponin I LESS THAN 0.02 Total Protein 7.7 Albumin 3.4 Thyroid Stimulating Hormone 1.660 3rd Gen Salicylates Level LESS THAN 1.7 Urine Opiates Screen NEG Acetaminophen Level LESS THAN 2.0 Urine Barbiturates Screen NEG Urine Amphetamines Screen NEG Urine Benzodiazepines Screen NEG Urine Cocaine Screen NEG Urine Cannabinoids Screen NEG Ethyl Alcohol Level LESS THAN 3 Date/Time Procedure Status Source Growth 01/10/17 00:20 Aerobic Blood Culture Received Blood Peripheral Pending 01/10/17 00:20 Anaerobic Blood Culture Received Blood Peripheral Pending 01/10/17 00:00 Urine Culture Received Urine Catheterized Urine Pending Result Diagram: 01/10/17 0000 01/10/17 0000 Assessment and Plan Problem List: (1) Seizure disorder ICD Code: G40.909 Status: Chronic (2) Serotonin syndrome ICD Code: G25.79 Status: Acute (3) Altered mental status ICD Code: R41.82 Status: Acute (4) UTI (urinary tract infection) ICD Code: N39.0 Status: Acute (5) Dehydration ICD Code: E86.0 Status: Acute (6) Benzodiazepine abuse ICD Code: F13.10 Status: Acute Assessment and Plan NEURO: Serotonin syndrome Possible component of benzo withdrawal Seizure disorder Bipolar disorder Patient is anxious, tremulous-appearing, tachycardic with mydriasis. Recently discontinued benzodiazepine but has a history of self medicating with prescription medications so unknown whether she was still taking some benzodiazepines on and off (UDS negative). There is overlap of mentioned symptoms with benzodiazepine withdrawal and serotonin syndrome, however with her significant hyperreflexia and clonus this definitely appears to be component of serotonin syndrome. Inciting meds are held (Latuda, Effexor, remeron, oxycarbazepine, flexeril, neurontin). Supportive care with benzos. Hemodynamics improved after benzos. Received cyproheptadine 12 mg in the ED but do not plan to dose again unless symptoms worsen/hemodynamic change.Will ultimately need assistance of psychiatry for med management. She has recurrent admissions due to overdose of prescription meds and is well known to Dr. Urena.He states he will accept on med psych when medically cleared and likely patient will need disposition to [facility] after this, as he does not feel she will ever manage meds appropriately in her current living situation and there are risks with overdose regardless of what modality is used to treat her anxiety/pain/seizure d/o. UDS negative 01/10. APAP, salicylate negative. CT brain 01/09/17no acute abnormality RESP: Tobacco abuse ?COPD On room air. Does have repeated coughing. Albuterol q2 hours as needed. Will cover atypical organisms with azithromycin. CV: Sinus tachycardia secondary to serotonin syndrome/benzo withdrawal Improving after ativan/IVF GI: Regular diet FEN/RENAL: Acute dehydration Arevalo in place. Monitor intake and output. Monitor electrolytes. Replace as indicated. Urine output improving. Received 3 L normal saline bolus. Continue D5 0.45 NaCl with 20 mEq KCl per liter at 125 mL per hour. Will back off when patient is taking by mouth. ID: Leukocytosis UTI Urinalysis with moderate leukocyte esterase and rare bacteria, 7 white blood cell count. Patient does not report dysuria but she is a difficult historian. Urine culture is pending. She has been started on Rocephin in the emergency department and will continue pending urine culture. Azithromycin added as per above due to significant cough and concern for atypical pneumonia, discontinue after 5 day course. HEME: Thrombocytosis Chronic anemia Monitor CBC MSK: L patella fracture Patient is not wearing left knee immobilizer that was recommended. Knee immobilizer ordered. She was seen by Amber Hansen in consultation 12/31/16 and follow-up was recommended in 3-4 weeks. ENDO: Euglycemic PROPH: Lovenox 40 mg subcutaneous daily for DVT prophylaxis. Protonix 40 g IV daily for stress ulcer prophylaxis. ACCESS: Peripheral IV providing adequate access at this time. Discussed with Dr. Ugalde and ED RN.. Discussed with Dr. Streeter later in a.m. 01/10 hours after initial admission. Level III H&P Problem Qualifiers (1) Altered mental status: Qualified Code: R40.4 - Transient alteration of awareness Genevieve Timmons MD Jan 10, 2017 01:42
[2017-01-10] MEDS: D5-1/2 NS + KCL 20 MEQ INJ 1,000 ML IV SCH ×3 (02:02→18:07)
[2017-01-10] MEDS: AZITHROMYCIN INJ 500 MG in SODIUM CHLOR 0.9% 250 ML INJ 250 ML IV SCH (03:18)
[2017-01-10] MEDS: LORazepam 2 MG/ML VIAL IV PRN ×6 (03:19→20:32)
[2017-01-10] MEDS: CHLORHEXIDINE GLUCONATE 2 % 1 PACK (2 CLOTHS) TOP SCH (04:00)
[2017-01-10] MEDS: RESP: ALBUTEROL 2.5 MG/3 ML NEB (SCH) INH ×4 (04:00→20:20)
[2017-01-10] MEDS: ENOXAPARIN SODIUM 40 MG/0.4 ML SYRINGE SQ SCH (06:44)
[2017-01-10] MEDS: ACETAMINOPHEN 325 MG TAB PO PRN ×2 (08:02→16:17)
[2017-01-10] MEDS: PANTOPRAZOLE SODIUM 40 MG VIAL IV SCH (08:30)
[2017-01-10] MEDS: SODIUM CHLORIDE 0.9% FLUSH 10 ML FLUSH IV FLUSH SCH ×2 (08:31→20:31)
[2017-01-10] MEDS: DOCUSATE SODIUM 50 MG/SENNA 8.6 MG TAB PO SCH ×2 (08:31→20:31)
--- NOTE | 2017-01-10 14:41 | EKG ---
Date Performed: 01/09/2017 Time Performed: 23:22:19 PTAGE: 61 years EKG: SINUS TACHYCARDIA WITH SHORT SC INTERVAL ABNORMAL RHYTHM ECG PREVIOUS TRACING : 12/29/2016 09.24 Since previous tracing, no significant change noted DOCTOR: Aden Baca Interpretating Date/Time 01/10/2017 14:39:55
[2017-01-11] VITALS (21 sets, daily range): BP systolic 133–174; BP diastolic 58–89; PULSE 77–112; RESP 16–43; TEMP 98–98.5; O2SAT 97–100
[2017-01-11] MEDS: cefTRIAXone INJ 1,000 MG in SODIUM CHLORIDE 0.9% INJ 100 ML IV SCH (00:07)
[2017-01-11] MEDS: LORazepam 2 MG/ML VIAL IV PRN ×2 (00:07→09:23)
[2017-01-11] MEDS: D5-1/2 NS + KCL 20 MEQ INJ 1,000 ML IV SCH (00:08)
[2017-01-11] MEDS: RESP: ALBUTEROL 2.5 MG/3 ML NEB (SCH) INH ×4 (04:00→22:52)
[2017-01-11] MEDS: CHLORHEXIDINE GLUCONATE 2 % 1 PACK (2 CLOTHS) TOP SCH (04:00)
[2017-01-11] MEDS: ENOXAPARIN SODIUM 40 MG/0.4 ML SYRINGE SQ SCH (05:11)
[2017-01-11] MEDS: AZITHROMYCIN INJ 500 MG in SODIUM CHLOR 0.9% 250 ML INJ 250 ML IV SCH (05:11)
[2017-01-11 05:26] LABS: ALKALINE PHOSPHATASE 104 U/L (45-117); ALT (GPT) 82 U/L (10-53); ANION GAP 8 MEQ/L (5-15); AST (GOT) 61 U/L (15-37); BICARBONATE 23.4 MEQ/L (21.0-32.0); BLOOD UREA NITROGEN 18 MG/DL (7-18); CHLORIDE 111 MEQ/L (98-107); GLOMERULAR FILTRATION RATE 85 ML/MIN (>89); MAGNESIUM 1.6 MG/DL (1.5-2.5); POTASSIUM 4.4 MEQ/L (3.5-5.1); SODIUM (NA) 142 MEQ/L (136-145); TOTAL BILIRUBIN ADULT 0.1 MG/DL (0.2-1.0)
[2017-01-11 07:07] LABS: AUTOMATED NEUTROPHIL # 6.8 TH/MM3 (1.8-7.7); BASOPHIL % 0.5 % (0.0-2.0); EOSINOPHIL # 0.1 TH/MM3 (0-0.4); EOSINOPHIL % 0.7 % (0.0-4.0); HEMATOCRIT 33.9 % (35.0-46.0); HEMO FLAGS DIFF FINAL; LYMPH % 16.1 % (9.0-44.0); LYMPHOCYTE # 1.4 TH/MM3 (1.0-4.8); MEAN CELL VOLUME 91.6 FL (80.0-100.0); MEAN CORPUSCULAR HEMOGLOBIN 30.2 PG (27.0-34.0); MONO % 6.8 % (0.0-8.0); NEUT % 75.9 % (16.0-70.0); PLATELET COUNT 463 TH/MM3 (150-450); RED BLOOD COUNT 3.71 MIL/MM3 (4.00-5.30); RED CELL DISTRIBUTION WIDTH 15.4 % (11.6-17.2); WHITE BLOOD COUNT 8.9 TH/MM3 (4.0-11.0)
[2017-01-11] MEDS: SODIUM CHLORIDE 0.9% FLUSH 10 ML FLUSH IV FLUSH SCH ×2 (09:26→21:00)
[2017-01-11] MEDS: PANTOPRAZOLE SODIUM 40 MG VIAL IV SCH (09:26)
[2017-01-11] MEDS: DOCUSATE SODIUM 50 MG/SENNA 8.6 MG TAB PO SCH (09:26)
--- NOTE | 2017-01-11 10:43 | HHI.CCPN ---
Subjective Remarks/Hospital Course 61 year-old female with past medical history of bipolar disorder, chronic pain, polysubstance abuse who presents to [facility] emergency department when she was found altered at home. She was reportedly last seen at baseline mental status 2 days ago. She has recently been hospitalized in the medical center following benzodiazepine overdose. She was discharged 01/02/17. She presented to [facility] via [facility]. She is well-known to [facility] due to history of abusing prescribed medications. Upon presentation she was nonverbal. Her jaw was clenched and she had tremor and fasciculations. She was tachycardic. Rectal Temperature was 100.0. Reportedly she was flushed but not diaphoretic. Her blood glucose is 108. She was suspected to have serotonin syndrome. She improved after Ativan 3 mg IV and became became less tremulous, more alert. She was given 3 L normal saline bolus. She was initially oliguric but subsequently had 400 of urine output after the boluses. She is on multiple serotonergic drugs (Latuda, Effexor, Remeron, Oxycarbezepmine). Several hours after her initial evaluation, her son called and states that her benzos were discontinued during her last psych admission and she has been overmedicating herself with her other serotonergic meds. She denies headache, neck pain, chest pain, shortness of breath. She states she has chronic back/hip pain and has had left knee pain after recent patellar fx. Subjective: 01/11 Awake and alert, nontremulous. Still getting intermittent ativan IV due to tremor/agitation/tachycardia (4 mg yesterday, 2 mg since midnight). Will wean dose and change to po. Ate breakfast. No hyperrflexia or clonus today. Objective Vital Signs Date Time Temp Pulse Resp B/P Pulse Ox O2 Delivery O2 Flow Rate FiO2 01/11/17 06:00 78 18 146/78 100 01/10/17 19:00 99.0 01/10/17 01:30 Room Air Intake and Output 01/10/17 01/10/17 01/11/17 08:00 16:00 00:00 Intake Total 1418 ml 480 ml 1220 ml Output Total 155 ml 561 ml 625 ml Balance 1263 ml -81 ml 595 ml Result Diagram: 01/11/17 0556 01/11/17 0435 Objective Remarks GENERAL: Well-nourished, well-developed patient who is awake and laying in bed. SKIN: Warm and dry, no diaphoresis noted. HEAD: Atraumatic. Normocephalic. EYES: Pupils 4 mm, round, reactive to 3mm bilaterally. No scleral icterus. No injection or drainage. ENT: No nasal bleeding or discharge. Mucous membranes moist. NECK: Trachea midline. No JVD. No meningismus CARDIOVASCULAR: RRR, sinus rhythm on the monitor with rate in 80s. No murmurs rubs or gallops. RESPIRATORY: Breathing comfortably with no accessory muscle use. Clear to auscultation. Breath sounds equal bilaterally. On room air GASTROINTESTINAL: Abdomen soft, non-tender, nondistended. Scar at navel, pt states from prior piercing. Bowel sounds present. MUSCULOSKELETAL: Extremities without clubbing, cyanosis, or edema. There is some mild swelling around left patella. Knee immobilizer in place. NEUROLOGICAL: Awake, calm, laying in bed. Oriented to hospital, circumstance , president. No obvious cranial nerve deficits, no nystagmus. Moving all extremities spontaneously without focal deficit, following commands. Deep tendon reflexes are 2+ patellar and Achilles bilaterally. No ankle clonus bilaterally. No asterixis. A/P Problem List: (1) Seizure disorder ICD Code: G40.909 Status: Chronic (2) Serotonin syndrome ICD Code: G25.79 Status: Acute (3) Altered mental status ICD Code: R41.82 Status: Acute (4) UTI (urinary tract infection) ICD Code: N39.0 Status: Acute (5) Dehydration ICD Code: E86.0 Status: Acute (6) Benzodiazepine abuse ICD Code: F13.10 Status: Acute Assessment and Plan NEURO: Serotonin syndrome Possible component of benzo withdrawal Bipolar disorder On admission patient was anxious, tremulous-appearing, tachycardic with mydriasis. Recently discontinued benzodiazepine but has a history of self medicating with prescription medications so unknown whether she was still taking some benzodiazepines on and off (though UDS negative). There is overlap of mentioned symptoms with benzodiazepine withdrawal and serotonin syndrome, however with her significant hyperreflexia and clonus so definite component serotonin syndrome. Inciting meds have been held (Latuda, Effexor, remeron, oxycarbazepine, flexeril, neurontin). Received cyproheptadine 12 mg in the ED but did not require further doses. Received supportive care with benzos for serotonin syndrome but that is now improved. May have component of benzo withdrawal but will d/c IV and use po. . She has recurrent admissions due to overdose of prescription meds and is well known to Dr. Urena. He spoke with me on 01/10 he will accept on med psych when medically cleared and likely patient will need disposition to [facility] after this, as he does not feel she will ever manage meds appropriately in her current living situation and there are risks with overdose regardless of what modality is used to treat her anxiety/pain/seizure d/o. Will need psych assistance for eventual transition to meds. Consult psych. Patient appears appropriate for transition to med psych from my standpoint. UDS negative 01/10. APAP, salicylate negative. CT brain 01/09/17no acute abnormality Seizure disorder Trileptal level pending. Patient states seizure disorder was diagnosed in her 40s. It is unclear whether this was related to drug withdrawal. She states seizure meds have been managed mostly by [facility] in the past. Did see Dr. Foss with neurology about 4 years ago and was placed on reduced dose Trileptal. Trileptal known association with serotonin syndrome so will continue to hold another 24 hours. Consider Keppra for seizure treatment in the future due to broad therapeutic range and less association with serotonin syndrome (although has been reported in some patients on concomitant SSRI). RESP: Tobacco abuse ? COPD with acute exacerbation. On room air. . Albuterol q2 hours as needed. Cough improved significantly. CV: Sinus tachycardia secondary to serotonin syndrome/benzo withdrawal. Improving after ativan. GI: Regular diet. Taking po well. FEN/RENAL: Acute dehydration, resolved Remove Arevalo and monitor closely for urinary retention, bladder scan. There is been good urine output. KVO IV fluids. ID: Leukocytosis UTI Urinalysis with moderate leukocyte esterase and rare bacteria, 7 white blood cell count. Patient does not report dysuria but she is a difficult historian. Urine culture is pending. Continue Rocephin started in the emergency department and will continue pending urine culture then transition to po. Azithromycin started 01/10, stop 01/14. Change to po. HEME: Thrombocytosis, downtrending. Chronic anemia MSK: L patella fracture On admission patient was not wearing left knee immobilizer that was recommended. Now Knee immobilizer in place. She was seen by Amber Hansen in consultation 12/31/16 and follow-up was recommended in 3-4 weeks. OK for weight bearing left lower extremity as long as she is in a knee immobilizer and she has assistance or a walker per Dr. Hansen 12/31 PT consult ENDO: Euglycemic PROPH: Lovenox 40 mg subcutaneous daily for DVT prophylaxis. DC Protonix for stress ulcer prophylaxis is no longer indicated.. ACCESS: Peripheral IV providing adequate access at this time. Out of bed with assistance today. Okay to weightbear LLE as long as has assistance or walker and is wearing knee immobilizer. Discussed with Dr. Streeter 01/10 . Patient is appropriate for transition to med psych from my standpoint. If psychiatrist is agreeable Will discharge and consult hospitalist. Dr. Streeter plans for disposition to [facility] if possible as she is unable to manage her own medications and has had multiple complications and hospitalizations due to medication nonadherence. We'll need case management assistance. 01/11 - RN called psychiatrist monotype keyboard operator. No beds available in med psych. Patient no longer meets criteria for ICU, will transfer to floor. Level 2 Problem Qualifiers (1) Altered mental status: Qualified Code: R40.4 - Transient alteration of awareness Genevieve Timmons MD Jan 11, 2017 10:43
[2017-01-11] MEDS: LORazepam 0.5 MG TAB PO PRN (16:57)
[2017-01-11] MEDS: ACETAMINOPHEN 325 MG TAB PO PRN (17:13)
[2017-01-12] VITALS: BP 141/78; PULSE 95; RESP 18; TEMP 98.9; O2SAT 98
[2017-01-12] MEDS: SODIUM CHLORIDE 0.9% FLUSH 10 ML FLUSH IV FLUSH SCH ×3 (00:01→22:08)
[2017-01-12] MEDS: LORazepam 0.5 MG TAB PO PRN ×6 (00:01→22:58)
[2017-01-12] MEDS: DOCUSATE SODIUM 50 MG/SENNA 8.6 MG TAB PO SCH ×3 (00:01→21:00)
[2017-01-12] MEDS: cefTRIAXone INJ 1,000 MG in SODIUM CHLORIDE 0.9% INJ 100 ML IV SCH (01:15)
[2017-01-12] MEDS: RESP: ALBUTEROL 2.5 MG/3 ML NEB (SCH) INH ×4 (03:58→21:35)
[2017-01-12 04:00] VITALS: BP 124/70; PULSE 88; RESP 19; TEMP 98.3; O2SAT 100
[2017-01-12] MEDS: CHLORHEXIDINE GLUCONATE 2 % 1 PACK (2 CLOTHS) TOP SCH (04:00)
[2017-01-12] MEDS: ENOXAPARIN SODIUM 40 MG/0.4 ML SYRINGE SQ SCH (05:22)
--- NOTE | 2017-01-12 06:00 | RADRPT ---
EXAM DATE/TIME: 01/12/2017 04:59 [facility] COMPARISON: CHEST SINGLE AP, January 10, 2017, 0:07. INDICATIONS : Cough, Shortness of breath MEDICAL HISTORY : Gastroesophageal reflux disease. Gastrointestinal bleed. SURGICAL HISTORY : Tubal ligation. ENCOUNTER: Subsequent ACUITY: 4 - 6 days PAIN SCORE: 7/10 LOCATION: Bilateral chest FINDINGS: A single view of the chest demonstrates the lungs to be symmetrically aerated without evidence of mas s, infiltrate or effusion. The cardiomediastinal contours are unremarkable. Osseous structures are intact. CONCLUSION: No acute cardiopulmonary process. Vernon Siegel MD on January 12, 2017 at 5:58 Board Certified Radiologist. This report was verified electronically.
[2017-01-12 07:50] VITALS: PULSE 72
[2017-01-12] MEDS: AZITHROMYCIN 250 MG TAB PO SCH (09:00)
[2017-01-12] MEDS: ACETAMINOPHEN 325 MG TAB PO PRN (09:05)
[2017-01-12] MEDS ORDERED: ONDANSETRON HCL 4 MG/2 ML VIAL IV PUSH PRN (15:30)
--- NOTE | 2017-01-12 15:40 | HHI.PR ---
Subjective Remarks Follow-up for altered mental status and overdose Patient stated she has an upset stomach due to feeling anxious. She stated that she has very bad anxiety. Deny any chest pain, palpitation, shortness of breathing, lightheadedness or dizziness. No other events. Objective Vitals Vital Signs Date Time Temp Pulse Resp B/P (MAP) Pulse Ox O2 Delivery O2 Flow Rate FiO2 01/12/17 07:50 72 01/12/17 04:00 98.3 88 19 124/70 (88) 100 01/12/17 00:00 98.9 95 18 141/78 (99) 98 01/11/17 20:55 98.5 94 18 144/75 (98) 97 01/11/17 18:00 101 27 141/77 (98) 100 01/11/17 17:00 109 22 150/89 (109) 100 01/11/17 16:00 90 20 133/69 (90) 100 01/11/17 16:00 90 I/O 01/11/17 01/11/17 01/11/17 01/12/17 01/12/17 01/12/17 07:00 15:00 23:00 07:00 15:00 23:00 Intake Total 1290 ml 500 ml 320 ml 420 ml Output Total 375 ml 950 ml 250 ml 700 ml Balance 915 ml -450 ml 70 ml -280 ml Intake Oral 500 ml 500 ml 320 ml 420 ml IV Total 790 ml Output Urine Total 375 ml 950 ml 250 ml 700 ml # Voids 2 # Bowel Movements 1 2 0 Result Diagram: 01/11/17 0556 01/11/17 0435 Imaging Last Impressions Chest X-Ray 01/12/17 0600 Signed Impressions: Service Date/Time: Thursday, January 12, 2017 04:59 - CONCLUSION: No acute cardiopulmonary process. Vernon Siegel MD Head CT 01/09/17 2929 Signed Impressions: Service Date/Time: Tuesday, January 10, 2017 00:11 - CONCLUSION: 1. Chronic left maxillary antral sinusitis. 2. Otherwise negative. No acute intracranial process to explain current clinical symptoms Vernon Siegel MD Objective Remarks GENERAL: Very thin female in no acute distress. CARDIOVASCULAR: Regular rate and rhythm without murmurs, gallops, or rubs. RESPIRATORY: Breath sounds equal bilaterally. No accessory muscle use. GASTROINTESTINAL: Abdomen soft, non-tender, nondistended. MUSCULOSKELETAL: No cyanosis, or edema. BACK: Nontender without obvious deformity. No CVA tenderness. NEURO: AAO 3. She is moving all extremities grossly. Psych: Seems anxious. Medications and IVs Last Impressions Chest X-Ray 01/12/17 0600 Signed Impressions: Service Date/Time: Thursday, January 12, 2017 04:59 - CONCLUSION: No acute cardiopulmonary process. Vernon Siegel MD Head CT 01/09/17 [id number] Signed Impressions: Service Date/Time: Tuesday, January 10, 2017 00:11 - CONCLUSION: 1. Chronic left maxillary antral sinusitis. 2. Otherwise negative. No acute intracranial process to explain current clinical symptoms Vernon Siegel MD A/P Problem List: (1) Serotonin syndrome ICD Code: G25.79 - Other drug induced movement disorders Status: Acute (2) Altered mental status ICD Code: R41.82 - Altered mental status, unspecified Status: Acute (3) UTI (urinary tract infection) ICD Code: N39.0 - Urinary tract infection, site not specified Status: Acute (4) Dehydration ICD Code: E86.0 - Dehydration Status: Acute Assessment and Plan Serotonin syndrome Possible component of benzo withdrawal, recent admit due to benzo overdose. Bipolar disorder -Inciting meds have been held (Latuda, Effexor, remeron, oxycarbazepine, flexeril, neurontin). - Received cyproheptadine 12 mg in the ED but did not require further doses. - UDS negative 01/10. APAP, salicylate negative. -CT brain 01/09/17no acute abnormality -Improved. Pending psych consult. Seizure disorder -Pending Trileptal level. -May want to consider Keppra treatment due to serotonin syndrome patient to follow with her neurologist. Tobacco abuse ? COPD with acute exacerbation. -On room air. . Albuterol q2 hours as needed. Cough improved significantly. Acute dehydration, resolved -Remove Arevalo and monitor closely for urinary retention, bladder scan. There is been good urine output. KVO IV fluids. Leukocytosis UTI 1/4 blood cultures positive for gram-positive cocci most likely contaminant. - Urinalysis with moderate leukocyte esterase and rare bacteria, 7 white blood cell count. Patient does not report dysuria but she is a difficult historian. Urine culture is pending. -Continue Rocephin started in the emergency department and will continue pending urine culture then transition to po. -Azithromycin started 01/10, stop 01/14. Change to po. Thrombocytosis, downtrending. Chronic anemia -Continue to monitor. L patella fracture -Recommend knee immobilizer. Patient noncompliant. - She was seen by Amber Hansen in consultation 12/31/16 and follow-up was recommended in 3-4 weeks. -OK for weight bearing left lower extremity as long as she is in a knee immobilizer and she has assistance or a walker per Dr. Hansen 12/31 -PT consult PROPH: Lovenox 40 mg subcutaneous daily for DVT prophylaxis. DC Protonix for stress ulcer prophylaxis is no longer indicated.. Discharge Planning If patient continues to do well and remained stable she can be discharge in 1-2 days pending psychiatrist consult. Problem Qualifiers (1) Altered mental status: Miriam Austin MD Jan 12, 2017 15:40
[2017-01-12 16:10] VITALS: BP 147/83; PULSE 83; RESP 18; TEMP 99.2; O2SAT 99
[2017-01-12 20:00] VITALS: BP 136/72; PULSE 76; PULSE 78; RESP 16; TEMP 98.8; O2SAT 100
[2017-01-13] VITALS: BP 131/88; PULSE 81; RESP 18; TEMP 99.1; O2SAT 99
[2017-01-13] MEDS: cefTRIAXone INJ 1,000 MG in SODIUM CHLORIDE 0.9% INJ 100 ML IV SCH (00:33)
[2017-01-13] MEDS: RESP: ALBUTEROL 2.5 MG/3 ML NEB (SCH) INH ×2 (03:53→09:14)
[2017-01-13 04:00] VITALS: BP 128/73; PULSE 74; RESP 21; TEMP 98; O2SAT 99
[2017-01-13] MEDS: CHLORHEXIDINE GLUCONATE 2 % 1 PACK (2 CLOTHS) TOP SCH (04:56)
[2017-01-13] MEDS: ENOXAPARIN SODIUM 40 MG/0.4 ML SYRINGE SQ SCH (04:57)
[2017-01-13 07:51] VITALS: PULSE 69
[2017-01-13 08:00] VITALS: BP 144/79; PULSE 84; RESP 17; TEMP 98.2; O2SAT 100
[2017-01-13] MEDS: DOCUSATE SODIUM 50 MG/SENNA 8.6 MG TAB PO SCH (09:00)
[2017-01-13] MEDS: AZITHROMYCIN 250 MG TAB PO SCH (09:54)
[2017-01-13] MEDS: SODIUM CHLORIDE 0.9% FLUSH 10 ML FLUSH IV FLUSH SCH (09:54)
[2017-01-13] MEDS: LORazepam 0.5 MG TAB PO PRN (09:59)
--- NOTE | 2017-01-13 11:18 | HHI.PR ---
Subjective Remarks Follow-up metabolic encephalopathy 01/13/17-patient seen and examined; Alert and oriented x 3; no acute event overnight. Requesting to be discharged home with Ativan. Objective Vitals Vital Signs Date Time Temp Pulse Resp B/P (MAP) Pulse Ox O2 Delivery O2 Flow Rate FiO2 01/13/17 08:00 98.2 84 17 144/79 (100) 100 01/13/17 04:00 98.0 74 21 128/73 (91) 99 01/13/17 00:00 99.1 81 18 131/88 (102) 99 01/12/17 20:00 98.8 76 16 136/72 (93) 100 01/12/17 20:00 78 01/12/17 16:10 99.2 83 18 147/83 (104) 99 I/O 01/12/17 01/12/17 01/12/17 01/13/17 01/13/17 01/13/17 06:59 14:59 22:59 06:59 14:59 22:59 Intake Total 420 ml 720 ml 490 ml Output Total 700 ml 900 ml Balance -280 ml 720 ml -410 ml Intake Oral 420 ml 720 ml 440 ml IV Total 50 ml Output Urine Total 700 ml 900 ml # Voids 3 # Bowel Movements 0 1 1 Result Diagram: 01/11/17 0556 01/11/17 0435 Imaging Last Impressions Chest X-Ray 01/12/17 0600 Signed Impressions: Service Date/Time: Thursday, January 12, 2017 04:59 - CONCLUSION: No acute cardiopulmonary process. Vernon Siegel MD Head CT 01/09/17 9147 Signed Impressions: Service Date/Time: Tuesday, January 10, 2017 00:11 - CONCLUSION: 1. Chronic left maxillary antral sinusitis. 2. Otherwise negative. No acute intracranial process to explain current clinical symptoms Vernon Siegel MD Objective Remarks GENERAL: NAD SKIN: Warm and dry. HEAD: Normocephalic. EYES: No scleral icterus. No injection or drainage. NECK: Supple, trachea midline. No JVD or lymphadenopathy. CARDIOVASCULAR: Regular rate and rhythm without murmurs, gallops, or rubs. RESPIRATORY: Breath sounds equal bilaterally. No accessory muscle use. GASTROINTESTINAL: Abdomen soft, non-tender, nondistended. MUSCULOSKELETAL: No cyanosis, or edema. BACK: Nontender without obvious deformity. No CVA tenderness. Procedures none A/P Problem List: (1) Serotonin syndrome ICD Code: G25.79 - Other drug induced movement disorders Status: Resolved (2) Altered mental status ICD Code: R41.82 - Altered mental status, unspecified Status: Resolved (3) UTI (urinary tract infection) ICD Code: N39.0 - Urinary tract infection, site not specified Status: Acute (4) Dehydration ICD Code: E86.0 - Dehydration Status: Resolved Assessment and Plan 61-year-old female with Serotonin syndrome-resolved Possible component of benzo withdrawal, recent admit due to benzo overdose. Bipolar disorder -Resume outpatient medications - UDS negative 01/10. APAP, salicylate negative. -CT brain 01/09/17no acute abnormality -Improved. Seizure disorder -May want to consider Keppra treatment due to serotonin syndrome patient to follow with her neurologist. Tobacco abuse ? COPD with acute exacerbation. -On room air. Albuterol q2 hours as needed. Acute dehydration, resolved with IV fluid hydration Leukocytosis UTI 05/29 blood cultures positive for gram-positive cocci most likely contaminant. - Urinalysis with moderate leukocyte esterase and rare bacteria, 7 white blood cell count. Patient does not report dysuria but she is a difficult historian. Urine culture is pending. -s/p Rocephin -Currently on Azithromycin started 01/10, end date today 01/13. Thrombocytosis, downtrending. Chronic anemia -Continue to monitor. L patella fracture -Recommend knee immobilizer. Patient noncompliant. - She was seen by Amber Hansen in consultation 12/31/16 and follow-up was recommended in 3-4 weeks. -OK for weight bearing left lower extremity as long as she is in a knee immobilizer and she has assistance or a walker per Dr. Hansen 12/31 -PT consult Problem Qualifiers (1) Altered mental status: (2) UTI (urinary tract infection): Qualified Codes: N30.00 - Acute cystitis without hematuria Freddy Connell MD Jan 13, 2017 11:18
[2017-01-13 12:00] VITALS: BP 130/79; PULSE 87; RESP 17; TEMP 99; O2SAT 100
[2017-01-13] MEDS ORDERED: ALPR2TAB3 PO (12:17)
--- NOTE | 2017-01-13 12:22 | HHI.DS ---
Discharge Summary Admission Date Jan 10, 2017 at 01:14 Discharge Date: Jan 13, 2017 Admitting Diagnosis altered mental status, serotonin syndrome, dehydration (1) Serotonin syndrome ICD Code: G25.79 - Other drug induced movement disorders Status: Resolved (2) Altered mental status ICD Code: R41.82 - Altered mental status, unspecified Status: Resolved (3) UTI (urinary tract infection) ICD Code: N39.0 - Urinary tract infection, site not specified Status: Acute (4) Dehydration ICD Code: E86.0 - Dehydration Status: Resolved Procedures none Brief History - From Admission History is limited because patient has altered mental status. She has not accompanied by anyone in the emergency department. 61 year-old female with past medical history of bipolar disorder, chronic pain, polysubstance abuse who presents to [facility] emergency department when she was found altered at home. She was reportedly last seen at baseline mental status 2 days ago. She has recently been hospitalized in [facility] following benzodiazepine overdose. She was discharged 01/02/17. She presented to [facility] via [facility]. She is well-known to [facility] due to history of abusing prescribed medications. Upon presentation she was nonverbal. Her jaw was clenched and she had tremor and fasciculations. She was tachycardic. Rectal Temperature was 100.0. Reportedly she was flushed but not diaphoretic. Her blood glucose is 108. She was suspected to have serotonin syndrome. She improved after Ativan 3 mg IV and became became less tremulous, more alert. She was given 3 L normal saline bolus. She was initially oliguric but subsequently had 400 of urine output after the boluses. She is on multiple serotonergic drugs (Latuda, Effexor, Remeron, Oxycarbezepmine). Several hours after her initial evaluation, her son called and states that her benzos were discontinued during her last psych admission and she has been overmedicating herself with her other serotonergic meds. She denies headache, neck pain, chest pain, shortness of breath. She states she has chronic back/hip pain and has had left knee pain after recent patellar fx. CBC/BMP: 01/11/17 0556 01/11/17 0435 Significant Findings Laboratory Tests Test 01/11/17 04:35 01/11/17 05:56 Albumin 2.8 GM/DL (3.4-5.0) Aspartate Amino Transf (AST/SGOT) 61 U/L (15-37) Alanine Aminotransferase (ALT/SGPT) 82 U/L (10-53) Total Bilirubin 0.1 MG/DL (0.2-1.0) Chloride Level 111 MEQ/L (98-107) Estimat Glomerular Filtration Rate 85 ML/MIN (>89) Red Blood Count 3.71 MIL/MM3 (4.00-5.30) Hemoglobin 11.2 GM/DL (11.6-15.3) Hematocrit 33.9 % (35.0-46.0) Platelet Count 463 TH/MM3 (150-450) Neutrophils (%) (Auto) 75.9 % (16.0-70.0) PE at Discharge GENERAL: NAD SKIN: Warm and dry. HEAD: Normocephalic. EYES: No scleral icterus. No injection or drainage. NECK: Supple, trachea midline. No JVD or lymphadenopathy. CARDIOVASCULAR: Regular rate and rhythm without murmurs, gallops, or rubs. RESPIRATORY: Breath sounds equal bilaterally. No accessory muscle use. GASTROINTESTINAL: Abdomen soft, non-tender, nondistended. MUSCULOSKELETAL: No cyanosis, or edema. BACK: Nontender without obvious deformity. No CVA tenderness. Hospital Course Patient admitted secondary to serotonin syndrome and treated accordingly. She was started on IV antibiotic due to UTI and subsequently switched to by mouth azithromycin which patient completed prior to discharge. Renal function improved with IV fluid hydration. She was continued on her treatment for hypertension. DVT and GI prophylaxis were provided. Prior to discharge, patient's condition improved and vitals remained stable. Pt Condition on Discharge: Stable Discharge Disposition: Discharge Home Discharge Time: <= 30 minutes Discharge Instructions DIET: Follow Instructions for: Heart Healthy Diet Activities you can perform: Regular-No Restrictions Follow up Referrals: PCP Follow-up - 1 Week Continued Medications: Alendronate (Alendronate) 70 Mg Tab 70 MG PO Q7D for Osteporosis Treatment, #4 TAB 0 Refills Alprazolam (Alprazolam) 2 Mg Tab 2 MG PO Q8H PRN for ANXIETY, #10 TAB (This prescription has been renewed) Fluconazole (Fluconazole) 150 Mg Tab 150 MG PO ONCE for Infection, #1 TAB 0 Refills Folic Acid (Folic Acid) 800 Mcg Tab 1 MG PO DAILY for Nutritional Supplement, TAB 0 Refills Gabapentin (Gabapentin) 300 Mg Cap 300 MG PO HS, #30 CAP 0 Refills Gabapentin (Neurontin) 300 Mg Cap 300 MG PO TID for health, #90 CAP Hydrochlorothiazide (Hydrochlorothiazide) 25 Mg Tab 25 MG PO DAILY, #30 TAB 0 Refills Lurasidone (Latuda) 40 Mg Tab 40 MG PO DAILY for health, #30 TAB Mirtazapine (Mirtazapine) 15 Mg Tab 45 MG PO HS for health, #30 TAB Oxcarbazepine (Oxcarbazepine) 300 Mg Tab 300 MG PO DAILY for health, #30 TAB 0 Refills Oxcarbazepine (Oxcarbazepine) 300 Mg Tab 300 MG PO DAILY for health, #60 TAB Oxybutynin (Ditropan) 5 Mg Tab 5 MG PO Q12HR for Urinary Symptom Managemen, #60 TAB 0 Refills Trazodone (Trazodone) 300 Mg Tab 300 MG PO HS for health, #30 TAB 0 Refills Venlafaxine (Effexor) 75 Mg Tab 150 MG PO Q12H, #120 TAB 0 Refills Venlafaxine ER 24 HR (Effexor XR 24 HR) 75 Mg Cap 225 MG PO DAILY for health, #30 CAP Discontinued Medications: Cyclobenzaprine (Flexeril) 10 Mg Tab 10 MG PO TID for Muscle Spasm, #90 TAB 0 Refills Lurasidone (Latuda) 40 Mg Tab 40 MG PO DAILY for health, #30 TAB 0 Refills Mirtazapine (Remeron) 45 Mg Tab 45 MG PO HS for Depression Control, #30 TAB 0 Refills Oxycodone (Oxycodone) 5 Mg Tab 5 MG PO Q4H PRN for PAIN SCALE 3 TO 5, #20 TAB Freddy Connell MD Jan 13, 2017 12:22
== END 2017-01-13 15:33 | disposition home or self-care (01) | DRG 917 ==
LOC: NEPC 23:17 → NEDA 01-10 01:14 → HIME 01-10 02:40 → N04A 01-11 20:56
PROVIDERS: ADMIT Emergency Medicine; ATTEND Hospitalist
DX: T50.991A Poisoning by other drugs, medicaments and biological substances, accidental (unintentional), initial encounter (principal); G93.41 Metabolic encephalopathy; J44.1 Chronic obstructive pulmonary disease with (acute) exacerbation; N30.00 Acute cystitis without hematuria; F13.239 Sedative, hypnotic or anxiolytic dependence with withdrawal, unspecified; G25.79 Other drug induced movement disorders; E86.0 Dehydration; D64.9 Anemia, unspecified; F31.9 Bipolar disorder, unspecified; G40.909 Epilepsy, unspecified, not intractable, without status epilepticus; D75.89 Other specified diseases of blood and blood-forming organs; F17.210 Nicotine dependence, cigarettes, uncomplicated; S82.002D Unspecified fracture of left patella, subsequent encounter for closed fracture with routine healing; Z91.19 Patient's noncompliance with other medical treatment and regimen; F41.9 Anxiety disorder, unspecified; G89.29 Other chronic pain; Z88.5 Allergy status to narcotic agent; Z88.8 Allergy status to other drugs, medicaments and biological substances; Z91.040 Latex allergy status
CPT/HCPCS: 70450; 71010; 76937; 80053; 80183; 80307; 81001; 82140; 82550; 83605; 83735; 84100; 84443; 84484; 85025; 85610; 87040; 87086; 87205; 93005; 94640; 94664; 96361; 96365; 96375; 99291; C9113; J0456; J0696; J1650; J2060; J2405; J3480; J7030; J7050; J7613; L1830

== ENCOUNTER 2017-04-08 19:10 | Inpatient (IN) | payer MEDICAID, OTHER ==
[~2017-04-08] VITALS: Ht 160 cm; Wt 56.0 kg
[~2017-04-08 19:10] MED LIST changes: -CYCL1TAB29 PO; -OXYB5TAB10 PO; +OXYB5TAB8 PO; -OXYC-392 PO; -REME45TA PO
[2017-04-08 19:36] VITALS: BP 132/77; PULSE 85; RESP 16; TEMP 98.2; O2SAT 98
[2017-04-08] MEDS ORDERED: REME45TA PO (19:39)
[2017-04-08] MEDS ORDERED: MORPHINE SULFATE 4 MG/ML INJ IV PUSH ONE (22:15)
[2017-04-08] MEDS ORDERED: ONDANSETRON HCL 4 MG/2 ML VIAL IV PUSH ONE (22:15)
[2017-04-08] MEDS ORDERED: SODIUM CHLOR 0.9% 1000 ML INJ 1,000 ML IV SCH (22:15)
--- NOTE | 2017-04-08 22:19 | PD ---
HPI Chief Complaint: Fall Time Seen by Provider: 22:02 Travel History International Travel<30 days: No Contact w/Intl Traveler<30days: No Traveled to known affect area: No History of Present Illness HPI 61-year-old female complains of left leg and left knee pain. Patient fell at home this evening. Patient states that she fell on her left leg and left knee. Patient complaining severe sharp pain localized to the left leg and left knee. Patient denies any pain radiation. Patient denies any head injury or neck injury. Patient denies any chest pain or shortness of breath. Patient denies abdominal pain. Patient denies any focal weakness or numbness of extremity. Patient has history of surgery to left hip and femur in the past. Patient states that she has a shorter leg on the left leg than the right leg. PFSH Past Medical History Hx Anticoagulant Therapy: Yes (STOPPED HERSELF YESTERDAY) Arthritis: Yes Autoimmune Disease: No Blood Disorders: No Bipolar Disorder: Yes Anxiety: Yes Depression: Yes Cancer: No Cardiovascular Problems: No Chemotherapy: No Cerebrovascular Accident: No Diabetes: No Diminished Hearing: No Endocrine: No Gastrointestinal Disorders: Yes (HX GI BLEED) GERD: Yes Glaucoma: No Genitourinary: No Hiatal Hernia: No Immune Disorder: No Neurologic: No Psychiatric: Yes (Bipolar dosorder) Reproductive: No Respiratory: No Immunizations Current: Yes (flu and pneumonia shot-2006.) Migraines: Yes Radiation Therapy: No Seizures: Yes Thyroid Disease: No Ulcer: Yes Tetanus Vaccination: > 5 Years Influenza Vaccination: No ?: Not Menopausal: Yes : 1 Para: 1 Tubal Ligation: Yes Past Surgical History Abdominal Surgery: No AICD: No Appendectomy: No Arteriovenous Shunt: No Body Medical Devices: CULLEN IN LEFT THIGH, SCREWS IN HIP Cardiac Surgery: No Cholecystectomy: No Ear Surgery: No Endocrine Surgery: No Eye Surgery: No Genitourinary Surgery: No Gynecologic Surgery: No Hysterectomy: No Insulin Pump: No Joint Replacement: No Neurologic Surgery: No Oral Surgery: No Pacemaker: No Thoracic Surgery: No Other Surgery: Yes (multiple surgeries on left hip) Social History Alcohol Use: Yes (OCC) Tobacco Use: Yes (1 PPD) Substance Use: No Allergies-Medications (Allergen,Severity, Reaction): Coded Allergies: latex (Unverified Allergy, Intermediate, Rash, 04/08/17) fosphenytoin (Unverified Adverse Reaction, Severe, TINNITIS, 04/08/17) morphine (Unverified Adverse Reaction, Intermediate, Dizzy, 04/08/17) Uncoded Allergies: NICKEL (Adverse Reaction, Severe, SWELLING, 02/02/16) Reported Meds & Prescriptions Reported Meds & Active Scripts Active Alprazolam 2 Mg Tab 2 Mg PO Q8H PRN Latuda (Lurasidone) 40 Mg Tab 40 Mg PO DAILY Oxcarbazepine 300 Mg Tab 300 Mg PO DAILY Mirtazapine 15 Mg Tab 45 Mg PO HS Neurontin (Gabapentin) 300 Mg Cap 300 Mg PO TID Trazodone (Trazodone HCl) 300 Mg Tab 300 Mg PO HS Reported Remeron (Mirtazapine) 45 Mg Tab 45 Mg PO HS Hydrochlorothiazide 25 Mg Tab 25 Mg PO DAILY Alendronate (Alendronate Sodium) 70 Mg Tab 70 Mg PO Q7D Ditropan (Oxybutynin Chloride) 5 Mg Tab 5 Mg PO Q12HR Effexor (Venlafaxine HCl) 75 Mg Tab 150 Mg PO Q12H Gabapentin 300 Mg Cap 300 Mg PO HS Folic Acid 800 Mcg Tab 1 Mg PO DAILY Review of Systems General / Constitutional: No: Fever Eyes: No: Visual changes HENT: No: Headaches Cardiovascular: No: Chest Pain or Discomfort Respiratory: No: Shortness of Breath Gastrointestinal: No: Abdominal Pain Genitourinary: No: Dysuria Musculoskeletal: Positive: Pain Skin: No Rash Neurologic: No: Weakness Psychiatric: No: Depression Endocrine: No: Polydipsia Hematologic/Lymphatic: No: Easy Bruising Physical Exam Narrative GENERAL: Well-nourished, well-developed patient. SKIN: Focused skin assessment warm/dry. HEAD: Normocephalic. EYES: No scleral icterus. No injection or drainage. NECK: Supple, trachea midline. No JVD or lymphadenopathy. CARDIOVASCULAR: Regular rate and rhythm without murmurs, gallops, or rubs. RESPIRATORY: Breath sounds equal bilaterally. No accessory muscle use. GASTROINTESTINAL: Abdomen soft, non-tender, nondistended. MUSCULOSKELETAL: Patient has obvious deformity distal left femur with moderate to severe tenderness over the left femur and left knee. Limited range of motion of the left knee. Limited range of motion of the left ankle and toes. Sensory function intact. BACK: Nontender without obvious deformity. No CVA tenderness. Neurologic exam normal. Data Data Last Documented VS Vital Signs Date Time Temp Pulse Resp B/P (MAP) Pulse Ox O2 Delivery O2 Flow Rate FiO2 04/08/17 22:21 79 18 163/74 (103) 100 Room Air 04/08/17 19:36 98.2 Orders Orders Electrocardiogram (04/08/17 22:08) Complete Blood Count With Diff (04/08/17 22:08) Basic Metabolic Panel (Bmp) (04/08/17 22:08) Prothrombin Time / Inr (Pt) (04/08/17 22:08) Act Partial Throm Time (Ptt) (04/08/17 22:08) Urinalysis - C+S If Indicated (04/08/17 22:08) Chest, Single Ap (04/08/17 22:08) Iv Access Insert/Monitor (04/08/17 22:08) Ecg Monitoring (04/08/17 22:08) Oximetry (04/08/17 22:08) Sodium Chlor 0.9% 1000 Ml Inj (Ns 1000 M (04/08/17 22:15) Morphine Inj (Morphine Inj) (04/08/17 22:15) Ondansetron Inj (Zofran Inj) (04/08/17 22:15) Femur (Ap & Lat/2vws) (04/08/17 22:14) Knee, Ltd (1 Or 2vws) (04/08/17 22:14) Labs Laboratory Tests Test 04/08/17 22:19 04/08/17 22:27 Urine Color LIGHT-YELLOW Urine Turbidity CLEAR Urine pH 6.0 Urine Specific Worden 1.012 Urine Protein NEG mg/dL Urine Glucose (UA) NEG mg/dL Urine Ketones NEG mg/dL Urine Occult Blood NEG Urine Nitrite NEG Urine Bilirubin NEG Urine Urobilinogen LESS THAN 2.0 MG/DL Urine Leukocyte Esterase MOD Urine RBC 1 /hpf Urine WBC 5 /hpf Urine Squamous Epithelial Cells <1 /hpf Microscopic Urinalysis Comment CULT NOT INDICATED White Blood Count 8.2 TH/MM3 Red Blood Count 3.55 MIL/MM3 Hemoglobin 11.7 GM/DL Hematocrit 34.9 % Mean Corpuscular Volume 98.3 FL Mean Corpuscular Hemoglobin 32.9 PG Mean Corpuscular Hemoglobin Concent 33.5 % Red Cell Distribution Width 16.4 % Platelet Count 405 TH/MM3 Mean Platelet Volume 6.5 FL Neutrophils (%) (Auto) 76.5 % Lymphocytes (%) (Auto) 15.3 % Monocytes (%) (Auto) 6.2 % Eosinophils (%) (Auto) 1.4 % Basophils (%) (Auto) 0.6 % Neutrophils # (Auto) 6.2 TH/MM3 Lymphocytes # (Auto) 1.3 TH/MM3 Monocytes # (Auto) 0.5 TH/MM3 Eosinophils # (Auto) 0.1 TH/MM3 Basophils # (Auto) 0.0 TH/MM3 CBC Comment DIFF FINAL Differential Comment Prothrombin Time 10.3 SEC Prothromb Time International Ratio 0.9 RATIO Activated Partial Thromboplast Time 29.1 SEC Blood Urea Nitrogen 18 MG/DL Creatinine 0.71 MG/DL Random Glucose 102 MG/DL Calcium Level 9.3 MG/DL Sodium Level 137 MEQ/L Potassium Level 4.4 MEQ/L Chloride Level 101 MEQ/L Carbon Dioxide Level 27.1 MEQ/L Anion Gap 9 MEQ/L Estimat Glomerular Filtration Rate 84 ML/MIN MDM Medical Decision Making Medical Screen Exam Complete: Yes Emergency Medical Condition: Yes Interpretation(s) Last Impressions Knee X-Ray 04/08/172213 Signed Impressions: Service Date/Time: Saturday, April 08, 2017 22:52 - CONCLUSION: Transverse fracture through the distal femoral metaphysis Kenneth Pérez MD Femur X-Ray 04/08/172213 Signed Impressions: Service Date/Time: Saturday, April 08, 2017 22:51 - CONCLUSION: Left total hip otherwise the longstem femoral component. No complications or fracture Kenneth Pérez MD Chest X-Ray 04/08/[id number] Signed Impressions: Service Date/Time: Saturday, April 08, 2017 22:47 - CONCLUSION: Normal examination. Kenneth Pérze MD 23:44 PM. CBC within normal limit. BMP within normal limit. UA is negative. Differential Diagnosis Differential diagnosis including contusion, fracture, dislocation. Narrative Course 61-year-old female complains of left leg left knee pain. Status post fall. Diagnosis Primary Impression: Fracture of left femur Billy Guerrier MD Apr 08, 2017 22:19
[2017-04-08 22:21] VITALS: BP 163/74; PULSE 79; RESP 18; O2SAT 100
[2017-04-08 22:51] LABS: AUTOMATED NEUTROPHIL # 6.2 TH/MM3 (1.8-7.7); BASOPHIL % 0.6 % (0.0-2.0); EOSINOPHIL # 0.1 TH/MM3 (0-0.4); EOSINOPHIL % 1.4 % (0.0-4.0); HEMATOCRIT 34.9 % (35.0-46.0); HEMO FLAGS DIFF FINAL; LYMPH % 15.3 % (9.0-44.0); LYMPHOCYTE # 1.3 TH/MM3 (1.0-4.8); MEAN CELL VOLUME 98.3 FL (80.0-100.0); MEAN CORPUSCULAR HEMOGLOBIN 32.9 PG (27.0-34.0); MEAN CORPUSCULAR HGB CONC 33.5 % (32.0-36.0); MONO % 6.2 % (0.0-8.0); NEUT % 76.5 % (16.0-70.0); PLATELET COUNT 405 TH/MM3 (150-450); RED BLOOD COUNT 3.55 MIL/MM3 (4.00-5.30); RED CELL DISTRIBUTION WIDTH 16.4 % (11.6-17.2); WHITE BLOOD COUNT 8.2 TH/MM3 (4.0-11.0)
[2017-04-08 22:55] LABS: BLOOD, URINE NEG (NEG); COMMENT (UR) CULT NOT INDICATED; CULTURE IF INDICATED CULT NOT INDICATED; GLUCOSE,URINE NEG (NEG); KETONE, URINE NEG (NEG); NITRITE,URINE NEG (NEG); SQUAMOUS EPITHELIAL CELL URINE <1 /hpf (0-5); URINE COLOR LIGHT-YELLOW (YELLW/STRAW)
[2017-04-08 23:04] LABS: BICARBONATE 27.1 MEQ/L (21.0-32.0); POTASSIUM 4.4 MEQ/L (3.5-5.1)
--- NOTE | 2017-04-08 23:22 | RADRPT ---
EXAM DATE/TIME: 04/08/2017 22:47 [facility] COMPARISON: CHEST SINGLE AP, January 12, 2017, 4:59. INDICATIONS : Trauma. Patient fell on her left side today. MEDICAL HISTORY : Gastroesophageal reflux disease. Gastrointestinal bleed. SURGICAL HISTORY : Tubal ligation. Left hip replacement. ENCOUNTER: Initial ACUITY: 1 day PAIN SCORE: 3/10 LOCATION: Bilateral chest FINDINGS: A single view of the chest demonstrates the lungs to be symmetrically aerated without evidence of mas s, infiltrate or effusion. The cardiomediastinal contours are unremarkable. Osseous structures are intact. CONCLUSION: Normal examination. Kenneth Pérez MD on April 08, 2017 at 23:20 Board Certified Radiologist. This report was verified electronically.
--- NOTE | 2017-04-08 23:25 | RADRPT ---
EXAM DATE/TIME: 04/08/2017 22:51 [facility] COMPARISON: FEMUR LEFT (AP & LAT/2VWS), August 14, 2016, 18:28. INDICATIONS : Left femur pain after fall. MEDICAL HISTORY : Gastroesophageal reflux disease. Gastrointestinal bleed. SURGICAL HISTORY : Tubal ligation. Left total hip. ENCOUNTER: Initial ACUITY: 1 day PAIN SCORE: 10/10 LOCATION: Left femur. FINDINGS: Two view examination of the left femur demonstrates the patient's total left arthroplasty with a very long segment femoral component. There is heterotopic ossification anteriorly. The visualized pelvis is intact.. Bony mineralization is normal. The soft tissue structures are intact. CONCLUSION: Left total hip otherwise the longstem femoral component. No complications or fracture Kenneth Pérez MD on April 08, 2017 at 23:23 Board Certified Radiologist. This report was verified electronically.
--- NOTE | 2017-04-08 23:26 | RADRPT ---
EXAM DATE/TIME: 04/08/2017 22:52 [facility] COMPARISON: No previous studies available for comparison. INDICATIONS : Left leg pain after fall. MEDICAL HISTORY : Gastroesophageal reflux disease. Gastrointestinal bleed. SURGICAL HISTORY : Tubal ligation. Left total hip replacement. ENCOUNTER: Initial ACUITY: 1 day PAIN SCORE: 10/10 LOCATION: Left knee. FINDINGS: Two view examination of the left knee demonstrates a transverse condylar fracture through the distal femur. Small joint effusion. Bony mineralization is slightly decreased. CONCLUSION: Transverse fracture through the distal femoral metaphysis Kenneth Pérez MD on April 08, 2017 at 23:24 Board Certified Radiologist. This report was verified electronically.
[2017-04-08 23:36] LABS: APTT (PATIENT) 29.1 SEC (24.3-30.1); INTERNATIONAL NORMALIZED RATIO 0.9 RATIO; PROTHROMBIN TIME - PATIENT 10.3 SEC (9.8-11.6)
[2017-04-09] VITALS (8 sets, daily range): BP systolic 106–138; BP diastolic 59–77; PULSE 73–100; RESP 16–18; TEMP 96.7–98.9; O2SAT 91–99
[2017-04-09] MEDS ORDERED: MORPHINE SULFATE 4 MG/ML INJ IV PUSH ONE
[2017-04-09] MEDS ORDERED: HYDROmorphone HCL PF 1 MG/ML VIAL IV PUSH ONE ×2 (01:00→03:30)
[2017-04-09] MEDS ORDERED: LACTATED RINGER'S 1000 ML INJ 1,000 ML IV SCH (01:04)
[2017-04-09] MEDS ORDERED: NALOXONE HCL 0.4 MG/ML AMP IV PUSH PRN (01:15)
[2017-04-09] MEDS ORDERED: SENNOSIDES 8.6 MG TAB PO PRN ×2 (01:15→05:00)
[2017-04-09] MEDS ORDERED: SODIUM CHLORIDE 0.9% FLUSH 10 ML FLUSH IV FLUSH PRN ×2 (01:15→11:45)
[2017-04-09] MEDS ORDERED: MAGNESIUM HYDROXIDE SUSP 30 ML CUP PO PRN (01:15)
[2017-04-09] MEDS ORDERED: ACETAMINOPHEN 325 MG TAB PO PRN (01:15)
[2017-04-09] MEDS ORDERED: BISACODYL 10 MG SUPP RECTAL PRN (01:15)
[2017-04-09] MEDS ORDERED: ONDANSETRON HCL 4 MG/2 ML VIAL IVP PRN (01:15)
[2017-04-09] MEDS ORDERED: CHLORHEXIDINE GLUCONATE 2 % 1 PACK (2 CLOTHS) TOPICAL PRN (02:15)
[2017-04-09] MEDS ORDERED: POVIDONE IODINE 5% (ANTISEPSIS KIT) 4 APPLICATIONS EACH NARE PRN (02:15)
[2017-04-09] MEDS ORDERED: SODIUM CHLORID 0.9% 500 ML IV PRN (02:15)
[2017-04-09] MEDS ORDERED: LACTATED RINGER'S 1000 ML IV PRN (02:15)
[2017-04-09] MEDS: HYDROmorphone HCL PF 0.5 MG/0.5 ML SYRINGE IV PUSH PRN ×3 (02:32→12:23)
--- NOTE | 2017-04-09 04:51 | HHI.HP ---
[facility] Service [facility] Primary Care Physician Brady Stoddard DO Admission Diagnosis fracture left femur Diagnoses: (1) Fracture of left femur (2) Bipolar affective disorder, depressed Chief Complaint: Fall with severe left lower leg pain Travel History International Travel<30 Days: No Contact w/Intl Traveler <30 Da: No Traveled to Known Affected Are: No History of Present Illness Ms. Narayanan is a pleasant 61-year-old female with a history of multiple surgeries to left hip and leg, bipolar disorder, and anxiety who presented to the emergency room on 04/08/2017 after a fall while attempting to bringing groceries in from her car. She states she had immediate severe left leg pain following a fall and a neighbor alerted EMS and she was transported to the hospital. At the time of my visit, she is very tremulous and appears to be withdrawing from benzodiazepines actively. I discussed this with the nurse and put in orders for when necessary Ativan to be given for withdrawal symptoms. She also reports a history of seizures from benzodiazepine withdrawal. The patient reports she takes Trileptal 300 mg in the morning and 300 mg at bedtime, not once a day as reported in the medication reconciliation. The patient is also complaining of severe left lower leg pain that is sharp in nature and radiates down the lower portion of her leg. She states it was somewhat relieved with IV Dilaudid. She does report chronic constipation. Denies any recent fevers, chills, recent illness, cold symptoms, cough, shortness of breath, chest pain, nausea, vomiting , diarrhea, dysuria, hematuria. Review of Systems Except as stated in HPI: all other systems reviewed are Neg Past Family Social History Past Medical History Bipolar disorder Anxiety disorder Cancer of a gynecological nature that she cannot further specify and was not treated with surgery, radiation, or chemotherapy but cured with "natural supplements" Anorexia Denies diabetes mellitus, hypertension, coronary artery disease, congestive heart failure, atrial fibrillation, COPD, asthma, respiratory disorders, liver problems, kidney problems, CVA, DVT, PE, or thyroid dysfunction. . Past Surgical History Multiple left hip and leg surgeries . Reported Medications Reported Meds & Active Scripts Active Alprazolam 2 Mg Tab 2 Mg PO Q8H PRN Latuda (Lurasidone) 40 Mg Tab 40 Mg PO DAILY Oxcarbazepine 300 Mg Tab 300 Mg PO BID Mirtazapine 15 Mg Tab 45 Mg PO HS Neurontin (Gabapentin) 300 Mg Cap 300 Mg PO TID Trazodone (Trazodone HCl) 300 Mg Tab 300 Mg PO HS Reported Remeron (Mirtazapine) 45 Mg Tab 45 Mg PO HS Hydrochlorothiazide 25 Mg Tab 25 Mg PO DAILY Alendronate (Alendronate Sodium) 70 Mg Tab 70 Mg PO Q7D Ditropan (Oxybutynin Chloride) 5 Mg Tab 5 Mg PO Q12HR Effexor (Venlafaxine HCl) 75 Mg Tab 150 Mg PO Q12H Gabapentin 300 Mg Cap 300 Mg PO HS Folic Acid 800 Mcg Tab 1 Mg PO DAILY Allergies: Coded Allergies: latex (Unverified Allergy, Intermediate, Rash, 04/08/17) fosphenytoin (Unverified Adverse Reaction, Severe, TINNITIS, 04/08/17) morphine (Unverified Adverse Reaction, Intermediate, Dizzy, 04/08/17) Uncoded Allergies: NICKEL (Adverse Reaction, Severe, SWELLING, 02/02/16) Active Ordered Medications Current Medications Sodium Chloride 1,000 ml @ 125 mls/hr Q8H IV Last administered on 04/08/17 22:34; Start 04/08/17 at 22:15; Stop 04/09/17 at 01:22; Status DC Morphine Sulfate (Morphine Inj) 4 mg ONCE ONCE IV PUSH Last administered on 22:34; Start 04/08/17 at 22:15; Stop 04/08/17 at 22:16; Status DC Ondansetron HCl (Zofran Inj) 4 mg ONCE ONCE IV PUSH Last administered on 04/08 22:35; Start 04/08/17 at 22:15; Stop 04/08/17 at 22:16; Status DC Morphine Sulfate (Morphine Inj) 4 mg ONCE ONCE IV PUSH Last administered on 23:55; Start 04/09/17 at 00:00; Stop 04/09/17 at 00:01; Status DC Hydromorphone HCl (Dilaudid Pf Inj) 1 mg ONCE ONCE IV PUSH Last administered on 04/09/17 00:53; Start 04/09/17 at 01:00; Stop 04/09/17 at 01:01; Status DC Lactated Ringer's 1,000 ml @ 100 mls/hr Q10H IV Last administered on 02:32; Start 04/09/17 at 01:04 Sodium Chloride (NS Flush) 2 ml UNSCH PRN IV FLUSH FLUSH AFTER USING IV ACCESS ; Start 04/09/17 at 01:15 Sodium Chloride (NS Flush) 2 ml BID IV FLUSH ; Start 04/09/17 at 09:00 Acetaminophen (Tylenol) 650 mg Q4H PRN PO TEMP > 100.4; Start 04/09/17 at 01: 15 Ondansetron HCl (Zofran Inj) 4 mg Q6H PRN IVP NAUSEA OR VOMITING; Start at 01:15 Naloxone HCl (Narcan Inj) 0.4 mg UNSCH PRN IV PUSH SEE LABEL COMMENTS; Start 04/09/17 at 01:15 Magnesium Hydroxide (Milk Of Magnesia Liq) 30 ml Q12H PRN PO Mild constipation ; Start 04/09/17 at 01:15 Sennosides (Senokot) 17.2 mg Q12H PRN PO Moderate constipation; Start at 01:15 Bisacodyl (Dulcolax Supp) 10 mg DAILY PRN RECTAL SEVERE CONSITIPATION; Start 04/09/17 at 01:15 Hydromorphone HCl (Dilaudid Pf Inj) 0.5 mg Q4H PRN IV PUSH pain > 5 Last administered on 04/09/17 02:32; Start 04/09/17 at 01:15 Lactated Ringer's 1,000 ml @ 30 mls/hr Q24H PRN IV SEE LABEL COMMENTS; Start 04/09/17 at 02:15; Stop 04/12/17 at 02:14 Sodium Chloride 500 ml @ 30 mls/hr [id number] PRN IV SEE LABEL COMMENTS; Start at 02:15; Stop 04/12/17 at 02:14 Povidone Iodine (Betadine 5% Antisepsis Kit) 1 applic PRODUCTION ANALYST PRN EACH NARE SEE LABEL COMMENTS; Start 04/09/17 at 02:15; Stop 04/12/17 at 02:14 Chlorhexidine Gluconate (Chlorhexidine 2% Cloth) 3 pack PRODUCTION ANALYST PRN TOPICAL SEE LABEL COMMENTS; Start 04/09/17 at 02:15; Stop 04/12/17 at 02:14 Hydromorphone HCl (Dilaudid Pf Inj) 1 mg ONCE ONCE IV PUSH Last administered on 04/09/17t 03:37; Start 04/09/17 at 03:30; Stop 04/09/17 at 03:31; Status DC Lorazepam (Ativan Inj) 1 mg Q4H PRN IV PUSH withdrawal sx/seizure activity; Start 04/09/17 at 05:00 Oxcarbazepine (Trileptal) 300 mg BID PO ; Start 04/09/17 at 09:00; Status UNV Trazodone HCl (Desyrel) 300 mg HS PO ; Start 04/09/17 at 21:00; Status UNV Non-Formulary Medication 45 mg HS PO ; Start 04/09/17 at 21:00; Status UNV Non-Formulary Medication 150 mg Q12H PO ; Start 04/09/17 at 05:00; Status UNV . Family History Multiple family members with chronic constipation Father with myocardial infarction at age 60 No family history of any problems with anesthesia . Social History Tobacco: Smokes 5 cigarettes a day for 15 years Alcohol: Drinks at least one glass a wine daily with dinner, sometimes 2 Illicit Drugs: Smokes marijuana occasionally but denies any other recreational drugs or illicit drug abuse . Physical Exam Vital Signs Vital Signs Date Time Temp Pulse Resp B/P (MAP) Pulse Ox O2 Delivery O2 Flow Rate FiO2 04/09/17 02:00 96.7 80 16 108/59 (75) 98 04/09/17 01:45 04/09/17 01:01 73 16 123/64 (83) 98 Room Air 04/08/17 22:21 79 18 163/74 (103) 100 Room Air 04/08/17 22:21 18 100 Room Air 04/08/17 19:36 98.2 85 16 132/77 (95) 98 Physical Exam GENERAL: This is a very thin female patient, who is tremulous and appears to be actively withdrawing from benzodiazepines. SKIN: Cool and dry. Bilateral hands with significant palmar eczema noted. HEAD: Atraumatic. Normocephalic. EYES: No scleral icterus. No injection or drainage. ENT: Nose without bleeding, purulent drainage. NECK: Trachea midline. No JVD. CARDIOVASCULAR: Tachycardic rate and regular rhythm without murmurs, gallops, or rubs. RESPIRATORY: Breath sounds somewhat diminished but equal bilaterally. No wheezes , rales, or rhonchi. GASTROINTESTINAL: Abdomen soft, non-tender, nondistended. No guarding. Bowel sounds hypoactive. MUSCULOSKELETAL: Extremities without clubbing, cyanosis, or edema. No calf tenderness. Left leg in orthotic splint; able to wiggle toes, sensation intact , dorsalis pedal pulse +2 bilaterally. NEUROLOGICAL: Awake and alert. Tremulous. Normal speech. . Laboratory Laboratory Tests Test 04/08/17 22:19 04/08/17 22:27 Urine Color LIGHT-YELLOW Urine Turbidity CLEAR Urine pH 6.0 Urine Specific [place] 1.012 Urine Protein NEG Urine Glucose (UA) NEG Urine Ketones NEG Urine Occult Blood NEG Urine Nitrite NEG Urine Bilirubin NEG Urine Urobilinogen LESS THAN 2.0 Urine Leukocyte Esterase MOD Urine RBC 1 Urine WBC 5 Urine Squamous Epithelial Cells <1 Microscopic Urinalysis Comment CULT NOT INDICATED White Blood Count 8.2 Red Blood Count 3.55 Hemoglobin 11.7 Hematocrit 34.9 Mean Corpuscular Volume 98.3 Mean Corpuscular Hemoglobin 32.9 Mean Corpuscular Hemoglobin Concent 33.5 Red Cell Distribution Width 16.4 Platelet Count 405 Mean Platelet Volume 6.5 Neutrophils (%) (Auto) 76.5 Lymphocytes (%) (Auto) 15.3 Monocytes (%) (Auto) 6.2 Eosinophils (%) (Auto) 1.4 Basophils (%) (Auto) 0.6 Neutrophils # (Auto) 6.2 Lymphocytes # (Auto) 1.3 Monocytes # (Auto) 0.5 Eosinophils # (Auto) 0.1 Basophils # (Auto) 0.0 CBC Comment DIFF FINAL Differential Comment Prothrombin Time 10.3 Prothromb Time International Ratio 0.9 Activated Partial Thromboplast Time 29.1 Blood Urea Nitrogen 18 Creatinine 0.71 Random Glucose 102 Calcium Level 9.3 Sodium Level 137 Potassium Level 4.4 Chloride Level 101 Carbon Dioxide Level 27.1 Anion Gap 9 Estimat Glomerular Filtration Rate 84 Result Diagram: 04/08/17222604/08/172226 Imaging Last Impressions Knee X-Ray 04/08/172213 Signed Impressions: Service Date/Time: Saturday, April 08, 2017 22:52 - CONCLUSION: Transverse fracture through the distal femoral metaphysis Kenneth Pérez MD Femur X-Ray 04/08/172213 Signed Impressions: Service Date/Time: Saturday, April 08, 2017 22:51 - CONCLUSION: Left total hip otherwise the longstem femoral component. No complications or fracture Kenneth Pérez MD Chest X-Ray 04/08/172207 Signed Impressions: Service Date/Time: Saturday, April 08, 2017 22:47 - CONCLUSION: Normal examination. Kenneth Pérez MD . Caprini VTE Risk Assessment Caprini VTE Risk Assessment: Mod/High Risk (score >= 2) Caprini Risk Assessment Model Point Value = 1 Point Value = 2 Point Value = 3 Point Value = 5 Age 41-60 Minor surgery BMI > 25 kg/m2 Swollen legs Varicose veins or History of unexplained or recurrent spontaneous Oral contraceptives or hormone replacement Sepsis (< 1 month) Serious lung disease, including pneumonia (< 1 month) Abnormal pulmonary function Acute myocardial infarction Congestive heart failure (< 1 month) History of inflammatory bowel disease Medical patient at bed rest Age 61-74 Arthroscopic surgery Major open surgery (> 45 min) Laparoscopic surgery (> 45 min) Malignancy Confined to bed (> 72 hours) Immobilizing plaster cast Central venous access Age >= 75 History of VTE Family history of VTE Factor V Leiden Prothrombin [id number] Lupus anticoagulant Anticardiolipin antibodies Elevated serum homocysteine Heparin-induced thrombocytopenia Other congenital or acquired thrombophilia Stroke (< 1 month) Elective arthroplasty Hip, pelvis, or leg fracture Acute spinal cord injury (< 1 month) Prophylaxis Regimen Total Risk Factor Score Risk Level Prophylaxis Regimen 0-1 Low Early ambulation 2 Moderate Order ONE of the following: *Sequential Compression Device (SCD) *Heparin 5000 units SQ BID 3-4 Higher Order ONE of the following medications: *Heparin 5000 units SQ TID *Enoxaparin/Lovenox 40 mg SQ daily (WT < 150 kg, CrCl > 30 mL/min) *Enoxaparin/Lovenox 30 mg SQ daily (WT < 150 kg, CrCl > 10-29 mL/min) *Enoxaparin/Lovenox 30 mg SQ BID (WT < 150 kg, CrCl > 30 mL/min) AND/OR *Sequential Compression Device (SCD) 5 or more Highest Order ONE of the following medications: *Heparin 5000 units SQ TID (Preferred with Epidurals) *Enoxaparin/Lovenox 40 mg SQ daily (WT < 150 kg, CrCl > 30 mL/min) *Enoxaparin/Lovenox 30 mg SQ daily (WT < 150 kg, CrCl > 10-29 mL/min) *Enoxaparin/Lovenox 30 mg SQ BID (WT < 150 kg, CrCl > 30 mL/min) AND *Sequential Compression Device (SCD) Assessment and Plan Problem List: (1) Fracture of left femur ICD Code: S72.92XA - Unspecified fracture of left femur, initial encounter for closed fracture Status: Acute (2) Bipolar affective disorder, depressed ICD Code: F31.30 - Bipolar disorder, current episode depressed, mild or moderate severity, unspecified Status: Acute (3) History of seizures ICD Code: Z87.898 - Personal history of other specified conditions (4) 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 Narayanan is a pleasant 61-year-old female with a history of multiple surgeries to left hip and leg, bipolar disorder, and anxiety who presented to the emergency room on 04/08/2017 after a fall while attempting to bringing groceries in from her car. She states she had immediate severe left leg pain following a fall and a neighbor alerted EMS and she was transported to the hospital. She was found to have a left distal femur fracture in the ED and she was admitted to medical service for management of medical problems prior to surgical correction by orthopedic surgery. Left distal femur fracture - Orthopedic surgery consulted - Dilaudid 0.5 mg IV every 4 hours when necessary pain greater than 5 - Nothing by mouth Bipolar disorder - Home medications restarted - Consider psychiatry consultation if symptoms are difficult to control during hospitalization Benzodiazepine withdrawal History of seizures secondary to benzodiazepine withdrawal - Patient is tremulous and tachycardic - Lorazepam 1 mg IV every 4 hours when necessary withdrawal symptoms/seizures - Seizure precautions - Resume home Xanax but reduce dose to 1 mg every 8 hours when necessary anxiety - Monitor vital signs every 4 hours Bilateral hand dermatitis reported by patient as eczema - Eucerin cream to rash q6h - monitor for improvement DVT prophylaxis - SCDs and TEDs for now with further recommendations per orthopedic surgeon postoperatively . Discussed Condition With Dr. Holt, RN, and patient . Physician Certification 2 Midnight Certification Type: Admission for Inpatient Services Order for Inpatient Services The services are ordered in accordance with Medicare regulations or non- Medicare payer requirements, as applicable. In the case of services not specified as inpatient-only, they are appropriately provided as inpatient services in accordance with the 2-midnight benchmark. Estimated LOS (days): 3 days is the estimated time the patient will need to remain in the hospital, assuming treatment plan goals are met and no additional complications. Post-Hospital Plan: Home Problem Qualifiers (1) Eczema: Qualified Codes: L30.9 - Dermatitis, unspecified Margaret Fuentes Apr 09, 2017 04:51
[2017-04-09] MEDS ORDERED: LORazepam 2 MG/ML VIAL IV PUSH PRN (05:00)
[2017-04-09] MEDS ORDERED: LACTULOSE SYRUP 20 GM/30 ML CUP PO PRN (05:00)
[2017-04-09] MEDS: MIRTAZAPINE 15 MG TAB PO SCH ×2 (05:15→20:36)
[2017-04-09] MEDS ORDERED: EUCERIN CREAM 120 GM JAR TOPICAL PRN (05:30)
--- NOTE | 2017-04-09 07:00 | PD.ORT.PN ---
Subjective Subjective Remarks Status post fall. She has a history of multiple surgeries to left femur with left total hip and proximal femur replacement. She has a history of MRSA. No other complaints other than left knee pain Objective Vitals Vital Signs Date Time Temp Pulse Resp B/P (MAP) Pulse Ox O2 Delivery O2 Flow Rate FiO2 04/09/17 04:45 98.9 93 16 114/64 (81) 98 04/09/17 02:00 96.7 80 16 108/59 (75) 98 04/09/17 01:45 04/09/17 01:01 73 16 123/64 (83) 98 Room Air 04/08/17 22:21 79 18 163/74 (103) 100 Room Air 04/08/17 22:21 18 100 Room Air 04/08/17 19:36 98.2 85 16 132/77 (95) 98 Result Diagram: 04/08/17222604/08/172226 Other Results Laboratory Tests Test 04/08/17 22:27 Prothromb Time International Ratio 0.9 RATIO Prothrombin Time 10.3 SEC (9.8-11.6) Imaging Last 24 hours Impressions Knee X-Ray 04/08/172213 Signed Impressions: Service Date/Time: Saturday, April 08, 2017 22:52 - CONCLUSION: Transverse fracture through the distal femoral metaphysis Kenneth Pérez MD Femur X-Ray 04/08/172213 Signed Impressions: Service Date/Time: Saturday, April 08, 2017 22:51 - CONCLUSION: Left total hip otherwise the longstem femoral component. No complications or fracture Kenneth Pérez MD Chest X-Ray 04/08/172207 Signed Impressions: Service Date/Time: Saturday, April 08, 2017 22:47 - CONCLUSION: Normal examination. Kenneth Pérez MD Objective Remarks Bilateral upper extremities: Full range of motion neurovascularly intact Right lower extremity: Full range of motion neurovascularly intact Left lower extremity: Surgical incision healed. Pain and swelling over distal femur. Distally intact sensation that dorsal flexion plantar flexion foot. Patient is in Connors's traction Assessment & Plan Assessment and Plan Left distal femur fracture Convert from Connors's traction to Canvas knee immobilizer Remain nothing by mouth Stat CT exam of left knee to evaluate alignment of distal femur. With multiple surgeries and complex replacement of proximal femur and total hip prosthesis and history of MRSA, we will continue to try to treat this conservatively. With evaluation of CT scan and conversion to knee immobilizer we 'll see if alignment has improved and has appropriate alignment continue to treat this conservatively. Reese Ortiz Jr. Apr 09, 2017 07:00
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
[2017-04-09] MEDS: VENLAFAXINE HCL 75 MG TAB PO SCH ×2 (08:00→20:36)
--- NOTE | 2017-04-09 08:04 | RADRPT ---
EXAM DATE/TIME: 04/09/2017 07:46 [facility] COMPARISON: KNEE LEFT LTD (1 OR 2VWS), April 08, 2017, 22:52. INDICATIONS : Fall. Evaluate fracture. RADIATION DOSE: 7.29 CTDIvol (mGy) MEDICAL HISTORY : None SURGICAL HISTORY : Left hip surgery ENCOUNTER: Initial ACUITY: 2 days PAIN SCALE: 6/10 LOCATION: Left leg TECHNIQUE: Volumetric scanning of the knee was performed. Using automated exposure control and adjustment of th e mA and/or kV according to patient size, radiation dose was kept as low as reasonably achievable to obtain optimal diagnostic quality images. DICOM format image data is available electronically for re view and comparison. FINDINGS: A mildly comminuted fracture deformity of the distal femur is again noted with multiple fra cture lines one extending obliquely into the joint. There is distraction of up to approximately 5 mm. There is no abnormal angulation. There is mild impaction of approximately 5 mm. The patella and prox imal tibia are intact. There is a large lipohemarthrosis. There is diffuse patchy osteopenia. CONCLUSION: Comminuted fracture deformity of the distal femur Reese Whitmore MD on April 09, 2017 at 7:58 Board Certified Radiologist. This report was verified electronically.
[2017-04-09] MEDS: DOCUSATE SODIUM 50 MG/SENNA 8.6 MG TAB PO SCH ×2 (08:31→20:36)
[2017-04-09] MEDS: OXcarbazepine 300 MG TAB PO SCH ×2 (08:31→20:36)
[2017-04-09] MEDS ORDERED: SODIUM CHLORIDE 0.9% FLUSH 10 ML FLUSH IV FLUSH SCH (09:00)
[2017-04-09] MEDS ORDERED: ACETAMINOPHEN 1000 MG/100 ML 100 ML IV ONE (09:56)
[2017-04-09] MEDS: GENTAMICIN SULFATE 80 MG/2 ML VIAL ONE ×2 (09:56→10:30)
[2017-04-09] MEDS: VANCOMYCIN HCL 1000 MG VIAL ONE ×2 (10:13→10:34)
[2017-04-09] MEDS: ceFAZolin INJ 1,000 MG VIAL ONE ×2 (10:13→10:30)
[2017-04-09] MEDS ORDERED: Post-op Orders (for Pharmacy) MISC XX ONE (10:30)
[2017-04-09] MEDS ORDERED: MISCELLANEOUS NURSING INFORMATION XX PRN (10:30)
[2017-04-09] MEDS ORDERED: diphenhydrAMINE HCL 25 MG CAP PO PRN (10:30)
--- NOTE | 2017-04-09 10:57 | PD.OP ---
cc: Bin Aiken MD Operative Report Date of Surgery: Apr 09, 2017 Preoperative Diagnosis: Left distal femur supracondylar fracture with intra-articular extension Postoperative Diagnosis: Procedure: Open reduction internal fixation left distal femur Anesthesia: Gen. Surgeon: Bin Aiken [employer] Project Manager(s): YADY Ramirez PA-C The surgical procedure was assisted by my physician internal medicine physician assistant. My P.A. presence was necessary throughout this case for the manipulation and positioning of the surgical extremity. My P.A. was assisting me throughout the duration of this procedure. The skill set of a physician internal medicine physician assistant was medically necessary to complete this procedure. During the surgical case the surgical instrument mechanic was working at the back table and the physician internal medicine physician assistant was directly assisting me. Operation and Findings: Fidelia was seen and evaluated preoperatively. Informed consent was obtained, operative site was marked. I discussed the risks of surgery to include bleeding , infection, nonunion, malunion, knee stiffness, painful hardware, as well as medical complications including blood clots, stroke, heart attack, and . X -rays and CT scan were reviewed. CT scan revealed intra-articular split of the distal femur fracture. I discussed with patient possible screw fixation of the distal femoral condyles versus plate fixation of the distal femur. Because of patient's recent MRSA infection of the left hip wound and her complex proximal femur replacement, I discussed that I would like to minimize hardware placement. Patient was brought to the OR, placed on OR table, and given IV sedation with GETA. IV antibiotics were administered and timeout procedure was performed. The operative leg was prepped with alcohol, followed with Hibiclens, draped in usual sterile fashion. A timeout procedure was performed. The procedure began with gentle reduction of the fracture. Gentle traction was applied. The knee was extended. Overall the fracture reduced and excellent alignment. The medial and lateral condyles of the femur were visualized. There was minimal displacement between the medial and lateral condyles. 2 small incisions were made along the lateral aspect of the distal femur. Guide pins for the ITS 6.5 mm cannulated screws were placed from lateral to medial. Screw lengths were measured. Cannulated drill was placed over the guidepins. 2 appropriate length screws were now placed. Good compression was obtained between the medial and lateral condyles. The condyles were well aligned relative to the femoral shaft. Because of patient's recent infection and complex revision total hip arthroplasty stem, decision was made not to place plate along the distal femur. Final fluoroscopy revealed excellent alignment of fracture with well-placed hardware. Wound was thoroughly irrigated. Subcutaneous tissue was closed with 3-0 Vicryl. Skin was closed with shaw. Sterile dressings were applied. The patient was placed into a knee immobilizer and transferred to recovery in stable condition. Needle and sponge counts were correct. Bin Aiken MD Apr 09, 2017 10:57
[2017-04-09] MEDS: LACTATED RINGER'S 1000 ML INJ 1,000 ML IV SCH ×2 (11:15→23:30)
--- NOTE | 2017-04-09 11:49 | RADRPT ---
EXAM DATE/TIME: 04/09/2017 10:46 [facility] COMPARISON: KNEE LEFT LTD (1 OR 2VWS), April 08, 2017, 22:52. INDICATIONS : Open reduction internal fixation distal femur fracture. MEDICAL HISTORY : None. SURGICAL HISTORY : None. ENCOUNTER: Initial ACUITY: 1 day PAIN SCORE: Non-responsive. LOCATION: Left Knee FINDINGS: 2 screws are seen bridging the distal femur. CONCLUSION: Cortical screws as above. Jose G Craft MD FACR on April 09, 2017 at 11:47 Board Certified Radiologist. This report was verified electronically.
[2017-04-09] MEDS ORDERED: ERGOCALCIFEROL (VIT D2) 50,000 UNIT CAP PO SCH (12:00)
[2017-04-09] MEDS ORDERED: LIDOCAINE HCL 1% PF 5 ML SYRINGE OTHER ONE (12:00)
[2017-04-09] MEDS ORDERED: DEXAMETHASONE SOD PHOS 4 MG/ML VIAL IV ONE (12:00)
[2017-04-09] MEDS ORDERED: ONDANSETRON HCL 4 MG/2 ML VIAL IV PUSH ONE (12:00)
[2017-04-09] MEDS ORDERED: SODIUM CHLORIDE 0.9% 20 ML VIAL IV ONE (12:00)
[2017-04-09] MEDS ORDERED: SODIUM CHLOR 0.9% 250 ML INJ 250 ML IV ONE (12:00)
[2017-04-09] MEDS ORDERED: MIDAZOLAM HCL 2 MG/2 ML VIAL IV ONE (12:00)
[2017-04-09] MEDS ORDERED: PROPOFOL 200 MG/20 ML AMP IV ONE (12:00)
[2017-04-09] MEDS: ALPRAZolam 1 MG TAB PO PRN ×2 (14:15→21:45)
[2017-04-09] MEDS: ACETAMINOPHEN/HYDROcodone 325 MG/7.5 MG TAB PO PRN (17:11)
[2017-04-09] MEDS: ceFAZolin 2 GM PREMIX 50 ML IV SCH (17:15)
--- NOTE | 2017-04-09 18:53 | EKG ---
Date Performed: 04/08/2017 Time Performed: 23:17:09 PTAGE: 61 years EKG: Sinus rhythm NORMAL ECG PREVIOUS TRACING : 01/09/2017 23.22 Compared to prior tracing no significant change DOCTOR: Fern Harvey Interpretating Date/Time 04/09/2017 18:51:59
[2017-04-09] MEDS: MORPHINE SULFATE 4 MG/ML INJ IV PUSH PRN (19:25)
[2017-04-09] MEDS: traZODone HCL 100 MG TAB PO SCH (20:36)
[2017-04-09] MEDS: SODIUM CHLORIDE 0.9% FLUSH 10 ML FLUSH IV FLUSH SCH (20:36)
[2017-04-09] MEDS: VANCOMYCIN INJ 1,000 MG in SODIUM CHLOR 0.9% 250 ML INJ 250 ML IV SCH (21:45)
[2017-04-10] VITALS: BP_SYST 103; BP_SYST 150; BP_DIAS 73; PULSE 92; RESP 14; RESP 16; TEMP 98.6; O2SAT 92
[2017-04-10] MEDS: ceFAZolin 2 GM PREMIX 50 ML IV SCH ×3 (00:08→16:28)
[2017-04-10] MEDS: ACETAMINOPHEN/HYDROcodone 325 MG/7.5 MG TAB PO PRN ×5 (00:51→21:10)
[2017-04-10] MEDS: MORPHINE SULFATE 4 MG/ML INJ IV PUSH PRN ×3 (01:40→22:36)
[2017-04-10] MEDS: LACTATED RINGER'S 1000 ML INJ 1,000 ML IV SCH (04:15)
--- NOTE | 2017-04-10 06:30 | PD.ORT.PN ---
Subjective Subjective Remarks Resting comfortably with no new complaints to the left leg. Is concerned about a rash and she has occasionally. Typically she takes a cortisone cream to help. Objective Vitals Vital Signs Date Time Temp Pulse Resp B/P (MAP) Pulse Ox O2 Delivery O2 Flow Rate FiO2 04/09/17 20:30 98.0 99 16 121/77 (92) 97 04/09/17 18:13 16 04/09/17 16:00 98.1 89 16 136/73 (94) 95 04/09/17 13:24 98 Nasal Cannula 04/09/17 12:00 98.3 95 18 138/65 (89) 99 04/09/17 12:00 98.4 89 14 106/60 (75) 97 Nasal Cannula 1.5 04/09/17 11:45 91 14 112/62 (79) 96 Nasal Cannula 1.5 04/09/17 11:30 90 14 114/60 (78) 95 Nasal Cannula 1.5 04/09/17 11:15 94 14 107/63 (78) 99 Nasal Cannula 2 04/09/17 11:07 98.4 95 14 112/61 (78) 99 Nasal Cannula 2 04/09/17 08:00 98.8 100 18 106/63 (77) 91 04/09/17 08:00 16 I/O 04/09/17 04/09/17 04/09/17 04/10/17 04/10/17 04/10/17 07:00 15:00 23:00 07:00 15:00 23:00 Intake Total 0 ml 800 ml 480 ml Output Total 25 ml Balance 0 ml 775 ml 480 ml Intake Oral 0 ml 480 ml Other 800 ml Output Estimated Blood Loss 25 ml # Voids 1 3 # Bowel Movements 0 0 Result Diagram: 04/08/17222604/08/172226 Imaging Last 24 hours Impressions Knee X-Ray 04/08/172213 Signed Impressions: Service Date/Time: Saturday, April 08, 2017 22:52 - CONCLUSION: Transverse fracture through the distal femoral metaphysis Kenneth Pérez MD Femur X-Ray 04/08/172213 Signed Impressions: Service Date/Time: Saturday, April 08, 2017 22:51 - CONCLUSION: Left total hip otherwise the longstem femoral component. No complications or fracture Kenneth Pérez MD Chest X-Ray 04/08/17 2208 Signed Impressions: Service Date/Time: Saturday, April 08, 2017 22:47 - CONCLUSION: Normal examination. Kenneth Pérez MD Objective Remarks Bilateral upper extremities: Full range of motion neurovascularly intact Right lower extremity: Full range of motion neurovascularly intact Left lower extremity: Clean dry dressings intact. Knee immobilizer in place distally intact sensation good capillary refills with active dorsiflexion plantar flexion of foot Assessment & Plan Assessment and Plan Left distal femur fracture status post percutaneous pinning POD 1 Strict nonweightbearing left lower extremity. Knee immobilizer at all times with no active leglifts, quad sets or range of motion of knee Daily dressing changes beginning POD 2 Lovenox Case management for rehabilitation placement Follow-up with Dr. Aiken or PA in 2 weeks Reese Ortiz Jr. Apr 10, 2017 06:30
[2017-04-10] MEDS ORDERED: CALCTAB19 PO (06:35)
[2017-04-10] MEDS ORDERED: WHEEMIS3 (06:35)
[2017-04-10] MEDS ORDERED: XARE10TA PO (06:35)
[2017-04-10] MEDS ORDERED: HYDR-3583 PO (06:35)
[2017-04-10] MEDS ORDERED: VITA500012 PO (06:35)
[2017-04-10 07:05] LABS: BASOPHIL % 0.4 % (0.0-2.0); EOSINOPHIL # 0.1 TH/MM3 (0-0.4); HEMATOCRIT 23.2 % (35.0-46.0); HEMO FLAGS DIFF FINAL; LYMPHOCYTE # 0.8 TH/MM3 (1.0-4.8); MEAN CELL VOLUME 100.8 FL (80.0-100.0); MEAN CORPUSCULAR HEMOGLOBIN 33.1 PG (27.0-34.0); MEAN CORPUSCULAR HGB CONC 32.9 % (32.0-36.0); MONO % 7.7 % (0.0-8.0); NEUT % 75.9 % (16.0-70.0); PLATELET COUNT 194 TH/MM3 (150-450); RED CELL DISTRIBUTION WIDTH 16.2 % (11.6-17.2); WHITE BLOOD COUNT 5.3 TH/MM3 (4.0-11.0)
[2017-04-10 07:38] LABS: BICARBONATE 27.7 MEQ/L (21.0-32.0); POTASSIUM 4.2 MEQ/L (3.5-5.1)
[2017-04-10 08:00] VITALS: BP 101/64; PULSE 87; RESP 16; TEMP 98.8; O2SAT 93
[2017-04-10] MEDS: SODIUM CHLORIDE 0.9% FLUSH 10 ML FLUSH IV FLUSH SCH ×2 (09:00→21:05)
[2017-04-10] MEDS: ENOXAPARIN SODIUM 40 MG/0.4 ML SYRINGE SQ SCH (10:00)
[2017-04-10] MEDS: OXcarbazepine 300 MG TAB PO SCH ×2 (10:02→21:04)
[2017-04-10] MEDS: ALPRAZolam 1 MG TAB PO PRN ×2 (10:02→16:28)
[2017-04-10] MEDS: DOCUSATE SODIUM 50 MG/SENNA 8.6 MG TAB PO SCH ×2 (10:02→21:04)
[2017-04-10] MEDS: VENLAFAXINE HCL 75 MG TAB PO SCH ×2 (10:03→21:04)
[2017-04-10] MEDS: CHOLECALCIFEROL (VIT D3) 1000 UNIT TAB PO SCH (10:03)
[2017-04-10] MEDS: VANCOMYCIN INJ 1,000 MG in SODIUM CHLOR 0.9% 250 ML INJ 250 ML IV SCH ×2 (11:44→22:33)
[2017-04-10 12:00] VITALS: BP 112/70; PULSE 81; RESP 16; TEMP 98.4; O2SAT 95
--- NOTE | 2017-04-10 14:55 | HHI.PR ---
Subjective Remarks Follow-up for left distal femur fracture Patient stated that she needs her Latuda restarted. She also declined taking Lovenox. Patient also was concerned that she was not getting pain medication. I explained to patient due to low blood pressure was held, but since it has improved she should be regular pain medication. Patient also asking to be started on oral steroids since her eczema is acting up. She stated usually when she has a rash from her eczema she is prone oral steroids and it resolves. Discussed with patient's nurse. She denies any chest pain, shortness of breathing, palpitation, lightheadedness or dizziness. Objective Vitals Vital Signs Date Time Temp Pulse Resp B/P (MAP) Pulse Ox O2 Delivery O2 Flow Rate FiO2 04/10/17 08:00 98.8 87 16 101/64 (76) 93 04/10/17 00:00 98.6 92 16 103/73 (83) 92 04/10/17 00:00 98.6 92 14 150/73 (98) 92 04/09/17 20:30 98.0 99 16 121/77 (92) 97 04/09/17 18:13 16 04/09/17 16:00 98.1 89 16 136/73 (94) 95 I/O 04/09/17 04/09/17 04/09/17 04/10/17 04/10/17 04/10/17 07:00 15:00 23:00 07:00 15:00 23:00 Intake Total 0 ml 800 ml 480 ml 300 ml Output Total 25 ml Balance 0 ml 775 ml 480 ml 300 ml Intake Oral 0 ml 480 ml IV Total 300 ml Other 800 ml Output Estimated Blood Loss 25 ml # Voids 1 3 # Bowel Movements 0 0 Result Diagram: 04/10/1720 04/10/1720 Objective Remarks GENERAL: This is a very thin female patient in no acute distress. SKIN: Cool and dry. Bilateral hands with significant palmar eczema noted. CARDIOVASCULAR: Tachycardic rate and regular rhythm without murmurs, gallops, or rubs. RESPIRATORY: Breath sounds somewhat diminished but equal bilaterally. No wheezes , rales, or rhonchi. GASTROINTESTINAL: Abdomen soft, non-tender, nondistended. No guarding. Bowel sounds hypoactive. MUSCULOSKELETAL: Extremities without clubbing, cyanosis, or edema. No calf tenderness.bilateral lower extremity leg sensation is tach and strengths also intact. Medications and IVs Current Medications Sodium Chloride 1,000 ml @ 125 mls/hr Q8H IV Last administered on 04/08/17 22:34; Start 04/08/17 at 22:15; Stop 04/09/17 at 01:22; Status DC Morphine Sulfate (Morphine Inj) 4 mg ONCE ONCE IV PUSH Last administered on 22:34; Start 04/08/17 at 22:15; Stop 04/08/17 at 22:16; Status DC Ondansetron HCl (Zofran Inj) 4 mg ONCE ONCE IV PUSH Last administered on 04/08 22:35; Start 04/08/17 at 22:15; Stop 04/08/17 at 22:16; Status DC Morphine Sulfate (Morphine Inj) 4 mg ONCE ONCE IV PUSH Last administered on 23:55; Start 04/09/17 at 00:00; Stop 04/09/17 at 00:01; Status DC Hydromorphone HCl (Dilaudid Pf Inj) 1 mg ONCE ONCE IV PUSH Last administered on 04/09/17 00:53; Start 04/09/17 at 01:00; Stop 04/09/17 at 01:01; Status DC Lactated Ringer's 1,000 ml @ 100 mls/hr Q10H IV Last administered on 02:32; Start 04/09/17 at 01:04; Stop 04/09/17 at 11:35; Status DC Sodium Chloride (NS Flush) 2 ml UNSCH PRN IV FLUSH FLUSH AFTER USING IV ACCESS ; Start 04/09/17 at 01:15; Stop 04/09/17 at 11:36; Status DC Sodium Chloride (NS Flush) 2 ml BID IV FLUSH ; Start 04/09/17 at 09:00; Stop 04/09/17 at 11:36; Status DC Acetaminophen (Tylenol) 650 mg Q4H PRN PO TEMP > 100.4; Start 04/09/17 at 01: 15 Ondansetron HCl (Zofran Inj) 4 mg Q6H PRN IVP NAUSEA OR VOMITING; Start at 01:15 Naloxone HCl (Narcan Inj) 0.4 mg UNSCH PRN IV PUSH SEE LABEL COMMENTS; Start 04/09/17 at 01:15 Magnesium Hydroxide (Milk Of Magnesia Liq) 30 ml Q12H PRN PO Mild constipation ; Start 04/09/17 at 01:15 Sennosides (Senokot) 17.2 mg Q12H PRN PO Moderate constipation; Start at 01:15 Bisacodyl (Dulcolax Supp) 10 mg DAILY PRN RECTAL SEVERE CONSITIPATION; Start 04/09/17 at 01:15 Hydromorphone HCl (Dilaudid Pf Inj) 0.5 mg Q4H PRN IV PUSH pain > 5 Last administered on 04/09/17 12:23; Start 04/09/17 at 01:15; Stop 04/09/17 at 14 :11; Status DC Lactated Ringer's 1,000 ml @ 30 mls/hr Q24H PRN IV SEE LABEL COMMENTS; Start 04/09/17 at 02:15; Stop 04/09/17 at 11:35; Status DC Sodium Chloride 500 ml @ 30 mls/hr [id number] PRN IV SEE LABEL COMMENTS; Start at 02:15; Stop 04/09/17 at 11:35; Status DC Povidone Iodine (Betadine 5% Antisepsis Kit) 1 applic TOP BOTTOM ATTACHING MACHINE OPERATOR PRN EACH NARE SEE LABEL COMMENTS; Start 04/09/17 at 02:15; Stop 04/12/17 at 02:14 Chlorhexidine Gluconate (Chlorhexidine 2% Cloth) 3 pack TOP BOTTOM ATTACHING MACHINE OPERATOR PRN TOPICAL SEE LABEL COMMENTS; Start 04/09/17 at 02:15; Stop 04/12/17 at 02:14 Hydromorphone HCl (Dilaudid Pf Inj) 1 mg ONCE ONCE IV PUSH Last administered on 04/09/17 03:37; Start 04/09/17 at 03:30; Stop 04/09/17 at 03:31; Status DC Lorazepam (Ativan Inj) 1 mg Q4H PRN IV PUSH withdrawal sx/seizure activity Last administered on 04/09/17 04:59; Start 04/09/17 at 05:00 Oxcarbazepine (Trileptal) 300 mg BID PO Last administered on 04/10/17 10:02; Start 04/09/17 at 09:00 Trazodone HCl (Desyrel) 300 mg HS PO Last administered on 04/09/17 20:36; Start 04/09/17 at 21:00 Mirtazapine (Remeron) 45 mg HS PO Last administered on 04/09/17 20:36; Start 04/09/17 at 05:15 Venlafaxine HCl (Effexor) 150 mg Q12H PO Last administered on 04/10/17 10:03 ; Start 04/09/17 at 08:00 Alprazolam (Xanax) 1 mg Q8HR PRN PO anxiety Last administered on 04/10/17 10: 02; Start 04/09/17 at 05:00 Senna/Docusate Sodium (Rachael-Colace) 1 tab BID PO Last administered on 10:02; Start 04/09/17 at 09:00 Sennosides (Senokot) 17.2 mg Q12H PRN PO Moderate constipation; Start at 05:00; Status Cancel Lactulose (Lactulose Liq) 30 ml DAILY PRN PO SEVERE CONSITIPATION; Start 04/09 at 05:00 Multi-Ingredient Ointment (Eucerin Cream) 1 applic Q6H PRN TOPICAL ECZEMA; Start 04/09/17 at 05:30 Acetaminophen 100 ml @ As Directed STK-MED ONCE IV ; Start 04/09/17 at 09:56; Stop 04/09/17 at 09:57; Status DC Gentamicin Sulfate (Gentamicin Inj) 240 mg STK-MED ONCE .ROUTE Last administered on 04/09/17 10:30; Start 04/09/17 at 09:56; Stop 04/09/17 at 09 :57; Status DC Vancomycin HCl (Vancomycin Inj) 1,000 mg STK-MED ONCE .ROUTE Last administered on 04/09/17 10:34; Start 04/09/17 at 10:13; Stop 04/09/17 at 10:14; Status DC Cefazolin Sodium (Ancef Inj) 1,000 mg STK-MED ONCE .ROUTE Last administered on 04/09/17 10:30; Start 04/09/17 at 10:13; Stop 04/09/17 at 10:14; Status DC Lactated Ringer's 1,000 ml @ 80 mls/hr [id number] IV Last administered on 04:15; Start 04/09/17 at 11:00 Sodium Chloride (NS Flush) 2 ml UNSCH PRN IV FLUSH FLUSH AFTER USING IV ACCESS ; Start 04/09/17 at 11:45 Sodium Chloride (NS Flush) 2 ml BID IV FLUSH ; Start 04/09/17 at 21:00 Miscellaneous Information (Post-op Orders (for Pharmacy)) STAT ONCE XX ; Start 04/09/17 at 10:30; Stop 04/09/17 at 11:34; Status DC Enoxaparin Sodium (Lovenox Inj) 40 mg Q24H SQ ; Start 04/10/17 at 10:00 Cefazolin Sodium/ Dextrose 50 ml @ 100 mls/hr Q8H IV Last administered on 10:01; Start 04/09/17 at 17:00; Stop 04/11/17 at 09:29 Vancomycin HCl 1000 mg/Sodium Chloride 250 ml @ 250 mls/hr Q12H IV Last administered on 04/10/17 11:44; Start 04/09/17 at 22:45; Stop 04/11/17 at 11 :44 Miscellaneous Information UNSCH PRN XX SEE LABEL COMMENTS; Start 04/09/17 at 10:30; Stop 04/09/17 at 11:36; Status DC Acetaminophen/ Hydrocodone Bitart ([place] 7.5-325 Mg) 1 tab Q3H PRN PO PAIN SCALE 3 TO 10 Last administered on 04/10/17 10:02; Start 04/09/17 at 10:30 Diphenhydramine HCl (Benadryl) 25 mg Q6H PRN PO ITCHING; Start 04/09/17 at 10: 30 Morphine Sulfate (Morphine Inj) 4 mg Q3H PRN IV PUSH break thru pain Last administered on 04/10/17 14:14; Start 04/09/17 at 10:30 Cholecalciferol (Vitamin D3) 1,000 units DAILY PO Last administered on 10:03; Start 04/10/17 at 09:00 Ergocalciferol (Drisdol) 50,000 units Q7D PO Last administered on 04/09/17 12 :24; Start 04/09/17 at 12:00 Alprazolam (Xanax) 2 mg Q6HR PRN PO CHRONIC BENZO Last administered on t 21:45; Start 04/09/17 at 19:15 A/P Problem List: (1) Fracture of left femur ICD Code: S72.92XA - Unspecified fracture of left femur, initial encounter for closed fracture Status: Acute (2) Bipolar affective disorder, depressed ICD Code: F31.30 - Bipolar disorder, current episode depressed, mild or moderate severity, unspecified Status: Acute (3) History of seizures ICD Code: Z87.898 - Personal history of other specified conditions (4) 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 Narayanan is a pleasant 61-year-old female with a history of multiple surgeries to left hip and leg, bipolar disorder, and anxiety who presented to the emergency room on 04/08/2017 after a fall while attempting to bringing groceries in from her car. She states she had immediate severe left leg pain following a fall and a neighbor alerted EMS and she was transported to the hospital. She was found to have a left distal femur fracture in the ED and she was admitted to medical service for management of medical problems prior to surgical correction by orthopedic surgery. Left distal femur fracture - Orthopedic surgeon following. Management per orthopedic surgeon. -Status post Open reduction internal fixation left distal femur on 04/09 -Per orthopedic strict nonweightbearing left lower extremity, knee immobilizer at all times with no active leg lifts, quad sets or range of motion of knee, Daily dressing changes beginning POD 2, Lovenox, follow-up with Dr. Aiken or [place] in 2 weeks Anemia -Most likely secondary to blood loss during surgery. She is asymptomatic. Transfuse if below 7. No signs of active bleeding. -Continue to monitor and trend. Bipolar disorder -Continue with home regimen. Will restart Latuda. 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 DVT prophylaxis - On Lovenox. Problem Qualifiers (1) Fracture of left femur: Qualified Codes: S72.412D - Displaced unspecified condyle fracture of lower end of left femur, subsequent encounter for closed fracture with routine healing (2) Eczema: Qualified Codes: L30.9 - Dermatitis, unspecified Miriam Austin MD Apr 10, 2017 14:54
[2017-04-10] MEDS: predniSONE 50 MG TAB PO SCH (15:00)
[2017-04-10] MEDS: LURASIDONE 40 MG TAB PO SCH (15:00)
[2017-04-10 16:00] VITALS: BP 109/66; PULSE 85; RESP 18; TEMP 97; O2SAT 97
[2017-04-10] MEDS: GABAPENTIN 300 MG CAP PO SCH (16:25)
[2017-04-10 16:29] VITALS: BP 142/72; PULSE 84; RESP 17; O2SAT 100
[2017-04-10 19:00] VITALS: BP 105/63; PULSE 89; RESP 15; TEMP 98.7; O2SAT 92
[2017-04-10] MEDS: OXYBUTYNIN CHLORIDE 5 MG TAB PO SCH (21:00)
[2017-04-10] MEDS ORDERED: GABAPENTIN 300 MG CAP PO SCH (21:00)
[2017-04-10] MEDS: traZODone HCL 100 MG TAB PO SCH (21:05)
[2017-04-10] MEDS: MIRTAZAPINE 15 MG TAB PO SCH (21:05)
[2017-04-11] VITALS: BP 99/61; PULSE 86; RESP 17; TEMP 97; O2SAT 96
[2017-04-11] MEDS: ceFAZolin 2 GM PREMIX 50 ML IV SCH ×2 (02:56→08:37)
[2017-04-11] MEDS: LACTATED RINGER'S 1000 ML INJ 1,000 ML IV SCH (02:57)
[2017-04-11 04:00] VITALS: BP 100/62; PULSE 99; RESP 16; TEMP 98.8; O2SAT 96
[2017-04-11] MEDS: ACETAMINOPHEN/HYDROcodone 325 MG/7.5 MG TAB PO PRN ×3 (06:07→15:49)
--- NOTE | 2017-04-11 06:42 | PD.ORT.PN ---
Subjective Subjective Remarks Resting comfortably with no new complaints to the left leg. Is concerned about a rash and she has occasionally. Objective Vitals Vital Signs Date Time Temp Pulse Resp B/P (MAP) Pulse Ox O2 Delivery O2 Flow Rate FiO2 04/11/17 04:00 98.8 99 16 100/62 (75) 96 04/11/17 00:00 97.0 86 17 99/61 (74) 96 04/10/17 19:00 98.7 89 15 105/63 (77) 92 04/10/17 16:29 84 17 142/72 (95) 100 04/10/17 16:00 97.0 85 18 109/66 (80) 97 04/10/17 12:00 98.4 81 16 112/70 (84) 95 04/10/17 08:00 98.8 87 16 101/64 (76) 93 I/O 04/10/17 04/10/17 04/10/17 04/11/17 04/11/17 04/11/17 07:00 15:00 23:00 07:00 15:00 23:00 Intake Total 300 ml 880 ml 3010 ml 1084 ml Balance 300 ml 880 ml 3010 ml 1084 ml Intake Oral 580 ml 480 ml 350 ml IV Total 300 ml 300 ml 2530 ml 734 ml # Voids 4 5 6 # Bowel Movements 0 0 0 Result Diagram: 04/10/1761904/10/17 06 Imaging Last 24 hours Impressions Knee X-Ray 04/08/172213 Signed Impressions: Service Date/Time: Saturday, April 08, 2017 22:52 - CONCLUSION: Transverse fracture through the distal femoral metaphysis Kenneth Pérez MD Femur X-Ray 04/08/172213 Signed Impressions: Service Date/Time: Saturday, April 08, 2017 22:51 - CONCLUSION: Left total hip otherwise the longstem femoral component. No complications or fracture Kenneth Pérez MD Chest X-Ray 04/08/172207 Signed Impressions: Service Date/Time: Saturday, April 08, 2017 22:47 - CONCLUSION: Normal examination. Kenneth Pérez MD Objective Remarks Bilateral upper extremities: Full range of motion neurovascularly intact Right lower extremity: Full range of motion neurovascularly intact Left lower extremity: Clean dry dressings intact. Knee immobilizer in place distally intact sensation good capillary refills with active dorsiflexion plantar flexion of foot Assessment & Plan Assessment and Plan Left distal femur fracture status post percutaneous pinning POD 2 Strict nonweightbearing left lower extremity. Knee immobilizer at all times with no active leglifts, quad sets or range of motion of knee Daily dressing changes Lovenox Case management for rehabilitation placement - ortho cleared Follow-up with Dr. Aiken or PA in 2 weeks Reese Ortiz Jr. Apr 11, 2017 06:42
[2017-04-11 07:30] LABS: HEMATOCRIT 22.6 % (35.0-46.0); MEAN CELL VOLUME 101.3 FL (80.0-100.0); MEAN CORPUSCULAR HEMOGLOBIN 34.3 PG (27.0-34.0); MEAN CORPUSCULAR HGB CONC 33.9 % (32.0-36.0); PLATELET COUNT 184 TH/MM3 (150-450); RED BLOOD COUNT 2.23 MIL/MM3 (4.00-5.30); REVIEW FLAG FINAL; WHITE BLOOD COUNT 4.9 TH/MM3 (4.0-11.0)
[2017-04-11 08:00] VITALS: BP 139/56; PULSE 76; RESP 16; TEMP 99.1; O2SAT 94
[2017-04-11 08:34] VITALS: BP 130/84; PULSE 104; RESP 16; TEMP 98.5; O2SAT 95
[2017-04-11] MEDS: SODIUM CHLORIDE 0.9% FLUSH 10 ML FLUSH IV FLUSH SCH (08:34)
[2017-04-11] MEDS: GABAPENTIN 300 MG CAP PO SCH ×3 (08:34→17:39)
[2017-04-11] MEDS: OXYBUTYNIN CHLORIDE 5 MG TAB PO SCH (08:36)
[2017-04-11] MEDS: ALPRAZolam 1 MG TAB PO PRN ×2 (08:36→15:49)
[2017-04-11] MEDS: LURASIDONE 40 MG TAB PO SCH (08:36)
[2017-04-11] MEDS: CHOLECALCIFEROL (VIT D3) 1000 UNIT TAB PO SCH (08:36)
[2017-04-11] MEDS: DOCUSATE SODIUM 50 MG/SENNA 8.6 MG TAB PO SCH (08:36)
[2017-04-11] MEDS: VENLAFAXINE HCL 75 MG TAB PO SCH (08:37)
[2017-04-11] MEDS: MORPHINE SULFATE 4 MG/ML INJ IV PUSH PRN (08:37)
[2017-04-11] MEDS: predniSONE 50 MG TAB PO SCH (08:37)
[2017-04-11] MEDS: OXcarbazepine 300 MG TAB PO SCH (08:37)
[2017-04-11] MEDS: ENOXAPARIN SODIUM 40 MG/0.4 ML SYRINGE SQ SCH (08:39)
[2017-04-11] MEDS ORDERED: ALPR2TAB3 PO (10:49)
[2017-04-11] MEDS: VANCOMYCIN INJ 1,000 MG in SODIUM CHLOR 0.9% 250 ML INJ 250 ML IV SCH (13:03)
--- NOTE | 2017-04-11 13:26 | HHI.PR ---
Subjective Remarks Follow-up for hip fracture Patient is no complaints. She stated pain is controlled. She was eating lunch at the time of her interview. Deny any chest pain, shortness of breathing, palpitation, lightheadedness/ dizziness. Objective Vitals Vital Signs Date Time Temp Pulse Resp B/P (MAP) Pulse Ox O2 Delivery O2 Flow Rate FiO2 04/11/17 08:34 98.5 104 16 130/84 (99) 95 04/11/17 04:00 98.8 99 16 100/62 (75) 96 04/11/17 00:00 97.0 86 17 99/61 (74) 96 04/10/17 19:00 98.7 89 15 105/63 (77) 92 04/10/17 16:29 84 17 142/72 (95) 100 04/10/17 16:00 97.0 85 18 109/66 (80) 97 I/O 04/10/17 04/10/17 04/10/17 04/11/17 04/11/17 04/11/17 07:00 15:00 23:00 07:00 15:00 23:00 Intake Total 300 ml 880 ml 3010 ml 1084 ml Balance 300 ml 880 ml 3010 ml 1084 ml Intake Oral 580 ml 480 ml 350 ml IV Total 300 ml 300 ml 2530 ml 734 ml # Voids 4 5 6 # Bowel Movements 0 0 0 Result Diagram: 04/11/17 0530 04/10/17 0620 Objective Remarks GENERAL: This is a very thin female patient in no acute distress. SKIN: Cool and dry. Bilateral hands with significant palmar eczema noted. CARDIOVASCULAR: Tachycardic rate and regular rhythm without murmurs, gallops, or rubs. RESPIRATORY: Breath sounds somewhat diminished but equal bilaterally. No wheezes , rales, or rhonchi. GASTROINTESTINAL: Abdomen soft, non-tender, nondistended. No guarding. Bowel sounds hypoactive. MUSCULOSKELETAL: Extremities without clubbing, cyanosis, or edema. No calf tenderness.bilateral lower extremity leg sensation is tach and strengths also intact. Medications and IVs Current Medications Sodium Chloride 1,000 ml @ 125 mls/hr Q8H IV Last administered on 04/08/17t 22:34; Start 04/08/17 at 22:15; Stop 04/09/17 at 01:22; Status DC Morphine Sulfate (Morphine Inj) 4 mg ONCE ONCE IV PUSH Last administered on 22:34; Start 04/08/17 at 22:15; Stop 04/08/17 at 22:16; Status DC Ondansetron HCl (Zofran Inj) 4 mg ONCE ONCE IV PUSH Last administered on 04/08 22:35; Start 04/08/17 at 22:15; Stop 04/08/17 at 22:16; Status DC Morphine Sulfate (Morphine Inj) 4 mg ONCE ONCE IV PUSH Last administered on 23:55; Start 04/09/17 at 00:00; Stop 04/09/17 at 00:01; Status DC Hydromorphone HCl (Dilaudid Pf Inj) 1 mg ONCE ONCE IV PUSH Last administered on 04/09/17 00:53; Start 04/09/17 at 01:00; Stop 04/09/17 at 01:01; Status DC Lactated Ringer's 1,000 ml @ 100 mls/hr Q10H IV Last administered on 02:32; Start 04/09/17 at 01:04; Stop 04/09/17 at 11:35; Status DC Sodium Chloride (NS Flush) 2 ml UNSCH PRN IV FLUSH FLUSH AFTER USING IV ACCESS ; Start 04/09/17 at 01:15; Stop 04/09/17 at 11:36; Status DC Sodium Chloride (NS Flush) 2 ml BID IV FLUSH ; Start 04/09/17 at 09:00; Stop 04/09/17 at 11:36; Status DC Acetaminophen (Tylenol) 650 mg Q4H PRN PO TEMP > 100.4; Start 04/09/17 at 01: 15 Ondansetron HCl (Zofran Inj) 4 mg Q6H PRN IVP NAUSEA OR VOMITING; Start at 01:15 Naloxone HCl (Narcan Inj) 0.4 mg UNSCH PRN IV PUSH SEE LABEL COMMENTS; Start 04/09/17 at 01:15 Magnesium Hydroxide (Milk Of Magnesia Liq) 30 ml Q12H PRN PO Mild constipation Last administered on 04/11/17 06:07; Start 04/09/17 at 01:15 Sennosides (Senokot) 17.2 mg Q12H PRN PO Moderate constipation Last administered on 04/11/17 06:07; Start 04/09/17 at 01:15 Bisacodyl (Dulcolax Supp) 10 mg DAILY PRN RECTAL SEVERE CONSITIPATION Last administered on 04/11/17 13:05; Start 04/09/17 at 01:15 Hydromorphone HCl (Dilaudid Pf Inj) 0.5 mg Q4H PRN IV PUSH pain > 5 Last administered on 04/09/17 12:23; Start 04/09/17 at 01:15; Stop 04/09/17 at 14 :11; Status DC Lactated Ringer's 1,000 ml @ 30 mls/hr Q24H PRN IV SEE LABEL COMMENTS; Start 04/09/17 at 02:15; Stop 04/09/17 at 11:35; Status DC Sodium Chloride 500 ml @ 30 mls/hr [id number] PRN IV SEE LABEL COMMENTS; Start at 02:15; Stop 04/09/17 at 11:35; Status DC Povidone Iodine (Betadine 5% Antisepsis Kit) 1 applic NEW CAR DRIVER PRN EACH NARE SEE LABEL COMMENTS; Start 04/09/17 at 02:15; Stop 04/12/17 at 02:14 Chlorhexidine Gluconate (Chlorhexidine 2% Cloth) 3 pack NEW CAR DRIVER PRN TOPICAL SEE LABEL COMMENTS; Start 04/09/17 at 02:15; Stop 04/12/17 at 02:14 Hydromorphone HCl (Dilaudid Pf Inj) 1 mg ONCE ONCE IV PUSH Last administered on 04/09/17 03:37; Start 04/09/17 at 03:30; Stop 04/09/17 at 03:31; Status DC Lorazepam (Ativan Inj) 1 mg Q4H PRN IV PUSH withdrawal sx/seizure activity Last administered on 04/09/17 04:59; Start 04/09/17 at 05:00 Oxcarbazepine (Trileptal) 300 mg BID PO Last administered on 04/11/17 08:37; Start 04/09/17 at 09:00 Trazodone HCl (Desyrel) 300 mg HS PO Last administered on 04/10/17 21:05; Start 04/09/17 at 21:00 Mirtazapine (Remeron) 45 mg HS PO Last administered on 04/10/17 21:05; Start 04/09/17 at 05:15 Venlafaxine HCl (Effexor) 150 mg Q12H PO Last administered on 04/11/17 08:37 ; Start 04/09/17 at 08:00 Alprazolam (Xanax) 1 mg Q8HR PRN PO anxiety Last administered on 04/10/17 10: 02; Start 04/09/17 at 05:00 Senna/Docusate Sodium (Rachael-Colace) 1 tab BID PO Last administered on 08:36; Start 04/09/17 at 09:00 Sennosides (Senokot) 17.2 mg Q12H PRN PO Moderate constipation; Start at 05:00; Status Cancel Lactulose (Lactulose Liq) 30 ml DAILY PRN PO SEVERE CONSITIPATION Last administered on 04/11/17 06:07; Start 04/09/17 at 05:00 Multi-Ingredient Ointment (Eucerin Cream) 1 applic Q6H PRN TOPICAL ECZEMA Last administered on 04/11/17 08:39; Start 04/09/17 at 05:30 Acetaminophen 100 ml @ As Directed STK-MED ONCE IV ; Start 04/09/17 at 09:56; Stop 04/09/17 at 09:57; Status DC Gentamicin Sulfate (Gentamicin Inj) 240 mg STK-MED ONCE .ROUTE Last administered on 04/09/17 10:30; Start 04/09/17 at 09:56; Stop 04/09/17 at 09 :57; Status DC Vancomycin HCl (Vancomycin Inj) 1,000 mg STK-MED ONCE .ROUTE Last administered on 04/09/17 10:34; Start 04/09/17 at 10:13; Stop 04/09/17 at 10:14; Status DC Cefazolin Sodium (Ancef Inj) 1,000 mg STK-MED ONCE .ROUTE Last administered on 04/09/17 10:30; Start 04/09/17 at 10:13; Stop 04/09/17 at 10:14; Status DC Lactated Ringer's 1,000 ml @ 80 mls/hr [id number] IV Last administered on 02:57; Start 04/09/17 at 11:00 Sodium Chloride (NS Flush) 2 ml UNSCH PRN IV FLUSH FLUSH AFTER USING IV ACCESS Last administered on 04/10/17 22:36; Start 04/09/17 at 11:45 Sodium Chloride (NS Flush) 2 ml BID IV FLUSH Last administered on 04/11/17 08 :34; Start 04/09/17 at 21:00 Miscellaneous Information (Post-op Orders (for Pharmacy)) STAT ONCE XX ; Start 04/09/17 at 10:30; Stop 04/09/17 at 11:34; Status DC Enoxaparin Sodium (Lovenox Inj) 40 mg Q24H SQ Last administered on 04/11/17 08:39; Start 04/10/17 at 10:00 Cefazolin Sodium/ Dextrose 50 ml @ 100 mls/hr Q8H IV Last administered on 08:37; Start 04/09/17 at 17:00; Stop 04/11/17 at 09:29; Status DC Vancomycin HCl 1000 mg/Sodium Chloride 250 ml @ 250 mls/hr Q12H IV Last administered on 04/11/17 13:03; Start 04/09/17 at 22:45; Stop 04/11/17 at 11 :44; Status DC Miscellaneous Information UNSCH PRN XX SEE LABEL COMMENTS; Start 04/09/17 at 10:30; Stop 04/09/17 at 11:36; Status DC Acetaminophen/ Hydrocodone Bitart ([place] 7.5-325 Mg) 1 tab Q3H PRN PO PAIN SCALE 3 TO 10 Last administered on 04/11/17 13:02; Start 04/09/17 at 10:30 Diphenhydramine HCl (Benadryl) 25 mg Q6H PRN PO ITCHING; Start 04/09/17 at 10: 30 Morphine Sulfate (Morphine Inj) 4 mg Q3H PRN IV PUSH break thru pain Last administered on 04/11/17 08:37; Start 04/09/17 at 10:30 Cholecalciferol (Vitamin D3) 1,000 units DAILY PO Last administered on 08:36; Start 04/10/17 at 09:00 Ergocalciferol (Drisdol) 50,000 units Q7D PO Last administered on 04/09/17 12 :24; Start 04/09/17 at 12:00 Alprazolam (Xanax) 2 mg Q6HR PRN PO CHRONIC BENZO Last administered on 08:36; Start 04/09/17 at 19:15 Gabapentin (Neurontin) 300 mg HS PO Last administered on 04/10/17 21:04; Start 04/10/17 at 21:00 Gabapentin (Neurontin) 300 mg TID PO Last administered on 04/11/17 13:02; Start 04/10/17 at 18:00 Lurasidone HCl (Latuda) 40 mg DAILY PO Last administered on 04/11/17 08:36; Start 04/10/17 at 15:00 Oxybutynin Chloride (Ditropan) 5 mg Q12HR PO Last administered on 04/11/17 08 :36; Start 04/10/17 at 21:00 Prednisone (Deltasone) 50 mg DAILY PO Last administered on 04/11/17 08:37; Start 04/10/17 at 15:00 A/P Problem List: (1) Fracture of left femur ICD Code: S72.92XA - Unspecified fracture of left femur, initial encounter for closed fracture Status: Acute (2) Bipolar affective disorder, depressed ICD Code: F31.30 - Bipolar disorder, current episode depressed, mild or moderate severity, unspecified Status: Acute (3) History of seizures ICD Code: Z87.898 - Personal history of other specified conditions (4) 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 Narayanan is a pleasant 61-year-old female with a history of multiple surgeries to left hip and leg, bipolar disorder, and anxiety who presented to the emergency room on 04/08/2017 after a fall while attempting to bringing groceries in from her car. She states she had immediate severe left leg pain following a fall and a neighbor alerted EMS and she was transported to the hospital. She was found to have a left distal femur fracture in the ED and she was admitted to medical service for management of medical problems prior to surgical correction by orthopedic surgery. Left distal femur fracture - Orthopedic surgeon following. Management per orthopedic surgeon. -Status post Open reduction internal fixation left distal femur on 04/09 -Per orthopedic strict nonweightbearing left lower extremity, knee immobilizer at all times with no active leg lifts, quad sets or range of motion of knee, Daily dressing changes beginning POD 3, Lovenox, follow-up with Dr. Aiken or [place] in 2 weeks -Patient was cleared by orthopedic surgeon to be discharge. Anemia -Most likely secondary to blood loss during surgery. Hemoglobin has been stable at 7.6 and she is asymptomatic. No signs of active bleeding. -Continue to monitor and trend. Bipolar disorder -Continue with home regimen. Benzodiazepine withdrawal, resolved. 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 Home medication resumed in which symptoms improved. - Lorazepam 1 mg IV every 4 hours when necessary withdrawal symptoms/seizures - Seizure precautions Bilateral hand dermatitis reported by patient as eczema - Eucerin cream to rash q6h - monitor for improvement -On prednisone. DVT prophylaxis - On Lovenox. Discharge Planning Patient medically clear for discharge to rehabilitation facility. I discussed this case with case management and they stated they're waiting for authorization. Problem Qualifiers (1) Fracture of left femur: Qualified Codes: S72.412D - Displaced unspecified condyle fracture of lower end of left femur, subsequent encounter for closed fracture with routine healing (2) Eczema: Qualified Codes: L30.9 - Dermatitis, unspecified Miriam Austin MD Apr 11, 2017 13:26
[2017-04-11] MEDS ORDERED: Eucerin Cream TOPICAL (15:33)
[2017-04-11] MEDS ORDERED: PRED50 PO (15:33)
--- NOTE | 2017-04-11 15:36 | HHI.DS ---
Discharge Summary Admission Date Apr 09, 2017 at 00:20 Discharge Date: Apr 11, 2017 Admitting Diagnosis fracture left femur (1) Fracture of left femur ICD Code: S72.92XA - Unspecified fracture of left femur, initial encounter for closed fracture Diagnosis: Principal Status: Acute (2) Bipolar affective disorder, depressed ICD Code: F31.30 - Bipolar disorder, current episode depressed, mild or moderate severity, unspecified Diagnosis: Secondary Status: Acute (3) History of seizures ICD Code: Z87.898 - Personal history of other specified conditions Diagnosis: Secondary (4) Benzodiazepine withdrawal ICD Code: F13.239 - Sedative, hypnotic or anxiolytic dependence with withdrawal , unspecified Diagnosis: Principal (5) Eczema ICD Code: L30.9 - Dermatitis, unspecified Status: Chronic Procedures See hospital course. Brief History - From Admission Ms. Narayanan is a pleasant 61-year-old female with a history of multiple surgeries to left hip and leg, bipolar disorder, and anxiety who presented to the emergency room on 04/08/2017 after a fall while attempting to bringing groceries in from her car. She states she had immediate severe left leg pain following a fall and a neighbor alerted EMS and she was transported to the hospital. At the time of my visit, she is very tremulous and appears to be withdrawing from benzodiazepines actively. I discussed this with the nurse and put in orders for when necessary Ativan to be given for withdrawal symptoms. She also reports a history of seizures from benzodiazepine withdrawal. The patient reports she takes Trileptal 300 mg in the morning and 300 mg at bedtime, not once a day as reported in the medication reconciliation. The patient is also complaining of severe left lower leg pain that is sharp in nature and radiates down the lower portion of her leg. She states it was somewhat relieved with IV Dilaudid. She does report chronic constipation. Denies any recent fevers, chills, recent illness, cold symptoms, cough, shortness of breath, chest pain, nausea, vomiting , diarrhea, dysuria, hematuria. CBC/BMP: 04/11/17 0530 04/10/17 0620 Significant Findings Laboratory Tests Test 04/08/17 22:19 04/08/17 22:27 04/09/17 16:37 04/10/17 06:20 Urine Leukocyte Esterase MOD (NEG) Red Blood Count 3.55 MIL/MM3 (4.00-5.30) 2.30 MIL/MM3 (4.00-5.30) Hematocrit 34.9 % (35.0-46.0) 23.2 % (35.0-46.0) Mean Platelet Volume 6.5 FL (7.0-11.0) 6.7 FL (7.0-11.0) Neutrophils (%) (Auto) 76.5 % (16.0-70.0) 75.9 % (16.0-70.0) Estimat Glomerular Filtration Rate 84 ML/MIN (>89) Hemoglobin 7.6 GM/DL (11.6-15.3) Mean Corpuscular Volume 100.8 FL (80.0-100.0) Lymphocytes # (Auto) 0.8 TH/MM3 (1.0-4.8) Creatinine 0.49 MG/DL (0.50-1.00) Test 04/11/17 05:30 Red Blood Count 2.23 MIL/MM3 (4.00-5.30) Hemoglobin 7.6 GM/DL (11.6-15.3) Hematocrit 22.6 % (35.0-46.0) Mean Corpuscular Volume 101.3 FL (80.0-100.0) Mean Corpuscular Hemoglobin 34.3 PG (27.0-34.0) Mean Platelet Volume 6.9 FL (7.0-11.0) Imaging Last Impressions Lower Extremity CT 04/09/17 0000 Signed Impressions: Service Date/Time: Sunday, April 09, 2017 07:46 - CONCLUSION: Comminuted fracture deformity of the distal femur Reese Whitmore MD Knee X-Ray 04/09/17 0000 Signed Impressions: Service Date/Time: Sunday, April 09, 2017 10:46 - CONCLUSION: Cortical screws as above. Jose G Craft MD FACR Femur X-Ray 04/08/17 [id number] Signed Impressions: Service Date/Time: Saturday, April 08, 2017 22:51 - CONCLUSION: Left total hip otherwise the longstem femoral component. No complications or fracture Kenneth Pérez MD Chest X-Ray 04/08/17 0689 Signed Impressions: Service Date/Time: Saturday, April 08, 2017 22:47 - CONCLUSION: Normal examination. Kenneth Pérez MD PE at Discharge GENERAL: This is a very thin female patient in no acute distress. SKIN: Cool and dry. Bilateral hands with significant palmar eczema noted. CARDIOVASCULAR: Tachycardic rate and regular rhythm without murmurs, gallops, or rubs. RESPIRATORY: Breath sounds somewhat diminished but equal bilaterally. No wheezes , rales, or rhonchi. GASTROINTESTINAL: Abdomen soft, non-tender, nondistended. No guarding. Bowel sounds hypoactive. MUSCULOSKELETAL: Extremities without clubbing, cyanosis, or edema. No calf tenderness.bilateral lower extremity leg sensation is tach and strengths also intact. Pt update on day of discharge Please see progress note from the day of discharge for further information. Hospital Course Ms. Narayanan is a pleasant 61-year-old female with a history of multiple surgeries to left hip and leg, bipolar disorder, and anxiety who presented to the emergency room on 04/08/2017 after a fall while attempting to bringing groceries in from her car. She states she had immediate severe left leg pain following a fall and a neighbor alerted EMS and she was transported to the hospital. She was found to have a left distal femur fracture in the ED and she was admitted to medical service for management of medical problems prior to surgical correction by orthopedic surgery. Left distal femur fracture -Orthopedic surgeon was consulted and she had an open reduction internal fixation left distal femur on 04/09 -Per orthopedic strict nonweightbearing left lower extremity, knee immobilizer at all times with no active leg lifts, quad sets or range of motion of knee, Daily dressing changes beginning POD 3, Lovenox, follow-up with Dr. Price or [place] in 2 weeks -Patient was cleared by orthopedic surgeon to be discharge. Per physical therapist recommended SNF. Anemia -Most likely secondary to blood loss during surgery. Hemoglobin has been stable at 7.6 and she is asymptomatic. No signs of active bleeding. Bipolar disorder -Continue with home regimen. Benzodiazepine withdrawal, resolved. 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 Home medication resumed in which symptoms improved. Bilateral hand dermatitis reported by patient as eczema - Eucerin cream to rash q6h - monitor for improvement -Patient stated that prednisone is only medication that worked for her rash. Patient was started on prednisone. . Pt Condition on Discharge: Stable Discharge Disposition: Discharge to SNF Discharge Time: > 30 minutes Discharge Instructions DIET: Follow Instructions for: Heart Healthy Diet Activities you can perform: See Additionl Instruction Other Activity Instructions: Strict nonweightbearing left lower extremity. Knee immobilizer at all times with no active leglifts, quad sets or range of motion of knee Daily dressing changes Follow up Referrals: Orthopedics - 2 Weeks [facility] with Bin Price MD [facility]/ - Daily New Medications: Calcium Carbonate-Vitamin D (Calcium 600+D 200) 600-200 Mg-Unit Tab 1 TAB PO BID for Nutritional Supplement, #90 TAB 0 Refills Ergocalciferol (Ergocalciferol) 50,000 Unit Cap 60093 UNITS PO Q7D for Nutritional Supplement, #8 CAP Hydrocodone-Acetaminophen (Hydrocodone-Acetaminophen) 10-325 mg Tab 1 TAB PO Q4H PRN for PAIN, #40 TAB 0 Refills Rivaroxaban (Xarelto) 10 Mg Tab 10 MG PO DAILY for Blood Clot Prevention, #21 TAB 0 Refills Wheelchair Elevated Leg (Wheelchair Elevated Leg) 1 Mis Mis EA .ROUTE DIRECTED, #1 0 Refills Prednisone (Prednisone) 50 Mg Tab 50 MG PO DAILY for Rash, #5 TAB 0 Refills [Eucerin Cream] () 120 APPLIC/120 GM CR 1 APPLIC TOPICAL Q6H PRN for ECZEMA, #1 TUBE 0 Refills Continued Medications: Alendronate (Alendronate) 70 Mg Tab 70 MG PO Q7D for Osteporosis Treatment, #4 TAB 0 Refills Alprazolam (Alprazolam) 2 Mg Tab 2 MG PO Q8H PRN for ANXIETY, #10 TAB (This prescription has been renewed) Folic Acid (Folic Acid) 800 Mcg Tab 1 MG PO DAILY for Nutritional Supplement, TAB 0 Refills Gabapentin (Gabapentin) 300 Mg Cap 300 MG PO HS, #30 CAP 0 Refills Gabapentin (Neurontin) 300 Mg Cap 300 MG PO TID for health, #90 CAP Lurasidone (Latuda) 40 Mg Tab 40 MG PO DAILY for health, #30 TAB Mirtazapine (Remeron) 45 Mg Tab 45 MG PO HS for Depression Control, #30 TAB 0 Refills Oxcarbazepine (Oxcarbazepine) 300 Mg Tab 300 MG PO DAILY for health, #60 TAB Oxybutynin (Ditropan) 5 Mg Tab 5 MG PO Q12HR for Urinary Symptom Managemen, #60 TAB 0 Refills Trazodone (Trazodone) 300 Mg Tab 300 MG PO HS for health, #30 TAB 0 Refills Venlafaxine (Effexor) 75 Mg Tab 150 MG PO Q12H, #120 TAB 0 Refills Discontinued Medications: Hydrochlorothiazide (Hydrochlorothiazide) 25 Mg Tab 25 MG PO DAILY, #30 TAB 0 Refills Mirtazapine (Mirtazapine) 15 Mg Tab 45 MG PO HS for health, #30 TAB VanMiriam MD Apr 11, 2017 15:36
== END 2017-04-11 17:54 | DRG 481 ==
LOC: NEPD 19:10 → NEDA 04-09 00:20 → N06A 04-09 01:51
PROVIDERS: ADMIT Family Medicine; ATTEND Family Medicine
PROC: 0QSC04Z Reposition Left Lower Femur with Internal Fixation Device, Open Approach (ICD-10-PCS; principal; 2017-04-09 10:09)
DX: S72.462A Displaced supracondylar fracture with intracondylar extension of lower end of left femur, initial encounter for closed fracture (principal); D62 Acute posthemorrhagic anemia; F13.230 Sedative, hypnotic or anxiolytic dependence with withdrawal, uncomplicated; F31.31 Bipolar disorder, current episode depressed, mild; Z86.14 Personal history of Methicillin resistant Staphylococcus aureus infection; F17.210 Nicotine dependence, cigarettes, uncomplicated; F41.9 Anxiety disorder, unspecified; K21.9 Gastro-esophageal reflux disease without esophagitis; K59.09 Other constipation; L30.9 Dermatitis, unspecified; M81.0 Age-related osteoporosis without current pathological fracture; W01.0XXA Fall on same level from slipping, tripping and stumbling without subsequent striking against object, initial encounter; M19.90 Unspecified osteoarthritis, unspecified site; Z96.642 Presence of left artificial hip joint
CPT/HCPCS: 71010; 73552; 73560; 73700; 76000; 76937; 80048; 81001; 82652; 85025; 85027; 85610; 85730; 86850; 86900; 86901; 93005; 94150; 96361; 96374; 96375; 96376; J1170; C1713; J0131; J0690; J1100; J1580; J1650; J2060; J2250; J2270; J2405; J3010; J3370; J7030; J7050; J7120; J7512; L1830